=== PATIENT | male | born 1940 | race Caucasian/White ===

== ENCOUNTER → 2020-11-11 14:45 | Outpatient (BNVA) | payer MEDICARE, SELFPAY | PROVIDERS: Family Provider Family Medicine; PCP Family Medicine; Visit Provider Family Medicine | DX: I10 Essential (primary) hypertension (principal); E78.2 Mixed hyperlipidemia; E11.40 Type 2 diabetes mellitus with diabetic neuropathy, unspecified; M10.9 Gout, unspecified; Z79.4 Long term (current) use of insulin | CPT/HCPCS: 80053; 80061; 83036 ==

== ENCOUNTER → 2021-01-06 14:16 | Outpatient (BNVA) | payer MEDICARE, SELFPAY | PROVIDERS: Family Provider Family Medicine; PCP Family Medicine; Referring Provider Family Medicine; Visit Provider Family Medicine | DX: I13.0 Hypertensive heart and chronic kidney disease with heart failure and stage 1 through stage 4 chronic kidney disease, or unspecified chronic kidney disease (principal); N18.5 Chronic kidney disease, stage 5; I50.33 Acute on chronic diastolic (congestive) heart failure | CPT/HCPCS: 80048 ==

== ENCOUNTER → 2021-03-05 11:44 | Outpatient (BNVA) | payer MEDICARE, SELFPAY | PROVIDERS: Family Provider Family Medicine; PCP Family Medicine; Visit Provider Family Medicine | DX: J44.9 Chronic obstructive pulmonary disease, unspecified (principal); N18.5 Chronic kidney disease, stage 5; Z79.4 Long term (current) use of insulin; E11.22 Type 2 diabetes mellitus with diabetic chronic kidney disease; I12.0 Hypertensive chronic kidney disease with stage 5 chronic kidney disease or end stage renal disease | CPT/HCPCS: 80053; 83036; 83735; 84100; 85025 ==

== ENCOUNTER 2021-03-18 06:00 | Outpatient (RCR) | payer MEDICARE, SELFPAY | END 2021-03-25 23:59 | disposition home or self-care (01) | LOC: MOT 06:00 | PROVIDERS: PCP Family Medicine; Visit Provider Family Medicine | DX: I50.33 Acute on chronic diastolic (congestive) heart failure (principal) | CPT/HCPCS: 97140; 97166 ==

== ENCOUNTER → 2021-04-07 17:30 | Outpatient (BNVA) | payer MEDICARE, SELFPAY | PROVIDERS: PCP Family Medicine; Visit Provider Family Medicine | DX: E11.9 Type 2 diabetes mellitus without complications (principal); N18.5 Chronic kidney disease, stage 5; I10 Essential (primary) hypertension; L97.929 Non-pressure chronic ulcer of unspecified part of left lower leg with unspecified severity; I50.33 Acute on chronic diastolic (congestive) heart failure; E88.09 Other disorders of plasma-protein metabolism, not elsewhere classified; E46 Unspecified protein-calorie malnutrition; L97.922 Non-pressure chronic ulcer of unspecified part of left lower leg with fat layer exposed; E87.8 Other disorders of electrolyte and fluid balance, not elsewhere classified; E87.5 Hyperkalemia; E83.39 Other disorders of phosphorus metabolism; R01.1 Cardiac murmur, unspecified; D63.1 Anemia in chronic kidney disease; Z91.19 Patient's noncompliance with other medical treatment and regimen; Z59.8 Other problems related to housing and economic circumstances; Z79.4 Long term (current) use of insulin | CPT/HCPCS: 80053; 81000; 83735; 84100; 85025 ==

== ENCOUNTER 2021-04-08 13:32 | Outpatient (CLI) | payer MEDICARE, SELFPAY | END 2021-04-08 13:33 | disposition home or self-care (01) | PROVIDERS: PCP Family Medicine; Visit Provider Nurse Practitioner Family | DX: E11.622 Type 2 diabetes mellitus with other skin ulcer (principal); L97.821 Non-pressure chronic ulcer of other part of left lower leg limited to breakdown of skin; Z87.891 Personal history of nicotine dependence | CPT/HCPCS: 11042; 87070; 87077; 87176; 87186; 87205; G0463 ==

== ENCOUNTER 2021-04-11 14:34 | Outpatient (CLI) | payer MEDICARE, SELFPAY | END 2021-04-11 14:35 | disposition home or self-care (01) | LOC: WOUND 14:35 | PROVIDERS: PCP Family Medicine; Visit Provider Surgery | DX: L97.821 Non-pressure chronic ulcer of other part of left lower leg limited to breakdown of skin; E11.622 Type 2 diabetes mellitus with other skin ulcer | CPT/HCPCS: 29581 ==

== ENCOUNTER 2021-04-15 13:43 | Outpatient (CLI) | payer MEDICARE, SELFPAY | END 2021-04-15 13:44 | disposition home or self-care (01) | LOC: WOUND 13:46 | PROVIDERS: PCP Family Medicine; Visit Provider Nurse Practitioner Family | DX: E11.622 Type 2 diabetes mellitus with other skin ulcer (principal); L97.822 Non-pressure chronic ulcer of other part of left lower leg with fat layer exposed; Z87.891 Personal history of nicotine dependence | CPT/HCPCS: 11042 ==

== ENCOUNTER 2021-04-22 13:38 | Outpatient (CLI) | payer MEDICARE, SELFPAY | END 2021-04-22 13:39 | disposition home or self-care (01) | LOC: WOUND 13:41 | PROVIDERS: PCP Family Medicine; Visit Provider Thoracic Surgery (Cardiothoracic Vascular Surgery) | DX: E11.622 Type 2 diabetes mellitus with other skin ulcer (principal); L97.822 Non-pressure chronic ulcer of other part of left lower leg with fat layer exposed; Z87.891 Personal history of nicotine dependence | CPT/HCPCS: 11042; 87070; 87077; 87176; 87186; 87205; A6252 ==

== ENCOUNTER 2021-04-25 14:04 | Outpatient (CLI) | payer MEDICARE, SELFPAY | END 2021-04-25 14:05 | disposition home or self-care (01) | LOC: WOUND 14:05 | PROVIDERS: PCP Family Medicine; Visit Provider Nurse Practitioner Family | DX: E11.622 Type 2 diabetes mellitus with other skin ulcer; L97.822 Non-pressure chronic ulcer of other part of left lower leg with fat layer exposed; I87.2 Venous insufficiency (chronic) (peripheral) | CPT/HCPCS: 29581 ==

== ENCOUNTER 2021-04-29 13:06 | Outpatient (CLI) | payer MEDICARE, SELFPAY | END 2021-04-29 13:07 | disposition home or self-care (01) | LOC: WOUND 13:07 | PROVIDERS: PCP Family Medicine; Visit Provider Thoracic Surgery (Cardiothoracic Vascular Surgery) | DX: E11.622 Type 2 diabetes mellitus with other skin ulcer (principal); L97.822 Non-pressure chronic ulcer of other part of left lower leg with fat layer exposed; Z87.891 Personal history of nicotine dependence | CPT/HCPCS: 11042 ==

== ENCOUNTER 2021-05-06 14:03 | Outpatient (CLI) | payer MEDICARE, SELFPAY | END 2021-05-06 14:04 | disposition home or self-care (01) | PROVIDERS: PCP Family Medicine; Visit Provider Thoracic Surgery (Cardiothoracic Vascular Surgery) | DX: E11.622 Type 2 diabetes mellitus with other skin ulcer (principal); L97.822 Non-pressure chronic ulcer of other part of left lower leg with fat layer exposed; Z87.891 Personal history of nicotine dependence | CPT/HCPCS: 11042 ==

== ENCOUNTER 2021-05-14 06:55 | Outpatient (CLI) | payer MEDICARE, SELFPAY ==
--- NOTE | 2021-05-14 07:08 | USCV_ITS ---
Leonel Driscoll Age: 81 Gender: M : 1940 Exam Date: 05/14/2021 06:55 Ordering Phys: Leonel Nye MD (Andy) ([email or web address]) Technologist: Tex Hartmann Sales And Marketing Representative Exam Location[place] [facility] [place] Indication: TYPE II DM WITH SKIN ULCER RIGHT LEFT Brachial 147.00 mmHg Brachial 154.00 mmHg Pressure (mmHg) Waveform Pressure (mmHg) Waveform DPA 58.00 Pre-Exercise Toe Pressure 92.00 Pre-Exercise Toe/Brachial Index 0.60 FINDINGS Noncompressible vessel in the left ankle Abnormal resting TBI of 0.6 on the left side CONCLUSIONS 1. Features of mild peripheral artery disease on the left side 2. Some features of arterial sclerosis Dr Rose Cheung MD [facility] (Electronically Signed) Final Date: 14 May 2021 22:25 S
== END 2021-05-14 06:56 | disposition home or self-care (01) ==
LOC: RAD 07:00
PROVIDERS: PCP Family Medicine; Visit Provider Thoracic Surgery (Cardiothoracic Vascular Surgery)
DX: E11.622 Type 2 diabetes mellitus with other skin ulcer (principal)
CPT/HCPCS: 93922

== ENCOUNTER 2021-05-14 07:55 | Outpatient (CLI) | payer MEDICARE, SELFPAY | END 2021-05-14 07:56 | disposition home or self-care (01) | LOC: WOUND 07:56 | PROVIDERS: PCP Family Medicine; Visit Provider Nurse Practitioner Family | DX: E11.622 Type 2 diabetes mellitus with other skin ulcer (principal); L97.822 Non-pressure chronic ulcer of other part of left lower leg with fat layer exposed; Z87.891 Personal history of nicotine dependence | CPT/HCPCS: 11042; 93922 ==

== ENCOUNTER 2021-05-18 14:03 | Inpatient (IN) | payer MEDICARE, SELFPAY ==
[2021-05-18] VITALS (29 sets, daily range): BP systolic 63–210; BP diastolic 33–108; PULSE 59–94; RESP 15–24; TEMP 35.6–36.5; O2SAT 70–100; BMI 25.0
--- NOTE | 2021-05-18 14:25 | ECG_ITS ---
[facility] Test Date: 2021-05-18 Pat Name: Leonel Driscoll Department: Room: Gender: Male Field Assembly Supervisor: : 1940 Requested By: Jann Echavarria Order Number: [id number] Floyd MD: Rose Cheung M.D. Measurements Intervals [place] Rate: 61 P: [place]: QRS: 89 QRSD: 158 T: -82 QT: 449 QTc: 454 Interpretive Statements First-degree AV block with intermittent A-V dissociation INTRAVENTRICULAR CONDUCTION DELAY [130+ ms QRS DURATION] Compared to ECG 04/07/2016 15:21:12 Ventricular premature complex(es) now present Aberrant conduction of supraventricular beat(s) now present Intraventricular conduction delay now present Sinus bradycardia no longer present Sinus arrhythmia no longer present First degree AV block no longer present Right bundle-branch block no longer present Right ventricular hypertrophy no longer present Myocardial infarct finding no longer present Electronically Signed On 05-18-2021 18:37:01 CDT by Rose Cheung M.D. [email or web address].81[facility] medical groupBlinkbuggypremier health [facility].[employer]/store/NU/[id number] f
[2021-05-18] MEDS: dextrose 50% syringe 50 mL IVP (14:27)
--- NOTE | 2021-05-18 14:49 | W.ED.GENADLT ---
HPI - General Adult General: Chief complaint: Altered Mental Status Stated complaint: HYPOGLYCEMIA, HIGH BP Time Seen by Provider: 05/18/21 14:05 History of Present Illness: HPI narrative: Patient is 81-year-old male with history of diabetes on glipizide only presents emergency room after an episode of hypoglycemia altered mental status. Patient last took glipizide yesterday night. Earlier today, patient was noted to have a glucose of 30 and obtunded. EMS arrived, administered D50 with improvement of glucose of 78. On arrival, patient is AAO x3. No focal complaints at this time. Patient received another amp of D50 in the emergency room. Onset: unknown Duration:1 day Location:home Severity: moderate Review of Systems Narrative: Constitutional: No fever, no chills. HEENT: No vision changes CV: No chest pain, no palpitations PULM: no cough, no dyspnea. GI: No abdominal pain, no N/V/D. : No dysuria MSKEL: No muscle pain SKIN: No new rashes, no lesions. NEURO: No headache, no focal weakness. 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 Diabetic neuropathy Gout Hyperkalemia Hx of Hyperlipidemia Peripheral neuropathy Type 2 diabetes mellitus Surgical History H/O cataract extraction H/O hernia repair Previous back surgery S/P appendectomy S/P tonsillectomy Family History Brother Hypertension Social History Smoking and tobacco status: former smoker Quit status (tobacco): has quit using tobacco Year quit tobacco: 2005 Second hand smoke exposure: No Alcohol intake: current Alcohol intake frequency: other Alcohol type: other Physical Exam Narrative: EXAM NARRATIVE: Head: Atraumatic Eyes: PERRL, conjunctiva without injection ENT: Mucous membrane moist NECK: Supple, ROM intact LUNGS: LCTAB, no crackles/rhonchi CV: RRR ABDOMEN: Soft, nontender in all quadrants EXTREMITY: Normal ROM SKIN: No rash or erythema NEURO: Awake and alert, no focal motor deficits PSYCH: Normal mood and affect Procedures Central Line Placement Right IJ: Time Out Performed: Yes Patient Placed on Monitor/Pulse Ox: Yes MD Prep: mask, gown and gloves Central Line Prep: Povidone-Iodine 1% and Chlorhexidine scrub Local Anesthetic: lidocaine 1% Amount of anesthesia used (mL): 5 Ultrasound Used for Placement: Yes Central Line Lumen Inserted: double and triple Post Procedure: sutured in place Post Procedure X-Ray: tip of catheter in good position Patient Tolerated Procedure: well Complications: none Course Vital Signs: Vital signs: Vital Signs Temperature 98.3 F 05/22/21 20:00 Pulse Rate 65 05/22/21 21:45 Respiratory Rate 13 05/22/21 21:45 Blood Pressure 142/62 05/22/21 20:15 Pulse Oximetry 96 05/22/21 21:45 MDM - General Adult MDM Narrative: Medical decision making narrative: 81-year-old male with history of diabetes on glipizide presenting to the emergency room for hypoglycemia. On exam, he is hemodynamically stable patient. 1 amp of D50 with significant improvement in glucose. Patient no longer altered at this time. However, given the fact the patient is on glizipide will need prolonged observation at this time for hypoglycemia In addition, he has creatinine of 6.5. BUN is 149. Case was discussed with dough molder Dr. Dewitt who agrees with emergent dialysis. Please refer to procedure note for dialysis line XR confirmed placement of the dialysis catheter. On bicarb drip. Disposition: ICU Lab Data: Labs: Lab Results 05/18/21 05/18/21 05/18/21 14:45 14:50 14:50 WBC 8.4 10^3/uL 10^3/ uL (4.0-10.0) RBC 3.02 10^6/uL L 10 ^6/uL (4.1-5.3) Hgb 8.6 g/dL L g/dL (11.7-16.6) Hct 27.8 % L % (42.0-52.0) MCV 92.1 fl fl (80-94) MCH 28.5 pg pg (28.0-34.0) MCHC 30.9 g/dL g/dL (30.0-36.0) RDW 17.0 % H % (12.1-15.1) Plt Count 124 10^3/cmm L 10 ^3/cmm (130-400) MPV 13.2 fL H fL (7.4-10.4) Neut % (Auto) 86.2 % % Lymph % (Auto) 7.0 % % Chester % (Auto) 5.4 % % Eos % (Auto) 0.8 % % Baso % (Auto) 0.2 % % Neut # (Auto) 7.22 10^3/uL 10^3 /uL (1.8-7.7) Lymph # (Auto) 0.6 10^3/uL L 10^ 3/uL (0.8-4.8) Chester # (Auto) 0.5 10^3/uL 10^3/ uL (0.2-0.9) Eos # (Auto) 0.1 10^3/uL 10^3/ uL (0.0-0.8) Baso # (Auto) 0.0 10^3/uL 10^3/ uL (0.0-0.1) Nucleated RBC % (a uto) 0 % % Nucleated RBCs # 0.0 /100WBC /100W BC Specimen Type Sample Site ABG pH ABG pCO2 ABG pO2 ABG HCO3 ABG O2 Saturation ABG Base Excess Mac Test A-a O2 Gradient Hematocrit Hgb O2 Saturation Carboxyhemoglobin Methemoglobin Total Hemoglobin Ionized Calcium O2 Delivery Device FiO2 Special Procedures Tech ID Sodium 133 mmol/L L mmol /L (136-145) Potassium 6.2 mmol/L H mmol /L (3.5-5.1) Chloride 102 mmol/L mmol/L (98-107) Carbon Dioxide 8 mmol/L L* mmol/ L (22-29) Anion Gap 29.2 H (5-19) BUN 149 mg/dL H* D mg /dL (8-23) Creatinine 6.5 mg/dL H* mg/d L (0.7-1.2) GFR Calculation Not Reportable Glucose 174 mg/dL H mg/dL (65-115) POC Glucose 194 mg/dL H mg/dL (70-110) Calculated Osmolal ity 329 mOsm/kg H mOs m/kg (285-295) Calcium 7.7 mg/dL L mg/dL (8.5-10.5) Total Bilirubin 0.3 mg/dL mg/dL (0.15-1.2) AST 11 U/L U/L (0-40) ALT 6 U/L U/L (0-41) Alkaline Phosphata se 102 IU/L IU/L (40-130) Troponin T Baselin e Total Protein 5.5 g/dL L g/dL (6.6-8.7) Albumin 3.5 g/dL g/dL (3.5-5.2) Globulin 2.0 g/dL g/dL (1.3-4.6) Lipase 74 U/L H U/L (13-60) 05/18/21 05/18/21 05/18/21 14:50 15:15 16:12 WBC RBC Hgb Hct MCV MCH MCHC RDW Plt Count MPV Neut % (Auto) Lymph % (Auto) Chester % (Auto) Eos % (Auto) Baso % (Auto) Neut # (Auto) Lymph # (Auto) Chester # (Auto) Eos # (Auto) Baso # (Auto) Nucleated RBC % (a uto) Nucleated RBCs # Specimen Type Arterial Sample Site Brachial, left ABG pH 7.11 L* (7.35-7.45) ABG pCO2 23.4 mmHg L mmHg (35-45) ABG pO2 102.0 mmHg H mmHg (80.0-100.0) ABG HCO3 7.5 mmol/L L mmol /L (22-26) ABG O2 Saturation 97.6 ABG Base Excess -20.4 mmol/L L mm ol/L (-2.0-2.0) Mac Test N/a A-a O2 Gradient 2.0 mmHg L mmHg (5-10) Hematocrit 27.8 % L % (42-52) Hgb O2 Saturation 95.9 % % (95-100) Carboxyhemoglobin 0.8 %THgb %THgb (0.4-20.1) Methemoglobin 1.0 % % (0.4-1.5) Total Hemoglobin 9.1 g/dL L g/dL (14-18) Ionized Calcium 1.2 mmol/L mmol/L (1.1-1.4) O2 Delivery Device Room air FiO2 21.0 % % Special Procedures Tech ID Amh Sodium 132.0 mmol/L mmol /L (131-143) Potassium 6.0 mmol/L H mmol /L (3.5-5.0) Chloride Carbon Dioxide Anion Gap BUN Creatinine GFR Calculation Glucose 183.0 mg/dL H mg/ dL (70-115) POC Glucose 175 mg/dL H mg/dL (70-110) Calculated Osmolal ity Calcium Total Bilirubin AST ALT Alkaline Phosphata se Troponin T Baselin e 443 ng/L H* ng/L (0-15) Total Protein Albumin Globulin Lipase Imaging Data^: Other Imaging: Radiologist's impression: [id number] [place], [place] [address]HDum ReportSigned Patient: Leonel Driscoll #: [id number]: 1940Acct#:[id number]/Sex: 81 / MADM Date: 05/18/21Loc: ICURoom/Bed: [id number] Dr: Atul Jackson MD Ordering Provider/Ordering MD: Rolando Maldonado MD Date of Service: 05/18/21 Procedure(s): XR chest 1V portable [id number] Accession Number(s): [id number] Report Number: [id number] PROCEDURE INFORMATION: Exam: XR Chest Exam date and time: 05/18/2021 3:55 PM Age: 81 years old Clinical indication: Shortness of breath; Additional info: Ck, SOB TECHNIQUE: Imaging protocol: XR of the chest. Views: 1 view. COMPARISON: CR Chest 1 [place] [id number] 04/07/2016 3:08 PM FINDINGS: Lungs: Unremarkable. No consolidation. Pleural spaces: Unremarkable. No pleural effusion. No pneumothorax. Heart/Mediastinum: Unremarkable. No cardiomegaly. Bones/joints: Metallic sternotomy wires are in place. Other findings: No interval changes are seen comparing to prior examination is XR/XR chest 1V portable [id number] IMPRESSION: 1. No acute findings. 2. Status post sternotomy Radiation Dose CTDIVOL = (mGy): DLP = (mGy-cm) Dictated By:Jackie Miranda By:Jackie Miranda Date/Time:05/18/21 1717DD/ 1555 Critical Care Time Critical Care Time: Critical Care Time: Yes Total Critical Care Time: 45 Attestation: Given the high probability of imminent or life threatening deterioration of the patient?s condition without intervention, the patient was immediately assessed by myself and the nurse, and cardiac monitoring initiated. The patient was also placed on oxygen and continuous pulse oximetry initiated. During the course of the patient?s stay, I spent a considerable amount of time at the bedside performing serial re-evaluations of the patient?s hemodynamic and clinical status because of the recognized potential threat to life or limb in this condition. Clinical management of this patient involved high complexity decision making to assess, manipulate, and support vital organ system failure. I then had a chance to review all of the available laboratory and radiographic studies obtained today, and I also reviewed old records available to me at the time. Sequential vital signs were obtained. Critical care time noted below was time spent engaged in work directly related to the individual patient?s care, not including time performing procedures; however it does include time spent at the immediate bedside or elsewhere on the floor or unit. TOTAL CRITICAL CARE TIME ELAPSED: 45 minutes. BODY SYSTEM AT HIGHEST RISK: Renal Discharge Plan Discharge Patient Disposition: Admitted As Inpatient Admit Provider: Atul Jackson Clinical Impression: Hypoglycemia Condition: Stable Coding Level of Care Code ED Client Success Specialist for Willie Wilks
[2021-05-18 14:52] LABS: Glucose Point of Care 194 mg/dL (70-110)
[2021-05-18 15:04] LABS: Basophils % 0.2 %; Eosinophils # 0.1 10^3/uL (0.0-0.8); Eosinophils % 0.8 %; Hematocrit 27.8 % (42.0-52.0); Hemoglobin 8.6 g/dL (11.7-16.6); Lymphocytes # 0.6 10^3/uL (0.8-4.8); Mean Corpuscular HGB Conc 30.9 g/dL (30.0-36.0); Mean Corpuscular Hemoglobin 28.5 pg (28.0-34.0); Mean Corpuscular Volume 92.1 fl (80-94); Mean Platelet Volume 13.2 fL (7.4-10.4); Monocytes # 0.5 10^3/uL (0.2-0.9); Monocytes % 5.4 %; Neutrophils # 7.22 10^3/uL (1.8-7.7); Neutrophils % 86.2 %; Nucleated Red Blood Cells % 0 %; Platelet Count 124 10^3/cmm (130-400); Red Blood Count 3.02 10^6/uL (4.1-5.3); White Blood Count 8.4 10^3/uL (4.0-10.0)
[2021-05-18 15:21] LABS: Glucose Point of Care 175 mg/dL (70-110)
[2021-05-18 15:22] LABS: Alanine Aminotransferase 6 U/L (0-41); Albumin Level 3.5 g/dL (3.5-5.2); Alkaline Phosphatase 102 IU/L (40-130); Anion Gap 29.2 (5-19); Aspartate Amino Transferase 11 U/L (0-40); Calcium 7.7 mg/dL (8.5-10.5); Chloride 102 mmol/L (98-107); Glucose 174 mg/dL (65-115); Lipase 74 U/L (13-60); Potassium 6.2 mmol/L (3.5-5.1); Sodium 133 mmol/L (136-145); Total Bilirubin 0.3 mg/dL (0.15-1.2); Total Protein 5.5 g/dL (6.6-8.7)
[2021-05-18 15:30] LABS: Osmolality Calculated 329 mOsm/kg (285-295)
[2021-05-18 15:35] LABS: Blood Urea Nitrogen 149 mg/dL (8-23); Carbon Dioxide 8 mmol/L (22-29)
[2021-05-18 15:36] LABS: Troponin(5th) Baseline 443 ng/L (0-15)
--- NOTE | 2021-05-18 15:55 | XRR_ITS ---
PROCEDURE INFORMATION: Exam: XR Chest Exam date and time: 05/18/2021 3:55 PM Age: 81 years old Clinical indication: Shortness of breath; Additional info: Ck, SOB TECHNIQUE: Imaging protocol: XR of the chest. Views: 1 view. COMPARISON: CR Chest 1 [place] [id number] 04/07/2016 3:08 PM FINDINGS: Lungs: Unremarkable. No consolidation. Pleural spaces: Unremarkable. No pleural effusion. No pneumothorax. Heart/Mediastinum: Unremarkable. No cardiomegaly. Bones/joints: Metallic sternotomy wires are in place. Other findings: No interval changes are seen comparing to prior examination is XR/XR chest 1V portable [id number] IMPRESSION: 1. No acute findings. 2. Status post sternotomy Radiation Dose CTDIVOL = (mGy): DLP = (mGy-cm)
--- NOTE | 2021-05-18 15:55 | USR_ITS ---
PROCEDURE INFORMATION: Exam: US Retroperitoneal; Complete; Kidneys and Bladder Exam date and time: 05/18/2021 3:55 PM Age: 81 years old Clinical indication: Abnormal findings; Abnormal lab test; Other: Abnormal labs; Additional info: Ck TECHNIQUE: Imaging protocol: Real-time ultrasound of the retroperitoneum with image documentation. Complete exam focused on the kidneys and bladder. COMPARISON: No relevant prior studies available. FINDINGS: Pleural space: Right lower lobe pleural effusion is seen. Right kidney: Normal. No stones. No hydronephrosis. 11.7 cm x 4.8 cm x 5.7 cm Left kidney: Not visible due to bowel gas. Aorta: the abdominal aorta measures 1.8 cm. Urinary bladder: Unremarkable. Prevoid volume 115 cc. US/US renal BI* [id number] IMPRESSION: 1. Unremarkable right kidney and bladder. 2. The left kidney is not visible due to bowel gas Radiation Dose CTDIVOL = (mGy): DLP = (mGy-cm)
--- NOTE | 2021-05-18 16:03 | PM.CONSULT ---
Providers/Reason For Consult Consulting Physician/Specialty*: amber sánchez md/ telenephrology Reason for Consult*: CHANO, CKD stage 4/5, inc AGMA, hyperkalemia Requesting Physician: hospitalist service Primary Care Provider: Malaika Mayorga MD History of Present Illness History of Present Illness Leonel Driscoll is a 81 year old male h/o CKD stage 4+- b/l cr 3.4 mg/dl, DM, PVD- wound on foot, cardiac valvular heart disease, CAD s/p CABG, recent hypoglycemia- taken off of insulin. h/o gout. Pt was supposed to see renal on May. PT here today w/ n/v/cant keep food down, AMS. PT found w/ inc AGMA, hyperkalemia, AMS. Renal called to consult. Review of Systems General: Reports: 10 or more systems reviewed and unremarkable except in HPI and below Narrative: AMS, weak, n/v/poor appetite, hypog;ycemic episodes, and pain and distention, chronic leg wound. denies urinary complaintes Meds/Allergies Home Medications and Allergies Home Medications Medication Instructions Recorded Confirmed Last Taken Type hydrochlorothiazide 50 mg tablet 50 mg PO QAM 90 Days #90 tab 11/11/20 05/18/21 05/17/21 Rx furosemide 20 mg tablet 40 mg PO QAM #60 tab 01/27/21 05/18/21 05/17/21 Rx glipizide 10 mg tablet 10 mg PO DAILY 90 Days #90 tab 04/07/21 05/18/21 05/17/21 Rx sevelamer carbonate 800 mg tablet 800 mg PO BID 90 Days #180 tab 04/09/21 05/18/21 05/17/21 Rx allopurinol 100 mg PO DAILY 05/18/21 05/18/21 05/17/21 History atorvastatin 40 mg PO DAILY 05/18/21 05/18/21 05/17/21 History cyanocobalamin (vitamin B-12) 500 mcg PO DAILY 05/18/21 05/18/21 05/17/21 History [Vitamin B-12] glucos sul [id number]-kggar-C-Mn 1 cap PO DAILY 05/18/21 05/18/21 05/17/21 History [Glucosamine Chondroitin] lisinopril 20 mg PO DAILY 05/18/21 05/18/2105/17/21 History pregabalin 25 mg PO BEDTIME 05/18/21 05/18/21 05/17/21 History Allergies Allergy/AdvReac Type Severity Reaction Status Date / Time No Known Allergies Allergy Verified 04/09/21 11:16 Current Medications Current Medications Generic Name Dose Route Start Last Admin Trade Name Freq PRN Reason Stop Dose Admin Calcium Gluconate 1 gm/ Sodium 60 mls @ 120 mls/hr 05/18/21 16:00 05/18/21 15:53 Chloride IV 05/18/21 16:29 120 mls/hr ONCE ONE Administration PFSH Acute PFSH: Medical History Benign hypertension CKD (chronic kidney disease) 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 Diabetic neuropathy Gout Hyperkalemia Hx of Hyperlipidemia Peripheral neuropathy Type 2 diabetes mellitus Surgical History H/O cataract extraction H/O hernia repair Previous back surgery S/P appendectomy S/P tonsillectomy Family History Brother Hypertension Social History Smoking and tobacco status: former smoker Quit status (tobacco): has quit using tobacco Year quit tobacco: 2005 Second hand smoke exposure: No Alcohol intake: current Alcohol intake frequency: other Alcohol type: other Vitals/I&O/Wt Last Vital Signs Temp 97.7 F 05/18/21 14:11 Pulse 65 05/18/21 14:51 Resp 18 05/18/21 14:51 BP 100/69 05/18/21 14:51 Pulse Ox 96 05/18/21 14:51 Weight last 48 hrs Weight 72.575 kg Physical Exam Narrative: EXAM NARRATIVE: elderly confused in bed, NARD vs noted heent- nc/at, eomi, anicteric neck supple lungs- clear b/l heart- reg, no rub abd soft, distended, poor bs ext no edema- LLE bandaged ulcer A&P Additional A&P Information 81 yr old man 1. 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 CHANO-Q progression of CKD -also prerenal as did not eat for a few days -concern for ATN- on thiazide and satish-i, and lasix and glipizide- denies nsaid use -check renal us -check xray- no chf or pna -check urine studeis -start bicarb drip -check abg may need emergent dialysis- pt and consent to dialysis if needed 3. hyperkalemia -from CHANO and satish-i in setting of ckd 4. inc AGMA- check ua, lactate. Can be from sepsis, lactate, less likely DKA, concern starvation acidosis, concern form renal failure -check abg -bicarb drip -may need dialysis 5. hypoglycemia- stop glipizide- long half life w/ CKD/ ESRD -use insulin as needed for DM 6. abd pain- check xray- Q from dM. further eval per medicine 7. hyponatremia- check urine lytes -likely from CHANO and prerenal 8. anemia eval- iton syidies 9. renal bone - mineral metabolism- check vit d, pth, ca, phos seen and examine dw/ RN- telehealth visit informed consent for telehealth obtained -discussed w/ pt, his , rN, and Dr. Echavarria Consult Attestations Medical Necessity Statement: CHANO, AMS, met acidosis, Q sepsis, hypoglycemia Time Spent in Patient Care: Greater than 35 minutes (>than 50% of time spent in counselling and/or direct pt care on unit). Coding Level of Care Code Acute Pin Inserter Regulator for Willie Wilks
--- NOTE | 2021-05-18 16:16 | XRR_ITS ---
PROCEDURE INFORMATION: Exam: XR Abdomen Exam date and time: 05/18/2021 4:16 PM Age: 81 years old Clinical indication: Abdominal pain; Generalized; Additional info: Abd pain and distention, acidosis, abd distention and pain TECHNIQUE: Imaging protocol: XR of the abdomen. Views: Frontal supine view of the abdomen. 1 View. Total images: 1 COMPARISON: CR (CHEST, ) 05/18/2021 4:12 PM FINDINGS: Gastrointestinal tract: Bowel gas pattern is nondistended and nonobstructive. Intraperitoneal space: Upper abdomen has been clipped from the radiograph. Vasculature: Incidental phleboliths noted. Atherosclerosis is evident. Bones/joints: Moderate marginal osteophytes are noted. Spinal degenerative changes are evident. Other findings: Inum-dw-qartkgzg stool burden. XR/XR abdomen 1V* [id number] IMPRESSION: 1. Normal bowel gas pattern 2. Sdty-cs-txpjvczb stool burden. Radiation Dose CTDIVOL = (mGy): DLP = (mGy-cm)
[2021-05-18] MEDS: sodium bicarbonate 150 MEQ in dextrose 5% 1,000 ML 125 MEQ IV (16:19)
[2021-05-18] MEDS: sodium polystyrene sulfonate 15 gm/60 mL Btl 30 GM PO (16:19)
[2021-05-18 16:23] LABS: ABG PCO2 23.4 mmHg (35-45); Arterial Blood Gas Hematocrit 27.8 % (42-52); Base Excess ABG -20.4 mmol/L (-2.0-2.0); Blood Gas Operator Identificat AMH; Blood Gas Sample Site Brachial, left; Blood Gas Sample Type Arterial; Carboxyhemoglobin 0.8 %THgb (0.4-20.1); HCO3 ABG 7.5 mmol/L (22-26); HGB O2 Sat 95.9 % (95-100); Ionized Calcium Level - ABG 1.2 mmol/L (1.1-1.4); Oxygen Device ROOM AIR; Oxygen Saturation ABG 97.6; Total Hemoglobin 9.1 g/dL (14-18)
[2021-05-18 16:29] LABS: ABG PH Result 7.11 (7.35-7.45)
--- NOTE | 2021-05-18 17:01 | CTR_ITS ---
PROCEDURE INFORMATION: Exam: CT Abdomen And Pelvis Without Contrast Exam date and time: 05/18/2021 5:01 PM Age: 81 years old Clinical indication: Nausea and vomiting; Prior surgery; Surgery type: Cabg; Patient HX: N/v. Elevated creatinine. Patient unable to keep arms above head. No oral contrast administered prior to exam. ; Additional info: Ckd, persistent n/v TECHNIQUE: Imaging protocol: Computed tomography of the abdomen and pelvis without contrast. Radiation optimization: All CT scans at this facility use at least one of these dose optimization techniques: automated exposure control; mA and/or kV adjustment per patient size (includes targeted exams where dose is matched to clinical indication); or iterative reconstruction. COMPARISON: CR XR abdomen 1V* [id number] 05/18/2021 5:36 PM RADIATION DOSE METRICS: Total DLP (mGy-cm): 1253.56 FINDINGS: Lungs: Nonspecific airspace disease at the left lung base. Pleural spaces: Small bilateral pleural effusions, right larger than left. Heart: Mild cardiomegaly is noted. Liver: TheThe liver is unremarkable in appearance. Gallbladder and bile ducts: Small calcified gallstones are noted in the gallbladder. No gallbladder wall thickening. No biliary dilatation. Pancreas: The pancreas is normal in appearance. No pancreatic duct dilatation. Spleen: The spleen is normal in size and appearance. Adrenal glands: The adrenal glands appear within normal limits. Kidneys and ureters: Nonobstructing 3 mm left renal calculus. No right renal calculi. No hydronephrosis. The ureters are unremarkable. No obstructive uropathy. 1.5 cm slightly hyperdense exophytic lesion noted in the posterolateral aspect of the right kidney, likely representing a small hyperdense cyst. Stomach and bowel: No acute gastric abnormality demonstrated. The small bowel is unremarkable as demonstrated. Air-fluid levels are noted throughout the colon. No colonic distention or mural thickening. This is consistent with nonspecific diarrheal illness. Appendix: No evidence of appendicitis. Intraperitoneal space: No free air. No significant fluid collection. Vasculature: The aorta is atherosclerotic. No aortic aneurysm. Lymph nodes: No enlarged lymph nodes. Urinary bladder: There is a Vega catheter in the urinary bladder. The urinary bladder is empty secondary to the presence of a Vega catheter. Reproductive: Unremarkable as visualized. Bones/joints: Advanced degenerative spine changes. No acute osseous abnormality. Soft tissues: Unremarkable. CT/CT abdomen pelvis wo con [id number] IMPRESSION: 1. Nonspecific airspace disease at the left lung base. This is concerning for left lower lobe pneumonia. 2. Small bilateral pleural effusions, right larger than left. 3. Air-fluid levels are noted throughout the colon without significant colonic distention or mural thickening. This is consistent with nonspecific diarrheal illness. 4. No acute abnormality demonstrated of the solid organs. COMMENTS: Consistent with the [employer]'s Incidental Findings Committee white paper (J Am Lasha Radiol 2018): Any incidental renal lesion less than 1 cm or classified as too small to characterize, or any incidental cystic renal lesion characterized as simple-appearing, is likely benign. No follow-up imaging is recommended for these lesions per consensus recommendations based on imaging criteria. Radiation Dose CTDIVOL = (mGy): DLP = 1253.56 (mGy-cm)
[2021-05-18] MEDS: bacitracin ointment Pkt 1 EACH TOPICAL (17:11)
[2021-05-18] MEDS: piperacillin-tazobactam 3.375 GM in sodium chloride 0.9% (plus) 50 ML IV (17:18)
--- NOTE | 2021-05-18 17:19 | P.HP_ITS ---
Providers/Chief Complaint Admitting Physician: Atul Jackson MD Primary Care Provider: Malaika Mayorga MD Chief Complaint: WEAKNESS; HYPOGLYCEMIA History of Present Illness eLonel Driscoll is a 81 year old male with past medical history of CAD, post CABG, CKD stage IV, hypertension, type 2 diabetes mellitus who is being worked up as an outpatient for possible dialysis presented to the ER today via EMS because of persistent altered mental status secondary to hypoglycemia. In feriorly when EMS evaluated him he was found to be hypoglycemic for which he was given 1 ampoule of D50 after which his blood sugars improved but when he came back to the ER he was again found to be hypoglycemic. Hospitalist service was consulted for admission for hypoglycemia. On further work-up for hypoglycemia CMP showed a creatinine of 6.5 with bicarb of 8 and potassium of 6.2 so nephrology was consulted. 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 He has been having persistent nausea and vomiting because of which he is not able to maintain his oral intake for last 1 week. Patient has not had any fever, difficulty in breathing, dizziness. Patient does have episodes of diarrhea. Patient is also being followed up with wound center for the wound in his left leg which as per the has been reported to be improving. Complete blood work in the ER showed white count of 8, hemoglobin of 8.6, platelet of 124, chemistry showing sodium of 133, potassium of 6.2, bicarb of 8, BUN of 149, creatinine of 6.2, baseline troponin of 443, ABG showing a pH of 7.11, PCO2 of 23.4, PO2 of 102 on room air. On examination patient is awake but confused, able to maintain his airway with blood pressure of 108 mmHg systolic and heart rate of 62 bpm. Review of Systems General: Reports: ROS unobtainable due to mental status Medications/Allergies Home Medications Medication Instructions Recorded Confirmed Last Taken Type hydrochlorothiazide 50 mg tablet 50 mg PO QAM 90 Days #90 tab 11/11/20 05/18/21 05/17/21 Rx furosemide 20 mg tablet 40 mg PO QAM #60 tab 01/27/21 05/18/21 05/17/21 Rx glipizide 10 mg tablet 10 mg PO DAILY 90 Days #90 tab 04/07/21 05/18/21 05/17/21 Rx sevelamer carbonate 800 mg tablet 800 mg PO BID 90 Days #180 tab 04/09/21 05/18/21 05/17/21 Rx allopurinol 100 mg PO DAILY 05/18/21 05/18/21 05/17/21 History atorvastatin 40 mg PO DAILY 05/18/21 05/18/21 05/17/21 History cyanocobalamin (vitamin B-12) 500 mcg PO DAILY 05/18/21 05/18/21 05/17/21 History [Vitamin B-12] glucos sul 3BPw-xxp-gaqta-C-Mn 1 cap PO DAILY 05/18/21 05/18/21 05/17/21 History [Glucosamine Chondroitin] lisinopril 20 mg PO DAILY 05/18/21 05/18/21 05/17/21 History pregabalin 25 mg PO BEDTIME 05/18/21 05/18/21 05/17/21 History Allergies Allergy/AdvReac Type Severity Reaction Status Date / Time No Known Allergies Allergy Verified 04/09/21 11:16 PFSH Acute PFSH: Medical History (Updated 05/18/21 @ 17:32 by Atlu Jackson MD) Benign hypertension CKD (chronic kidney disease) 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 Diabetic neuropathy Gout Hyperkalemia Hx of Hyperlipidemia Peripheral neuropathy Type 2 diabetes mellitus Surgical History H/O cataract extraction H/O hernia repair Previous back surgery S/P appendectomy S/P tonsillectomy Family History Brother Hypertension Social History Smoking and tobacco status: former smoker Quit status (tobacco): has quit using tobacco Year quit tobacco: 2005 Second hand smoke exposure: No Alcohol intake: current Alcohol intake frequency: other Alcohol type: other Vitals/I&O/Wt Last Vital Signs Temp 97.7 F 05/18/21 14:11 Pulse 59 L 05/18/21 16:06 Resp 18 05/18/21 16:06 BP 101/51 05/18/21 16:06 Pulse Ox 98 05/18/21 16:06 Weight last 48 hrs Weight 72.575 kg Physical Exam Narrative: EXAM NARRATIVE: General: Awake, confused, now acute distress, maintaining saturation on room air, HEENT: PERRLA, pupils bilaterally equal and reactive Chest: Normal vesicular breath sounds bilaterally, fine crackles present bilateral lower zones, equal good air entry bilaterally CVS: S1-S2 regular, soft pansystolic murmur present at apex, no tachycardia, no gallops, no rubs Abdomen: Soft, nontender, no organomegaly, bowel sounds present Neuro: No focal deficits, no facial deformity, awake, confused, moving all 4 limbs Data : 05/18/21 14:50 05/18/21 14:50 A&P Assessment and plan (1) Metabolic acidosis: Status: Acute (2) Acute renal failure: Status: Acute (3) Hyperkalemia: Status: Acute (4) Hypoglycemia: Status: Acute (5) 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: Status: Acute (6) CHF (congestive heart failure): Status: Acute Qualifiers: Heart failure type: diastolic Heart failure chronicity: acute on chronic Qualified Code(s): I50.33 - Acute on chronic diastolic (congestive) heart failure (7) CKD (chronic kidney disease): Status: Acute Qualifiers: Chronic kidney disease stage: stage 5, not on chronic dialysis Qualified Code(s): N18.5 - Chronic kidney disease, stage 5 (8) Type 2 diabetes mellitus: Status: Chronic Qualifiers: Diabetes mellitus continuous churn buttermaker insulin use: with continuous churn buttermaker use Diabetes mellitus complication status: without complication Qualified Code(s): E11.9 - Type 2 diabetes mellitus without complications; Z79.4 - continuous churn buttermaker (current) use of insulin (9) Benign hypertension: Status: Chronic (10) Nausea & vomiting: Most likely secondary to uremia. Getting CT abdomen pelvis. Will reevaluate. Zofran as needed. Status: Acute Additional A&P Information Metabolic acidosis/hyperkalemia secondary to acute renal failure: Baseline CKD stage IV: Most likely worsening secondary to home dose of lisinopril, hydrochlorothiazide. Nephrology has been consulted. Jugular Shiley has been placed. Continue with bicarb drip for now. Patient has received D50, insulin 10. Has received 1 dose of calcium gluconate. Has received 1 dose of Kayexalate Case discussed with perfume compounder. Plan for dialysis tonight. BMP post dialysis. Check urine lites, urine culture, urinalysis, hepatitis panel, CT abdomen pelvis to rule out obstructive uropathy, urine drug screen. Altered mental status: Most likely secondary to uremia along with hypoglycemia. Treatment of uremia as above. Check drug screen, alcohol level, salicylate level. Fall precaution. Frequent reorientation. If needed can start patient on Precedex drip. Hypoglycemia: History of type 2 diabetes mellitus: Hypoglycemia most likely secondary to worsening renal functions. Insulin sliding scale at low-dose protocol. Hold off on oral hypoglycemics or long-acting insulin for now. Check HbA1c. Congestive heart failure: History of CABG: Currently on room air. Mildly fluid overload. Patient is getting dialysis. Check echocardiogram. Check lipid panel. Aspirin, statin. Hypertension: Goal blood pressure less than 140/90 mmHg. Currently blood pressures soft. Hold off on oral antihypertensives for now. Start patient on midodrine 10 mg 3 times daily. CODE STATUS: Discussed with at bedside. Full code. Protonix for PUD prophylaxis. Heparin 5000 every 12 for DVT prophylaxis. N.p.o. for now. Admit to ICU. Attestations Medical Necessity Statement*: Admission for more than 2 midnights for acute renal failure in setting of stage IV CKD, metabolic acidosis/hyperkalemia, Critical Care Time: The high probability of a clinically significant, sudden or life threatening deterioration of the patient's [renal] system(s) required my full and direct attention, intervention and personal management. The critical care time is as shown. 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
--- NOTE | 2021-05-18 17:30 | XRR_ITS ---
PROCEDURE INFORMATION: Exam: XR Chest Exam date and time: 05/18/2021 5:30 PM Age: 81 years old Clinical indication: Device placement; Other: Dailysis cath; Additional info: Dialysis cath placement TECHNIQUE: Imaging protocol: XR of the chest. Views: 1 view. Total images: 1 COMPARISON: CR (CHEST, ) 05/18/2021 4:12 PM FINDINGS: Tubes, catheters and devices: Right-sided hemodialysis catheter with tip just within the right atrium. Metallic wire projecting along the soft tissues the left arm. Lungs: Unremarkable. No consolidation. Pleural spaces: Unremarkable. No pleural effusion. No pneumothorax. Heart/Mediastinum: Mild cardiomegaly stable. Bones/joints: Osseous structures are unchanged from the prior exam. Other findings: Stable postsurgical changes. XR/XR chest 1V portable [id number] IMPRESSION: 1. Mild cardiomegaly stable. 2. Right-sided hemodialysis catheter with tip just within the right atrium. No pneumothorax. 3. No acute cardiopulmonary process. Radiation Dose CTDIVOL = (mGy): DLP = (mGy-cm)
--- NOTE | 2021-05-18 17:33 | PC.NURSE ---
Attempted to call report. UC of ICU states RN will have to call me back.
[2021-05-18 17:42] LABS: Lactate (Lactic Acid level) 1.5 mmol/L (0.5-2.2); Uric Acid 5.3 mg/dL (3.4-7.0)
[2021-05-18 17:55] LABS: Glucose Point of Care 195 mg/dL (70-110)
[2021-05-18 18:11] LABS: Hepatitis C Virus Antibody Non-Reactive (Nonreactive)
[2021-05-18 18:21] LABS: Glucose Point of Care 189 mg/dL (70-110)
[2021-05-18 18:24] LABS: Creatine Phosphokinase 227 U/L (39-308); Thyroid Stimulating Hormone 3.38 uIU/mL (0.27-4.20)
[2021-05-18] MEDS: midodrine 5 mg TABLET 10 MG PO (19:25)
[2021-05-18] MEDS: ferrous gluconate 324 mg Tablet PO (19:26)
[2021-05-18] MEDS: famotidine 20 mg/2 mL INJ IVP (19:26)
[2021-05-18] MEDS: heparin 5,000 unit/mL INJ 1 mL 5000 UNIT SUBCUT (19:26)
[2021-05-18] MEDS: insulin lispro 100 unit/1 mL SUBCUT (19:27)
[2021-05-18 19:34] LABS: Glucose Point of Care 204 mg/dL (70-110)
[2021-05-18 20:40] LABS: Bacteria Urine TRACE /hpf; Bilirubin Urine Neg (Negative); Blood Urine 2+ (Negative); Glucose Urine UA Norm (Normal); Ketones Urine Negative (Negative); Leukocyte Esterase Urine Negative (Negative); Nitrate Urine Negative (Negative); Protein Urine 3+ (Negative); RBC Urine 0-4 /hpf (0-2); Specific Gravity, Urine 1.025 (1.005-1.030); Squamous Epithelial Cell Urine 0-4 /hpf (0-5); Urine Appearance Clear (CLEAR); Urine Color Yellow (Yellow); Urobilinogen Urine Norm (Negative); WBC Urine 0-4 /hpf (0-5); pH Urine 5 (5-7)
[2021-05-18 20:41] LABS: Add Urine Culture? No; Amorphous Sediment Urine 3+ /hpf; Amphetamines Screen Urine Negative (Negative); Barbiturates Screen Urine Negative (Negative); Benzodiazepines Screen Urine Negative (Negative); Cocaine Screen Urine Negative (Negative); Opiate Screen Urine Negative (Negative); PCP Screen Urine Negative (Negative); THC Screen Urine Negative (Negative)
[2021-05-18 20:46] LABS: Potassium, Radom Urine 24 mmol/L; Urine Random Chloride 21 mmol/L; Urine Random Sodium 21 mmol/L
[2021-05-18 21:02] LABS: Procalcitonin 0.23 ng/mL (0-0.5)
[2021-05-18] MEDS: pregabalin 25 mg Capsule PO (21:20)
[2021-05-18 21:48] LABS: Hepatitis B Surface AB 3.5 (11.5-1000); Hepatitis B Surface Antigen Non-Reactive (Nonreactive); Hepatitis C Virus Antibody Non-Reactive (Nonreactive)
[2021-05-18 22:57] LABS: Glucose Point of Care 87 mg/dL (70-110)
[2021-05-18 23:09] LABS: Calcium 7.9 mg/dL (8.5-10.5)
[2021-05-19] VITALS (66 sets, daily range): BP systolic 76–163; BP diastolic 35–136; PULSE 58–91; RESP 6–32; TEMP 36.4–37.2; O2SAT 87–100
[2021-05-19] MEDS: piperacillin-tazobactam 3.375 GM in sodium chloride 0.9% (plus) 50 ML IV ×3 (01:23→18:36)
[2021-05-19] MEDS: dextrose 50% syringe 50 mL 25 ML IVP (01:39)
[2021-05-19] MEDS: dextrose 5 % 500 ML 50 ML IV (02:05)
--- NOTE | 2021-05-19 02:12 | PC.NURSE ---
Addendum entered by Lakshmi Miranda RN 05/19/21 02:38: Blood glucose 85 on recheck. Original Note: Blood glucose 66, 1/2 amp D50 given per hypoglycemia protocol. Blood glucose on recheck 86, started D5W at 50ml per hour per hypoglycemic protocol.
[2021-05-19 02:19] LABS: Glucose Point of Care 85 mg/dL (70-110)
[2021-05-19 02:19] LABS: Glucose Point of Care 66 mg/dL (70-110)
[2021-05-19 04:12] LABS: Glucose Point of Care 87 mg/dL (70-110)
[2021-05-19 04:26] LABS: Basophils # 0.1 10^3/uL (0.0-0.1); Basophils % 0.6 %; Eosinophils # 0.3 10^3/uL (0.0-0.8); Eosinophils % 2.8 %; Hematocrit 27.6 % (42.0-52.0); Hemoglobin 8.7 g/dL (11.7-16.6); Lymphocytes # 0.5 10^3/uL (0.8-4.8); Lymphocytes % 5.3 %; Mean Corpuscular HGB Conc 31.5 g/dL (30.0-36.0); Mean Corpuscular Hemoglobin 28.8 pg (28.0-34.0); Mean Corpuscular Volume 91.4 fl (80-94); Mean Platelet Volume 13.7 fL (7.4-10.4); Monocytes # 0.9 10^3/uL (0.2-0.9); Neutrophils # 8.32 10^3/uL (1.8-7.7); Neutrophils % 81.8 %; Nucleated Red Blood Cells % 0 %; Platelet Count 134 10^3/cmm (130-400); Red Blood Count 3.02 10^6/uL (4.1-5.3); Red Cell Distribution Width 17.2 % (12.1-15.1); White Blood Count 10.2 10^3/uL (4.0-10.0)
[2021-05-19 05:08] LABS: Estmated Average Glucose 143; Hemoglobin A1C 6.6 % (4.0-6.0)
[2021-05-19 05:24] LABS: 25 Hydroxy Vitamin D 10 ng/mL (30-100); Alanine Aminotransferase 6 U/L (0-41); Albumin Level 2.9 g/dL (3.5-5.2); Alkaline Phosphatase 95 IU/L (40-130); Anion Gap 22.7 (5-19); Aspartate Amino Transferase 17 U/L (0-40); Blood Urea Nitrogen 75 mg/dL (8-23); Calcium 7.6 mg/dL (8.5-10.5); Carbon Dioxide 16 mmol/L (22-29); Chloride 104 mmol/L (98-107); Chol HDL Ratio 3.08 mg/dL (1.0-5.00); Cholesterol 111 mg/dL (0-200); Ferritin 265 ng/mL (30-400); Glucose 85 mg/dL (65-115); HDL Cholesterol 36 mg/dL (60-100); Iron 38 ug/dL (59-158); LDL Cholesterol Calculated 61 mg/dL (50-129); Magnesium 1.6 mg/dL (1.7-2.3); NT Pro B Type Natriuretic Pept 19607 pg/mL (0-450); Osmolality Calculated 310 mOsm/kg (285-295); Percent Saturation 21.5 % (20-50); Phosphorus 5.7 mg/dL (2.5-4.5); Potassium 3.7 mmol/L (3.5-5.1); Sodium 139 mmol/L (136-145); Total Bilirubin 0.5 mg/dL (0.15-1.2); Total Iron Binding Capacity 176 mcg/dl; Total Protein 4.9 g/dL (6.6-8.7); Triglycerides 68 mg/dL (0-150); Unsaturated Iron Binding 138 ug/dL (112-347); VLDL Cholestrol Calculation 14 mg/dL (0-30)
[2021-05-19] MEDS: famotidine 20 mg/2 mL INJ IVP ×2 (06:04→18:36)
[2021-05-19] MEDS: heparin 5,000 unit/mL INJ 1 mL 5000 UNIT SUBCUT ×2 (06:04→18:36)
[2021-05-19 06:13] LABS: Glucose Point of Care 107 mg/dL (70-110)
[2021-05-19] MEDS: dextrose 5%-sod chloride 0.45% 1,000 ML 100 ML IV ×2 (07:01→18:37)
--- NOTE | 2021-05-19 07:25 | P.PN_ITS ---
Subjective Subjective: Interval history: s/p HD last night. still weak and lethargic. no sob. had hypoglycemia overnight Medications: Reviewed: Yes Medication Review Details: Current Medications Acetaminophen (Acetaminophen 325 Mg Tablet) 650 mg PO Q6H PRN PRN Reason: Mild/Mod Pain Or Temp >/= 101 Al Hydrox/Mg Hydrox/Simethicone (Ouni-Ftz-Xdyrjbjwv-Amy 30 Ml Udc) 15 ml PO Q6H PRN PRN Reason: INDIGESTION Allopurinol (Allopurinol 100 Mg Tablet) 100 mg PO DAILY [facility] Atorvastatin Calcium (Atorvastatin 40 Mg Tablet) 40 mg PO DAILY [facility] Bisacodyl (Bisacodyl 5 Mg Tablet) 10 mg PO DAILY PRN; Protocol PRN Reason: Constipation (see protocol) Dextrose (Dextrose 50% Syringe 50 Ml) 25 ml IVP ONCE PRN; Protocol PRN Reason: hypoglycemia protocol Last Admin: 05/19/21 01:39 Dose: 25 ml Documented by: Dextrose (Dextrose 50% Syringe 50 Ml) 50 ml IVP PRN PRN; Protocol PRN Reason: hypoglycemia protocol Famotidine (Famotidine 20 Mg/2 Ml Inj) 20 mg IVP Q12H [facility] Last Admin: 05/19/21 06:04 Dose: 20 mg Documented by: Ferrous Gluconate (Ferrous Gluconate 324 Mg Tablet) 324 mg PO BIDWM [facility] Last Admin: 05/18/21 19:26 Dose: 324 mg Documented by: Glucagon (Glucagon 1 Mg/Ml Inj 1 Ml) 1 mg IM ONCE PRN; Protocol PRN Reason: Adult Acute Hypoglycemia Prot. Heparin Sodium (Porcine) (Heparin 5,000 Unit/Ml Inj 1 Ml) 5,000 unit SUBCUT Q12H [facility] Last Admin: 05/19/21 06:04 Dose: 5,000 unit Documented by: Albumin Human (Albumin) 12.5 gm in 50 mls @ 60 mls/hr IV PRN PRN PRN Reason: Hypotension and/or symptomatic Piperacillin Sod/Tazobactam (Sod 3.375 gm/ Sodium Chloride) 50 mls @ 12.5 mls/hr IV Q8H [facility]; Protocol Last Infusion: 05/19/21 05:23 Dose: Infused Documented by: Dextrose (D5w) 500 mls @ 100 mls/hr IV ONCE PRN; Protocol PRN Reason: Adult Acute Hypoglycemia Prot Last Infusion: 05/19/21 07:02 Dose: 0 mls/hr Documented by: Norepinephrine Bitartrate 4 mg (/ Dextrose) 254 mls @ 0 mls/hr IV .Q0M [facility]; Protocol Last Titration: 05/18/21 23:07 Dose: 3 mcg/min, 11.43 mls/hr Documented by: Magnesium Sulfate 1 gm/ Sodium (Chloride) 52 mls @ 104 mls/hr IV ONCE ONE Stop: 05/19/21 07:29 Last Admin: 05/19/21 07:05 Dose: 104 mls/hr Documented by: Dextrose/Sodium Chloride (Dextrose 5%-Sod Chloride 0.45%) 1,000 mls @ 100 mls/hr IV .Q10H [facility] Last Admin: 05/19/21 07:01 Dose: 100 mls/hr Documented by: Insulin Human Lispro (Insulin Lispro 100 Unit/1 Ml) 0 unit SUBCUT Q4H [facility]; Protocol Last Admin: 05/19/21 06:43 Dose: Not Given Documented by: Lactulose (Lactulose Oral Liq 20 Gm/30 Ml Udc) 10 gm PO DAILY PRN; Protocol PRN Reason: Constipation (see protocol) Midodrine (Midodrine 5 Mg Tablet) 10 mg PO TID [facility] Last Admin: 05/18/21 21:16 Dose: Not Given Documented by: Morphine Sulfate (Morphine 4 Mg/Ml Sdv 1 Ml) 2 mg IVP Q4H PRN PRN Reason: SEVERE PAIN Multivitamins (O-Bycdnzj-Jwhisgu C Tablet) 1 each PO DAILY [facility] Ondansetron HCl (Ondansetron 2 Mg/Ml Sdv 2 Ml) 4 mg IVP Q8H PRN PRN Reason: vomiting, or N/V if npo Pregabalin (Pregabalin 25 Mg Capsule) 25 mg PO BEDTIME [facility] Last Admin: 05/18/21 21:20 Dose: 25 mg Documented by: Sevelamer Carbonate (Sevelamer 800 Mg Tablet) 800 mg PO BID [facility] Last Admin: 05/18/21 19:40 Dose: Not Given Documented by: Vitals/I&O/Wt Last Vital Signs Temp 97.8 F 05/19/21 04:00 Pulse 78 05/19/21 05:34 Resp 20 H 05/19/21 04:00 BP 117/41 10/25/21 04:00 Pulse Ox 97 05/19/21 04:00 05/18/21 05/19/21 05/19/21 22:59 06:59 14:59 Intake Total 2676.383 / 2676.383 65.748 / 2742.131 247.5 / 247.5 Output Total 350 / 350 200 / 550 Balance 2326.383 / 2326.383 -134.252 / 2192.131 247.5 / 247.5 Weight last 48 hrs Weight 76.975 kg Weight 73.4 kg Weight 72.575 kg Physical Exam Narrative: EXAM NARRATIVE: elderly confused in bed, NARD- lethargic. remains on pressers vs noted heent- nc/at, eomi, anicteric neck supple lungs- clear b/l heart- reg, no rub abd soft, distended, poor bs ext no edema- LLE bandaged ulcer Rt IJ dialysis catheter Urinary Catheter Management^: Vega: Cath Placed During This Visit: yes Reason for Continuing Indwelling Catheter: Accurate Measurement of Urinary Outpu t in Critically Ill Patients Urinary Catheter Date of Insertion: 05/18/21 Urinary Catheter Time of Insertion: 19:51 Data : 05/19/21 03:25 05/19/21 03:25 Micro: Microbiology 05/18/21 19:51 Legionella Urinary Antigen - Final Urine Catheterized 05/18/21 17:53 Blood Culture - Preliminary Blood SPECIMEN COLLECTED 05/18/21 17:53 Blood Culture - Preliminary Blood SPECIMEN COLLECTED A&P Additional A&P Information 81 yr old man a. wean off pressers. infection eval per medicine 1. 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 CHANO-Q progression of CKD -also prerenal as did not eat for a few days -concern for ATN- on thiazide and satish-i, and lasix and glipizide- denies nsaid use -ua 3+ prot, 3+ amorphous sediment -low ur na 21 -abd ct- normal kidneys - xray- no chf or pna -s/p emergency HD yesterday - repeat hd now 3 hrs, 3k, no fluid removal -major issue is if ESRD or has reversible CHANO on ckd 3. hyperkalemia -from CHANO and satish-i in setting of ckd -improved w/ HD 4. inc AGMA- check ua, lactate. Can be from sepsis, lactate, less likely DKA, concern starvation acidosis, concern form renal failure -improving w/ dialysis 5. hypoglycemia- stop glipizide- long half life w/ CKD/ ESRD -use insulin as needed for DM -repeat hd and d5 fluids as hypoglycemic 6. abd pain improving 7. hyponatremia- improved 8. anemia eval- iron sat 21%, ferritin 265 9. renal bone - mineral metabolism- vit d=10- replace vit d - pth 711- vit d analouge after vit d replenished -monitor hypocalcemia- use tums as phos mildly elevated 10. CHF -f/u echo. high bnp - monitor seen and examined w/ RN- telehealth visit informed consent for telehealth obtained Attestations Medical Necessity Statement*: chano on ckd Time Spent in Patient Care: 16 - 35 minutes Coding Level of Care Code Acute Social And Human Services Assistant for Willie Wilks
[2021-05-19 08:22] LABS: Glucose Point of Care 118 mg/dL (70-110)
--- NOTE | 2021-05-19 08:30 | PC.NURSE ---
This AM patient was resting in room and not responding to staff. Patient does not respond to painful stimuli. Frequent episodes of wide complex rhythms being seen on monitor. Dr. bocanegra. New orders entered. Blood sugar was 118.
[2021-05-19 08:36] LABS: ABG PCO2 32.4 mmHg (35-45); ABG PH Result 7.36 (7.35-7.45); Alveolar-Arterial Oxygen Gradi 2.2 mmHg (5-10); Arterial Blood Gas Hematocrit 27.6 % (42-52); Base Excess ABG -6.6 mmol/L (-2.0-2.0); Blood Gas Allen Test Pos; Blood Gas Operator Identificat BD; Blood Gas Sample Site Brachial, right; Blood Gas Sample Type Arterial; Carboxyhemoglobin 1.1 %THgb (0.4-20.1); HCO3 ABG 18.2 mmol/L (22-26); HGB O2 Sat 95.5 % (95-100); Methemoglobin 1.1 % (0.4-1.5); Oxygen Saturation ABG 97.7; PO2 ABG 90.7 mmHg (80.0-100.0); Potassium Level - ABG 3.2 mmol/L (3.5-5.0)
[2021-05-19] MEDS: ergocalciferol (vitamin D2) 50,000 Unit Capsule 50000 UNIT PO (08:58)
[2021-05-19] MEDS: midodrine 5 mg TABLET 10 MG PO ×3 (08:59→21:38)
[2021-05-19] MEDS: atorvastatin 40 mg Tablet PO (09:00)
[2021-05-19] MEDS: magnesium sulfate premix 2 GM/50 ML PIGGYBACK IV (09:00)
[2021-05-19] MEDS: calcium carbonate 500 mg Chew Tablet 1000 MG PO ×3 (09:00→21:38)
[2021-05-19] MEDS: b-complex-vitamin c Tablet 1 EACH PO (09:00)
[2021-05-19] MEDS: allopurinol 100 mg Tablet PO (09:00)
[2021-05-19] MEDS: sodium chloride 0.9% 250 ML 999 ML IV (09:01)
[2021-05-19] MEDS: epoetin alfa 1000 Unit/0.05 mL (ESRD) 6000 UNIT SUBCUT (09:20)
[2021-05-19] MEDS: potassium chloride ER 20 mEq Tablet 40 MEQ PO (09:21)
--- NOTE | 2021-05-19 09:31 | PC.CHAP ---
Pastoral Care Encounter/Spiritual Assessment Type of Contact [] Declined gas combustion engineer visit [] Patient/Family/Request visit [] Outpatient visit [] Follow-up visit [] Physician referral [] Code/Alert [x] Routine visit [] Staff referral [] Actively dying [x] Patient sleeping [] Family support [] [] Out of room [] Palliative care [] [] Receiving care in room [] Pre-surgical visit [] Trauma [] Long length of stay [x] ICU visit [] Other: Relational/Emotional Strength [] Patient feels connected with others/family/visitors/staff [] Distress [] Loneliness/isolation [] Abandonment Spirituality of Patient [] Person of Lynette [] Attends Pentecostalism of their Lynette [] Believes in Prayer [] Reads Bible or Denominational materials [] There are Spiritual issues to be addressed Labor Relations Officer Interventions [x] Prayer [] Active listening [] Non-anxious presence [] Spiritual/emotional support [] Crisis/trauma care [] Spiritual counseling [] Bereavement support [] Provided bereavement packet [] Provided Bible/devotional materials [] Provided toy/stuffed animal, coloring book to patient or family member [] Provided Communion [] Anointing/Babb [] Salvation [x] Completed spiritual assessment [] Other: Impact on Illness or Injury [] Angry [] Fearful [] Anxious [] Often cries [] Exhaustion [] Unable to work [] Unable to attend gnosticist [] Unable to walk/stand [] Unable to read [] Unable to drive [] Unable to eat/drink [] Unable to sleep [] Unable to be with family [] Patient intubated [] Other: Summary Time spent with patient
--- NOTE | 2021-05-19 09:51 | ECG_ITS ---
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 Measurements Intervals [place] Rate: 68 P: HI: QRS: 33 QRSD: 138 T: 75 QT: 414 QTc: 441 Interpretive Statements ATRIAL FIBRILLATION WITH ABERRANT CONDUCTION OR VENTRICULAR PREMATURE COMPLEXES RIGHT BUNDLE BRANCH BLOCK [120+ ms QRS DURATION, UPRIGHT V1, 40+ ms S IN I/aVL/V4/V5/V6] POSSIBLE SEPTAL MYOCARDIAL INFARCTION , OF INDETERMINATE AGE [30 ms Q WAVE IN V1/V2] Compared to ECG 05/18/2021 14:41:10 Ventricular premature complex(es) now present Aberrant conduction of supraventricular beat(s) now present Right bundle-branch block now present Myocardial infarct finding now present Intraventricular conduction delay no longer present Electronically Signed On 05-19-2021 23:45:51 CDT by Rose Cheung M.D. [id number]
--- NOTE | 2021-05-19 10:00 | PC.NURSE ---
Dr was in room and patient was responding to light stimuli. Oriented to name and place.
[2021-05-19 11:17] LABS: Glucose Point of Care 125 mg/dL (70-110)
[2021-05-19] MEDS: heparin, porcine 1,000 unit/mL INJ 10 mL 10000 UNIT HE (13:44)
[2021-05-19 15:46] LABS: Glucose Point of Care 120 mg/dL (70-110)
--- NOTE | 2021-05-19 15:48 | P.PN_ITS ---
Subjective Subjective: Interval history: Overnight patient had 1 cycle of hemodialysis. Patient was started on Levophed. Currently running at 4. Patient calculated hemodialysis well. Today morning on examination patient was found asleep, mildly difficult to arouse but wakes up to physical stimulus. On waking up will feel drowsy but alert to self, place, reason to being in the hospital. ABG, electrolytes done for mild confusion today morning. Most likely secondary to pregabalin which she received overnight and uremia. Mentation became better with dialysis during the day. Mean arterial pressures have remained over 70. Weaning off Levophed. Vitals/I&O/Wt Last Vital Signs Temp 97.5 F L 05/19/21 08:30 Pulse 66 05/19/21 13:00 Resp 12 05/19/21 13:00 BP 109/63 05/19/21 13:00 Pulse Ox 96 05/19/21 13:00 05/19/21 05/19/21 05/19/21 06:59 14:59 22:59 Intake Total 65.748 / 2742.131 766.378 / 766.378 Output Total 200 / 550 Balance -134.252 / 2192.131 766.378 / 766.378 Weight last 48 hrs Weight 76.975 kg Weight 73.4 kg Weight 72.575 kg Physical Exam Narrative: EXAM NARRATIVE: General: Awake, confused, now acute distress, maintaining saturation on room air, HEENT: PERRLA, pupils bilaterally equal and reactive Chest: Normal vesicular breath sounds bilaterally, fine crackles present bilateral lower zones, equal good air entry bilaterally CVS: S1-S2 regular, soft pansystolic murmur present at apex, no tachycardia, no gallops, no rubs Abdomen: Soft, nontender, no organomegaly, bowel sounds present Neuro: No focal deficits, no facial deformity, awake, confused, moving all 4 limbs Urinary Catheter Management^: Vega: Cath Placed During This Visit: yes Reason for Continuing Indwelling Catheter: Accurate Measurement of Urinary Output in Critically Ill Patients Urinary Catheter Date of Insertion: 05/18/21 Urinary Catheter Time of Insertion: 19:51 Data : 05/19/21 03:25 05/19/21 03:25 Micro: Microbiology 05/18/21 19:51 Bacterial Antigens - Final Urine Kidney 05/18/21 19:42 MRSA Culture - Final Nose 05/18/21 19:51 Legionella Urinary Antigen - Final Urine Catheterized 05/18/21 17:53 Blood Culture - Preliminary Blood SPECIMEN COLLECTED 05/18/21 17:53 Blood Culture - Preliminary Blood SPECIMEN COLLECTED A&P Assessment and plan (1) Metabolic acidosis: Status: Acute (2) Acute renal failure: Status: Acute (3) Hyperkalemia: Status: Acute (4) Hypoglycemia: Status: Acute (5) 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: Status: Acute (6) CHF (congestive heart failure): Status: Acute Qualifiers: Heart failure type: diastolic Heart failure chronicity: acute on chronic Qualified Code(s): I50.33 - Acute on chronic diastolic (congestive) heart failure (7) CKD (chronic kidney disease): Status: Acute Qualifiers: Chronic kidney disease stage: stage 5, not on chronic dialysis Qualified Code(s): N18.5 - Chronic kidney disease, stage 5 (8) Type 2 diabetes mellitus: Status: Chronic Qualifiers: Diabetes mellitus termite exterminator helper insulin use: with termite exterminator helper use Diabetes mellitus complication status: without complication Qualified Code(s): E11.9 - Type 2 diabetes mellitus without complications; Z79.4 - manager terminal (current) use of insulin (9) Benign hypertension: Status: Chronic (10) Nausea & vomiting: Most likely secondary to uremia. Getting CT abdomen pelvis. Will reevaluate. Zofran as needed. Status: Acute Additional A&P Information Acute renal failure: Most likely worsening of CKD stage IV secondary to home dose of lisinopril, hydrochlorothiazide with ongoing hypotension: Post 1 cycle of hemodialysis yesterday. Appreciate nephrology consultation. [address] more session dialysis today. [address] abdomen pelvis negative for obstruction or hydronephrosis. Renal ultrasound, urine lites appreciated. Urinalysis consistent with 3+ protein, 3+ sediments. Hyperkalemia/metabolic acidosis: Hyperkalemia resolved. Metabolic acidosis resolving. Hold off on any further bicarb drip, monitor BMP at 6 PM postdialysis. Altered mental status: Most likely secondary to uremia along with hypoglycemia. ABG improving today morning. Ammonia level, urine drug screen, salicylate, alcohol level negative. Fall precaution. Frequent reorientation. Hypoglycemia: History of type 2 diabetes mellitus: Hypoglycemia most likely secondary to worsening renal functions and use of sulfonylurea on 05/17 evening.. Hypoglycemic protocol with insulin sliding scale at low-dose protocol. Hold off on oral hypoglycemics or long-acting insulin for now. HbA1c 6.6. Sepsis: Cannot rule out sepsis secondary to possible pneumonia versus diarrheal disease. Patient does have a history of MSSA cellulitis of leg. Oxygen supplementation keeping saturation over 90%. Keep mean arterial pressure over 65. Wean off Levophed accordingly. Continue with midodrine 10 mg 3 times a day. MRSA negative, urine Legionella, bacterial antigen negative. Blood cultures so far negative. Continue with Zosyn. Continue wound care as per wound care orders. Check sputum culture, stool studies. History of congestive heart failure: History of CABG: Currently on room air. Clinically dehydrated. Patient is getting dialysis. Check echocardiogram. Continue with aspirin, statin. Given persistent hypoglycemia and clinical dehydration on examination continue with gentle hydration with D5 half NS at 100 cc/h. Will monitor for fluid overload. Arrhythmia: Patient having frequent VPCs. Check EKG. Replete magnesium, potassium. Repeat BMP, magnesium level in evening. Hypertension: Goal blood pressure less than 140/90 mmHg. Currently blood pressures soft. Hold off on oral antihypertensives. Continue home oral medication including allopurinol, statin. For now hold off on pregabalin as patient was confused today morning after getting medication last night. CODE STATUS: Discussed with at bedside. Full code. Protonix for PUD prophylaxis. Heparin 5000 every 12 for DVT prophylaxis. Renal dialysis diet. Attestations Medical Necessity Statement*: Requires further hospitalization for management of acute renal failure requiring hemodialysis, sepsis possibly secondary to pneumonia in setting of history of CABG, congestive heart failure Critical Care Time: The high probability of a clinically significant, sudden or life threatening deterioration of the patient's [renal, cardiac] system(s) required my full and direct attention, intervention and personal management. The critical care time is as shown. 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
--- NOTE | 2021-05-19 16:51 | PC.NURSE ---
This evening after dialysis patient is A&Ox4 and able to follow all commands. is at bedside and they are visiting with printed circuit photographer and son.
--- NOTE | 2021-05-19 17:01 | USCV_ITS ---
Leonel Driscoll Age: 81 Gender: M : 1940 Exam Date: 05/19/2021 06:08 Ordering Phys: Atul Jackson MD Technologist: Alvina Gilliam Exam Location: [facility] Indication: POST CABG, CHF BP: 89 / 37 HR: 71 Rhythm: Other Technical Quality: Technically difficult study MEASUREMENTS (Male / Female) Normal Values 2D ECHO LV Diastolic Diameter PLAX 5.0 cm 4.2 - 5.9 / 3.9 - 5.3 cm LV Systolic Diameter PLAX 4.7 cm IVS Diastolic Thickness 1.0 cm 0.6 - 1.0 / 0.6 - 0.9 cm IVS Systolic Thickness 1.6 cm LVPW Diastolic Thickness 1.7 cm 0.6 - 1.0 / 0.6 - 0.9 cm LVPW Systolic Thickness 2.8 cm LVOT Diameter 2.0 cm LV Ejection Fraction 2D Teich 12.2 % LV Ejection Fraction MOD 2C 23.9 % LV Ejection Fraction 2C AL 26.1 % LA Diameter 4.4 cm LA Width 3.5 cm LA Height 4.8 cm RA Width 3.9 cm RA Height 4.1 cm Aorta at Sinotubular Diameter 2.0 cm DOPPLER AV Peak Velocity 331.3 cm/s LVOT Peak Velocity 66.0 cm/s AV Area Cont Eq vti 0.7 cm squared AV Area Cont Eq pk 0.7 cm squared MV Area PHT 2.8 cm squared Mitral E to A Ratio 0.9 MV E' Velocity 44.0 cm/s Mitral E to MV E' Ratio 15.0 Mitral E to LV E' Lateral Ratio 12.1 Mitral E to LV E' Septal Ratio 19.8 FINDINGS Left Ventricle Normal left ventricular size. LV systolic function is severely reduced with EF of 25-30%. Severe global hypokinesis. Septal motion is consistent with prior cardiac surgery. Diastolic function is indeterminate because of atrial fibrillation. Right Ventricle RV is dilated. Poor visualization Right Atrium The right atrium is normal in size. Left Atrium The left atrium is normal in size. Mitral Valve Structurally normal mitral valve without significant stenosis or prolapse. There is trace mitral regurgitation. Aortic Valve Not well visualized. There is low flow low gradient severe aortic stenosis. Mean gradient across the aortic valve is 28mmHg and JANIS is 0.67cm2. There is no aortic regurgitation. Tricuspid Valve Structurally normal tricuspid valve without significant stenosis or regurgitation. Insufficient TR jet to calculate RVSP Pulmonic Valve Not viusualized Pericardium Normal pericardium without effusion. Aorta Normal ascending aorta dimension. CONCLUSIONS LV systolic function is severely reduced with EF of 25-30% Severe global hypokinesis RV is not well visualized but grossly dilated Trace mitral regurgitation Aortic valve is not well visualized. By continuity equation, patient has severe low flow-low gradient Aortic stenosis No comparison studies are available Cristhian Michele MD (Electronically Signed) Final Date: 19 May 2021 20:14 S
[2021-05-19 17:46] LABS: Urine Creatinine 159 mg/dL (39-259)
[2021-05-19 17:52] LABS: Creatinine Urine, Random 159 mg/dL (39-259)
[2021-05-19 18:09] LABS: Microalbum Creatinine Ratio Ur 994 mg/dL (0-20); Microalbumin Random Urine 158 ug/dL (0-20)
[2021-05-19] MEDS: insulin lispro 100 unit/1 mL SUBCUT ×2 (18:36→21:38)
[2021-05-19 18:43] LABS: Glucose Point of Care 143 mg/dL (70-110)
[2021-05-19 19:46] LABS: Anion Gap 18.6 (5-19); Blood Urea Nitrogen 33 mg/dL (8-23); Calcium 7.4 mg/dL (8.5-10.5); Carbon Dioxide 20 mmol/L (22-29); Chloride 102 mmol/L (98-107); Glucose 162 mg/dL (65-115); Magnesium 1.8 mg/dL (1.7-2.3); Osmolality Calculated 295 mOsm/kg (285-295); Potassium 3.6 mmol/L (3.5-5.1); Sodium 137 mmol/L (136-145)
[2021-05-19 23:57] LABS: Glucose Point of Care 105 mg/dL (70-110)
[2021-05-20] VITALS (45 sets, daily range): BP systolic 108–163; BP diastolic 37–80; PULSE 46–91; RESP 1–22; TEMP 36.6–37.2; O2SAT 88–100
[2021-05-20] MEDS: piperacillin-tazobactam 3.375 GM in sodium chloride 0.9% (plus) 50 ML IV ×3 (00:43→17:26)
[2021-05-20] MEDS: dextrose 5%-sod chloride 0.45% 1,000 ML 100 ML IV ×2 (02:36→15:36)
[2021-05-20] MEDS: famotidine 20 mg/2 mL INJ IVP ×2 (05:59→17:33)
[2021-05-20] MEDS: heparin 5,000 unit/mL INJ 1 mL 5000 UNIT SUBCUT ×2 (05:59→17:32)
[2021-05-20 06:03] LABS: Glucose Point of Care 91 mg/dL (70-110)
[2021-05-20 06:26] LABS: Alanine Aminotransferase 6 U/L (0-41); Albumin Level 2.7 g/dL (3.5-5.2); Alkaline Phosphatase 85 IU/L (40-130); Anion Gap 14.4 (5-19); Aspartate Amino Transferase 15 U/L (0-40); Blood Urea Nitrogen 34 mg/dL (8-23); Calcium 7.4 mg/dL (8.5-10.5); Carbon Dioxide 23 mmol/L (22-29); Chloride 102 mmol/L (98-107); Globulin 1.9 g/dL (1.3-4.6); Glucose 99 mg/dL (65-115); Magnesium 1.8 mg/dL (1.7-2.3); Osmolality Calculated 290 mOsm/kg (285-295); Phosphorus 4.2 mg/dL (2.5-4.5); Potassium 3.4 mmol/L (3.5-5.1); Sodium 136 mmol/L (136-145); Total Bilirubin 0.6 mg/dL (0.15-1.2); Total Protein 4.6 g/dL (6.6-8.7)
--- NOTE | 2021-05-20 07:31 | PM.PN ---
Subjective Subjective: Interval history: feels much better, eating, awake, swollen, sob Medications: Reviewed: Yes Medication Review Details: Current Medications Acetaminophen (Acetaminophen 325 Mg Tablet) 650 mg PO Q6H PRN PRN Reason: Mild/Mod Pain Or Temp >/= 101 Allopurinol (Allopurinol 100 Mg Tablet) 100 mg PO DAILY [facility] Last Admin: 05/19/21 09:00 Dose: 100 mg Documented by: Aspirin (Aspirin 81 Mg Ec Tablet) 81 mg PO DAILY [facility] Atorvastatin Calcium (Atorvastatin 40 Mg Tablet) 40 mg PO DAILY [facility] Last Admin: 05/19/21 09:00 Dose: 40 mg Documented by: Bisacodyl (Bisacodyl 5 Mg Tablet) 10 mg PO DAILY PRN; Protocol PRN Reason: Constipation (see protocol) Calcium Carbonate (Calcium Carbonate 500 Mg Chew Tablet) 1,000 mg PO TID [facility] Last Admin: 05/19/21 21:38 Dose: 1,000 mg Documented by: Dextrose (Dextrose 50% Syringe 50 Ml) 25 ml IVP ONCE PRN; Protocol PRN Reason: hypoglycemia protocol Last Admin: 05/19/21 01:39 Dose: 25 ml Documented by: Dextrose (Dextrose 50% Syringe 50 Ml) 50 ml IVP PRN PRN; Protocol PRN Reason: hypoglycemia protocol Ergocalciferol (Ergocalciferol (Vitamin D2) 50,000 Unit Capsule) 50,000 unit PO Q7D [facility] Last Admin: 05/19/21 08:58 Dose: 50,000 unit Documented by: Famotidine (Famotidine 20 Mg/2 Ml Inj) 20 mg IVP Q12H [facility] Last Admin: 05/20/21 05:59 Dose: 20 mg Documented by: Glucagon (Glucagon 1 Mg/Ml Inj 1 Ml) 1 mg IM ONCE PRN; Protocol PRN Reason: Adult Acute Hypoglycemia Prot. Heparin Sodium (Porcine) (Heparin 5,000 Unit/Ml Inj 1 Ml) 5,000 unit SUBCUT Q12H [facility] Last Admin: 05/20/21 05:59 Dose: 5,000 unit Documented by: Albumin Human (Albumin) 12.5 gm in 50 mls @ 60 mls/hr IV PRN PRN PRN Reason: Hypotension and/or symptomatic Piperacillin Sod/Tazobactam (Sod 3.375 gm/ Sodium Chloride) 50 mls @ 12.5 mls/hr IV Q8H [facility]; Protocol Last Infusion: 10/26/21 04:43 Dose: Infused Documented by: Norepinephrine Bitartrate 4 mg (/ Dextrose) 254 mls @ 0 mls/hr IV .Q0M [facility]; Protocol Last Admin: 05/19/21 13:43 Dose: 3 mcg/min, 11.43 mls/hr Documented by: Dextrose/Sodium Chloride (Dextrose 5%-Sod Chloride 0.45%) 1,000 mls @ 100 mls/hr IV .Q10H [facility] Last Admin: 05/20/21 02:36 Dose: 100 mls/hr Documented by: Albumin Human (Albumin) 12.5 gm in 50 mls @ 60 mls/hr IV PRN PRN PRN Reason: Hypotension and/or symptomatic Insulin Human Lispro (Insulin Lispro 100 Unit/1 Ml) 0 unit SUBCUT Q4H [facility]; Protocol Last Admin: 05/20/21 05:59 Dose: Not Given Documented by: Lactulose (Lactulose Oral Liq 20 Gm/30 Ml Udc) 10 gm PO DAILY PRN; Protocol PRN Reason: Constipation (see protocol) Midodrine (Midodrine 5 Mg Tablet) 10 mg PO TID [facility] Last Admin: 05/19/21 21:38 Dose: 10 mg Documented by: Morphine Sulfate (Morphine 4 Mg/Ml Sdv 1 Ml) 2 mg IVP Q4H PRN PRN Reason: SEVERE PAIN Multivitamins (N-Ewjbckv-Cpvgahc C Tablet) 1 each PO DAILY [facility] Last Admin: 05/19/21 09:00 Dose: 1 each Documented by: Ondansetron HCl (Ondansetron 2 Mg/Ml Sdv 2 Ml) 4 mg IVP Q8H PRN PRN Reason: vomiting, or N/V if npo Vitals/I&O/Wt Last Vital Signs Temp 98.7 F 05/20/21 04:00 Pulse 66 05/20/21 06:00 Resp 12 05/20/21 04:00 BP 158/59 05/20/21 04:00 Pulse Ox 98 05/20/21 04:00 05/19/21 05/20/21 05/20/21 22:59 06:59 14:59 Intake Total 1400 / 2166.378 948.333 / 3114.711 Output Total 289 / 289 200 / 489 Balance 1111 / 1877.378 748.333 / 2625.711 Weight last 48 hrs Weight 80.286 kg Weight 78.13 kg Weight 76.975 kg Weight 73.4 kg Weight 72.575 kg Physical Exam Narrative: EXAM NARRATIVE: elderly, more awake and comfortable in chair vs noted heent- nc/at, eomi, anicteric neck supple lungs- crackles b/l heart- irreg, no rub, +HSM abd soft, distended, poor bs ext 1+ edema- LLE bandaged ulcer Rt IJ dialysis catheter Urinary Catheter Management^: Vega: Cath Placed During This Visit: yes Reason for Continuing Indwelling Catheter: Accurate Measurement of Urinary Output in Critically Ill Patients Urinary Catheter Date of Insertion: 05/18/21 Urinary Catheter Time of Insertion: 19:51 Data : 05/19/21 03:25 05/20/21 05:23 Micro: Microbiology 05/18/21 17:53 Blood Culture - Preliminary Blood NEGATIVE TO DATE 05/18/21 17:53 Blood Culture - Preliminary Blood NEGATIVE TO DATE 05/18/21 19:51 Bacterial Antigens - Final Urine Kidney 05/18/21 19:42 MRSA Culture - Final Nose A&P Additional A&P Information 81 yr old man 1. 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 CHANO-Q progression of CKD -also prerenal as did not eat for a few days -concern for ATN- on thiazide and satish-i, and lasix and glipizide- denies nsaid use -ua 3+ prot, 3+ amorphous sediment -low ur na 21 -abd ct- normal kidneys - xray- no chf or pna -s/p emergency HD x 2 -hold ivf -hold dialysis -monitor for renal recovery. however, likely ESRD 3. hyperkalemia -from CHANO and satish-i in setting of ckd -improved w/ HD 4. inc AGMA- Can be from sepsis, lactate, less likely DKA, concern starvation acidosis, concern form renal failure -improved w/ dialysis 5. hypoglycemia- stop glipizide- long half life w/ CKD/ ESRD -use insulin as needed for DM -improved. is eating, d/c ivf 6. abd pain improved 7. hyponatremia- improved 8. anemia eval- iron sat 21%, ferritin 265 - epo and iv iron 9. renal bone - mineral metabolism- vit d=10- replace vit d - pth 711- vit d analouge after vit d replenished -monitor hypocalcemia- use tums as phos mildly elevated 10. CHF -f/u echo. high bnp - monitor Normal left ventricular size. LV systolic function is severely reduced with EF of 25-30%. Severe global hypokinesis. Septal motion is consistent with prior cardiac surgery. Diastolic function is indeterminate because of atrial fibrillation. - patient has severe low flow-low gradient Aortic stenosis -start diuresis as needed per cardiology -renal okay for cardiac cath and HD as needed 11. a fib per cardiology seen and examined w/ RN- telehealth visit Attestations Medical Necessity Statement*: chf, chano on ckd stage 4 Time Spent in Patient Care: 16 - 35 minutes (>than 50% of time spent in counselling and/or direct pt care on unit). Coding Level of Care Code Acute Senior Information Security Analyst for Willie Wilks
[2021-05-20 07:57] LABS: Basophils # 0.1 10^3/uL (0.0-0.1); Basophils % 0.6 %; Eosinophils # 0.3 10^3/uL (0.0-0.8); Eosinophils % 3.6 %; Hematocrit 25.4 % (42.0-52.0); Hemoglobin 8.1 g/dL (11.7-16.6); Lymphocytes % 11.4 %; Mean Corpuscular HGB Conc 31.9 g/dL (30.0-36.0); Mean Corpuscular Hemoglobin 27.9 pg (28.0-34.0); Mean Corpuscular Volume 87.6 fl (80-94); Monocytes # 0.9 10^3/uL (0.2-0.9); Monocytes % 10.8 %; Neutrophils # 6.37 10^3/uL (1.8-7.7); Neutrophils % 73.3 %; Nucleated Red Blood Cells % 0 %; Platelet Count 104 10^3/cmm (130-400); White Blood Count 8.7 10^3/uL (4.0-10.0)
[2021-05-20 08:19] LABS: Slide Review Slide Review Perform
[2021-05-20] MEDS: midodrine 5 mg TABLET 10 MG PO (08:33)
[2021-05-20] MEDS: atorvastatin 40 mg Tablet PO (08:33)
[2021-05-20] MEDS: calcium carbonate 500 mg Chew Tablet 1000 MG PO ×3 (08:33→20:57)
[2021-05-20] MEDS: allopurinol 100 mg Tablet PO (08:33)
[2021-05-20] MEDS: aspirin 81 mg EC Tablet PO (08:33)
[2021-05-20] MEDS: b-complex-vitamin c Tablet 1 EACH PO (08:33)
[2021-05-20] MEDS: ferric gluconate 125 MG in sodium chloride 0.9% (100 ml) 100 ML 110 MG IV (08:35)
--- NOTE | 2021-05-20 09:16 | ECG_ITS ---
[facility] Test Date: 2021-05-20 Pat Name: Leonel Driscoll Department: Room: ICU08 Gender: Male Project Engineer: : 1940 Requested By: Atul Jackson Order Number: [id number] Floyd MD: Cristhian Michele M.D. Measurements Intervals [place] Rate: 80 P: 4 NE: 271 QRS: 43 QRSD: 154 T: -39 QT: 452 QTc: 524 Interpretive Statements SINUS RHYTHM WITH FIRST DEGREE AV BLOCK WITH OCCASIONAL VENTRICULAR PREMATURE COMPLEXES RIGHT BUNDLE BRANCH BLOCK [120+ ms QRS DURATION, UPRIGHT V1, 40+ ms S IN I/aVL/V4/V5/V6] Compared to ECG 05/19/2021 10:52:15 First degree AV block now present Atrial fibrillation no longer present Aberrant conduction of supraventricular beat(s) no longer present Myocardial infarct finding no longer present Electronically Signed On 05-20-2021 23:25:59 CDT by Cristhian Michele M.D. [email or web address]
[2021-05-20 09:21] LABS: Glucose Point of Care 170 mg/dL (70-110)
[2021-05-20] MEDS: metoprolol succinate ER (24 HR) 25 mg Tablet 12.5 MG PO ×2 (10:36→17:27)
[2021-05-20] MEDS: potassium chloride ER 20 mEq Tablet 40 MEQ PO (10:36)
[2021-05-20] MEDS: magnesium sulfate premix 2 GM/50 ML PIGGYBACK IV (10:36)
[2021-05-20 10:43] LABS: Glucose Point of Care 114 mg/dL (70-110)
--- NOTE | 2021-05-20 14:00 | PM.CONSULT ---
Providers/Reason For Consult Consulting Physician/Specialty*: TY Cheung MD/cardiology Reason for Consult*: Patient with atherosclerotic heart disease, severe LV systolic dysfunction/aortic valve stenosis Attending Physician: Atul Jackson MD Primary Care Provider: Malaika Mayorga MD History of Present Illness History of Present Illness Leonel Driscoll is a 81 year old male with a history of coronary disease, coronary bypass surgery, aortic valve disease, high blood pressure, dyslipidemia, type 2 diabetes, chronic kidney disease, presents with complaints of nausea vomiting and generalized weakness. He was found to be hypoglycemic by the EMS. Even after giving 50% of glucose, patient continued to be hypoglycemic. He was evaluated in the emergency room. He was found to have features of acute kidney injury. So he was admitted to hospital for further evaluation and management. Patient had echocardiogram done which revealed LV ejection fraction of 25 to 30%. Diffuse hypokinesia of the left ventricle was noted. Currently he undergoing hemodialysis. He had some altered mental status at the time of admission. But currently seems to be back to his baseline state. Denies any chest pain or chest tightness. He has a history of dyspnea on exertion. No orthopnea PND. No fever, chills or cough. He is known to have atherosclerotic heart disease and had a 6 vessel coronary artery bypass surgery in 2005 at the [facility] in [place]. Details of this is not available at this point. 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 He has not had any chest pain. He has some amount of dyspnea on exertion. No orthopnea PND. He had frequent PVCs and episodes of nonsustained ventricular tachycardia is on the monitor. According the patient, he has not had any coronary angiogram within the last 8 years or so. Review of Systems Narrative: CONSTITUTIONAL: No fever or chills. Is been having lethargy/weakness. EYES: No blurring of vision or other visual disturbances lately. ENT: No hoarseness of voice, auditory disturbances or sore throat. CARDIOVASCULAR: As mentioned above. RESPIRATORY: No significant cough. GASTROINTESTINAL: Nausea and vomiting as mentioned above GENITOURINARY: Acute on chronic kidney injury, currently on dialysis INTEGUMENTARY: No skin rashes or history of skin cancer. NEURO: History of altered mental status. PSYCHIATRIC: No history of psychosis or major depression. HEMATOLOGIC: No bleeding disorders or significant anemia. ENDOCRINE: No history of polyuria or polydipsia. MUSCULOSKELETAL: No recent joint pain or swelling. ALLERGY/IMMUNOLOGY: As mentioned above. Meds/Allergies Home Medications and Allergies Home Medications Medication Instructions Recorded Confirmed Last Taken Type hydrochlorothiazide 50 mg tablet 50 mg PO QAM 90 Days #90 tab 11/11/20 05/18/21 05/17/21 Rx furosemide 20 mg tablet 40 mg PO QAM #60 tab 01/27/21 05/18/21 05/17/21 Rx glipizide 10 mg tablet 10 mg PO DAILY 90 Days #90 tab 04/07/21 05/18/21 05/17/21 Rx sevelamer carbonate 800 mg tablet 800 mg PO BID 90 Days #180 tab 04/09/21 05/18/21 05/17/21 Rx allopurinol 100 mg PO DAILY 05/18/21 05/18/21 05/17/21 History atorvastatin 40 mg PO DAILY 05/18/21 05/18/21 05/17/21 History cyanocobalamin (vitamin B-12) 500 mcg PO DAILY 05/18/21 05/18/21 05/17/21 History [Vitamin B-12] glucos sul [id number] 1 cap PO DAILY 05/18/21 05/18/21 05/17/21 History [Glucosamine Chondroitin] lisinopril 20 mg PO DAILY 05/18/21 05/18/21 05/17/21 History pregabalin 25 mg PO BEDTIME 05/18/21 05/18/21 05/17/21 History Allergies Allergy/AdvReac Type Severity Reaction Status Date / Time No Known Allergies Allergy Verified 05/19/21 07:10 Current Medications Current Medications Generic Name Dose Route Start Last Admin Trade Name Freq PRN Reason Stop Dose Admin Allopurinol 100 mg 05/19/21 09:00 05/20/21 08:33 Allopurinol 100 Mg Tablet PO 100 mg DAILY ELIAZAR Administration Aspirin 81 mg 05/20/21 09:00 05/20/21 08:33 Aspirin 81 Mg Ec Tablet PO 81 mg DAILY ELIAZAR Administration Atorvastatin Calcium 40 mg 05/19/21 09:00 05/20/21 08:33 Atorvastatin 40 Mg Tablet PO 40 mg DAILY ELIAZAR Administration Calcium Carbonate 1,000 mg 05/19/21 09:00 05/20/21 08:33 Calcium Carbonate 500 Mg Chew Tablet PO 1,000 mg TID ELIAZAR Administration Dextrose 25 ml 05/18/21 18:33 05/19/21 01:39 Dextrose 50% Syringe 50 Ml IVP 25 ml ONCE PRN Administration hypoglycemia protocol Protocol Ergocalciferol 50,000 unit 05/19/21 08:00 05/19/21 08:58 Ergocalciferol (Vitamin D2) 50,000 Unit Capsule PO 50,000 unit Q7D ELIAZAR Administration Famotidine 20 mg 05/18/21 18:33 05/20/21 05:59 Famotidine 20 Mg/2 Ml Inj IVP 20 mg Q12H ELIAZAR Administration Heparin Sodium (Porcine) 5,000 unit 05/18/21 18:33 05/20/21 05:59 Heparin 5,000 Unit/Ml Inj 1 Ml SUBCUT 5,000 unit Q12H ELIAZAR Administration Piperacillin Sod/Tazobactam 50 mls @ 12.5 mls/hr 05/18/21 17:30 05/20/21 08:35 Sod 3.375 gm/ Sodium Chloride IV 12.5 mls/hr Q8H ELIAZAR Administration Protocol Dextrose/Sodium Chloride 1,000 mls @ 100 mls/hr 05/19/21 06:45 05/20/21 02:36 Dextrose 5%-Sod Chloride 0.45% IV 100 mls/hr .Q10H ELIAZAR Administration Insulin Human Lispro 0 unit 05/18/21 18:33 05/20/21 10:46 Insulin Lispro 100 Unit/1 Ml SUBCUT Not Given Q4H ELIAZAR Protocol Metoprolol Succinate 12.5 mg 05/20/21 09:25 05/20/21 10:36 Metoprolol Succinate Er (24 Hr) 25 Mg Tablet PO 12.5 mg BID ELIAZAR Administration Multivitamins 1 each 05/19/21 09:00 05/20/21 08:33 R-[id number]-Mxhlkxm C Tablet PO 1 each DAILY ELIAZAR Administration PFSH Acute PFSH: Medical History Benign hypertension CKD (chronic kidney disease) 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 Diabetic neuropathy Gout Hyperkalemia Hx of Hyperlipidemia Peripheral neuropathy Type 2 diabetes mellitus Surgical History H/O cataract extraction H/O hernia repair Previous back surgery S/P appendectomy S/P tonsillectomy Family History Brother Hypertension Social History Smoking and tobacco status: former smoker Quit status (tobacco): has quit using tobacco Year quit tobacco: 2005 Second hand smoke exposure: No Alcohol intake: current Alcohol intake frequency: other Alcohol type: other Vitals/I&O/Wt Last Vital Signs Temp 98.1 F 05/20/21 07:30 Pulse 72 05/20/21 12:30 Resp 12 05/20/21 12:30 BP 135/71 05/20/21 12:30 Pulse Ox 98 05/20/21 12:30 05/19/21 05/20/21 05/20/21 22:59 06:59 14:59 Intake Total 1434.671 / 2201.049 948.333 / 3149.382 230 / 230 Output Total 289 / 289 200 / 489 Balance 1145.671 / 1912.049 748.333 / 2660.382 230 / 230 Weight last 48 hrs Weight 177 lb Weight 172 lb 3.954 oz Weight 169 lb 11.2 oz Weight 161 lb 13.109 oz Weight 160 lb Physical Exam Narrative: EXAM NARRATIVE: GENERAL: The patient is alert and oriented times three. Not in any acute distress. Unkempt HEENT: Moderate pallor. No icterus or lymphadenopathy. The pupils are reactant to light. Oral cavity: There are no mucous membrane lesions. Funduscopic examination: The fundus is not visualized NECK: Trachea appears to be central. No masses noted. No JVD or thyromegaly appreciated. No carotid bruit. RESPIRATORY: Chest is symmetrical. No intercostals muscle retraction or any accessory muscle activation. There is no chest wall tenderness. Breath sounds are heard bilaterally. Few fine rales and occasional expiratory wheezing. BREASTS: Deferred. HEART: The PMI could not be palpated. But no other palpable precordial events. No palpable precordial events. S1 and S2 are normal. No S3 or S4 heard. No pericardial rub or any click heard. ABDOMEN: No vessel pulsations or distention. No tenderness. No organomegaly appreciated. No abdominal bruit. Bowel sounds are normally heard. : Deferred. RECTAL: Deferred. LYMPHATIC: No lymphadenopathy noted in the neck or groin. EXTREMITIES: 1+ edema both lower extremities. No cyanosis. Peripheral pulses are palpable but weak bilaterally. MUSCULOSKELETAL: No acute joint deformities or swelling SKIN: There are no significant scars or skin rash noted. NEUROPSYCHIATRIC: The patient is alert and oriented x3. Appears to be in a good mood. The higher functions are grossly within normal limits. No tremors or rigidity noted. Urinary Catheter Management^: Vega: Cath Placed During This Visit: yes Reason for Continuing Indwelling Catheter: Accurate Measurement of Urinary Output in Critically Ill Patients Urinary Catheter Date of Insertion: 05/18/21 Urinary Catheter Time of Insertion: 19:51 Data Labs: Other Labs: Laboratory Last Values WBC 8.7 10^3/uL (4.0- 10.0) 05/20/21 05:23 RBC 2.90 10^6/uL (4.1 -5.3) L 05/20/21 05:23 Hgb 8.1 g/dL (11.7-16 .6) L 05/20/21 05:23 Hct 25.4 % (42.0-52.0 ) L 05/20/21 05:23 MCV 87.6 fl (80-94) 05/20/21 05:23 MCH 27.9 pg (28.0-34. 0) L 05/20/21 05:23 MCHC 31.9 g/dL (30.0-3 6.0) 05/20/21 05:23 RDW 17.0 % (12.1-15.1 ) H 05/20/21 05:23 Plt Count 104 10^3/cmm (130 -400) L 05/20/21 05:23 MPV Not Reportable 05/20/21 05:23 Neut % (Auto) 73.3 % 05/20/21 05:23 Lymph % (Auto) 11.4 % 05/20/21 05:23 [place] % (Auto) 10.8 % 05/20/21 05:23 Eos % (Auto) 3.6 % 05/20/21 05:23 Baso % (Auto) 0.6 % 05/20/21 05:23 Neut # (Auto) 6.37 10^3/uL (1.8 -7.7) 05/20/21 05:23 Lymph # (Auto) 1.0 10^3/uL (0.8- 4.8) 05/20/21 05:23 [place] # (Auto) 0.9 10^3/uL (0.2- 0.9) 05/20/21 05:23 Eos # (Auto) 0.3 10^3/uL (0.0- 0.8) 05/20/21 05:23 Baso # (Auto) 0.1 10^3/uL (0.0- 0.1) 05/20/21 05:23 Nucleated RBC % (a uto) 0 % 05/20/21 05: Nucleated RBCs # 0.0 /100WBC 05/20/21 05:23 Specimen Type Arterial 05/19/21 08:25 Sample Site Brachial, right 05/19/21 08:25 ABG pH 7.36 (7.35-7.45) 05/19/21 08:25 ABG pCO2 32.4 mmHg (35-45) L 05/19/21 08:25 ABG pO2 90.7 mmHg (80.0-1 00.0) 05/19/21 08:25 ABG HCO3 18.2 mmol/L (22-2 6) L 05/19/21 08:25 ABG O2 Saturation 97.7 05/19/21 08:25 ABG Base Excess -6.6 mmol/L (-2.0 -2.0) L 05/19/21 08:25 Mac Test Pos 05/19/21 08:25 A-a O2 Gradient 2.2 mmHg (5-10) L 05/19/21 08:25 Hematocrit 27.6 % (42-52) L 05/19/21 08:25 Hgb O2 Saturation 95.5 % (95-100) 05/19/21 08:25 Carboxyhemoglobin 1.1 %THgb (0.4-20 .1) 05/19/21 08:25 Methemoglobin 1.1 % (0.4-1.5) 05/19/21 08:25 Total Hemoglobin 9.0 g/dL (14-18) L 05/19/21 08:25 Sodium 134.0 mmol/L (131 -143) 05/19/21 08:25 Potassium 3.2 mmol/L (3.5-5 .0) L 05/19/21 08:25 Glucose 137.0 mg/dL (70-1 15) H 05/19/21 08:25 Ionized Calcium 1.0 mmol/L (1.1-1 .4) L 05/19/21 08:25 O2 Delivery Device Not Reportable 05/19/21 08:25 FiO2 21.0 % 05/19/21 08:25 Catalogue Maker ID Bd 05/19/21 08:25 Sodium 136 mmol/L (136-1 45) 05/20/21 05:23 Potassium 3.4 mmol/L (3.5-5 .1) L 05/20/21 05:23 Chloride 102 mmol/L (98-10 7) 05/20/21 05:23 Carbon Dioxide 23 mmol/L (22-29) 05/20/21 05:23 Anion Gap 14.4 (5-19) 05/20/21 05:23 BUN 34 mg/dL (8-23) H 05/20/21 05:23 Creatinine 2.6 mg/dL (0.7-1. 2) H 05/20/21 05:23 GFR Calculation Not Reportable 05/20/21 05:23 Glucose 99 mg/dL (65-115) 05/20/21 05:23 POC Glucose 114 mg/dL (70-110 ) H 05/20/21 14:43 Estimat Average Gl ucose 143 05/19/21 03:25 Hemoglobin A1c 6.6 % (4.0-6.0) H 05/19/21 03:25 Calculated Osmolal ity 290 mOsm/kg (285- 295) 05/20/21 05:23 Lactate 1.5 mmol/L (0.5-2 .2) 05/18/21 17:08 Uric Acid 5.3 mg/dL (3.4-7. 0) 05/18/21 17:08 Calcium 7.4 mg/dL (8.5-10 .5) L 05/20/21 05:23 Phosphorus 4.2 mg/dL (2.5-4. 5) 05/20/21 05:23 Magnesium 1.8 mg/dL (1.7-2. 3) 05/20/21 05:23 Iron 38 ug/dL (59-158) L 05/19/21 03:25 TIBC 176 mcg/dl 05/19/21 03:25 % Saturation 21.5 % (20-50) 05/19/21 03:25 Unsat Iron Binding 138 ug/dL (112-34 7) 05/19/21 03:25 Ferritin 265 ng/mL (30-400 ) 05/19/21 03:25 Total Bilirubin 0.6 mg/dL (0.15-1 .2) 05/20/21 05:23 AST 15 U/L (0-40) 05/20/21 05:23 ALT 6 U/L (0-41) 05/20/21 05:23 Alkaline Phosphata se 85 IU/L (40-130) 05/20/21 05:23 Creatine Kinase 227 U/L (39-308) 05/18/21 17:08 Troponin T Baselin e 443 ng/L (0-15) H* 05/18/21 14:50 NT-Pro-B Natriuret Pep 34949 pg/mL (0-45 0) H 05/19/21 03:25 Total Protein 4.6 g/dL (6.6-8.7 ) L 05/20/21 05:23 Albumin 2.7 g/dL (3.5-5.2 ) L 05/20/21 05:23 Globulin 1.9 g/dL (1.3-4.6 ) 05/20/21 05:23 Triglycerides 68 mg/dL (0-150) 05/19/21 03:25 Cholesterol 111 mg/dL (0-200) 05/19/21 03:25 LDL Cholesterol, C alc 61 mg/dL (50-129) 05/19/21 03:25 Total VLDL Cholest josephine 14 mg/dL (0-30) 05/19/21 03:25 HDL Cholesterol 36 mg/dL (60-100) L 05/19/21 03:25 Cholesterol/HDL Ra celina 3.08 mg/dL (1.0-5 .00) 05/19/21 03:25 Lipase 74 U/L (13-60) H 05/18/21 14:50 25-OH Vitamin D To kishore 10 ng/mL (30-100) L 05/19/21 03:25 Procalcitonin 0.23 ng/mL (0-0.5 ) 05/18/21 17:08 TSH 3.38 uIU/mL (0.27 -4.20) 05/18/21 17:08 PTH Intact 711.0 pg/mL (15-6 5) H 05/18/21 17:08 Calcium (PTH Intac t) 7.9 mg/dL (8.5-10 .5) L 05/18/21 17:08 Urine Color Yellow (Yellow) 05/18/21 19:51 Urine Appearance Clear (CLEAR) 05/18/21 19:51 Urine pH 5 (5-7) 05/18/21 19:51 Ur Specific Gravit y 1.025 (1.005-1.0 30) 05/18/21 19:51 Urine Protein 3+ (Negative) H 05/18/21 19:51 Urine Glucose (UA) Norm (Normal) 05/18/21 19:51 Urine Ketones Negative (Negati ve) 05/18/21 19:51 Urine Blood 2+ (Negative) H 05/18/21 19:51 Urine Nitrate Negative (Negati ve) 05/18/21 19:51 Urine Bilirubin Neg (Negative) 05/18/21 19:51 Urine Urobilinogen Norm mg/dL (Negat gavin) 05/18/21 19:51 Ur Leukocyte Benita ase Negative (Negati ve) 05/18/21 19:51 Urine RBC 0-4 /hpf (0-2) H 05/18/21 19:51 Urine WBC 0-4 /hpf (0-5) H 05/18/21 19:51 Ur Squamous Epith Cells 0-4 /hpf (0-5) H 05/18/21 19:51 Amorphous Sediment 3+ /hpf 05/18/21 19:51 Urine Bacteria Trace /hpf (NONE) 05/18/21 19:51 Ur Random Microalb umin 158 ug/dL (0-20) H 05/18/21 19:51 Ur Random Sodium 21 mmol/L 05/18/21 19:51 Ur Random Potassiu m 24 mmol/L 05/18/21 19:51 Ur Random Chloride 21 mmol/L 05/18/21 19:51 Urine Creatinine 159 mg/dL (39-259 ) 05/18/21 19:51 Urine Creatinine 159 mg/dL (39-259 ) 05/18/21 19:51 Microalb/Creat Rat io 994 mg/dL (0-20) H 05/18/21 19:51 Urine Opiates Scre en Negative ng/mL (N egative) 05/18/21 19:51 Ur Barbiturates Sc reen Negative ng/mL (N egative) 05/18/21 19:51 Ur Phencyclidine S crn Negative ng/mL (N egative) 05/18/21 19:51 Ur Amphetamines Sc reen Negative ng/mL (N egative) 05/18/21 19:51 U Benzodiazepines Scrn Negative ng/mL (N egative) 05/18/21 19:51 Urine Cocaine Scre en Negative ng/mL (N egative) 05/18/21 19:51 U Marijuana (THC) Screen Negative ng/mL (N egative) 05/18/21 19:51 Hep Bs Antigen Non-reactive (No nreactive) 05/18/21 17:08 Hep Bs Antibody 3.5 (11.5-1000) L 05/18/21 17:08 Hepatitis C Antibo dy Non-reactive (No nreactive) 05/18/21 17:08 Hepatitis C Antibo dy Non-reactive (No nreactive) 05/18/21 17:08 Micro: Micro: Microbiology 05/18/21 19:51 Legionella Urinary Antigen - Final Urine Catheterize d Urine Culture - Fi nal 05/18/21 17:53 Blood Culture - Pr eliminary Blood NEGATIVE TO BETO E 05/18/21 17:53 Blood Culture - Pr eliminary Blood NEGATIVE TO BETO E 05/18/21 19:51 Bacterial Antigens - Final Urine Kidney 05/18/21 19:42 MRSA Culture - Fin al Nose A&P Assessment and plan (1) Atherosclerosis of coronary artery of [place] heart without angina pectoris: Patient apparently had a successful coronary bypass surgery. Details are not available at this time. Is very possible that he might have occluded some of the bypass grafts. Progression of disease in the other vessels also is a consideration. For further evaluation, a cardiac catheterization would be appropriate. Status: Acute Qualifiers: Coronary Disease-Associated Artery/Lesion type: [place] artery Qualified Code(s): I25.10 - Atherosclerotic heart disease of [place] coronary artery without angina pectoris (2) Acute renal failure: Patient is on hemodialysis. Management as per nephrology service. 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 Status: Acute (5) Ischemic cardiomyopathy: Since we do not have any previous echocardiogram, difficult to say whether the LV dysfunction is new or not. However we will continue to optimize the afterload reducing agents. Status: Acute Additional A&P Information After reviewing the above and also based on the patient's the clinical progress, further recommendations will be made. Thank you for the opportunity to eval this patient and make these recommendations. 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
[2021-05-20 14:46] LABS: Glucose Point of Care 114 mg/dL (70-110)
--- NOTE | 2021-05-20 16:47 | PM.PN ---
Subjective Subjective: Interval history: No acute events overnight. He had his 2nd cycle dialysis yesterday. He tolerated well. Levophed turned off yesterday afternoon. Teague maintain mean artery pressure over 65. Today morning examination patient is a lot more awake, alert. He is able to have complete conversation with me. Having his breakfast. Denies any nausea vomiting, headache, dizziness. Has been having occasional episodes of VPCs and 1 NSVT. Vitals/I&O/Wt Last Vital Signs Temp 98.1 F 05/20/21 07:30 Pulse 74 05/20/21 14:00 Resp 12 05/20/21 12:30 BP 135/71 05/20/21 12:30 Pulse Ox 98 05/20/21 12:30 05/20/21 05/20/21 05/20/21 06:59 14:59 22:59 Intake Total 948.333 / 3149.382 1280 / 1280 Output Total 200 / 489 Balance 748.333 / 2660.382 1280 / 1280 Weight last 48 hrs Weight 80.286 kg Weight 78.13 kg Weight 76.975 kg Weight 73.4 kg Physical Exam Narrative: EXAM NARRATIVE: General: AAOx3, now acute distress, maintaining saturation on room air, HEENT: PERRLA, pupils bilaterally equal and reactive Chest: Normal vesicular breath sounds bilaterally, fine crackles present bilateral lower zones, equal good air entry bilaterally CVS: S1-S2 regular, soft pansystolic murmur present at apex, no tachycardia, no gallops, no rubs Abdomen: Soft, nontender, no organomegaly, bowel sounds present Neuro: No focal deficits, no facial deformity, awake, confused, moving all 4 limbs Urinary Catheter Management^: Vega: Cath Placed During This Visit: yes Reason for Continuing Indwelling Catheter: Accurate Measurement of Urinary Output in Critically Ill Patients Urinary Catheter Date of Insertion: 05/18/21 Urinary Catheter Time of Insertion: 19:51 Data : 05/20/21 05:23 05/20/21 05:23 Micro: Microbiology 05/18/21 19:51 Legionella Urinary Antigen - Final Urine Catheterized Urine Culture - Final 05/18/21 17:53 Blood Culture - Preliminary Blood NEGATIVE TO DATE 05/18/21 17:53 Blood Culture - Preliminary Blood NEGATIVE TO DATE 05/18/21 19:51 Bacterial Antigens - Final Urine Kidney A&P Assessment and plan (1) Acute renal failure: Status: Acute Qualifiers: Acute renal failure type: unspecified Qualified Code(s): N17.9 - Acute kidney failure, unspecified (2) 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: Status: Acute (3) CKD (chronic kidney disease): Status: Acute Qualifiers: Chronic kidney disease stage: stage 5, not on chronic dialysis Qualified Code(s): N18.5 - Chronic kidney disease, stage 5 (4) CHF (congestive heart failure): Status: Acute Qualifiers: Heart failure type: diastolic Heart failure chronicity: acute on chronic Qualified Code(s): I50.33 - Acute on chronic diastolic (congestive) heart failure (5) Ischemic cardiomyopathy: Status: Acute (6) Severe calcific aortic valve stenosis: Status: Acute (7) Hyperkalemia: Status: Acute (8) Hypoglycemia: Status: Acute (9) Metabolic acidosis: Status: Acute (10) Type 2 diabetes mellitus: Status: Chronic Qualifiers: Diabetes mellitus keno terminal operator insulin use: with keno terminal operator use Diabetes mellitus complication status: without complication Qualified Code(s): E11.9 - Type 2 diabetes mellitus without complications; Z79.4 - [facility] (current) use of insulin (11) Benign hypertension: Status: Chronic (12) Nausea & vomiting: Most likely secondary to uremia. Getting CT abdomen pelvis. Will reevaluate. Zofran as needed. Status: Acute (13) Long QT interval: Status: Acute Additional A&P Information Acute renal failure: Most likely worsening of CKD stage IV secondary to home dose of lisinopril, hydrochlorothiazide with ongoing hypotension: Post hemodialysis for 2 days. Hold off for today. Appreciate nephrology consultation. CT abdomen pelvis negative for obstruction or hydronephrosis. Renal ultrasound, urine lites appreciated. Urinalysis consistent with 3+ protein, 3+ sediments. Hyperkalemia/metabolic acidosis: Hyperkalemia resolved. Metabolic acidosis resolved. Altered mental status: Resolved. Most likely secondary to uremia along with hypoglycemia. Ammonia level, urine drug screen, salicylate, alcohol level negative. Fall precaution. Frequent reorientation. Hypoglycemia: Better. History of type 2 diabetes mellitus: Hypoglycemia most likely secondary to worsening renal functions and use of sulfonylurea on 05/17 evening. Hypoglycemic protocol with insulin sliding scale at low-dose protocol. Hold off on oral hypoglycemics or long-acting insulin for now. HbA1c 6.6. History of congestive heart failure: History of CABG: Currently on room air. Euvolemic. Echocardiogram results appreciated with EF of 25 to 30% with global LV hypokinesia with possible slow flow severe aortic stenosis. Continue with aspirin, statin. We will request documents from [facility]. We will consult cardiology for possible requirement of cardiac catheterization. Arrhythmia: Patient having frequent VPCs. Check EKG. Electrolytes repleted. Given severe LV dysfunction and being off Levophed for more than 24 hours will start patient on metoprolol succinate 12.5 mg twice daily. Will uptitrate depending on blood pressures. We will try to avoid amiodarone given high QTC on today morning's EKG. Sepsis: Cannot rule out sepsis secondary to possible pneumonia versus diarrheal disease. Patient does have a history of MSSA cellulitis of leg. Oxygen supplementation keeping saturation over 90%. Keep mean arterial pressure over 65. Wean off Levophed accordingly. Continue with midodrine 10 mg 3 times a day. MRSA negative, urine Legionella, bacterial antigen negative. Blood cultures so far negative. Continue with Zosyn to finish a 5-day course. Continue wound care as per wound care orders. Check sputum culture, stool studies. Hypertension: Goal blood pressure less than 140/90 mmHg. Continue to monitor. Change midodrine to 5 mg 3 times a day as needed for systolic blood pressure of less than 100 mmHg. Continue home oral medication including allopurinol, statin. For now hold off on pregabalin as patient was confused today morning after getting medication last night. CODE STATUS: Discussed with at bedside. Full code. Protonix for PUD prophylaxis. Heparin 5000 every 12 for DVT prophylaxis. Renal dialysis diet. Patient's care discussed in detail with his Ms. Bethea and with his son over the phone. All the questions were answered. Attestations Medical Necessity Statement*: Requires hospitalization for management of renal failure, CHF, severe LV dysfunction, Severe Critical Care Time: The high probability of a clinically significant, sudden or life threatening deterioration of the patient's [Renal, Cardiac,] system(s) required my full and direct attention, intervention and personal management. The critical care time is as shown. 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 N18.5; D63.1 CKD (chronic kidney disease) N18.5 Chronic kidney disease stage: stage 5, not on chronic dialysis CHF (congestive heart failure) I50.33 Heart failure type: diastolic Heart failure chronicity: acute on chronic Ischemic cardiomyopathy I25.5 Severe calcific aortic valve stenosis I35.0 Hyperkalemia E87.5 Hypoglycemia E16.2 Metabolic acidosis E87.2 Type 2 diabetes mellitus E11.9; Z79.4 Diabetes mellitus residential insulin use: with keno terminal operator use Diabetes mellitus complication status: without complication Benign hypertension I10 Nausea & vomiting R11.2 Long QT interval R94.31
[2021-05-20 17:21] LABS: Glucose Point of Care 156 mg/dL (70-110)
[2021-05-20] MEDS: insulin lispro 100 unit/1 mL SUBCUT ×2 (17:33→22:27)
[2021-05-20 17:59] LABS: Troponin T (5th) Once 602 ng/L (0-15)
--- NOTE | 2021-05-20 19:30 | PC.NURSE ---
Family update Patient wished to contact son/POA for updates. Son called and able to talk to patient. Nurse also talked to son and updated him on attempts to receive patient's medical records, in addition to the possibility of an angiogram tomorrow. Son, Mac, stated his intentions to visit patient tomorrow.
[2021-05-20] MEDS: bisacodyl 5 mg Tablet 10 MG PO (20:57)
[2021-05-20 22:26] LABS: Glucose Point of Care 157 mg/dL (70-110)
[2021-05-21] VITALS (38 sets, daily range): BP systolic 86–149; BP diastolic 44–85; PULSE 60–84; RESP 11–24; TEMP 36.4–37.1; O2SAT 86–100; BMI 26.0
[2021-05-21] MEDS: piperacillin-tazobactam 3.375 GM in sodium chloride 0.9% (plus) 50 ML IV ×2 (00:56→08:57)
[2021-05-21] MEDS: midodrine 5 mg TABLET PO (00:57)
[2021-05-21] MEDS: dextrose 5%-sod chloride 0.45% 1,000 ML 100 ML IV (01:55)
[2021-05-21 02:07] LABS: Glucose Point of Care 114 mg/dL (70-110)
[2021-05-21 05:37] LABS: Basophils # 0.1 10^3/uL (0.0-0.1); Basophils % 0.6 %; Eosinophils # 0.4 10^3/uL (0.0-0.8); Eosinophils % 5.1 %; Hematocrit 26.5 % (42.0-52.0); Hemoglobin 8.5 g/dL (11.7-16.6); Lymphocytes # 1.2 10^3/uL (0.8-4.8); Mean Corpuscular HGB Conc 32.1 g/dL (30.0-36.0); Mean Corpuscular Hemoglobin 28.5 pg (28.0-34.0); Mean Corpuscular Volume 88.9 fl (80-94); Mean Platelet Volume 13.8 fL (7.4-10.4); Monocytes # 0.7 10^3/uL (0.2-0.9); Monocytes % 7.9 %; Neutrophils % 72.2 %; Nucleated Red Blood Cells % 0 %; Platelet Count 110 10^3/cmm (130-400); Red Blood Count 2.98 10^6/uL (4.1-5.3); Red Cell Distribution Width 17.1 % (12.1-15.1); White Blood Count 8.3 10^3/uL (4.0-10.0)
[2021-05-21] MEDS: heparin 5,000 unit/mL INJ 1 mL 5000 UNIT SUBCUT (05:58)
[2021-05-21] MEDS: famotidine 20 mg/2 mL INJ IVP (06:01)
[2021-05-21 06:02] LABS: Alanine Aminotransferase 6 U/L (0-41); Albumin Level 2.7 g/dL (3.5-5.2); Alkaline Phosphatase 107 IU/L (40-130); Anion Gap 14.5 (5-19); Aspartate Amino Transferase 14 U/L (0-40); Blood Urea Nitrogen 39 mg/dL (8-23); Calcium 7.5 mg/dL (8.5-10.5); Carbon Dioxide 22 mmol/L (22-29); Chloride 97 mmol/L (98-107); Glucose 100 mg/dL (65-115); Magnesium 2.3 mg/dL (1.7-2.3); Osmolality Calculated 279 mOsm/kg (285-295); Phosphorus 4.9 mg/dL (2.5-4.5); Potassium 3.5 mmol/L (3.5-5.1); Sodium 130 mmol/L (136-145); Total Bilirubin 0.5 mg/dL (0.15-1.2); Total Protein 4.7 g/dL (6.6-8.7)
[2021-05-21 06:15] LABS: Glucose Point of Care 101 mg/dL (70-110)
--- NOTE | 2021-05-21 06:39 | PC.NURSE ---
Shift Note Frequent safety and comfort rounds continue. Orders and/or nursing care completed as indicated. Patient monitored for response to intervention and treatment(s). Education provided includes insulin doses, SCD use, dressing change for wound/hemodialysis port, and fall risk precautions. Patient verbalized understanding. Will continue to monitor.
[2021-05-21 06:50] LABS: Slide Review Slide Review Perform
[2021-05-21 07:50] LABS: Glucose Point of Care 111 mg/dL (70-110)
--- NOTE | 2021-05-21 08:16 | PM.PN ---
Subjective Subjective: Interval history: pt awake and feels better. no n/v/f/c/peres/d Medications: Reviewed: Yes Medication Review Details: Current Medications Acetaminophen (Acetaminophen 325 Mg Tablet) 650 mg PO Q6H PRN PRN Reason: Mild/Mod Pain Or Temp >/= 101 Allopurinol (Allopurinol 100 Mg Tablet) 100 mg PO DAILY [facility] Last Admin: 05/20/21 08:33 Dose: 100 mg Documented by: Aspirin (Aspirin 81 Mg Ec Tablet) 81 mg PO DAILY [facility] Last Admin: 05/20/21 08:33 Dose: 81 mg Documented by: Atorvastatin Calcium (Atorvastatin 40 Mg Tablet) 40 mg PO DAILY [facility] Last Admin: 05/20/21 08:33 Dose: 40 mg Documented by: Bisacodyl (Bisacodyl 5 Mg Tablet) 10 mg PO DAILY PRN; Protocol PRN Reason: Constipation (see protocol) Last Admin: 05/20/21 20:57 Dose: 10 mg Documented by: Calcium Carbonate (Calcium Carbonate 500 Mg Chew Tablet) 1,000 mg PO TID [facility] Last Admin: 05/20/21 20:57 Dose: 1,000 mg Documented by: Dextrose (Dextrose 50% Syringe 50 Ml) 25 ml IVP ONCE PRN; Protocol PRN Reason: hypoglycemia protocol Last Admin: 05/19/21 01:39 Dose: 25 ml Documented by: Dextrose (Dextrose 50% Syringe 50 Ml) 50 ml IVP PRN PRN; Protocol PRN Reason: hypoglycemia protocol Ergocalciferol (Ergocalciferol (Vitamin D2) 50,000 Unit Capsule) 50,000 unit PO Q7D [facility] Last Admin: 05/19/21 08:58 Dose: 50,000 unit Documented by: Famotidine (Famotidine 20 Mg/2 Ml Inj) 20 mg IVP Q12H [facility] Last Admin: 05/21/21 06:01 Dose: 20 mg Documented by: Glucagon (Glucagon 1 Mg/Ml Inj 1 Ml) 1 mg IM ONCE PRN; Protocol PRN Reason: Adult Acute Hypoglycemia Prot. Heparin Sodium (Porcine) (Heparin 5,000 Unit/Ml Inj 1 Ml) 5,000 unit SUBCUT Q12H [facility] Last Admin: 05/21/21 05:58 Dose: 5,000 unit Documented by: Albumin Human (Albumin) 12.5 gm in 50 mls @ 60 mls/hr IV PRN PRN PRN Reason: Hypotension and/or symptomatic Piperacillin Sod/Tazobactam (Sod 3.375 gm/ Sodium Chloride) 50 mls @ 12.5 mls/hr IV Q8H [facility]; Protocol Last Infusion: 05/21/21 05:00 Dose: Infused Documented by: Dextrose/Sodium Chloride (Dextrose 5%-Sod Chloride 0.45%) 1,000 mls @ 100 mls/hr IV .Q10H [facility] Last Admin: 05/21/21 01:55 Dose: 100 mls/hr Documented by: Iron Sucrose 200 mg/ Sodium (Chloride) 110 mls @ 220 mls/hr IV Q24H [facility] Stop: 05/25/21 09:59 Insulin Human Lispro (Insulin Lispro 100 Unit/1 Ml) 0 unit SUBCUT Q4H [facility]; Protocol Last Admin: 05/21/21 06:12 Dose: Not Given Documented by: Lactulose (Lactulose Oral Liq 20 Gm/30 Ml Udc) 10 gm PO DAILY PRN; Protocol PRN Reason: Constipation (see protocol) Metoprolol Succinate (Metoprolol Succinate Er (24 Hr) 25 Mg Tablet) 12.5 mg PO BID [facility] Last Admin: 05/20/21 17:27 Dose: 12.5 mg Documented by: Midodrine (Midodrine 5 Mg Tablet) 5 mg PO TID PRN PRN Reason: SBP less than 100 mhg Last Admin: 05/21/21 00:57 Dose: 5 mg Documented by: Morphine Sulfate (Morphine 4 Mg/Ml Sdv 1 Ml) 2 mg IVP Q4H PRN PRN Reason: SEVERE PAIN Multivitamins (N-Piwerei-Kgrfmgc C Tablet) 1 each PO DAILY [facility] Last Admin: 05/20/21 08:33 Dose: 1 each Documented by: Ondansetron HCl (Ondansetron 2 Mg/Ml Sdv 2 Ml) 4 mg IVP Q8H PRN PRN Reason: vomiting, or N/V if npo Vitals/I&O/Wt Last Vital Signs Temp 97.8 F 05/21/21 04:00 Pulse 70 05/21/21 06:00 Resp 15 05/21/21 06:00 BP 136/54 05/21/21 06:00 Pulse Ox 100 05/21/21 06:00 05/20/21 05/21/21 05/21/21 22:59 06:59 14:59 Intake Total 530 / 1860 1050 / 2910 Output Total 250 / 250 Balance 530 / 1860 800 / 2660 Weight last 48 hrs Weight 75.478 kg Weight 80.286 kg Weight 78.13 kg Physical Exam Narrative: EXAM NARRATIVE: elderly, more awake and comfortable in bed vs noted heent- nc/at, eomi, anicteric neck supple lungs- improved air movement b/l heart- irreg, no rub, +HSM abd soft, distended, poor bs ext 1+ edema- LLE bandaged ulcer Rt IJ dialysis catheter Urinary Catheter Management^: Vega: Cath Placed During This Visit: yes Reason for Continuing Indwelling Catheter: Accurate Measurement of Urinary Output in Critically Ill Patients Urinary Catheter Date of Insertion: 05/18/21 Urinary Catheter Time of Insertion: 19:51 Data : 05/21/21 04:20 05/21/21 04:20 Micro: Microbiology 05/18/21 19:51 Legionella Urinary Antigen - Final Urine Catheterized Urine Culture - Final A&P Additional A&P Information 81 yr old man 1. 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 CHANO-Q progression of CKD -also prerenal as did not eat for a few days -concern for ATN- on thiazide and satish-i, and lasix and glipizide- denies nsaid use -ua 3+ prot, 3+ amorphous sediment -low ur na 21 -abd ct- normal kidneys - xray- no chf or pna -s/p emergency HD x 2 -as going for cardiac cath- will repeat HD today- 3 hrs, 3k, remove 1 l -monitor for renal recovery. however, likely ESRD 3. hyperkalemia -from CHANO and satish-i in setting of ckd -improved w/ HD -improved 4. inc AGMA- Can be from sepsis, lactate, less likely DKA, concern starvation acidosis, concern form renal failure -improved w/ dialysis 5. hypoglycemia- stop glipizide- long half life w/ CKD/ ESRD -use insulin as needed for DM -improved. is eating, d/c ivf 6. abd pain improved 7. hyponatremia- improved 8. anemia eval- iron sat 21%, ferritin 265 - epo and iv iron 9. renal bone - mineral metabolism- vit d=10- replace vit d - pth 711- vit d analouge after vit d replenished -monitor hypocalcemia- use tums as phos mildly elevated 10. CHF -f/u echo. high bnp - monitor Normal left ventricular size. LV systolic function is severely reduced with EF of 25-30%. Severe global hypokinesis. Septal motion is consistent with prior cardiac surgery. Diastolic function is indeterminate because of atrial fibrillation. - patient has severe low flow-low gradient Aortic stenosis -start diuresis as needed per cardiology -renal okay for cardiac cath and HD as needed 11. a fib per cardiology seen and examined w/ RN- telehealth visit Attestations Medical Necessity Statement*: CHANO on CKD, Q ESRD. CAD for cardiac cath Time Spent in Patient Care: 16 - 35 minutes Coding Level of Care Code Acute Legal Records Manager for Willie Wilks
[2021-05-21] MEDS: aspirin 81 mg EC Tablet PO (08:56)
[2021-05-21] MEDS: allopurinol 100 mg Tablet PO (08:56)
[2021-05-21] MEDS: b-complex-vitamin c Tablet 1 EACH PO (08:57)
[2021-05-21] MEDS: metoprolol succinate ER (24 HR) 25 mg Tablet 12.5 MG PO (08:57)
[2021-05-21] MEDS: calcium carbonate 500 mg Chew Tablet 1000 MG PO ×2 (08:57→14:58)
[2021-05-21] MEDS: iron sucrose 200 MG in sodium chloride 0.9% (100 ml) 100 ML 220 MG IV (09:10)
[2021-05-21] MEDS: atorvastatin 40 mg Tablet PO (10:06)
--- NOTE | 2021-05-21 10:06 | PC.CHAP ---
Pastoral Care Encounter/Spiritual Assessment Type of Contact [] Declined helpdesk specialist visit [] Patient/Family/Request visit [] Outpatient visit [] Follow-up visit [] Physician referral [] Code/Alert [x] Routine visit [] Staff referral [] Actively dying [x] Patient sleeping [] Family support [] [] Out of room [] Palliative care [] [] Receiving care in room [] Pre-surgical visit [] Trauma [] Long length of stay [x] ICU visit [] Other: Relational/Emotional Strength [] Patient feels connected with others/family/visitors/staff [] Distress [] Loneliness/isolation [] Abandonment Spirituality of Patient [] Person of Lynette [] Attends Roman Catholic of their Lynette [] Believes in Prayer [] Reads Bible or Zoroastrian materials [] There are Spiritual issues to be addressed Extractor Operator Helper Interventions [x] Prayer [] Active listening [] Non-anxious presence [] Spiritual/emotional support [] Crisis/trauma care [] Spiritual counseling [] Bereavement support [] Provided bereavement packet [] Provided Bible/devotional materials [] Provided toy/stuffed animal, coloring book to patient or family member [] Provided Communion [] Anointing/[place] [] Salvation [x] Completed spiritual assessment [] Other: Impact on Illness or Injury [] Angry [] Fearful [] Anxious [] Often cries [] Exhaustion [] Unable to work [] Unable to attend congregation [] Unable to walk/stand [] Unable to read [] Unable to drive [] Unable to eat/drink [] Unable to sleep [] Unable to be with family [] Patient intubated [] Other: Summary Time spent with patient
[2021-05-21 10:41] LABS: Glucose Point of Care 107 mg/dL (70-110)
[2021-05-21 11:41] LABS: Glucose Point of Care 114 mg/dL (70-110)
--- NOTE | 2021-05-21 11:43 | P.PN_ITS ---
Subjective Subjective: Interval history: No acute events overnight. Denies any nausea vomiting, headache. Minimal urine output. Has remained hemodynamically stable. On room air. Denies any nausea vomiting, headache. Possible plan for cardiac catheterization during the day today. Less VPCs on secured entrance monitor. But heart rate is going down to 50s when he sleeping. Vitals/I&O/Wt Last Vital Signs Temp 97.8 F 05/21/21 04:00 Pulse 70 05/21/21 06:00 Resp 15 05/21/21 06:00 BP 136/54 05/21/21 06:00 Pulse Ox 100 05/21/21 06:00 05/20/21 05/21/21 05/21/21 22:59 06:59 14:59 Intake Total 530 / 1860 1050 / 2910 Output Total 250 / 250 Balance 530 / 1860 800 / 2660 Weight last 48 hrs Weight 75.478 kg Weight 80.286 kg Weight 78.13 kg Physical Exam 2 Narrative: EXAM NARRATIVE: General: AAOx3, now acute distress, maintaining saturation on room air, HEENT: PERRLA, pupils bilaterally equal and reactive Chest: Normal vesicular breath sounds bilaterally, fine crackles present bilateral lower zones, equal good air entry bilaterally CVS: S1-S2 regular, soft pansystolic murmur present at apex, no tachycardia, no gallops, no rubs Abdomen: Soft, nontender, no organomegaly, bowel sounds present Neuro: No focal deficits, no facial deformity, awake, confused, moving all 4 limbs Urinary Catheter Management^: Vega: Cath Placed During This Visit: yes Reason for Continuing Indwelling Catheter: Accurate Measurement of Urinary Output in Critically Ill Patients Urinary Catheter Date of Insertion: 05/18/21 Urinary Catheter Time of Insertion: 19:51 Data : 05/21/21 04:20 05/21/21 04:20 Micro: Microbiology 05/18/21 19:51 Legionella Urinary Antigen - Final Urine Catheterized Urine Culture - Final A&P Assessment and plan (1) Acute renal failure: Status: Acute Qualifiers: Acute renal failure type: unspecified Qualified Code(s): N17.9 - Acute kidney failure, unspecified (2) 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: Status: Acute (3) CKD (chronic kidney disease): Status: Acute Qualifiers: Chronic kidney disease stage: stage 5, not on chronic dialysis Qualified Code(s): N18.5 - Chronic kidney disease, stage 5 (4) CHF (congestive heart failure): Status: Acute Qualifiers: Heart failure type: diastolic Heart failure chronicity: acute on chronic Qualified Code(s): I50.33 - Acute on chronic diastolic (congestive) heart failure (5) Ischemic cardiomyopathy: Status: Acute (6) Severe calcific aortic valve stenosis: Status: Acute (7) Hyperkalemia: Status: Acute (8) Hypoglycemia: Status: Acute (9) Metabolic acidosis: Status: Acute (10) Type 2 diabetes mellitus: Status: Chronic Qualifiers: Diabetes mellitus ad terminal makeup operator insulin use: with detention use Diabetes mellitus complication status: without complication Qualified Code(s): E11.9 - Type 2 diabetes mellitus without complications; Z79.4 - penitentiary (current) use of insulin (11) Benign hypertension: Status: Chronic (12) Nausea & vomiting: Most likely secondary to uremia. Getting CT abdomen pelvis. Will reevaluate. Zofran as needed. Status: Acute (13) Long QT interval: Status: Acute Additional A&P Information Acute renal failure: Most likely worsening of CKD stage IV secondary to home dose of lisinopril, hydrochlorothiazide with ongoing hypotension: Repeat dialysis post cardiac catheterization. Patient will most likely require long-term hemodialysis. Will consult case management for chair time as an outpatient. CT abdomen pelvis negative for obstruction or hydronephrosis. Renal ultrasound, urine lites appreciated. Urinalysis consistent with 3+ protein, 3+ sediments. History of congestive heart failure: History of CABG: Currently on room air. Euvolemic. Echocardiogram results appreciated with EF of 25 to 30% with global LV hypokinesia with possible slow flow severe aortic stenosis. Continue with aspirin, statin. We will request documents from [facility]. Still awaiting. Plan for cardiac catheterization today Arrhythmia: Patient having frequent VPCs. Check EKG. Electrolytes repleted. Continue metoprolol 12.5 mg twice daily for now. We will hold off on uptitrating given bradycardia when patient sleeps. We will try to avoid amiodarone given high QTC on today morning's EKG. Sepsis: Cannot rule out sepsis secondary to possible pneumonia versus diarrheal disease. Patient does have a history of MSSA cellulitis of leg. Oxygen supplementation keeping saturation over 90%. Keep mean arterial pressure over 65. Wean off Levophed accordingly. Continue with midodrine 10 mg 3 times a day. MRSA negative, urine Legionella, bacterial antigen negative. Blood cultures so far negative. Continue with Zosyn to finish a 5-day course. Last year May 23. Continue wound care as per wound care orders. Hyperkalemia/metabolic acidosis: Hyperkalemia resolved. Metabolic acidosis resolved. Altered mental status: Resolved. Most likely secondary to uremia along with hypoglycemia. Ammonia level, urine drug screen, salicylate, alcohol level negative. Fall precaution. Frequent reorientation. Hypoglycemia: Better. History of type 2 diabetes mellitus: Hypoglycemia most likely secondary to worsening renal functions and use of sulfonylurea on 05/17 evening. Hypoglycemic protocol with insulin sliding scale at low-dose protocol. Hold off on oral hypoglycemics or long-acting insulin for now. HbA1c 6.6. Hypertension: Goal blood pressure less than 140/90 mmHg. Continue to monitor. Midodrine to 5 mg 3 times a day as needed for systolic blood pressure of less than 100 mmHg. Continue home oral medication including allopurinol, statin. For now hold off on pregabalin as patient was confused today morning after getting medication last night. CODE STATUS: Discussed with at bedside. Full code. Protonix for PUD prophylaxis. Heparin 5000 every 12 for DVT prophylaxis. Renal dialysis diet. Plan for today: Continue with metoprolol 12.5 mg twice daily. Possible cardiac catheterization later in the evening today. Possible dialysis after catheterization versus early tomorrow morning. Continue with IV antibiotics. Continue secured entrance monitor for frequent PVCs. Attestations Medical Necessity Statement*: Requires further hospitalization for management of acute renal failure with baseline stage IV CKD requiring hemodialysis, severe LV dysfunction with EF of 25% with history of CABG requiring cardiac catheterization Critical Care Time: The high probability of a clinically significant, sudden or life threatening deterioration of the patient's [renal, cardiac] system(s) required my full and direct attention, intervention and personal management. The critical care time is as shown. 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2 Long QT interval R94.31
--- NOTE | 2021-05-21 12:47 | PC.SOCIAL ---
IMM Update pg 2 of IMM updated and reviewed w/ patient. Copy provided.
[2021-05-21 14:29] LABS: Glucose Point of Care 84 mg/dL (70-110)
[2021-05-21] MEDS: dextrose 50% syringe 50 mL 25 ML IVP (16:40)
[2021-05-21 16:53] LABS: Glucose Point of Care 61 mg/dL (70-110)
[2021-05-21 17:05] LABS: Glucose Point of Care 92 mg/dL (70-110)
--- NOTE | 2021-05-21 17:37 | PM.PN ---
Subjective Medications: Reviewed: Yes Medication Review Details: Current Medications Acetaminophen (Acetaminophen 325 Mg Tablet) 650 mg PO Q6H PRN PRN Reason: Mild/Mod Pain Or Temp >/= 101 Allopurinol (Allopurinol 100 Mg Tablet) 100 mg PO DAILY [facility] [place] Last Admin: 05/21/21 08:56 Dose: 100 mg Documented by: Aspirin (Aspirin 81 Mg Ec Tablet) 81 mg PO DAILY [facility] [place] Last Admin: 05/21/21 08:56 Dose: 81 mg Documented by: Atorvastatin Calcium (Atorvastatin 40 Mg Tablet) 40 mg PO DAILY [facility] [place] Last Admin: 05/21/21 10:06 Dose: 40 mg Documented by: Bisacodyl (Bisacodyl 5 Mg Tablet) 10 mg PO DAILY PRN; Protocol PRN Reason: Constipation (see protocol) Last Admin: 05/20/21 20:57 Dose: 10 mg Documented by: Calcium Carbonate (Calcium Carbonate 500 Mg Chew Tablet) 1,000 mg PO TID [facility] [place] Last Admin: 05/21/21 14:58 Dose: 1,000 mg Documented by: Dextrose (Dextrose 50% Syringe 50 Ml) 50 ml IVP PRN PRN; Protocol PRN Reason: hypoglycemia protocol Ergocalciferol (Ergocalciferol (Vitamin D2) 50,000 Unit Capsule) 50,000 unit PO Q7D [facility] [place] Last Admin: 05/19/21 08:58 Dose: 50,000 unit Documented by: Famotidine (Famotidine 20 Mg/2 Ml Inj) 20 mg IVP Q12H [facility] [place] Last Admin: 05/21/21 06:01 Dose: 20 mg Documented by: Glucagon (Glucagon 1 Mg/Ml Inj 1 Ml) 1 mg IM ONCE PRN; Protocol PRN Reason: Adult Acute Hypoglycemia Prot. Heparin Sodium (Porcine) (Heparin 5,000 Unit/Ml Inj 1 Ml) 5,000 unit SUBCUT Q12H [facility] [place] Last Admin: 05/21/21 05:58 Dose: 5,000 unit Documented by: Iron Sucrose 200 mg/ Sodium (Chloride) 110 mls @ 220 mls/hr IV Q24H [facility] [place] Stop: 05/25/21 09:59 Last Admin: 05/21/21 09:10 Dose: 220 mls/hr Documented by: Albumin Human (Albumin) 12.5 gm in 50 mls @ 60 mls/hr IV PRN PRN PRN Reason: Hypotension and/or symptomatic Piperacillin Sod/Tazobactam (Sod 3.375 gm/ Sodium Chloride) 50 mls @ 12.5 mls/hr IV Q12H ELIAZAR; Protocol Stop: 05/23/21 23:59 Insulin Human Lispro (Insulin Lispro 100 Unit/1 Ml) 0 unit SUBCUT Q4H ELIAZAR; Protocol Last Admin: 05/21/21 14:52 Dose: Not Given Documented by: Lactulose (Lactulose Oral Liq 20 Gm/30 Ml Udc) 10 gm PO DAILY PRN; Protocol PRN Reason: Constipation (see protocol) Metoprolol Succinate (Metoprolol Succinate Er (24 Hr) 25 Mg Tablet) 12.5 mg PO BID [facility] [place] Last Admin: 05/21/21 08:57 Dose: 12.5 mg Documented by: Midodrine (Midodrine 5 Mg Tablet) 5 mg PO TID PRN PRN Reason: SBP less than 100 mhg Last Admin: 05/21/21 00:57 Dose: 5 mg Documented by: Morphine Sulfate (Morphine 4 Mg/Ml Sdv 1 Ml) 2 mg IVP Q4H PRN PRN Reason: SEVERE PAIN Multivitamins (M-Eicqgfz-Ajpyaua C Tablet) 1 each PO DAILY [facility] [place] Last Admin: 05/21/21 08:57 Dose: 1 each Documented by: Ondansetron HCl (Ondansetron 2 Mg/Ml Sdv 2 Ml) 4 mg IVP Q8H PRN PRN Reason: vomiting, or N/V if npo Vitals/I&O/Wt Last Vital Signs Temp 98.8 F 05/21/21 15:00 Pulse 68 05/21/21 16:00 Resp 16 05/21/21 16:00 BP 130/71 05/21/21 16:00 Pulse Ox 97 05/21/21 16:00 05/21/21 05/21/21 05/21/21 06:59 14:59 22:59 Intake Total 1050 / 2910 Output Total 250 / 250 Balance 800 / 2660 Weight last 48 hrs Weight 166 lb 6.4 oz Weight 177 lb Weight 172 lb 3.954 oz Physical Exam Narrative: EXAM NARRATIVE: GENERAL: The patient is alert and oriented times three. Not in any acute distress. Unkempt HEENT: Moderate pallor. No icterus or lymphadenopathy. The pupils are reactant to light. Oral cavity: There are no mucous membrane lesions. Funduscopic examination: The fundus is not visualized NECK: Trachea appears to be central. No masses noted. No JVD or thyromegaly appreciated. No carotid bruit. RESPIRATORY: Chest is symmetrical. No intercostals muscle retraction or any accessory muscle activation. There is no chest wall tenderness. Breath sounds are heard bilaterally. Few fine rales and occasional expiratory wheezing. BREASTS: Deferred. HEART: The PMI could not be palpated. But no other palpable precordial events. No palpable precordial events. S1 and S2 are normal. No S3 or S4 heard. No pericardial rub or any click heard. ABDOMEN: No vessel pulsations or distention. No tenderness. No organomegaly appreciated. No abdominal bruit. Bowel sounds are normally heard. : Deferred. RECTAL: Deferred. LYMPHATIC: No lymphadenopathy noted in the neck or groin. EXTREMITIES: 1+ edema both lower extremities. No cyanosis. Peripheral pulses are palpable but weak bilaterally. MUSCULOSKELETAL: No acute joint deformities or swelling SKIN: There are no significant scars or skin rash noted. NEUROPSYCHIATRIC: The patient is alert and oriented x3. Appears to be in a good mood. The higher functions are grossly within normal limits. No tremors or rigidity noted. Urinary Catheter Management^: Vega: Cath Placed During This Visit: yes Reason for Continuing Indwelling Catheter: Accurate Measurement of Urinary Output in Critically Ill Patients Urinary Catheter Date of Insertion: 05/18/21 Urinary Catheter Time of Insertion: 19:51 Data : 05/21/21 04:20 05/21/21 04:20 A&P Assessment and plan (1) Atherosclerosis of coronary artery of [place] heart without angina pectoris: Patient apparently had a successful coronary bypass surgery. Details are not available at this time. Is very possible that he might have occluded some of the bypass grafts. Progression of disease in the other vessels also is a consideration. For further evaluation, a cardiac catheterization would be appropriate. The risk of bleeding, hematoma, vascular injury, myocardial infarction, CVA, renal failure and other concomitant complications were explained in detail. Patient and the family understood this well and consented to proceed Status: Acute Qualifiers: Coronary Disease-Associated Artery/Lesion type: [place] artery Qualified Code(s): I25.10 - Atherosclerotic heart disease of [place] coronary artery without angina pectoris (2) Acute renal failure: Patient is on hemodialysis. Management as per nephrology service. 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 Status: Acute (5) Ischemic cardiomyopathy: The left ventricular ejection fraction was 25 to 30%. We will try to optimize the heart failure medications Status: Acute Additional A&P Information I discussed with the patient and his son who has a treatment options. Because of the severe LV dysfunction and the previous coronary bypass surgery, it would be appropriate to go ahead with a cardiac catheterization to evaluate his coronary status as well as the graft status to decide on further management. Because of his multiple comorbidities, he carries a high risk. This was explained in detail which the family and the patient understood well. 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
--- NOTE | 2021-05-21 17:43 | W.PM.OPSUD ---
Surgery/Procedure H&P Update DATE OF PROCEDURE: May 21, 2021 DATE H&P PERFORMED: 05/20/21 H&P UPDATE INFORMATION: I have reviewed H&P completed within last 30 days, I have examined patient prior to procedure, No changes to prior documentation and Changes to prior documentation as noted here PREOP DIAGNOSIS: ASHD/cardiomyopathy/CHF PRIMARY INDICATION FOR PROCEDURE: Cardiomyopathy, non-ST elevation myocardial infarction/aortic valve stenosis PLANNED PROCEDURE: Operation Date: 05/21/21 18:00 Proposed Procedures p Cardiac Catheterization(Not Applicable) - Rose Cheung MD PATIENT REASSESSED PRIOR TO SEDATION, WITH NO CHANGE NOTED: Yes PHYSICAL EXAM: alert, oriented x 3, clear to auscultation bilaterally and regular rate & rhythm AIRWAY EVAL/ANESTHESIA PLAN: normal airway, see other exam findings, ASA IV, Monitored Anesthesia, Local Anesthesia, Risks, benefits & alternatives of sedation and/or procedure discussed and Patient agrees to continue as planned
--- NOTE | 2021-05-21 18:00 | XACV_ITS ---
Exam Room: [facility] Ht: 170 cm Wt: 75 kg BSA: 1.90 m2 Gender: Male : 1940 Any Known Allergies: No known allergies Exam Priority: Routine Procedure(s): Procedure Description: Diagnostic procedure Procedure Description: Aortogram Procedure Description: Coronary Angiography Jonatan SILVERMAN; Diagnostic Cath Status: Elective Diagnostic Findings * Coronary angiography shows right dominance. * The left main is a medium caliber vessel which was found to have mild to moderate diffuse disease. The artery gives off a small to medium caliber diagonal vessels proximally. Both these vessels were found to have severe diffuse disease proximally including high-grade ostial lesions. The LAD appears to be totally occluded afterwards. A small to medium caliber septal temporary help agency referral clerk vessel was noted proximally which gives of multiple branches. The ostium of this artery was found to have a high-grade lesion as well. * The left circumflex artery is a medium caliber vessel which appears to have moderate diffuse disease proximally. It gives off multiple atrial branches. Then the artery appears to be totally occluded. * The right coronary artery was found to be totally occluded proximally. It was found to be heavily calcified. * The venous graft to the PDA branch was found to be totally occluded proximally. * Saphenous venous graft to the diagonal artery also appears to be totally occluded proximally. * The saphenous venous graft to the obtuse marginal branch was found to be patent with a high-grade napkin ring type of lesion proximally. Retrograde flow into the proximal branches of the obtuse marginal artery was found to have severe diffuse disease. * The left internal mammary artery graft to the left anterior descending artery was found to be patent. The LAD distal to the anastomosis was found to have mild diffuse disease. * An aortogram was performed in a shallow ALISE view. Only one venous graft was found to be originating from the aorta. The other 2 venous grafts were found to be occluded proximally. Conclusions 1. Patient has prior CABG. 2. Is an 81-year-old white male with a history of coronary artery disease, status post four-vessel coronary bypass surgery, is admitted to hospital with features of acute on chronic renal failure, congestive heart failure and non-ST elevation myocardial infarction. He had echocardiogram which revealed multiple wall motion abnormalities with a severely diminished ejection fraction of around 25 to 30%. In view of his presenting symptoms, in order to further evaluate his coronary status as well as the graft status, a cardiac catheterization was recommended. Patient underwent left and right coronary angiogram ,graft angiogram and aortogram today. The findings are as follows.. 3. Mild to moderate diffuse disease in the left main artery. Total occlusion of the left anterior descending artery after the second diagonal branch. Moderate to severe diffuse disease in the proximal LAD. Small to medium caliber diagonal vessels with high-grade diffuse disease. Total occlusion of the circumflex artery proximally. Total occlusion of the right coronary artery also at the proximal segment. The venous graft to the PDA and the diagonal arteries are found to be totally occluded at the proximal anastomotic site. The venous graft to the obtuse marginal artery was found to have a high-grade napkin ring type of lesion proximally. DE LOS SANTOS to the LAD was found to be patent. The aortogram revealed occluded venous graft to the PDA and the diagonal arteries proximally. The innominate artery was found to be tortuous and calcified. 4. I reviewed and discussed the cardiac catheterization data with Dr Morris. The study be appropriate to consider PCI of the venous graft to the obtuse marginal artery. Because of the patient's sedation, he was not able to swallow oral medication. In view of his renal failure, because of the high propensity for bleeding, it was thought to be appropriate to consider PCI tomorrow after loading him with PO Plavix. The angiogram findings and the treatment plan were discussed with the patient's family( son, who is the POA). Recommendations * Continue current medical management and risk factor modification. Diagnostic RX Recommendation: PCI w/o planned CABG Clinical Evaluation EBL: 5mL-10mL Procedural Details Procedure Consent Obtained. Current Diagnosis : NSTEMI. Baseline sample Acquired. HR: 0 BPM. Pre-Procedure Time Out. Identified patient by full name and date of as verbalized by the patient/guarantor. Does the consent match the physician's order: Yes. Accurate & Complete Informed Consent: Yes. Inpatient/Outpatient History & Physical on Chart: Yes. If H&P is completed, is and addenduem needed: No; If yes, is the addendum complete: N/A. Visualize and Verify Site with Patient/Guarantor: N/A. Relevant Radiology Images available: Yes. Pre-op teaching completed and patient verbalized understanding. The risks, benefits, and alternatives of sedation and/or procedure were discussed by physician. The patient agrees to continue. Procedure started. [facility] Clinical Fraility Score: 5: Mildly Frail. Filling Station Attendant Indications: Cardiomyopathy. Chest Pain Symptom Assessment: Atypical Angina. Correct patient, site and procedure confirmed by cath team. Current diagnosis: NSTEMI. PERRLA. Strong, equal hand minister assistant bilaterally. Lungs clear x 5 lobes. IV Site on Arrival: 20 gauge in the right forearm. Pre Procedural Pulses: bilateral dorsalis pedis was Doppled. Oxygen started at 2liters/min via nasal canula. right groin was prepped with chloroprep then draped in the usual sterile fashion. Physician notified. Baseline sample Acquired. HR: 82 BPM. Physician arrived. Physician scrubbed in. Immediate Pre-Procedure Time Out. Correct Patient: Yes; Correct Procedure: Yes; Correct Site: Yes; Correct Patient Position: Yes; Correct Supplies: Yes; Dried Flammable Prep: Yes; Blood Products Available: N/A;. Lidocaine 1% infiltrated to the right groin. Arterial access obtained with micropuncture set. A 5 [place] JL4 catheter in over wire. Multiple views taken of left coronary artery. Catheter removed over the standard wire. Catheter removed over the exchange wire. A 5 [place] JR4 catheter in over wire. Multiple views taken of right coronary artery. SVG's to OM visualized and patent. DE LOS SANTOS to LAD visualized. SVG to RCA occluded. Aortogram performed in [place] @ 20 mL/second for a total of 40 mL. Catheter out. A 5 [place] angled pigtail catheter in over wire. Catheter removed over the exchange wire. Dr Morris notified. Side port of sheath attached to Normal Saline flush at KVO to maintain patency. Patient's family updated. Sheath(s) sutured into position with 2-0 silk and sterile 4x4's and Op-site applied over the site. No oozing or signs and symptoms of hematoma noted. Post Procedure: Pulses reassessed and unchanged. PERRLA. Strong, equal hand minister assistant bilaterally. No VTE prophylaxis required. A Suture was successful obtaining hemostatsis at the Right Femoral artery insertion site. Total IV fluids: 64 mL. Medication's Wasted: Lidocaine 1% = 10 mL. Medication's Wasted: Heparin = 4500 u. Complications: none. Estimated blood loss: 5mL-10mL. Procedure completed. Patient transferred by bed to ICU. Access Site Site: Right Femoral artery Sheath Size: 5 Fr Hemostasis Method: Suture Hemostasis Success: Successful Procedure Medications Start: 5:52 PM Stop: 5:52 PM Medication: Versed Amount: 1 mg Route: I.V. Start: 6:03 PM Stop: 6:03 PM Medication: Versed Amount: 0.5 mg Route: I.V. Start: 6:09 PM Stop: 6:09 PM Medication: Heparin Amount: 1500 units Route: I.V. Start: 6:19 PM Stop: 6:19 PM Medication: Versed Amount: 0.5 mg Route: I.V. Start: 6:34 PM Stop: 6:34 PM Medication: Versed Amount: 0.5 mg Route: I.V. I, the attending physician, have reviewed and verified all procedure medications. Yes, all medications given per verbal order History/Risk Factors Hypertension: Yes Dyslipidemia: Yes Peripheral Arterial Disease (PAD): No Myocardial Infarction (AR): Yes Obesity: No Renal Disease: Yes Dialysis: Current Prior Interventions PCI: No CABG: Yes Valve Surgery: No Report Signatures Finalized by Dr Rose Cheung MD [facility] on 05/22/2021 11:47 AM
[2021-05-21 19:04] LABS: Glucose Point of Care 72 mg/dL (70-110)
--- NOTE | 2021-05-21 19:31 | PC.NURSE ---
Talked with Dr. Rose Cheung (Cardiology) at 1925. He provided an order to administer 600 mg of Plavix tomorrow, after the patient has gone through Dialysis. He provided an order to pull the sheath during the shift. The physician was updated on the patient's condition, who is doing well, laying supine. The patient is experiencing slight confusion, but is alert and oriented to person, place, and situation. Heart rate is in the 70's, blood pressure is 126/87, respirations are 18, and the patient's oxygen saturation is at 98%. The dressing covering the sheath is dry and intact, hooked up to a pressure bag, with no visible signs of bleeding.
--- NOTE | 2021-05-21 21:19 | PC.NURSE ---
Ptt came back at 2049 at 52.0 and was seen at 2114. Another PTT order has been put in to be drawn at 2314 .
[2021-05-21 23:01] LABS: Glucose Point of Care 88 mg/dL (70-110)
[2021-05-21 23:38] LABS: Partial Thromboplastin Time 46.4 SECONDS (23.9-36.7)
[2021-05-22] VITALS (67 sets, daily range): BP systolic 89–161; BP diastolic 45–107; PULSE 60–89; RESP 11–26; TEMP 36.5–36.9; O2SAT 90–100; BMI 26.9
[2021-05-22 02:22] LABS: Eosinophils # 0.3 10^3/uL (0.0-0.8); Neutrophils # 4.98 10^3/uL (1.8-7.7); Nucleated Red Blood Cells % 0 %; Red Cell Distribution Width 17.2 % (12.1-15.1)
[2021-05-22 03:00] LABS: Glucose Point of Care 72 mg/dL (70-110)
[2021-05-22 03:19] LABS: Alanine Aminotransferase < 5 U/L (0-41); Albumin Level 2.7 g/dL (3.5-5.2); Alkaline Phosphatase 112 IU/L (40-130); Anion Gap 16.8 (5-19); Aspartate Amino Transferase 12 U/L (0-40); Blood Urea Nitrogen 41 mg/dL (8-23); Calcium 7.7 mg/dL (8.5-10.5); Carbon Dioxide 20 mmol/L (22-29); Chloride 98 mmol/L (98-107); Globulin 2.1 g/dL (1.3-4.6); Glucose 65 mg/dL (65-115); Magnesium 2.1 mg/dL (1.7-2.3); Osmolality Calculated 280 mOsm/kg (285-295); Phosphorus 5.3 mg/dL (2.5-4.5); Potassium 3.8 mmol/L (3.5-5.1); Sodium 131 mmol/L (136-145); Total Bilirubin 0.5 mg/dL (0.15-1.2); Total Protein 4.8 g/dL (6.6-8.7)
[2021-05-22 03:37] LABS: Basophils % 0.4 %; Eosinophils % 4.8 %; Hematocrit 26.9 % (42.0-52.0); Hemoglobin 8.5 g/dL (11.7-16.6); Lymphocytes # 0.8 10^3/uL (0.8-4.8); Lymphocytes % 12.4 %; Mean Corpuscular HGB Conc 31.6 g/dL (30.0-36.0); Mean Corpuscular Hemoglobin 28.3 pg (28.0-34.0); Mean Corpuscular Volume 89.7 fl (80-94); Monocytes # 0.5 10^3/uL (0.2-0.9); Monocytes % 7.9 %; Neutrophils % 74.2 %; Platelet Count 98 10^3/cmm (130-400); White Blood Count 6.7 10^3/uL (4.0-10.0)
--- NOTE | 2021-05-22 04:15 | PC.NURSE ---
PTT came back at 44 seconds, making it justifiable per protocol for the sheath to be pulled. 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 During the shift there were no signs of bleeding, nor any evidence of hematomas on arrival, or during the shift that formed. Patient's vitals have been great during the shift. The patient has remained awake, alert, and oriented to person, place , times, and situation. The plan is to pull the shift at 0420.
[2021-05-22 05:57] LABS: Glucose Point of Care 91 mg/dL (70-110)
[2021-05-22] MEDS: famotidine 20 mg/2 mL INJ IVP ×2 (06:04→18:23)
--- NOTE | 2021-05-22 07:14 | PC.NURSE ---
Shift report given to Deo. They were in the room when I used the doppler to show the pulses for the femoral and the dorsalis pedis pulses. The dressing that was applied after the sheath was pulled is still dry and intact. The sheath was pulled at 0420. The patient was compliant and laid on his back all night.
--- NOTE | 2021-05-22 07:27 | PC.NURSE ---
I had called Dr. Cheung this morning and he said to hold the morning dose of heparin.
--- NOTE | 2021-05-22 08:09 | P.PN_ITS ---
Subjective Subjective: Interval history: Patient is remained chest pain-free. Had a cardiac catheterization yesterday. The venous graft to the diagonal and to the PDA were occluded. High-grade lesion in the venous graft the obtuse marginal artery. Patient is going to have PCI of the lesion in the OM graft, today. Medications: Reviewed: Yes Medication Review Details: Current Medications Acetaminophen (Acetaminophen 325 Mg Tablet) 650 mg PO Q6H PRN PRN Reason: Mild/Mod Pain Or Temp >/= 101 Al Hydrox/Mg Hydrox/Simethicone (Jglk-Hdw-Uoxpeomeo-Amy 30 Ml Udc) 30 ml PO Q15M PRN PRN Reason: INDIGESTION Allopurinol (Allopurinol 100 Mg Tablet) 100 mg PO DAILY [facility] Last Admin: 05/21/21 08:56 Dose: 100 mg Documented by: Alprazolam (Alprazolam 0.5 Mg Tablet) 0.25 mg PO TID PRN PRN Reason: ANXIETY Aspirin (Aspirin 81 Mg Ec Tablet) 81 mg PO DAILY [facility] Last Admin: 05/21/21 08:56 Dose: 81 mg Documented by: Atorvastatin Calcium (Atorvastatin 40 Mg Tablet) 40 mg PO DAILY [facility] Last Admin: 05/21/21 10:06 Dose: 40 mg Documented by: Atropine Sulfate (Atropine 1 Mg/Ml Sdv 1 Ml) 0.5 mg IVP PRN PRN PRN Reason: Symptomatic bradycardia Bisacodyl (Bisacodyl 5 Mg Tablet) 10 mg PO DAILY PRN; Protocol PRN Reason: Constipation (see protocol) Last Admin: 05/20/21 20:57 Dose: 10 mg Documented by: Calcium Carbonate (Calcium Carbonate 500 Mg Chew Tablet) 1,000 mg PO TID [facility] Last Admin: 05/21/21 14:58 Dose: 1,000 mg Documented by: Clopidogrel Bisulfate (Clopidogrel 300 Mg Tablet) 600 mg PO ONCE ONE Stop: 05/22/21 09:01 Dextrose (Dextrose 50% Syringe 50 Ml) 50 ml IVP PRN PRN; Protocol PRN Reason: hypoglycemia protocol Ergocalciferol (Ergocalciferol (Vitamin D2) 50,000 Unit Capsule) 50,000 unit PO Q7D [facility] Last Admin: 05/19/21 08:58 Dose: 50,000 unit Documented by: Famotidine (Famotidine 20 Mg/2 Ml Inj) 20 mg IVP Q12H [facility] Last Admin: 05/22/21 06:04 Dose: 20 mg Documented by: Glucagon (Glucagon 1 Mg/Ml Inj 1 Ml) 1 mg IM ONCE PRN; Protocol PRN Reason: Adult Acute Hypoglycemia Prot. Heparin Sodium (Porcine) (Heparin 5,000 Unit/Ml Inj 1 Ml) 5,000 unit SUBCUT Q12H [facility] Last Admin: 05/22/21 07:26 Dose: Not Given Documented by: Iron Sucrose 200 mg/ Sodium (Chloride) 110 mls @ 220 mls/hr IV Q24H [facility] Stop: 05/25/21 09:59 Last Admin: 05/21/21 09:10 Dose: 220 mls/hr Documented by: Albumin Human (Albumin) 12.5 gm in 50 mls @ 60 mls/hr IV PRN PRN PRN Reason: Hypotension and/or symptomatic Piperacillin Sod/Tazobactam (Sod 3.375 gm/ Sodium Chloride) 50 mls @ 12.5 mls/hr IV Q12H [facility]; Protocol Stop: 05/23/21 23:59 Insulin Human Lispro (Insulin Lispro 100 Unit/1 Ml) 0 unit SUBCUT Q4H [facility]; Protocol Last Admin: 05/22/21 07:27 Dose: Not Given Documented by: Lactulose (Lactulose Oral Liq 20 Gm/30 Ml Udc) 10 gm PO DAILY PRN; Protocol PRN Reason: Constipation (see protocol) Magnesium Hydroxide (Magnesium Hydroxide 30 Ml Udc) 30 ml PO DAILY PRN PRN Reason: CONSTIPATION Metoprolol Succinate (Metoprolol Succinate Er (24 Hr) 25 Mg Tablet) 12.5 mg PO BID [facility] Last Admin: 05/21/21 08:57 Dose: 12.5 mg Documented by: Midodrine (Midodrine 5 Mg Tablet) 5 mg PO TID PRN PRN Reason: SBP less than 100 mhg Last Admin: 05/21/21 00:57 Dose: 5 mg Documented by: Morphine Sulfate (Morphine 4 Mg/Ml Sdv 1 Ml) 2 mg IVP Q4H PRN PRN Reason: SEVERE PAIN Multivitamins (E-Owzvjsm-Ofrrioo C Tablet) 1 each PO DAILY [facility] Last Admin: 05/21/21 08:57 Dose: 1 each Documented by: Naloxone HCl (Naloxone 0.4 Mg/Ml Sdv) 0.1 mg IVP Q2M PRN PRN Reason: RESPIRATORY RATE < 8/MIN Nitroglycerin (Nitroglycerin 0.4 Mg Sublingual Tablet) 0.4 mg SUBLINGUAL Q5M PRN PRN Reason: CHEST PAIN Ondansetron HCl (Ondansetron 2 Mg/Ml Sdv 2 Ml) 4 mg IVP Q8H PRN PRN Reason: vomiting, or N/V if npo Temazepam (Temazepam 15 Mg Capsule) 15 mg PO BEDTIME PRN PRN Reason: INSOMNIA Vitals/I&O/Wt Last Vital Signs Temp 98.1 F 05/22/21 04:00 Pulse 68 05/22/21 06:50 Resp 18 05/22/21 06:50 BP 129/75 05/22/21 06:50 Pulse Ox 98 05/22/21 06:50 05/21/21 05/22/21 05/22/21 22:59 06:59 14:59 Intake Total 100 / 100 Output Total 200 / 200 150 / 350 Balance -200 / -200 -50 / -250 Weight last 48 hrs Weight 171 lb 9 oz Weight 166 lb 6.4 oz Physical Exam Narrative: EXAM NARRATIVE: GENERAL: The patient is alert and oriented times three. Not in any acute distress. Unkempt HEENT: Moderate pallor. No icterus or lymphadenopathy. The pupils are symmetrical oral cavity: There are no mucous membrane lesions. F NECK: Trachea appears to be central. No masses noted. No JVD or thyromegaly appreciated. No carotid bruit. RESPIRATORY: Chest is symmetrical. No intercostals muscle retraction or any accessory muscle activation. There is no chest wall tenderness. Breath sounds are heard bilaterally. Few fine rales and occasional expiratory wheezing. BREASTS: Deferred. HEART: The PMI could not be palpated. But no other palpable precordial events. No palpable precordial events. S1 and S2 are normal. No S3 or S4 heard. No pericardial rub or any click heard. ABDOMEN: No vessel pulsations or distention. No tenderness. No organomegaly appreciated. No abdominal bruit. Bowel sounds are normally heard. : Deferred. RECTAL: Deferred. LYMPHATIC: No lymphadenopathy noted in the neck or groin. EXTREMITIES: 1+ edema both lower extremities. No cyanosis. Peripheral pulses are palpable but weak bilaterally. MUSCULOSKELETAL: No acute joint deformities or swelling SKIN: There are no significant scars or skin rash noted. NEUROPSYCHIATRIC: The patient is alert and oriented x3. Appears to be in a good mood. The higher functions are grossly within normal limits. No tremors or rigidity noted. Resp: COMMON NORMALS: clear to auscultation bilaterally AUSCULTATION: clear to auscultation bilaterally Urinary Catheter Management^: Vega: Cath Placed During This Visit: yes Reason for Continuing Indwelling Catheter: Accurate Measurement of Urinary Output in Critically Ill Patients Urinary Catheter Date of Insertion: 05/18/21 Urinary Catheter Time of Insertion: 19:51 Data : 05/22/21 02:14 05/22/21 02:14 Other Labs: Laboratory Last Values WBC 6.7 10^3/uL (4.0-10.0) 05/22/21 02:14 RBC 3.00 10^6/uL (4.1-5.3) L 05/22/21 02:14 Hgb 8.5 g/dL (11.7-16.6) L 05/22/21 02:14 Hct 26.9 % (42.0-52.0) L 05/22/21 02:14 MCV 89.7 fl (80-94) 05/22/21 02:14 MCH 28.3 pg (28.0-34.0) 05/22/21 02:14 MCHC 31.6 g/dL (30.0-36.0) 05/22/21 02:14 RDW 17.2 % (12.1-15.1) H 05/22/21 02:14 Plt Count 98 10^3/cmm (130-400) L 05/22/21 02:14 MPV 11.0 fL (7.4-10.4) H 05/22/21 02:14 Neut % (Auto) 74.2 % 05/22/21 02:14 Lymph % (Auto) 12.4 % 05/22/21 02:14 Larue % (Auto) 7.9 % 05/22/21 02:14 Eos % (Auto) 4.8 % 05/22/21 02:14 Baso % (Auto) 0.4 % 05/22/21 02:14 Neut # (Auto) 4.98 10^3/uL (1.8-7.7) 05/22/21 02:14 Lymph # (Auto) 0.8 10^3/uL (0.8-4.8) 05/22/21 02:14 Larue # (Auto) 0.5 10^3/uL (0.2-0.9) 05/22/21 02:14 Eos # (Auto) 0.3 10^3/uL (0.0-0.8) 05/22/21 02:14 Baso # (Auto) 0.0 10^3/uL (0.0-0.1) 05/22/21 02:14 Nucleated RBC % (auto) 0 % 05/22/21 02:14 Nucleated RBCs # 0.0 /100WBC 05/22/21 02:14 APTT 44.0 SECONDS (23.9-36.7) H 05/22/21 02:14 Specimen Type Arterial 05/19/21 08:25 Sample Site Brachial, right 05/19/21 08:25 ABG pH 7.36 (7.35-7.45) 05/19/21 08:25 ABG pCO2 32.4 mmHg (35-45) L 05/19/21 08:25 ABG pO2 90.7 mmHg (80.0-100.0) 05/19/21 08:25 ABG HCO3 18.2 mmol/L (22-26) L 05/19/21 08:25 ABG O2 Saturation 97.7 05/19/21 08:25 ABG Base Excess -6.6 mmol/L (-2.0-2.0) L 05/19/21 08:25 Mac Test Pos 05/19/21 08:25 A-a O2 Gradient 2.2 mmHg (5-10) L 05/19/21 08:25 Hematocrit 27.6 % (42-52) L 05/19/21 08:25 Hgb O2 Saturation 95.5 % (95-100) 05/19/21 08:25 Carboxyhemoglobin 1.1 %THgb (0.4-20.1) 05/19/21 08:25 Methemoglobin 1.1 % (0.4-1.5) 05/19/21 08:25 Total Hemoglobin 9.0 g/dL (14-18) L 05/19/21 08:25 Sodium 134.0 mmol/L (131-143) 05/19/21 08:25 Potassium 3.2 mmol/L (3.5-5.0) L 05/19/21 08:25 Glucose 137.0 mg/dL (70-115) H 05/19/21 08:25 Ionized Calcium 1.0 mmol/L (1.1-1.4) L 05/19/21 08:25 O2 Delivery Device Not Reportable 05/19/21 08:25 FiO2 21.0 % 05/19/21 08:25 Visual Presentation Manager ID Bd 05/19/21 08:25 Sodium 131 mmol/L (136-145) L 05/22/21 02:14 Potassium 3.8 mmol/L (3.5-5.1) 05/22/21 02:14 Chloride 98 mmol/L (98-107) 05/22/21 02:14 Carbon Dioxide 20 mmol/L (22-29) L 05/22/21 02:14 Anion Gap 16.8 (5-19) 05/22/21 02:14 BUN 41 mg/dL (8-23) H 05/22/21 02:14 Creatinine 3.3 mg/dL (0.7-1.2) H 05/22/21 02:14 GFR Calculation Not Reportable 05/22/21 02:14 Glucose 65 mg/dL (65-115) 05/22/21 02:14 POC Glucose 91 mg/dL (70-110) 05/22/21 05:47 Estimat Average Glucose 143 05/19/21 03:25 Hemoglobin A1c 6.6 % (4.0-6.0) H 05/19/21 03:25 Calculated Osmolality 280 mOsm/kg (285-295) L 05/22/21 02:14 Lactate 1.5 mmol/L (0.5-2.2) 05/18/21 17:08 Uric Acid 5.3 mg/dL (3.4-7.0) 05/18/21 17:08 Calcium 7.7 mg/dL (8.5-10.5) L 05/22/21 02:14 Phosphorus 5.3 mg/dL (2.5-4.5) H 05/22/21 02:14 Magnesium 2.1 mg/dL (1.7-2.3) 05/22/21 02:14 Iron 38 ug/dL (59-158) L 05/19/21 03:25 TIBC 176 mcg/dl 05/19/21 03:25 % Saturation 21.5 % (20-50) 05/19/21 03:25 Unsat Iron Binding 138 ug/dL (112-347) 05/19/21 03:25 Ferritin 265 ng/mL (30-400) 05/19/21 03:25 Total Bilirubin 0.5 mg/dL (0.15-1.2) 05/22/21 02:14 AST 12 U/L (0-40) 05/22/21 02:14 ALT < 5 U/L (0-41) 05/22/21 02:14 Alkaline Phosphatase 112 IU/L (40-130) 05/22/21 02:14 Creatine Kinase 227 U/L (39-308) 05/18/21 17:08 Troponin T Gen 5 ng/L 602 ng/L (0-15) H* 05/20/21 05:23 Troponin T Baseline 443 ng/L (0-15) H* 05/18/21 14:50 NT-Pro-B Natriuret Pep 03747 pg/mL (0-450) H 05/19/21 03:25 Total Protein 4.8 g/dL (6.6-8.7) L 05/22/21 02:14 Albumin 2.7 g/dL (3.5-5.2) L 05/22/21 02:14 Globulin 2.1 g/dL (1.3-4.6) 05/22/21 02:14 Triglycerides 68 mg/dL (0-150) 05/19/21 03:25 Cholesterol 111 mg/dL (0-200) 05/19/21 03:25 LDL Cholesterol, Calc 61 mg/dL (50-129) 05/19/21 03:25 Total VLDL Cholesterol 14 mg/dL (0-30) 05/19/21 03:25 HDL Cholesterol 36 mg/dL (60-100) L 05/19/21 03:25 Cholesterol/HDL Ratio 3.08 mg/dL (1.0-5.00) 05/19/21 03:25 Lipase 74 U/L (13-60) H 05/18/21 14:50 25-OH Vitamin D Total 10 ng/mL (30-100) L 05/19/21 03:25 Procalcitonin 0.23 ng/mL (0-0.5) 05/18/21 17:08 TSH 3.38 uIU/mL (0.27-4.20) 05/18/21 17:08 PTH Intact 711.0 pg/mL (15-65) H 05/18/21 17:08 Calcium (PTH Intact) 7.9 mg/dL (8.5-10.5) L 05/18/21 17:08 Urine Color Yellow (Yellow) 05/18/21 19:51 Urine Appearance Clear (CLEAR) 05/18/21 19:51 Urine pH 5 (5-7) 05/18/21 19:51 Ur Specific [place] 1.025 (1.005-1.030) 05/18/21 19:51 Urine Protein 3+ (Negative) H 05/18/21 19:51 Urine Glucose (UA) Norm (Normal) 05/18/21 19:51 Urine Ketones Negative (Negative) 05/18/21 19:51 Urine Blood 2+ (Negative) H 05/18/21 19:51 Urine Nitrate Negative (Negative) 05/18/21 19:51 Urine Bilirubin Neg (Negative) 05/18/21 19:51 Urine Urobilinogen Norm mg/dL (Negative) 05/18/21 19:51 Ur Leukocyte Esterase Negative (Negative) 05/18/21 19:51 Urine RBC 0-4 /hpf (0-2) H 05/18/21 19:51 Urine WBC 0-4 /hpf (0-5) H 05/18/21 19:51 Ur Squamous Epith Cells 0-4 /hpf (0-5) H 05/18/21 19:51 Amorphous Sediment 3+ /hpf 05/18/21 19:51 Urine Bacteria Trace /hpf (NONE) 05/18/21 19:51 Ur Random Microalbumin 158 ug/dL (0-20) H 05/18/21 19:51 Ur Random Sodium 21 mmol/L 05/18/21 19:51 Ur Random Potassium 24 mmol/L 05/18/21 19:51 Ur Random Chloride 21 mmol/L 05/18/21 19:51 Urine Creatinine 159 mg/dL (39-259) 05/18/21 19:51 Urine Creatinine 159 mg/dL (39-259) 05/18/21 19:51 Microalb/Creat Ratio 994 mg/dL (0-20) H 05/18/21 19:51 Urine Opiates Screen Negative ng/mL (Negative) 05/18/21 19:51 Ur Barbiturates Screen Negative ng/mL (Negative) 05/18/21 19:51 Ur Phencyclidine Scrn Negative ng/mL (Negative) 05/18/21 19:51 Ur Amphetamines Screen Negative ng/mL (Negative) 05/18/21 19:51 U Benzodiazepines Scrn Negative ng/mL (Negative) 05/18/21 19:51 Urine Cocaine Screen Negative ng/mL (Negative) 05/18/21 19:51 U Marijuana (THC) Screen Negative ng/mL (Negative) 05/18/21 19:51 Hep Bs Antigen Non-reactive (Nonreactive) 05/18/21 17:08 Hep Bs Antibody 3.5 (11.5-1000) L 05/18/21 17:08 Hepatitis C Antibody Non-reactive (Nonreactive) 05/18/21 17:08 Hepatitis C Antibody Non-reactive (Nonreactive) 05/18/21 17:08 A&P Assessment and plan (1) Atherosclerosis of coronary artery of [place] heart without angina pectoris: Patient status post cardiac catheterization. Severe three-vessel coronary disease. Occluded venous graft to the diagonal and to the PDA. High-grade lesion in the venous graft to the obtuse marginal artery. Patent [place] to the LAD. Currently remained stable. Planning to have the PCI of the OM graft lesion today by Dr. Morris. Status: Acute Qualifiers: Coronary Disease-Associated Artery/Lesion type: [place] artery Qualified Code(s): I25.10 - Atherosclerotic heart disease of [place] coronary artery without angina pectoris (2) Acute renal failure: Patient is on hemodialysis. Management as per nephrology service. 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 We might do a dobutamine stress echo to further evaluate the aortic valve, may be as an outpatient Status: Acute (5) Ischemic cardiomyopathy: The left ventricular ejection fraction was 25 to 30%. 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
--- NOTE | 2021-05-22 08:10 | PM.PN ---
Subjective Subjective: Interval history: seen on dialysis. tolerating well. no n/v/f/c/peres. has PVC's. dec sob or cp. still w/ edema. s/p clinical lab specialist yesterday. Medications: Reviewed: Yes Medication Review Details: Current Medications Acetaminophen (Acetaminophen 325 Mg Tablet) 650 mg PO Q6H PRN PRN Reason: Mild/Mod Pain Or Temp >/= 101 Al Hydrox/Mg Hydrox/Simethicone (Htku-Wre-Irlduiwew-Amy 30 Ml Udc) 30 ml PO Q15M PRN PRN Reason: INDIGESTION Allopurinol (Allopurinol 100 Mg Tablet) 100 mg PO DAILY [facility] Last Admin: 05/21/21 08:56 Dose: 100 mg Documented by: Alprazolam (Alprazolam 0.5 Mg Tablet) 0.25 mg PO TID PRN PRN Reason: ANXIETY Aspirin (Aspirin 81 Mg Ec Tablet) 81 mg PO DAILY [facility] Last Admin: 05/21/21 08:56 Dose: 81 mg Documented by: Atorvastatin Calcium (Atorvastatin 40 Mg Tablet) 40 mg PO DAILY [facility] Last Admin: 05/21/21 10:06 Dose: 40 mg Documented by: Atropine Sulfate (Atropine 1 Mg/Ml Sdv 1 Ml) 0.5 mg IVP PRN PRN PRN Reason: Symptomatic bradycardia Bisacodyl (Bisacodyl 5 Mg Tablet) 10 mg PO DAILY PRN; Protocol PRN Reason: Constipation (see protocol) Last Admin: 05/20/21 20:57 Dose: 10 mg Documented by: Calcium Carbonate (Calcium Carbonate 500 Mg Chew Tablet) 1,000 mg PO TID [facility] Last Admin: 05/21/21 14:58 Dose: 1,000 mg Documented by: Clopidogrel Bisulfate (Clopidogrel 300 Mg Tablet) 600 mg PO ONCE ONE Stop: 05/22/21 09:01 Dextrose (Dextrose 50% Syringe 50 Ml) 50 ml IVP PRN PRN; Protocol PRN Reason: hypoglycemia protocol Ergocalciferol (Ergocalciferol (Vitamin D2) 50,000 Unit Capsule) 50,000 unit PO Q7D [facility] Last Admin: 05/19/21 08:58 Dose: 50,000 unit Documented by: Famotidine (Famotidine 20 Mg/2 Ml Inj) 20 mg IVP Q12H [facility] Last Admin: 05/22/21 06:04 Dose: 20 mg Documented by: Glucagon (Glucagon 1 Mg/Ml Inj 1 Ml) 1 mg IM ONCE PRN; Protocol PRN Reason: Adult Acute Hypoglycemia Prot. Heparin Sodium (Porcine) (Heparin 5,000 Unit/Ml Inj 1 Ml) 5,000 unit SUBCUT Q12H [facility] Last Admin: 05/22/21 07:26 Dose: Not Given Documented by: Iron Sucrose 200 mg/ Sodium (Chloride) 110 mls @ 220 mls/hr IV Q24H [facility] Stop: 05/25/21 09:59 Last Admin: 05/21/21 09:10 Dose: 220 mls/hr Documented by: Albumin Human (Albumin) 12.5 gm in 50 mls @ 60 mls/hr IV PRN PRN PRN Reason: Hypotension and/or symptomatic Piperacillin Sod/Tazobactam (Sod 3.375 gm/ Sodium Chloride) 50 mls @ 12.5 mls/hr IV Q12H [facility]; Protocol Stop: 05/23/21 23:59 Insulin Human Lispro (Insulin Lispro 100 Unit/1 Ml) 0 unit SUBCUT Q4H [facility]; Protocol Last Admin: 05/22/21 07:27 Dose: Not Given Documented by: Lactulose (Lactulose Oral Liq 20 Gm/30 Ml Udc) 10 gm PO DAILY PRN; Protocol PRN Reason: Constipation (see protocol) Magnesium Hydroxide (Magnesium Hydroxide 30 Ml Udc) 30 ml PO DAILY PRN PRN Reason: CONSTIPATION Metoprolol Succinate (Metoprolol Succinate Er (24 Hr) 25 Mg Tablet) 12.5 mg PO BID [facility] Last Admin: 05/21/21 08:57 Dose: 12.5 mg Documented by: Midodrine (Midodrine 5 Mg Tablet) 5 mg PO TID PRN PRN Reason: SBP less than 100 mhg Last Admin: 05/21/21 00:57 Dose: 5 mg Documented by: Morphine Sulfate (Morphine 4 Mg/Ml Sdv 1 Ml) 2 mg IVP Q4H PRN PRN Reason: SEVERE PAIN Multivitamins (Y-Wdderig-Vneduoo C Tablet) 1 each PO DAILY [facility] Last Admin: 05/21/21 08:57 Dose: 1 each Documented by: Naloxone HCl (Naloxone 0.4 Mg/Ml Sdv) 0.1 mg IVP Q2M PRN PRN Reason: RESPIRATORY RATE < 8/MIN Nitroglycerin (Nitroglycerin 0.4 Mg Sublingual Tablet) 0.4 mg SUBLINGUAL Q5M PRN PRN Reason: CHEST PAIN Ondansetron HCl (Ondansetron 2 Mg/Ml Sdv 2 Ml) 4 mg IVP Q8H PRN PRN Reason: vomiting, or N/V if npo Temazepam (Temazepam 15 Mg Capsule) 15 mg PO BEDTIME PRN PRN Reason: INSOMNIA Vitals/I&O/Wt Last Vital Signs Temp 98.1 F 05/22/21 04:00 Pulse 68 05/22/21 06:50 Resp 18 05/22/21 06:50 BP 129/75 05/22/21 06:50 Pulse Ox 98 05/22/21 06:50 05/21/21 05/22/21 05/22/21 22:59 06:59 14:59 Intake Total 100 / 100 Output Total 200 / 200 150 / 350 Balance -200 / -200 -50 / -250 Weight last 48 hrs Weight 77.819 kg Weight 75.478 kg Physical Exam Narrative: EXAM NARRATIVE: elderly, awake and comfortable in bed on dialysis vs noted and stable heent- nc/at, eomi, anicteric neck supple lungs- basal crackles b/l heart- reg w/ PVC's no rub, +HSM abd soft, distended, poor bs ext 1+ edema- LLE bandaged ulcer Rt IJ dialysis catheter neuro- a,a, o x 3 Urinary Catheter Management^: Vega: Cath Placed During This Visit: yes Reason for Continuing Indwelling Catheter: Accurate Measurement of Urinary Output in Critically Ill Patients Urinary Catheter Date of Insertion: 05/18/21 Urinary Catheter Time of Insertion: 19:51 Data : 05/22/21 02:14 05/22/21 02:14 A&P Additional A&P Information 81 yr old man 1. 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 CHANO-Q progression of CKD vs PRErenal vs CRS as he has active CAD -concern for ATN- on thiazide and satish-i, and lasix and glipizide- denies nsaid use -ua 3+ prot, 3+ amorphous sediment -low ur na 21 -abd ct- normal kidneys - xray- no chf or pna -improving w/ dialysis -as s/p cardiac cath yesterday and needs PCI today- dialysis now and repeat in am - HD today- 3 hrs, 3k, remove 1 l -over weekend monitor for renal recovery vs place a tunneled catheter, if ESRD 3. hyperkalemia -from CHANO and satish-i in setting of ckd -improved w/ HD -improved 4. inc AGMA- Can be from sepsis, lactate, less likely DKA, concern starvation acidosis, concern form renal failure -improved w/ dialysis 5. hypoglycemia- stop glipizide- long half life w/ CKD/ ESRD -use insulin as needed for DM - as npo- may need d5 6. hyponatremia- monitor w/ HD 7. anemia eval- iron sat 21%, ferritin 265 - epo and iv iron 8. renal bone - mineral metabolism- vit d=10- replace vit d - pth 711- vit d analouge after vit d replenished -monitor hypocalcemia- use calcium acetate as phos mildly elevated 9. CHF -f/u echo. high bnp - monitor Normal left ventricular size. LV systolic function is severely reduced with EF of 25-30%. Severe global hypokinesis. Septal motion is consistent with prior cardiac surgery. Diastolic function is indeterminate because of atrial fibrillation. - patient has severe low flow-low gradient Aortic stenosis -for cardiac PCI today 10. a fib per cardiology seen and examined w/ RN- telehealth visit Attestations Medical Necessity Statement*: chano on ckd, acute on chronic systolic chf, +CAD Time Spent in Patient Care: 16 - 35 minutes Coding Level of Care Code Acute Signal Operator for Willie Wilks
[2021-05-22] MEDS: heparin, porcine 1,000 unit/mL INJ 10 mL 10000 UNIT HE (09:53)
--- NOTE | 2021-05-22 09:53 | P.PN_ITS ---
Subjective Subjective: Interval history: Patient was seen and examined this morning, no acute events overnight, underwent hemodialysis today in the morning, prior to cardiac cath, did well, shortness of breath is improved, s/p cardiac cath. Medications: Reviewed: Yes Vitals/I&O/Wt Last Vital Signs Temp 98.1 F 05/22/21 04:00 Pulse 68 05/22/21 06:50 Resp 18 05/22/21 06:50 BP 129/75 05/22/21 06:50 Pulse Ox 98 05/22/21 06:50 05/21/21 05/22/21 05/22/21 22:59 06:59 14:59 Intake Total 100 / 100 Output Total 200 / 200 150 / 350 Balance -200 / -200 -50 / -250 Weight last 48 hrs Weight 77.819 kg Weight 75.478 kg Physical Exam Const: COMMON NORMALS: patient oriented x3 HENMT: COMMON NORMALS: normocephalic and atraumatic HEAD & SCALP: normocephalic and atraumatic Resp: COMMON NORMALS: clear to auscultation bilaterally AUSCULTATION: clear to auscultation bilaterally Cardio: COMMON NORMALS: regular rate, regular rhythm, S1 normal heart sound present, S2 normal heart sound present, No gallops present (Cardio), No murmurs present (Cardio), No rub (Cardio) and Peripheral pulses 2+ throughout RATE: regular rate RHYTHM: regular rhythm HEART SOUNDS: S1 normal heart sound present and S2 normal heart sound present PERIPHERAL PULSES: Peripheral pulses 2+ throughout GI: COMMON NORMALS: Normal to inspection, nondistended, normoactive bowel sounds present, Soft to palpation, non-tender, No hepatosplenomegaly present and no masses AUSCULTATION: Yes normoactive bowel sounds PALPATION: Yes Soft to palpation and Yes No hepatosplenomegaly present RECTAL EXAM: Yes deferred Extremity: COMMON NORMALS: no clubbing, cyanosis or edema and no pedal edema Neuro: COMMON NORMALS: patient oriented x3 Urinary Catheter Management^: Vega: Cath Placed During This Visit: yes Reason for Continuing Indwelling Catheter: Accurate Measurement of Urinary Output in Critically Ill Patients Urinary Catheter Date of Insertion: 05/18/21 Urinary Catheter Time of Insertion: 19:51 Data : 05/22/21 02:14 05/22/21 02:14 A&P Assessment and plan (1) Acute renal failure: Status: Acute Qualifiers: Acute renal failure type: unspecified Qualified Code(s): N17.9 - Acute kidney failure, unspecified (2) 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: Status: Acute (3) CKD (chronic kidney disease): Status: Acute Qualifiers: Chronic kidney disease stage: stage 5, not on chronic dialysis Qualified Code(s): N18.5 - Chronic kidney disease, stage 5 (4) CHF (congestive heart failure): Status: Acute Qualifiers: Heart failure chronicity: acute on chronic Heart failure type: diastolic Qualified Code(s): I50.33 - Acute on chronic diastolic (congestive) heart failure (5) Ischemic cardiomyopathy: Status: Acute (6) Severe calcific aortic valve stenosis: Status: Acute (7) Hyperkalemia: Status: Acute (8) Hypoglycemia: Status: Acute (9) Metabolic acidosis: Status: Acute (10) Type 2 diabetes mellitus: Status: Chronic Qualifiers: Diabetes mellitus complication status: without complication Diabetes mellitus intermediate school teacher insulin use: with intermediate school teacher use Qualified Code(s): E11.9 - Type 2 diabetes mellitus without complications; Z79.4 - terminal carman (current) use of insulin (11) Benign hypertension: Status: Chronic (12) Nausea & vomiting: Most likely secondary to uremia. Getting CT abdomen pelvis. Will reevaluate. Zofran as needed. Status: Acute (13) Long QT interval: Status: Acute Additional A&P Information Acute renal failure: Most likely worsening of CKD stage IV secondary to home dose of lisinopril, hydrochlorothiazide with ongoing hypotension: Repeat dialysis post cardiac catheterization. Patient will most likely require long-term hemodialysis. Will consult case management for chair time as an outpatient. CT abdomen pelvis negative for obstruction or hydronephrosis. Renal ultrasound, urine lites appreciated. Urinalysis consistent with 3+ protein, 3+ sediments. History of congestive heart failure: History of CABG: Currently on room air. Euvolemic. Echocardiogram results appreciated with EF of 25 to 30% with global LV hypokinesia with possible slow flow severe aortic stenosis. Continue with aspirin, statin. We will request documents from [facility]. Still awaiting. Plan for cardiac catheterization today Arrhythmia: Patient having frequent VPCs. Check EKG. Electrolytes repleted. Continue metoprolol 12.5 mg twice daily for now. We will hold off on uptitrating given bradycardia when patient sleeps. We will try to avoid amiodarone given high QTC on today morning's EKG. Sepsis: Cannot rule out sepsis secondary to possible pneumonia versus diarrheal disease. Patient does have a history of MSSA cellulitis of leg. Oxygen supplementation keeping saturation over 90%. Keep mean arterial pressure over 65. Wean off Levophed accordingly. Continue with midodrine 10 mg 3 times a day. MRSA negative, urine Legionella, bacterial antigen negative. Blood cultures so far negative. Continue with Zosyn to finish a 5-day course. Last year May 23. Continue wound care as per wound care orders. Hyperkalemia/metabolic acidosis: Hyperkalemia resolved. Metabolic acidosis resolved. Altered mental status: Resolved. Most likely secondary to uremia along with hypoglycemia. Ammonia level, urine drug screen, salicylate, alcohol level negative. Fall precaution. Frequent reorientation. Hypoglycemia: Better. History of type 2 diabetes mellitus: Hypoglycemia most likely secondary to worsening renal functions and use of sulfonylurea on 05/17 evening. Hypoglycemic protocol with insulin sliding scale at low-dose protocol. Hold off on oral hypoglycemics or long-acting insulin for now. HbA1c 6.6. Hypertension: Goal blood pressure less than 140/90 mmHg. Continue to monitor. Midodrine to 5 mg 3 times a day as needed for systolic blood pressure of less than 100 mmHg. Continue home oral medication including allopurinol, statin. For now hold off on pregabalin as patient was confused today morning after getting medication last night. CODE STATUS: Discussed with at bedside. Full code. Protonix for PUD prophylaxis. Heparin 5000 every 12 for DVT prophylaxis. Renal dialysis diet. Plan for today: Continue with metoprolol 12.5 mg twice daily. Possible cardiac catheterization later in the evening today. Possible dialysis after catheterization versus early tomorrow morning. Continue with IV antibiotics. Continue pvc monitor for frequent PVCs. Attestations Medical Necessity Statement*: Patient needs to be in hospital for management of above defined problems. 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 N18.5; D63.1 CKD (chronic kidney disease) N18.5 Chronic kidney disease stage: stage 5, not on chronic dialysis CHF (congestive heart failure) I50.33 Heart failure chronicity: acute on chronic Heart failure type: diastolic Ischemic cardiomyopathy I25.5 Severe calcific aortic valve stenosis I35.0 Hyperkalemia E87.5 Hypoglycemia E16.2 Metabolic acidosis E87.2 Type 2 diabetes mellitus E11.9; Z79.4 Diabetes mellitus complication status: without complication Diabetes mellitus halfway insulin use: with intermediate school teacher use Benign hypertension I10 Nausea & vomiting R11.2 Long QT interval R94.31
--- NOTE | 2021-05-22 10:05 | XACV_ITS ---
Exam Room: [facility] Ht: 170 cm Wt: 75 kg BSA: 1.90 m2 Gender: Male : 1940 Any Known Allergies: No known allergies Exam Priority: Routine Procedure(s): Procedure Description: PCI procedure Procedure Description: Drug Eluting Coronary Stent Procedure Description: PTCA Alexandra LUCAS; Diagnostic Cath Status: Elective PCI Status: Elective Conclusions 1. Today patient brought back to the Bottle House Cleaners Supervisor for PCI to SVG to circumflex for high-grade calcified mid stenosis. Please note that patient was taken off from Bottle House Cleaners Supervisor table yesterday as he was not loaded with Plavix and due to high contrast and heart failure symptoms . PCI to SVG mid segment to LCx. After somewhat difficulty were able to cross the mid SVG lesion using guide liner, ostial SVG was noted to have highly calcified lesion as well which is dilated with balloon. Please see inventory. Finally we were able to cross with the balloon and stent. Balloon angioplasty followed by stent placement was performed. A good angiographic result with AMBIKA-3 flow was achieved. Patient was transferred back to [facility] in a stable condition. Recommendations * 1-Return to inpatient for close monitoring and routine cath care2-Risk factor modification for secondary prevention3-Statin and aspirin 81 mg life--long, if tolerated4-Patient was pre-loaded with 600 mg of Plavix, continue Plavix 75mg p.o. daily for at least one year. We will assess at the end of one year again to continue if further or not5-Continue optimal medical management6-Follow up with Dr. Cheung in four weeks and your primary care in 10 days. Diagnostic RX Recommendation: PCI w/o planned CABG Pressures Phase:Rest AO : 115 / 41 ( 69 ) @ 10:46:00 AM 101 / 47 ( 70 ) @ 11:22:00 AM 104 / 50 ( 73 ) @ 11:24:00 AM Clinical Evaluation EBL: 5mL-10mL Procedural Details Procedure Consent Obtained. Pre-Procedure Time Out. Identified patient by full name and date of as verbalized by the patient/guarantor. Does the consent match the physician's order: Yes. Accurate & Complete Informed Consent: Yes. Inpatient/Outpatient History & Physical on Chart: Yes. If H&P is completed, is and addenduem needed: No. Visualize and Verify Site with Patient/Guarantor: N/A. Relevant Radiology Images available: Yes. The risks, benefits, and alternatives of sedation and/or procedure were discussed by physician. The patient agrees to continue. Procedure started. [facility] Clinical Fraility Score: 5: Mildly Frail. Bottle House Cleaners Supervisor Indications: Cardiomyopathy/Stable Known CAD. Chest Pain Symptom Assessment: Atypical Angina. Cardiovascular Instability: No. Correct patient, site and procedure confirmed by cath team. PERRLA. Strong, equal hand publicity agent bilaterally. Lungs clear x 5 lobes. IV Site on Arrival: 20 gauge in the right forearm. IV Site on Arrival: 20 gauge in the left anticubital. IV Fluids: 0.9% NaCl at KVO. 50 mL infused prior to syrup machine laborer. Pre Procedural Pulses: right radial was 1+. Pre Procedural Pulses: left radial was 2+. Oxygen started at 2liters/min via nasal canula. right groin was prepped with chloroprep then draped in the usual sterile fashion. right radial was prepped with chloroprep then draped in the usual sterile fashion. Physician notified. Baseline sample Acquired. HR: 103 BPM. Patient's family unavailable. Equipment: 6F - Radial. Cardiac Cath Pack. ACIST Manifold Kit Model BT 2000. Heparinized Saline (2 units/mL), 1000 mL bag. Physician arrived. Physician scrubbed in. Immediate Pre-Procedure Time Out. Correct Patient: Yes; Correct Procedure: Yes; Correct Site: Yes; Correct Patient Position: Yes; Correct Supplies: Yes; Dried Flammable Prep: Yes; Blood Products Available: N/A;. Lidocaine 1% infiltrated to the right radial. Jacqui Christian RN circulating. Arterial access obtained. 6 polish JR 4 guide catheter was inserted over the exchange wire. Exchange wire out. Hand injection performed through the guide cath. 260 cm Glidewire in through the 6fr JR4 guide catheter. Glidewire out, exchange J wire in. Guide cath and exchange wire out. Unable to advance the Guide cath through the radial approach, will move to femoral access. Lidocaine 1% infiltrated to the right groin. Arterial access obtained with micropuncture set. ACT drawn. Results 106 seconds. Therapeutic limits - pre-heparin administration 90-150 seconds and monitoring heparin during a vascular procedure >250 seconds. 6 polish JR 4 guide catheter was inserted over the exchange wire. [place] guidewire was advanced through the guide catheter to lesion in the SVG --> 1st OM. Resolute Cory 3.5 x 12 stent inserted and removed intact. [place] Guidewire out. [place] guidewire was advanced through the guide catheter to lesion in the SVG --> 1st OM. Runthrough Guidewire out. 6fr JR4 Guide catheter out over the exchange wire. 6 polish AL 0.75 guide catheter was inserted over the exchange wire. Runthrough guidewire was advanced through the guide catheter to lesion in the OM. Runthrough Guidewire out. 6fr AL 0.75 Guide catheter out over the exchange wire. 6 polish JR 4 guide catheter was inserted over the exchange wire. Run[place] guidewire was advanced through the guide catheter to lesion in the SVG --> 1st OM. Guideliner support catheter in over the Runthrough guidewire. Runthrough Guidewire out. Safety Lead 50 guidewire was advanced through the guide catheter to lesion in the SVG --> 1st OM. Guideliner out. Resolute Cory 3.5 x 12 stent inserted and removed intact. Inflation number : 1 A AB TREK 2.50X12 RX BALLOON was prepped and advanced across the Aorta Left -> 1st Ob Ara , then inflated to 12 DANIELLE for 0:07 seconds. Inflation number: 2 The AB TREK 2.50X12 RX BALLOON was reinflated across the Aorta Left -> 1st Ob Ara, to 12 DANIELLE for 0:08 seconds. Balloon out. Guideliner support catheter in over the Safety Lead 50 guidewire. Patient's son updated by Manda Allred RN. The son is going to the parking lot and Dr. Morris will call once the procedure is completed. Resolute [place] 3.5 x 12 stent inserted and removed intact. Safety Lead 50 guidewire out. Guideliner out. Safety Lead 50 guidewire was advanced through the guide catheter to lesion in the SVG --> 1st OM. Safety Lead 50 guidewire out. A new Safety Lead 50 guidewire was advanced through the guide catheter to lesion in the SVG --> 1st OM. Safety Lead 50 guidewire out. [place] guidewire was advanced through the guide catheter to lesion in the SVG --> 1st OM. Guideliner support catheter in over the [place] guidewire. [place] guidewire out. Guideliner out. Safety Lead 50 guidewire was advanced through the guide catheter to lesion in the SVG --> 1st OM. Safety Lead 50 guidewire out. 6fr JR4 Guide catheter out over the exchange wire. ACT drawn. Results 187 seconds. Therapeutic limits - pre-heparin administration 90-150 seconds and monitoring heparin during a vascular procedure >250 seconds. 6 polish AL 0.75 guide catheter was inserted over the exchange wire. 6fr AL 0.75 Guide catheter out over the exchange wire. 6 polish LCB guide catheter was inserted over the wire. Safety Lead 50 guidewire was advanced through the guide catheter to lesion in the SVG --> 1st OM. Inflation Number : 3 Carloz Meyer CORY 3.5X12 CARMITA -Lot Number# [id number] was prepped and advanced across the Aorta Left -> 1st Ob Ara. The stent was deployed at 12 DANIELLE for 0:14 seconds. Exp 07/28/2022. Stent balloon out over wire. Wire out. Guide catheter out. A Right femoral angiogram was performed to determine safe placement of closure device. Sheath(s) sutured into position with 2-0 silk and sterile 4x4's and Op-site applied over the site. No oozing or signs and symptoms of hematoma noted. Post Procedure: Pulses reassessed and unchanged. PERRLA. Strong, equal hand publicity agent bilaterally. No VTE prophylaxis required. Medication's Wasted: Nitro = 49.8 mg. Medication's Wasted: Heparin = 1000 units. Total IV fluids: 55 mL. Post-op diagnosis: Significant lesion to the SVG --> 1st OM. Post successful PCI for NSTEMI. Complications: none. Estimated blood loss: 5mL-10mL. A TR Band was successful obtaining hemostatsis at the Right Radial artery insertion site. A Suture was successful obtaining hemostatsis at the Right Femoral artery insertion site. Procedure completed. Patient transferred by bed to ICU. Vital chart was stopped. Access Site Site: Right Radial artery Sheath Size: 6 Fr Hemostasis Method: TR Band Hemostasis Success: Successful Site: Right Femoral artery Sheath Size: 6 Fr Hemostasis Method: Suture Hemostasis Success: Successful Procedure Medications Start: 11:29 AM Stop: 11:29 AM Medication: Nitrogylcerin Amount: 200 mcg Route: I.A. Start: 11:43 AM Stop: 11:43 AM Medication: Heparin Amount: 7000 units Route: I.V. Start: 11:47 AM Stop: 11:47 AM Medication: Cardene Amount: 300 mcg Route: I.C. Start: 12:45 PM Stop: 12:45 PM Medication: Heparin Amount: 3000 units Route: I.V. I, the attending physician, have reviewed and verified all procedure medications. Yes, all medications given per verbal order History/Risk Factors Hypertension: Yes Dyslipidemia: Yes Peripheral Arterial Disease (PAD): No Myocardial Infarction ([place]): Yes Obesity: No Renal Disease: Yes Dialysis: Current Prior Interventions PCI: No CABG: Yes Valve Surgery: No Report Signatures Finalized by Ethan Morris MD on 06/05/2021 08:14 PM
--- NOTE | 2021-05-22 10:09 | PC.CHAP ---
Pastoral Care Encounter/Spiritual Assessment Type of Contact [] Declined chief pilot visit [] Patient/Family/Request visit [] Outpatient visit [] Follow-up visit [] Physician referral [] Code/Alert [x] Routine visit [] Staff referral [] Actively dying [] Patient sleeping [] Family support [] [] Out of room [] Palliative care [] [x] Receiving care in room [] Pre-surgical visit [] Trauma [] Long length of stay [x] ICU visit [x] Other: dialyses Relational/Emotional Strength [] Patient feels connected with others/family/visitors/staff [] Distress [] Loneliness/isolation [] Abandonment Spirituality of Patient [] Person of Lynette [] Attends Druze of their Lynette [] Believes in Prayer [] Reads Bible or Temple materials [] There are Spiritual issues to be addressed Summer Nanny Interventions [x] Prayer [x] Active listening [x] Non-anxious presence [x] Spiritual/emotional support [] Crisis/trauma care [] Spiritual counseling [] Bereavement support [] Provided bereavement packet [] Provided Bible/devotional materials [] Provided toy/stuffed animal, coloring book to patient or family member [] Provided Communion [] Anointing/[place] [] Salvation [x] Completed spiritual assessment [] Other: Impact on Illness or Injury [] Angry [] Fearful [] Anxious [] Often cries [] Exhaustion [] Unable to work [] Unable to attend hinduism [] Unable to walk/stand [] Unable to read [] Unable to drive [] Unable to eat/drink [] Unable to sleep [] Unable to be with family [] Patient intubated [] Other: Summary patient receiving treatment in room... thankful for all the care. Time spent with patient 5 min
[2021-05-22] MEDS: atorvastatin 40 mg Tablet PO (10:17)
[2021-05-22] MEDS: aspirin 81 mg EC Tablet PO (10:17)
[2021-05-22] MEDS: metoprolol succinate ER (24 HR) 25 mg Tablet 12.5 MG PO ×2 (10:18→18:22)
[2021-05-22] MEDS: allopurinol 100 mg Tablet PO (10:18)
[2021-05-22] MEDS: b-complex-vitamin c Tablet 1 EACH PO (10:18)
[2021-05-22] MEDS: clopidogrel 300 mg Tablet 600 MG PO (10:18)
[2021-05-22] MEDS: iron sucrose 200 MG in sodium chloride 0.9% (100 ml) 100 ML 220 MG IV (10:19)
[2021-05-22] MEDS: piperacillin-tazobactam 3.375 GM in sodium chloride 0.9% (plus) 50 ML IV ×2 (10:19→21:01)
[2021-05-22 10:41] LABS: Glucose Point of Care 74 mg/dL (70-110)
[2021-05-22] MEDS: morphine 4 mg/mL SDV 1 mL 2 MG IVP ×2 (13:42→22:09)
[2021-05-22] MEDS: calcium acetate 667 mg Capsule PO ×2 (13:44→18:22)
[2021-05-22 16:23] LABS: Glucose Point of Care 77 mg/dL (70-110)
[2021-05-22 17:05] LABS: Partial Thromboplastin Time > 250.0 SECONDS (23.9-36.7)
[2021-05-22 18:41] LABS: Glucose Point of Care 90 mg/dL (70-110)
--- NOTE | 2021-05-22 19:11 | PC.NURSE ---
1830 2 ml removed from TR band. Tolerated well 1910 2 ml removed from TR band. Tolerated well. All charting from [facility] from 0700 until 1800 reviewed and confirmed.
[2021-05-22 20:21] LABS: Glucose Point of Care 107 mg/dL (70-110)
[2021-05-23] VITALS (99 sets, daily range): BP systolic 86–143; BP diastolic 44–84; PULSE 60–90; RESP 8–24; TEMP 36.4–36.7; O2SAT 76–100
--- NOTE | 2021-05-23 00:40 | PC.NURSE ---
Nurse Note: Sheath Removal: At start of shift, attempted to get PTT for sheath removal, unable to get d/t veins blowing. Multiple attempts to get blood made. Placed call to Dr. Morris and received orders for ok to pull cardiac sheath without current PTT. Right Groin site : At 20:25 , right groin site shearh removed per CT RN and LS RN. Catheter intact. Pressure held for 20 minutes without distress. No bleeding or hematoma noted. All VS and assessments as charted. Pt given morphine for pain during procedure and was effective per pt. Pt currently resting with eyes closed, resp even and non labored.
[2021-05-23 01:48] LABS: Glucose Point of Care 88 mg/dL (70-110)
[2021-05-23 05:19] LABS: Basophils # 0.1 10^3/uL (0.0-0.1); Basophils % 0.8 %; Eosinophils # 0.3 10^3/uL (0.0-0.8); Hematocrit 28.3 % (42.0-52.0); Hemoglobin 8.6 g/dL (11.7-16.6); Lymphocytes # 1.1 10^3/uL (0.8-4.8); Lymphocytes % 17.4 %; Mean Corpuscular HGB Conc 30.4 g/dL (30.0-36.0); Mean Corpuscular Hemoglobin 28.2 pg (28.0-34.0); Mean Corpuscular Volume 92.8 fl (80-94); Mean Platelet Volume 12.8 fL (7.4-10.4); Monocytes # 0.7 10^3/uL (0.2-0.9); Monocytes % 11.1 %; Neutrophils # 4.12 10^3/uL (1.8-7.7); Neutrophils % 66.2 %; Nucleated Red Blood Cells % 0 %; Platelet Count 115 10^3/cmm (130-400); Red Blood Count 3.05 10^6/uL (4.1-5.3); Red Cell Distribution Width 17.3 % (12.1-15.1); White Blood Count 6.2 10^3/uL (4.0-10.0)
[2021-05-23 05:35] LABS: Alanine Aminotransferase 7 U/L (0-41); Albumin Level 2.7 g/dL (3.5-5.2); Alkaline Phosphatase 124 IU/L (40-130); Anion Gap 15.2 (5-19); Aspartate Amino Transferase 18 U/L (0-40); Blood Urea Nitrogen 23 mg/dL (8-23); Calcium 7.8 mg/dL (8.5-10.5); Carbon Dioxide 24 mmol/L (22-29); Chloride 99 mmol/L (98-107); Globulin 2.4 g/dL (1.3-4.6); Glucose 70 mg/dL (65-115); Magnesium 2.1 mg/dL (1.7-2.3); Osmolality Calculated 280 mOsm/kg (285-295); Phosphorus 4.3 mg/dL (2.5-4.5); Potassium 4.2 mmol/L (3.5-5.1); Sodium 134 mmol/L (136-145); Total Bilirubin 0.6 mg/dL (0.15-1.2); Total Protein 5.1 g/dL (6.6-8.7)
[2021-05-23 05:39] LABS: Glucose Point of Care 73 mg/dL (70-110)
[2021-05-23] MEDS: heparin 5,000 unit/mL INJ 1 mL 5000 UNIT SUBCUT ×2 (05:56→17:54)
[2021-05-23] MEDS: famotidine 20 mg/2 mL INJ IVP ×2 (05:57→17:54)
--- NOTE | 2021-05-23 05:59 | PC.NURSE ---
NURSE NOTE: SHIFT SUMMARY: PT TURNED @ 0430 POST CARDIAC SHEATH REMOVAL; STATED WAS UNCOMFORTABLE WITH GETTING INTO CHAIR AT THIS TIME. PT TOLERATED ACTIVITY WELL AND WITHOUT DISTRESS. ALL VS AND ASSESSMENTS CHARTED, WILL CONTINUE TO MONITOR.
--- NOTE | 2021-05-23 08:00 | P.PN_ITS ---
Subjective Subjective: Interval history: Seen via telemedicine. Denies chest pain, dyspnea + murphy, + edema Medications: Reviewed: Yes Vitals/I&O/Wt Last Vital Signs Temp 98.3 F 05/22/21 20:00 Pulse 76 05/23/21 05:13 Resp 13 05/23/21 04:15 BP 137/62 05/23/21 04:15 Pulse Ox 98 05/23/21 04:15 05/22/21 05/23/21 05/23/21 22:59 06:59 14:59 Intake Total 480 / 940 50 / 990 Output Total 150 / 1450 200 / 1650 Balance 330 / -510 -150 / -660 Weight last 48 hrs Weight 76.374 kg Weight 77.819 kg Physical Exam Const: COMMON NORMALS: no acute distress Neck/C-Spine: OTHER: Right IJ HD catheter Extremity: OTHER: edema Urinary Catheter Management^: Murphy: Cath Placed During This Visit: yes Reason for Continuing Indwelling Catheter: Accurate Measurement of Urinary Output in Critically Ill Patients Urinary Catheter Date of Insertion: 05/18/21 Urinary Catheter Time of Insertion: 19:51 Data : 05/23/21 04:50 05/23/21 04:50 Other Labs: Ca 7.8, phos 4.5, Mg 2.1, albumin 2.7 A&P Additional A&P Information Impression: 1. Acute kidney injury, oliguric 2. Chronic kidney disease due to DM, htn, age 3. Coronary artery disease s/p cardiac cath x 2, ischemic cardiomyopathy EF 25%, severe , atrial fibrilation 4. Anemia, receiving IV iron and epogen Recommend: HD today. Resume furosemide. Will observe over weekend for renal recovery. If no improvement suggest tunneled HD catheter placement on Nov 1. Attestations Medical Necessity Statement*: see above Time Spent in Patient Care: 16 - 35 minutes Coding Level of Care Code Acute Out Of Town Collection Clerk for Willie Wilks
[2021-05-23] MEDS: allopurinol 100 mg Tablet PO (08:52)
[2021-05-23] MEDS: aspirin 81 mg EC Tablet PO (08:52)
[2021-05-23] MEDS: atorvastatin 40 mg Tablet PO (08:52)
[2021-05-23] MEDS: clopidogrel 75 mg Tablet PO (08:52)
[2021-05-23] MEDS: metoprolol succinate ER (24 HR) 25 mg Tablet 12.5 MG PO ×2 (08:53→17:54)
[2021-05-23] MEDS: piperacillin-tazobactam 3.375 GM in sodium chloride 0.9% (plus) 50 ML IV (08:53)
[2021-05-23] MEDS: b-complex-vitamin c Tablet 1 EACH PO (08:53)
[2021-05-23] MEDS: calcium acetate 667 mg Capsule PO ×3 (08:55→17:53)
--- NOTE | 2021-05-23 10:00 | PC.CHAP ---
Pastoral Care Encounter/Spiritual Assessment Type of Contact [] Declined delivery agent visit [] Patient/Family/Request visit [] Outpatient visit [] Follow-up visit [] Physician referral [] Code/Alert [x] Routine visit [] Staff referral [] Actively dying [x] Patient sleeping [] Family support [] [] Out of room [] Palliative care [] [] Receiving care in room [] Pre-surgical visit [] Trauma [] Long length of stay [x] ICU visit [x] Other: patient resting well Relational/Emotional Strength [] Patient feels connected with others/family/visitors/staff [] Distress [] Loneliness/isolation [] Abandonment Spirituality of Patient [] Person of Lynette [] Attends Taoist of their Lynette [] Believes in Prayer [] Reads Bible or Scientology materials [] There are Spiritual issues to be addressed Gear Roller Interventions [x] Prayer [] Active listening [] Non-anxious presence [] Spiritual/emotional support [] Crisis/trauma care [] Spiritual counseling [] Bereavement support [] Provided bereavement packet [] Provided Bible/devotional materials [] Provided toy/stuffed animal, coloring book to patient or family member [] Provided Communion [] Anointing/[place] [] Salvation [x] Completed spiritual assessment [] Other: Impact on Illness or Injury [] Angry [] Fearful [] Anxious [] Often cries [] Exhaustion [] Unable to work [] Unable to attend buddhism [] Unable to walk/stand [] Unable to read [] Unable to drive [] Unable to eat/drink [] Unable to sleep [] Unable to be with family [] Patient intubated [] Other: Summary Time spent with patient
[2021-05-23 10:18] LABS: Glucose Point of Care 118 mg/dL (70-110)
[2021-05-23] MEDS: iron sucrose 200 MG in sodium chloride 0.9% (100 ml) 100 ML 220 MG IV (10:31)
--- NOTE | 2021-05-23 13:33 | P.PN_ITS ---
Subjective Subjective: Interval history: Patient had the PCI of the venous graft to the obtuse marginal artery yesterday. He had an uneventful postprocedure course. Patient developed a small hematoma in the right groin. He denies any chest pain or chest tightness. No unusual shortness of breath. Currently he is getting hemodialysis. His vital signs are stable. Medications: Reviewed: Yes Medication Review Details: Current Medications Acetaminophen (Acetaminophen 325 Mg Tablet) 650 mg PO Q6H PRN PRN Reason: Mild/Mod Pain Or Temp >/= 101 Al Hydrox/Mg Hydrox/Simethicone (Qqek-Sgp-Gywbsjoom-Amy 30 Ml Udc) 30 ml PO Q15M PRN PRN Reason: INDIGESTION Allopurinol (Allopurinol 100 Mg Tablet) 100 mg PO DAILY [facility] Last Admin: 05/23/21 08:52 Dose: 100 mg Documented by: Alprazolam (Alprazolam 0.5 Mg Tablet) 0.25 mg PO TID PRN PRN Reason: ANXIETY Aspirin (Aspirin 81 Mg Ec Tablet) 81 mg PO DAILY [facility] Last Admin: 05/23/21 08:52 Dose: 81 mg Documented by: Atorvastatin Calcium (Atorvastatin 40 Mg Tablet) 40 mg PO DAILY [facility] Last Admin: 05/23/21 08:52 Dose: 40 mg Documented by: Atropine Sulfate (Atropine 1 Mg/Ml Sdv 1 Ml) 0.5 mg IVP PRN PRN PRN Reason: Symptomatic bradycardia Bisacodyl (Bisacodyl 5 Mg Tablet) 10 mg PO DAILY PRN; Protocol PRN Reason: Constipation (see protocol) Last Admin: 05/20/21 20:57 Dose: 10 mg Documented by: Calcium Acetate (Calcium Acetate 667 Mg Capsule) 667 mg PO TIDWM [facility] Last Admin: 05/23/21 12:01 Dose: 667 mg Documented by: Clopidogrel Bisulfate (Clopidogrel 75 Mg Tablet) 75 mg PO DAILY [facility] Last Admin: 05/23/21 08:52 Dose: 75 mg Documented by: Dextrose (Dextrose 50% Syringe 50 Ml) 50 ml IVP PRN PRN; Protocol PRN Reason: hypoglycemia protocol Ergocalciferol (Ergocalciferol (Vitamin D2) 50,000 Unit Capsule) 50,000 unit PO Q7D [facility] Last Admin: 05/19/21 08:58 Dose: 50,000 unit Documented by: Famotidine (Famotidine 20 Mg/2 Ml Inj) 20 mg IVP Q12H [facility] Last Admin: 05/23/21 05:57 Dose: 20 mg Documented by: Furosemide (Furosemide 40 Mg Tablet) 80 mg PO BID@08,16 [facility] Glucagon (Glucagon 1 Mg/Ml Inj 1 Ml) 1 mg IM ONCE PRN; Protocol PRN Reason: Adult Acute Hypoglycemia Prot. Heparin Sodium (Porcine) (Heparin 5,000 Unit/Ml Inj 1 Ml) 5,000 unit SUBCUT Q12H [facility] Last Admin: 05/23/21 05:56 Dose: 5,000 unit Documented by: Iron Sucrose 200 mg/ Sodium (Chloride) 110 mls @ 220 mls/hr IV Q24H [facility] Stop: 05/25/21 09:59 Last Admin: 05/23/21 10:31 Dose: 220 mls/hr Documented by: Albumin Human (Albumin) 12.5 gm in 50 mls @ 60 mls/hr IV PRN PRN PRN Reason: Hypotension and/or symptomatic Piperacillin Sod/Tazobactam (Sod 3.375 gm/ Sodium Chloride) 50 mls @ 12.5 mls/hr IV Q12H [facility]; Protocol Stop: 05/23/21 23:59 Last Admin: 05/23/21 08:53 Dose: 12.5 mls/hr Documented by: Insulin Human Lispro (Insulin Lispro 100 Unit/1 Ml) 0 unit SUBCUT Q4H [facility]; Protocol Last Admin: 05/23/21 10:39 Dose: Not Given Documented by: Lactulose (Lactulose Oral Liq 20 Gm/30 Ml Udc) 10 gm PO DAILY PRN; Protocol PRN Reason: Constipation (see protocol) Magnesium Hydroxide (Magnesium Hydroxide 30 Ml Udc) 30 ml PO DAILY PRN PRN Reason: CONSTIPATION Metoprolol Succinate (Metoprolol Succinate Er (24 Hr) 25 Mg Tablet) 12.5 mg PO BID [facility] Last Admin: 05/23/21 08:53 Dose: 12.5 mg Documented by: Midodrine (Midodrine 5 Mg Tablet) 5 mg PO TID PRN PRN Reason: SBP less than 100 mhg Last Admin: 05/21/21 00:57 Dose: 5 mg Documented by: Morphine Sulfate (Morphine 4 Mg/Ml Sdv 1 Ml) 2 mg IVP Q4H PRN PRN Reason: SEVERE PAIN Last Admin: 05/22/21 22:09 Dose: 2 mg Documented by: Multivitamins (V-Svvokpz-Hlaqhea C Tablet) 1 each PO DAILY [facility] Last Admin: 05/23/21 08:53 Dose: 1 each Documented by: Naloxone HCl (Naloxone 0.4 Mg/Ml Sdv) 0.1 mg IVP Q2M PRN PRN Reason: RESPIRATORY RATE < 8/MIN Nitroglycerin (Nitroglycerin 0.4 Mg Sublingual Tablet) 0.4 mg SUBLINGUAL Q5M PRN PRN Reason: CHEST PAIN Ondansetron HCl (Ondansetron 2 Mg/Ml Sdv 2 Ml) 4 mg IVP Q8H PRN PRN Reason: vomiting, or N/V if npo Temazepam (Temazepam 15 Mg Capsule) 15 mg PO BEDTIME PRN PRN Reason: INSOMNIA Vitals/I&O/Wt Last Vital Signs Temp 97.7 F 05/23/21 11:59 Pulse 89 05/23/21 12:00 Resp 18 05/23/21 12:00 BP 116/70 05/23/21 12:00 Pulse Ox 99 05/23/21 12:00 05/22/21 05/23/21 05/23/21 22:59 06:59 14:59 Intake Total 480 / 940 50 / 990 476 / 476 Output Total 150 / 1450 200 / 1650 250 / 250 Balance 330 / -510 -150 / -660 226 / 226 Weight last 48 hrs Weight 168 lb 6 oz Weight 171 lb 9 oz Physical Exam Narrative: EXAM NARRATIVE: GENERAL: The patient is alert and oriented times three. Not in any acute distress. Unkempt HEENT: Moderate pallor. No icterus or lymphadenopathy. The pupils are symmetrical oral cavity: There are no mucous membrane lesions. F NECK: Trachea appears to be central. No masses noted. No JVD or thyromegaly appreciated. No carotid bruit. RESPIRATORY: Chest is symmetrical. No intercostals muscle retraction or any ac cessory muscle activation. There is no chest wall tenderness. Breath sounds are heard bilaterally. Few fine rales and occasional expiratory wheezing. BREASTS: Deferred. HEART: The PMI could not be palpated. But no other palpable precordial events. No palpable precordial events. S1 and S2 are normal. No S3 or S4 heard. No pericardial rub or any click heard. ABDOMEN: No vessel pulsations or distention. No tenderness. No organomegaly appreciated. No abdominal bruit. Bowel sounds are normally heard. : Deferred. RECTAL: Deferred. LYMPHATIC: No lymphadenopathy noted in the neck or groin. EXTREMITIES: Medium size hematoma in the right groin. MUSCULOSKELETAL: No acute joint deformities or swelling SKIN: There are no significant scars or skin rash noted. NEUROPSYCHIATRIC: The patient is alert and oriented x3. Appears to be in a good mood. The higher functions are grossly within normal limits. No tremors or rigidity noted. Const: COMMON NORMALS: alert Resp: COMMON NORMALS: clear to auscultation bilaterally AUSCULTATION: clear to auscultation bilaterally Neuro: SENSORIUM/ORIENTATION: Yes alert Urinary Catheter Management^: Vega: Cath Placed During This Visit: yes Reason for Continuing Indwelling Catheter: Accurate Measurement of Urinary Output in Critically Ill Patients Urinary Catheter Date of Insertion: 05/18/21 Urinary Catheter Time of Insertion: 19:51 Data : 05/23/21 04:50 05/23/21 04:50 A&P Assessment and plan (1) Atherosclerosis of coronary artery of [place] heart without angina pectoris: Patient status post cardiac catheterization. Severe three-vessel coronary disease. Occluded venous graft to the diagonal and to the PDA. High-grade lesion in the venous graft to the obtuse marginal artery. Patent [place]ANT[place] to the LAD. Currently remained stable. Planning to have the PCI of the OM graft lesion today by Dr. Morris. Patient had a PCI of the OM graft yesterday. Procedure was technically somewhat challenging. Currently he is doing okay with no significant symptoms. He developed a small to medium size hematoma in the right groin. Status: Acute Qualifiers: Coronary Disease-Associated Artery/Lesion type: [place] artery Qualified Code(s): I25.10 - Atherosclerotic heart disease of [place] coronary artery without angina pectoris (2) Acute renal failure: Patient is on hemodialysis. Management as per nephrology service. Status: Acute Qualifiers: Acute renal failure type: unspecified Qualified Code(s): N17.9 - Acute kidney failure, unspecified (3) 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: Patient had an iron infusion yesterday. Status: Acute (4) Severe calcific aortic valve stenosis: Could not cross the aortic valve yesterday. We might do a dobutamine stress echo to further evaluate the aortic valve, may be as an outpatient Status: Acute (5) Ischemic cardiomyopathy: The left ventricular ejection fraction was 25 to 30%. We will try to optimize the heart failure medications. The Entresto would be ideal but because of his acute on chronic kidney failure, I may hold off on this for the time being. We will start him on hydralazine 10 mg p.o. 3 times daily. May continue other medications as it is. Will be closely monitoring his blood pressure. 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
--- NOTE | 2021-05-23 13:35 | USCV_ITS ---
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
[2021-05-23 14:32] LABS: Glucose Point of Care 129 mg/dL (70-110)
--- NOTE | 2021-05-23 14:40 | P.PN_ITS ---
Subjective Subjective: Interval history: Patient was seen and examined this morning, no acute events overnight,Patient developed a small hematoma in the right groin, postprocedure. Plan is to continue to monitor for now. Medications: Reviewed: Yes Vitals/I&O/Wt Last Vital Signs Temp 97.7 F 05/23/21 11:59 Pulse 89 05/23/21 12:00 Resp 18 05/23/21 12:00 BP 116/70 05/23/21 12:00 Pulse Ox 99 05/23/21 12:00 05/22/21 05/23/21 05/23/21 22:59 06:59 14:59 Intake Total 480 / 940 50 / 990 476 / 476 Output Total 150 / 1450 200 / 1650 250 / 250 Balance 330 / -510 -150 / -660 226 / 226 Weight last 48 hrs Weight 76.374 kg Weight 77.819 kg Physical Exam Const: COMMON NORMALS: patient oriented x3 HENMT: COMMON NORMALS: normocephalic and atraumatic HEAD & SCALP: normocephalic and atraumatic Resp: COMMON NORMALS: clear to auscultation bilaterally AUSCULTATION: clear to auscultation bilaterally Cardio: COMMON NORMALS: regular rate, regular rhythm, S1 normal heart sound present, S2 normal heart sound present, No gallops present (Cardio), No murmurs present (Cardio), No rub (Cardio) and Peripheral pulses 2+ throughout RATE: regular rate RHYTHM: regular rhythm HEART SOUNDS: S1 normal heart sound present and S2 normal heart sound present PERIPHERAL PULSES: Peripheral pulses 2+ throughout GI: COMMON NORMALS: Normal to inspection, nondistended, normoactive bowel sounds present, Soft to palpation, non-tender, No hepatosplenomegaly present and no masses AUSCULTATION: Yes normoactive bowel sounds PALPATION: Yes Soft to palpation and Yes No hepatosplenomegaly present RECTAL EXAM: Yes deferred Extremity: COMMON NORMALS: no clubbing, cyanosis or edema and no pedal edema Neuro: COMMON NORMALS: patient oriented x3 Urinary Catheter Management^: Vega: Cath Placed During This Visit: yes Reason for Continuing Indwelling Catheter: Accurate Measurement of Urinary Output in Critically Ill Patients Urinary Catheter Date of Insertion: 05/18/21 Urinary Catheter Time of Insertion: 19:51 Data : 05/23/21 04:50 05/23/21 04:50 A&P Assessment and plan (1) Acute renal failure: Status: Acute Qualifiers: Acute renal failure type: unspecified Qualified Code(s): N17.9 - Acute kidney failure, unspecified (2) 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: Status: Acute (3) CKD (chronic kidney disease): Status: Acute Qualifiers: Chronic kidney disease stage: stage 5, not on chronic dialysis Qual ified Code(s): N18.5 - Chronic kidney disease, stage 5 (4) CHF (congestive heart failure): Status: Acute Qualifiers: Heart failure type: diastolic Heart failure chronicity: acute on chronic Qualified Code(s): I50.33 - Acute on chronic diastolic (congestive) heart failure (5) Ischemic cardiomyopathy: Status: Acute (6) Severe calcific aortic valve stenosis: Status: Acute (7) Hyperkalemia: Status: Acute (8) Hypoglycemia: Status: Acute (9) Metabolic acidosis: Status: Acute (10) Type 2 diabetes mellitus: Status: Chronic Qualifiers: Diabetes mellitus keno terminal operator insulin use: with assisted use Diabetes mellitus complication status: without complication Qualified Code(s): E11.9 - Type 2 diabetes mellitus without complications; Z79.4 - penitentiary (current) use of insulin (11) Benign hypertension: Status: Chronic (12) Nausea & vomiting: Most likely secondary to uremia. Getting CT abdomen pelvis. Will reevaluate. Zofran as needed. 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 Renal ultrasound: Unremarkable right kidney and bladder.left kidney is not visible due to bowel gas Urinalysis : 3+ protein Lasix 80 mg p.o. twice daily has been resumed. Currently being monitored for possible renal recovery. Plan is to continue to monitor the patient over the weekend.And if there is no recovery of renal function, patient will receive a tunneled catheter on 1 N ov. Currently On H.D. History of congestive heart failure: History of CABG: Currently on room air. Euvolemic. Echocardiogram : EF of 25 to 30% with global LV hypokinesia with possible slow flow severe aortic stenosis. We will discuss LifeVest utility, if the family agrees, he will be discharged on LifeVest. CAD : S/P : PCI of the venous graft to the obtuse marginal artery ( 05/21). Severe three-vessel coronary disease. Occluded venous graft to the diagonal and to the PDA. High-grade lesion in the venous graft to the obtuse marginal artery. Patent [place] to the LAD. Continue with aspirin, statin. Beta-belinda, Plavix, hydralazine 10 mg p.o. 3 times daily, Arrhythmia: Patient having frequent VPCs. Continue metoprolol 12.5 mg twice daily for now. Sepsis: Cannot rule out sepsis secondary to possible pneumonia versus diarrheal disease. Patient does have a history of MSSA cellulitis of leg. Oxygen supplementation keeping saturation over 90%. Keep mean arterial pressure over 65. Wean off Levophed accordingly. Continue with midodrine 10 mg 3 times a day. MRSA negative, urine Legionella, bacterial antigen negative. Blood cultures so far negative. Continue with Zosyn to finish a 5-day course. Last year May 23. Continue wound care as per wound care orders. Hyperkalemia/metabolic acidosis: Hyperkalemia resolved. Metabolic acidosis resolved. Altered mental status: Resolved. Most likely secondary to uremia along with hypoglycemia. Ammonia level, urine drug screen, salicylate, alcohol level negative. Fall precaution. Frequent reorientation. Hypoglycemia: Better. History of type 2 diabetes mellitus: Hypoglycemia most likely secondary to worsening renal functions and use of sulfonylurea on 05/17 evening. Hypoglycemic protocol with insulin sliding scale at low-dose protocol. Hold off on oral hypoglycemics or long-acting insulin for now. HbA1c 6.6. Hypertension: Goal blood pressure less than 140/90 mmHg. Continue to monitor. Midodrine to 5 mg 3 times a day as needed for systolic blood pressure of less than 100 mmHg. Continue home oral medication including allopurinol, statin. For now hold off on pregabalin as patient was confused today morning after getting medication last night. CODE STATUS: Discussed with at bedside. Full code. Protonix for PUD prophylaxis. Heparin 5000 every 12 for DVT prophylaxis. Renal dialysis diet. Attestations Medical Necessity Statement*: Patient needs to be in the hospital for management of above defined problems. Coding Level of Care Code Acute Intelligence Operations for Willie Wilks Diagnoses Acute renal failure N17.9 Acute renal failure type: unspecified 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 N18.5; D63.1 CKD (chronic kidney disease) N18.5 Chronic kidney disease stage: stage 5, not on chronic dialysis CHF (congestive heart failure) I50.33 Heart failure type: diastolic Heart failure chronicity: acute on chronic Ischemic cardiomyopathy I25.5 Severe calcific aortic valve stenosis I35.0 Hyperkalemia E87.5 Hypoglycemia E16.2 Metabolic acidosis E87.2 Type 2 diabetes mellitus E11.9; Z79.4 Diabetes mellitus keno terminal operator insulin use: with assisted use Diabetes mellitus complication status: without complication Benign hypertension I10 Nausea & vomiting R11.2 Long QT interval R94.31
--- NOTE | 2021-05-23 15:08 | PC.SOCIAL ---
IMM update IMM updated with patient. Verbalized an understanding. Copy Pg2 provided. Initialled, dated, timed, and placed in chart.
[2021-05-23] MEDS: hyDRALAzine 10 mg Tablet PO (15:16)
[2021-05-23] MEDS: FUROsemide 40 mg Tablet 80 MG PO (15:49)
[2021-05-23 18:34] LABS: Glucose Point of Care 185 mg/dL (70-110)
[2021-05-23] MEDS: insulin lispro 100 unit/1 mL SUBCUT ×2 (18:35→22:18)
[2021-05-23 22:17] LABS: Glucose Point of Care 177 mg/dL (70-110)
[2021-05-24] VITALS (97 sets, daily range): BP systolic 82–153; BP diastolic 38–77; PULSE 56–88; RESP 12–24; TEMP 36.4–36.6; O2SAT 82–100
[2021-05-24 02:28] LABS: Glucose Point of Care 120 mg/dL (70-110)
[2021-05-24] MEDS: midodrine 5 mg TABLET PO ×2 (04:13→11:09)
[2021-05-24] MEDS: heparin 5,000 unit/mL INJ 1 mL 5000 UNIT SUBCUT ×2 (05:43→17:34)
[2021-05-24] MEDS: famotidine 20 mg/2 mL INJ IVP ×2 (05:43→17:34)
[2021-05-24 05:49] LABS: Basophils % 0.6 %; Eosinophils # 0.2 10^3/uL (0.0-0.8); Eosinophils % 2.6 %; Hematocrit 26.6 % (42.0-52.0); Hemoglobin 8.2 g/dL (11.7-16.6); Lymphocytes # 1.1 10^3/uL (0.8-4.8); Lymphocytes % 14.7 %; Mean Corpuscular HGB Conc 30.8 g/dL (30.0-36.0); Mean Corpuscular Hemoglobin 28.8 pg (28.0-34.0); Mean Corpuscular Volume 93.3 fl (80-94); Mean Platelet Volume 13.8 fL (7.4-10.4); Monocytes # 0.7 10^3/uL (0.2-0.9); Monocytes % 10.1 %; Neutrophils # 5.13 10^3/uL (1.8-7.7); Neutrophils % 71.2 %; Nucleated Red Blood Cells % 0 %; Platelet Count 117 10^3/cmm (130-400); Red Blood Count 2.85 10^6/uL (4.1-5.3); Red Cell Distribution Width 17.4 % (12.1-15.1); White Blood Count 7.2 10^3/uL (4.0-10.0)
[2021-05-24 06:13] LABS: Alanine Aminotransferase 8 U/L (0-41); Albumin Level 2.6 g/dL (3.5-5.2); Alkaline Phosphatase 171 IU/L (40-130); Anion Gap 13.1 (5-19); Aspartate Amino Transferase 20 U/L (0-40); Blood Urea Nitrogen 18 mg/dL (8-23); Calcium 7.9 mg/dL (8.5-10.5); Carbon Dioxide 26 mmol/L (22-29); Chloride 99 mmol/L (98-107); Globulin 2.3 g/dL (1.3-4.6); Glucose 68 mg/dL (65-115); Magnesium 1.9 mg/dL (1.7-2.3); Osmolality Calculated 278 mOsm/kg (285-295); Potassium 4.1 mmol/L (3.5-5.1); Sodium 134 mmol/L (136-145); Total Bilirubin 0.4 mg/dL (0.15-1.2); Total Protein 4.9 g/dL (6.6-8.7)
--- NOTE | 2021-05-24 06:15 | USR_ITS ---
PROCEDURE INFORMATION: Exam: US Duplex Right Lower Extremity Arteries Or Arterial Bypass Grafts Exam date and time: 05/24/2021 6:15 AM Age: 81 years old Clinical indication: Condition or disease; Aneurysm; Lower extremity, right; Additional info: Pseudo aneurysm TECHNIQUE: Imaging protocol: Right Real-time duplex scan of the arteries or arterial bypass grafts of the right lower extremity with 2-D engle scale, color Doppler flow and spectral waveform analysis. Images documented and saved. Total images: 17 COMPARISON: US renal BI* [id number] 05/18/2021 4:17 PM FINDINGS: Right common femoral artery: Lobulated hypoechoic mass overlying the right common femoral artery within the right groin. Minimal vascularity noted along the deep margin with to and fro flow. 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 This area measures 5.1 x 1.2 x 3.6 cm. Right superficial femoral artery: Not imaged Right popliteal artery: Not imaged. Right calf/foot arteries: Not imaged. [place] [id number] IMPRESSION: Lobulated hypoechoic mass overlying the right common femoral artery within the right groin. Minimal vascularity noted along the deep margin with to and fro flow. 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 This area measures 5.1 x 1.2 x 3.6 cm. Radiation Dose CTDIVOL = (mGy): DLP = (mGy-cm)
[2021-05-24 06:29] LABS: Glucose Point of Care 72 mg/dL (70-110)
[2021-05-24 07:52] LABS: Glucose Point of Care 159 mg/dL (70-110)
--- NOTE | 2021-05-24 08:39 | P.PN_ITS ---
Subjective Subjective: Interval history: seen via telehealth. he wants to get out of bed. awaiting PT denies chest pain, dyspnea Medications: Reviewed: Yes Vitals/I&O/Wt Last Vital Signs Temp 97.8 F 05/24/21 04:00 Pulse 66 05/24/21 06:00 Resp 17 05/24/21 04:30 BP 88/38 05/24/21 04:30 Pulse Ox 98 05/24/21 04:30 05/23/21 05/24/21 05/24/21 22:59 06:59 14:59 Intake Total 925 / 1401 0 / 1401 Output Total 1350 / 1600 50 / 1650 Balance -425 / -199 -50 / -249 Weight last 48 hrs Weight 78.245 kg Weight 76.374 kg Physical Exam Const: COMMON NORMALS: no acute distress GENERAL APPEARANCE: cooperative Extremity: GENERAL: Yes edema Urinary Catheter Management^: Murphy: Cath Placed During This Visit: yes Reason for Continuing Indwelling Catheter: Accurate Measurement of Urinary Output in Critically Ill Patients Urinary Catheter Date of Insertion: 05/18/21 Urinary Catheter Time of Insertion: 19:51 Data : 05/24/21 05:16 05/24/21 05:16 Micro: Microbiology 05/18/21 17:53 Blood Culture - Final Blood NO GROWTH AFTER 5 DAYS 05/18/21 17:53 Blood Culture - Final Blood NO GROWTH AFTER 5 DAYS A&P Additional A&P Information Impression: 1. Acute kidney injury, minimal urine output 2. Chronic kidney disease due to DM, htn, age 3. Coronary artery disease s/p cardiac cath x 2, ischemic cardiomyopathy EF 25%, severe , atrial fibrilation 4. Anemia, Hb stable, receiving IV iron and epogen Recommend: hold hydralazine. can d/c murphy - daily bladder scan. Will likely need HD on Wednesday - can use temporary catheter but plan for placement of tunneled catheter. Refer to outpatient dialysis center. Attestations Medical Necessity Statement*: see above Time Spent in Patient Care: 16 - 35 minutes Coding Level of Care Code Acute Sharepoint Solutions Architect for Willie Wilks
[2021-05-24] MEDS: aspirin 81 mg EC Tablet PO (09:12)
[2021-05-24] MEDS: b-complex-vitamin c Tablet 1 EACH PO (09:12)
[2021-05-24] MEDS: FUROsemide 40 mg Tablet 80 MG PO ×2 (09:12→16:48)
[2021-05-24] MEDS: allopurinol 100 mg Tablet PO (09:12)
[2021-05-24] MEDS: calcium acetate 667 mg Capsule PO ×3 (09:12→17:36)
[2021-05-24] MEDS: clopidogrel 75 mg Tablet PO (09:13)
[2021-05-24] MEDS: metoprolol succinate ER (24 HR) 25 mg Tablet 12.5 MG PO ×2 (09:13→17:35)
[2021-05-24] MEDS: atorvastatin 40 mg Tablet PO (09:13)
[2021-05-24] MEDS: hyDRALAzine 10 mg Tablet PO (09:14)
[2021-05-24] MEDS: iron sucrose 200 MG in sodium chloride 0.9% (100 ml) 100 ML 220 MG IV (09:42)
[2021-05-24 10:33] LABS: Glucose Point of Care 148 mg/dL (70-110)
[2021-05-24] MEDS: insulin lispro 100 unit/1 mL SUBCUT ×3 (10:36→17:34)
[2021-05-24 14:53] LABS: Vit D 1,25 (Oh)2, Total <8 pg/mL (18-72); Vit D2 1,25 (Oh)2 <8 pg/mL; Vit D3 1,25 (Oh)2 <8 pg/mL
[2021-05-24 15:16] LABS: Glucose Point of Care 225 mg/dL (70-110)
--- NOTE | 2021-05-24 17:08 | PC.NURSE ---
Removed murphy cath, patient tolered well with zero complaints.
[2021-05-24 17:31] LABS: Glucose Point of Care 239 mg/dL (70-110)
--- NOTE | 2021-05-24 18:00 | PC.NURSE ---
Patient report called to Kerri Johnson,patient going to [facility] rm 106.
--- NOTE | 2021-05-24 18:04 | PM.PN ---
Subjective Subjective: Interval history: Denies any complaint, patient underwent an ultrasound had a pseudoaneurysm Medications: Reviewed: Yes Medication Review Details: Current Medications Acetaminophen (Acetaminophen 325 Mg Tablet) 650 mg PO Q6H PRN PRN Reason: Mild/Mod Pain Or Temp >/= 101 Al Hydrox/Mg Hydrox/Simethicone (Ovaf-Zvw-Bcakzxhmh-Amy 30 Ml Udc) 30 ml PO Q15M PRN PRN Reason: INDIGESTION Allopurinol (Allopurinol 100 Mg Tablet) 100 mg PO DAILY [facility] Last Admin: 05/23/21 08:52 Dose: 100 mg Documented by: Alprazolam (Alprazolam 0.5 Mg Tablet) 0.25 mg PO TID PRN PRN Reason: ANXIETY Aspirin (Aspirin 81 Mg Ec Tablet) 81 mg PO DAILY [facility] Last Admin: 05/23/21 08:52 Dose: 81 mg Documented by: Atorvastatin Calcium (Atorvastatin 40 Mg Tablet) 40 mg PO DAILY [facility] Last Admin: 05/23/21 08:52 Dose: 40 mg Documented by: Atropine Sulfate (Atropine 1 Mg/Ml Sdv 1 Ml) 0.5 mg IVP PRN PRN PRN Reason: Symptomatic bradycardia Bisacodyl (Bisacodyl 5 Mg Tablet) 10 mg PO DAILY PRN; Protocol PRN Reason: Constipation (see protocol) Last Admin: 05/20/21 20:57 Dose: 10 mg Documented by: Calcium Acetate (Calcium Acetate 667 Mg Capsule) 667 mg PO TIDWM [facility] Last Admin: 05/23/21 12:01 Dose: 667 mg Documented by: Clopidogrel Bisulfate (Clopidogrel 75 Mg Tablet) 75 mg PO DAILY [facility] Last Admin: 05/23/21 08:52 Dose: 75 mg Documented by: Dextrose (Dextrose 50% Syringe 50 Ml) 50 ml IVP PRN PRN; Protocol PRN Reason: hypoglycemia protocol Ergocalciferol (Ergocalciferol (Vitamin D2) 50,000 Unit Capsule) 50,000 unit PO Q7D [facility] Last Admin: 05/19/21 08:58 Dose: 50,000 unit Documented by: Famotidine (Famotidine 20 Mg/2 Ml Inj) 20 mg IVP Q12H [facility] Last Admin: 05/23/21 05:57 Dose: 20 mg Documented by: Furosemide (Furosemide 40 Mg Tablet) 80 mg PO BID@08,16 [facility] Glucagon (Glucagon 1 Mg/Ml Inj 1 Ml) 1 mg IM ONCE PRN; Protocol PRN Reason: Adult Acute Hypoglycemia Prot. Heparin Sodium (Porcine) (Heparin 5,000 Unit/Ml Inj 1 Ml) 5,000 unit SUBCUT Q12H [facility] Last Admin: 05/23/21 05:56 Dose: 5,000 unit Documented by: Iron Sucrose 200 mg/ Sodium (Chloride) 110 mls @ 220 mls/hr IV Q24H [facility] Stop: 05/25/21 09:59 Last Admin: 05/23/21 10:31 Dose: 220 mls/hr Documented by: Albumin Human (Albumin) 12.5 gm in 50 mls @ 60 mls/hr IV PRN PRN PRN Reason: Hypotension and/or symptomatic Piperacillin Sod/Tazobactam (Sod 3.375 gm/ Sodium Chloride) 50 mls @ 12.5 mls/hr IV Q12H [facility]; Protocol Stop: 05/23/21 23:59 Last Admin: 05/23/21 08:53 Dose: 12.5 mls/hr Documented by: Insulin Human Lispro (Insulin Lispro 100 Unit/1 Ml) 0 unit SUBCUT Q4H [facility]; Protocol Last Admin: 05/23/21 10:39 Dose: Not Given Documented by: Lactulose (Lactulose Oral Liq 20 Gm/30 Ml Udc) 10 gm PO DAILY PRN; Protocol PRN Reason: Constipation (see protocol) Magnesium Hydroxide (Magnesium Hydroxide 30 Ml Udc) 30 ml PO DAILY PRN PRN Reason: CONSTIPATION Metoprolol Succinate (Metoprolol Succinate Er (24 Hr) 25 Mg Tablet) 12.5 mg PO BID [facility] Last Admin: 05/23/21 08:53 Dose: 12.5 mg Documented by: Midodrine (Midodrine 5 Mg Tablet) 5 mg PO TID PRN PRN Reason: SBP less than 100 mhg Last Admin: 05/21/21 00:57 Dose: 5 mg Documented by: Morphine Sulfate (Morphine 4 Mg/Ml Sdv 1 Ml) 2 mg IVP Q4H PRN PRN Reason: SEVERE PAIN Last Admin: 05/22/21 22:09 Dose: 2 mg Documented by: Multivitamins (M-Bgjcgnx-Mmvvcuw C Tablet) 1 each PO DAILY [facility] Last Admin: 05/23/21 08:53 Dose: 1 each Documented by: Naloxone HCl (Naloxone 0.4 Mg/Ml Sdv) 0.1 mg IVP Q2M PRN PRN Reason: RESPIRATORY RATE < 8/MIN Nitroglycerin (Nitroglycerin 0.4 Mg Sublingual Tablet) 0.4 mg SUBLINGUAL Q5M PRN PRN Reason: CHEST PAIN Ondansetron HCl (Ondansetron 2 Mg/Ml Sdv 2 Ml) 4 mg IVP Q8H PRN PRN Reason: vomiting, or N/V if npo Temazepam (Temazepam 15 Mg Capsule) 15 mg PO BEDTIME PRN PRN Reason: INSOMNIA Vitals/I&O/Wt Last Vital Signs Temp 97.8 F 05/24/21 04:00 Pulse 70 05/24/21 16:15 Resp 16 05/24/21 16:15 BP 103/55 05/24/21 16:15 Pulse Ox 98 05/24/21 16:15 05/24/21 05/24/21 05/24/21 06:59 14:59 22:59 Intake Total 0 / 1401 650 / 650 Output Total 50 / 1650 50 / 50 Balance -50 / -249 600 / 600 Weight last 48 hrs Weight 172 lb 8 oz Weight 168 lb 6 oz Physical Exam Narrative: EXAM NARRATIVE: GENERAL: Patient is awake and oriented x3. NECK: No jugular vein distension. HEENT: No cyanosis. No icterus. No pallor. HEART: Regular S1 and S2. No murmur, rub or gallop. LUNGS: Clear to auscultate bilaterally. ABDOMEN: Soft, nontender and nondistended. Positive bowel sounds. No guarding, rebound or tenderness. CENTRAL NERVOUS SYSTEM: Grossly nonfocal. EXTREMITIES: Lower extremities without edema bilaterally. Right groin swelling Urinary Catheter Management^: Vega: Cath Placed During This Visit: yes Reason for Continuing Indwelling Catheter: Accurate Measurement of Urinary Output in Critically Ill Patients Urinary Catheter Date of Insertion: 05/18/21 Urinary Catheter Time of Insertion: 19:51 Data : 05/24/21 05:16 05/24/21 05:16 Micro: Microbiology 05/18/21 17:53 Blood Culture - Final Blood NO GROWTH AFTER 5 DAYS 05/18/21 17:53 Blood Culture - Final Blood NO GROWTH AFTER 5 DAYS A&P Assessment and plan (1) Atherosclerosis of coronary artery of [place] heart without angina pectoris: Status post PCI to the graft to obtuse marginal continue Plavix doing fine from cardiovascular perspective Status: Acute Qualifiers: Coronary Disease-Associated Artery/Lesion type: [place] artery Qualified Code(s): I25.10 - Atherosclerotic heart disease of [place] coronary artery without angina pectoris (2) Acute renal failure: Patient is on hemodialysis. 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
--- NOTE | 2021-05-24 18:39 | PC.NURSE ---
Transferred patient to [facility] rm 106 via bed, with zero difficulties
--- NOTE | 2021-05-24 19:33 | PC.NURSE ---
received into room 106 from icu at 1850.report received.vss.oriented to room environment.instructed to contact staff for any sob,cp..or for any concerns at all.pt verb understanding of instructions
[2021-05-25] VITALS (22 sets, daily range): BP systolic 98–143; BP diastolic 53–78; PULSE 60–87; RESP 15–26; TEMP 36.5–36.8; O2SAT 92–100
[2021-05-25 06:13] LABS: Glucose Point of Care 47 mg/dL (70-110)
[2021-05-25] MEDS: heparin 5,000 unit/mL INJ 1 mL 5000 UNIT SUBCUT ×2 (06:13→17:58)
[2021-05-25] MEDS: famotidine 20 mg/2 mL INJ IVP (06:14)
--- NOTE | 2021-05-25 06:49 | PM.PN ---
Subjective Subjective: Interval history: seen via telemedicine murphy was removed yesterday - states he has not voided since Medications: Reviewed: Yes Vitals/I&O/Wt Last Vital Signs Temp 97.8 F 05/25/21 04:00 Pulse 70 05/25/21 05:49 Resp 20 H 05/25/21 04:00 BP 143/78 05/25/21 04:00 Pulse Ox 96 05/25/21 02:45 05/24/21 05/24/21 05/25/21 14:59 22:59 06:59 Intake Total 650 / 650 980 / 1630 740 / 2370 Output Total 50 / 50 100 / 150 100 / 250 Balance 600 / 600 880 / 1480 640 / 2120 Weight last 48 hrs Weight 87.861 kg Weight 78.245 kg Physical Exam Const: COMMON NORMALS: no acute distress GENERAL APPEARANCE: cooperative Urinary Catheter Management^: Muprhy: Cath Placed During This Visit: yes Reason for Continuing Indwelling Catheter: Accurate Measurement of Urinary Output in Critically Ill Patients Urinary Catheter Date of Insertion: 05/18/21 Urinary Catheter Time of Insertion: 19:51 Data : 05/24/21 05:16 05/25/21 07:41 A&P Additional A&P Information Impression: 1. Acute kidney injury, minimal urine output. Bladder scan ordered. 2. Chronic kidney disease due to DM, htn, age 3. Coronary artery disease s/p cardiac cath x 2, ischemic cardiomyopathy EF 25%, severe , atrial fibrillation 4. Anemia, Hb stable, receiving IV iron and epogen at HD 5. Hyponatremia, likely hypervolemic. Rec: fluid restrict, HD tomorrow Recommend: HD on Wednesday - use temporary dialysis catheter. Requires placement of tunneled catheter prior to discharge. Refer to outpatient dialysis center. Attestations Medical Necessity Statement*: see above Time Spent in Patient Care: 16 - 35 minutes Coding Level of Care Code Acute Educational Coordinator for Willie Wilks
--- NOTE | 2021-05-25 07:15 | PC.NURSE ---
Patient fs at 0600 was 47. Asymptomatic and stated he felt fine. [place] juice given x 2 and fs done again at one hour freedom and was 83. No complaints at this time. Will continue to monitor.
[2021-05-25 07:26] LABS: Glucose Point of Care 84 mg/dL (70-110)
[2021-05-25 08:19] LABS: Anion Gap 14.6 (5-19); Blood Urea Nitrogen 24 mg/dL (8-23); Calcium 7.7 mg/dL (8.5-10.5); Carbon Dioxide 24 mmol/L (22-29); Chloride 93 mmol/L (98-107); Glucose 114 mg/dL (65-115); Osmolality Calculated 269 mOsm/kg (285-295); Potassium 4.6 mmol/L (3.5-5.1); Sodium 127 mmol/L (136-145)
[2021-05-25] MEDS: clopidogrel 75 mg Tablet PO (09:06)
[2021-05-25] MEDS: allopurinol 100 mg Tablet PO (09:07)
[2021-05-25] MEDS: aspirin 81 mg EC Tablet PO (09:07)
[2021-05-25] MEDS: b-complex-vitamin c Tablet 1 EACH PO (09:07)
[2021-05-25] MEDS: atorvastatin 40 mg Tablet PO (09:07)
[2021-05-25] MEDS: iron sucrose 200 MG in sodium chloride 0.9% (100 ml) 100 ML 220 MG IV (09:15)
--- NOTE | 2021-05-25 10:11 | PC.SOCIAL ---
IMM Update Pg.2 of IMM updated and reviewed with patient who verbalized understanding. Copy provided.
--- NOTE | 2021-05-25 11:26 | PC.NURSE ---
telenephrology with patient instructions received to bladder scan now contact hospitalist with amount greater than 300ml
[2021-05-25] MEDS: FUROsemide 40 mg Tablet 80 MG PO ×2 (11:46→17:57)
[2021-05-25 12:02] LABS: Glucose Point of Care 141 mg/dL (70-110)
[2021-05-25 14:45] LABS: Glucose Point of Care 185 mg/dL (70-110)
[2021-05-25] MEDS: insulin lispro 100 unit/1 mL SUBCUT ×3 (15:04→21:35)
--- NOTE | 2021-05-25 16:29 | P.PN_ITS ---
Subjective Subjective: Interval history: Patient was seen and examined this morning, no acute events overnight. Continue to have poor urine output. arterial dup groin RT: complete thrombosed pseudoaneurysm. No dialysis today.Plan is to dialyze tommorw. Medications: Reviewed: Yes Vitals/I&O/Wt Last Vital Signs Temp 97.8 F 05/25/21 04:00 Pulse 70 05/25/21 12:00 Resp 22 H 05/25/21 12:00 BP 117/65 05/25/21 12:00 Pulse Ox 96 05/25/21 12:00 05/25/21 05/25/21 05/25/21 06:59 14:59 22:59 Intake Total 740 / 2370 480 / 480 Output Total 100 / 250 50 / 50 Balance 640 / 2120 430 / 430 Weight last 48 hrs Weight 87.861 kg Weight 78.245 kg Physical Exam Const: COMMON NORMALS: patient oriented x3 HENMT: COMMON NORMALS: normocephalic and atraumatic HEAD & SCALP: normocephalic and atraumatic Resp: OTHER: B/L Crackles in both the lungs suresh Cardio: COMMON NORMALS: regular rate, regular rhythm, S1 normal heart sound present, S2 normal heart sound present, No gallops present (Cardio), No murmurs present (Cardio), No rub (Cardio) and Peripheral pulses 2+ throughout RATE: regular rate RHYTHM: regular rhythm HEART SOUNDS: S1 normal heart sound present and S2 normal heart sound present PERIPHERAL PULSES: Peripheral pulses 2+ throughout GI: COMMON NORMALS: Normal to inspection, nondistended, normoactive bowel sounds present, Soft to palpation, non-tender, No hepatosplenomegaly present and no masses AUSCULTATION: Yes normoactive bowel sounds PALPATION: Yes Soft to palpation and Yes No hepatosplenomegaly present RECTAL EXAM: Yes deferred Extremity: COMMON NORMALS: no clubbing, cyanosis or edema and no pedal edema Neuro: COMMON NORMALS: patient oriented x3 Urinary Catheter Management^: Vega: Cath Placed During This Visit: yes Reason for Continuing Indwelling Catheter: Accurate Measurement of Urinary Output in Critically Ill Patients Urinary Catheter Date of Insertion: 05/18/21 Urinary Catheter Time of Insertion: 19:51 Data : 05/24/21 05:16 05/25/21 07:41 A&P Assessment and plan (1) Acute renal failure: Status: Acute Qualifiers: Acute renal failure type: unspecified Qualified Code(s): N17.9 - Acute kidney failure, unspecified (2) 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: Status: Acute (3) CKD (chronic kidney disease): Status: Acute Qualifiers: Chronic kidney disease stage: stage 5, not on chronic dialysis Qualified Code(s): N18.5 - Chronic kidney disease, stage 5 (4) CHF (congestive heart failure): Status: Acute Qualifiers: Heart failure type: diastolic Heart failure chronicity: acute on chr onic Qualified Code(s): I50.33 - Acute on chronic diastolic (congestive) heart failure (5) Ischemic cardiomyopathy: Status: Acute (6) Severe calcific aortic valve stenosis: Status: Acute (7) Hyperkalemia: Status: Acute (8) Hypoglycemia: Status: Acute (9) Metabolic acidosis: Status: Acute (10) Type 2 diabetes mellitus: Status: Chronic Qualifiers: 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 Getting CT abdomen pelvis. Will reevaluate. Zofran as needed. 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 Renal ultrasound: Unremarkable right kidney and bladder.left kidney is not visible due to bowel gas Urinalysis : 3+ protein Lasix 80 mg p.o. twice daily has been resumed. In the absence of meaningful renal recovery.Plan is to place tunneled dialysis catheter.Surgery has been contacted.For now he will continue on hemodialysis with right IJ dialysis catheter. Patient has a dialysis chair as an outpatient. History of congestive heart failure: History of CABG: Currently on room air. Euvolemic. Echocardiogram : EF of 25 to 30% with global LV hypokinesia with possible slow flow severe aortic stenosis. We will discuss LifeVest utility, if the family agrees, he will be discharged on LifeVest. CAD : S/P : PCI of the venous graft to the obtuse marginal artery ( 05/21). Severe three-vessel coronary disease. Occluded venous graft to the diagonal and to the PDA. High-grade lesion in the venous graft to the obtuse marginal art juan. Patent [place] to the LAD. Continue with aspirin, statin. Beta-belinda, Plavix, hydralazine 10 mg p.o. 3 times daily, Arrhythmia: Patient having frequent VPCs. Continue metoprolol 12.5 mg twice daily for now. Sepsis: Cannot rule out sepsis secondary to possible pneumonia versus diarrheal disease. Patient does have a history of MSSA cellulitis of leg. Oxygen supplementation keeping saturation over 90%. Blood cultures so far negative. MRSA negative, urine Legionella, bacterial antigen negative. Initially on Levophed has been weaned off. Completed 5-day course of Zosyn. Continue wound care as per wound care orders. Hyperkalemia/metabolic acidosis: Hyperkalemia resolved. Metabolic acidosis resolved. Altered mental status: Resolved. Most likely secondary to uremia along with hypoglycemia. Ammonia level, urine drug screen, salicylate, alcohol level negative. Fall precaution. Frequent reorientation. Hypoglycemia: Better. History of type 2 diabetes mellitus: Hypoglycemia most likely secondary to worsening renal functions and use of sulfonylurea on 05/17 evening. Hypoglycemic protocol with insulin sliding scale at low-dose protocol. Hold off on oral hypoglycemics or long-acting insulin for now. HbA1c 6.6. Hypertension: Goal blood pressure less than 140/90 mmHg. Continue to monitor. Midodrine to 5 mg 3 times a day as needed for systolic blood pressure of less than 100 mmHg. Continue home oral medication including allopurinol, statin. For now hold off on pregabalin as patient was confused today morning after getting medication last night. CODE STATUS: Discussed with at bedside. Full code. Protonix for PUD prophylaxis. Heparin 5000 every 12 for DVT prophylaxis. Renal dialysis diet. Attestations Medical Necessity Statement*: Patient needs to be in hospital for continued dialysis, placement of dialysis catheter. 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
--- NOTE | 2021-05-25 16:33 | PM.CONSULT ---
Providers/Reason For Consult Consulting Physician/Specialty*: Sylvester Merrill MD Reason for Consult*: Placement of tunneled hemodialysis catheter Attending Physician: Juanito Quinteros MD Primary Care Provider: Malaika Mayorga MD History of Present Illness History of Present Illness Chief Complaint: History of present illness: Leonel Driscoll is a 81 year old male with past medical history of CAD, aortic valve disease, high blood pressure, dyslipidemia, post CABG, CKD stage IV, hypertension, type 2 diabetes mellitus. Patient was admitted to the hospitalist service because of mental status alteration secondary to hypoglycemia. Patient was supposed to be getting fistula in the form of AV for dialysis. But at admission he undergone an urgent placement of right internal jugular vein hemodialysis catheter by the emergency department physician as patient's kidney functions are worsening at that time had a serum creatinine of 6.5 and a potassium of 6.2. And based on nephrology consultation patient started hemodialysis at admission. During patient's hospitalization cardiology was consulted on 05/20/2021 patient had severe LV systolic dysfunction/aortic valve stenosis. Subsequently the patient undergone cardiac catheterization on 05/21/2021. General surgery was consulted for switching the nontunneled hemodialysis catheter to a tunneled one at some point prior to discharge from the hospital. Patient is currently on Plavix therapy. Review of Systems General: Reports: 10 or more systems reviewed and unremarkable except in HPI and below Meds/Allergies Home Medications and Allergies Home Medications Medication Instructions Recorded Confirmed Last Taken Type hydrochlorothiazide 50 mg tablet 50 mg PO QAM 90 Days #90 tab 11/11/20 05/18/21 05/17/21 Rx furosemide 20 mg tablet 40 mg PO QAM #60 tab 01/27/21 05/18/21 05/17/21 Rx glipizide 10 mg tablet 10 mg PO DAILY 90 Days #90 tab 04/07/21 05/18/21 05/17/21 Rx sevelamer carbonate 800 mg tablet 800 mg PO BID 90 Days #180 tab 04/09/21 05/18/21 05/17/21 Rx allopurinol 100 mg PO DAILY 05/18/21 05/18/21 05/17/21 History atorvastatin 40 mg PO DAILY 05/18/21 05/18/21 05/17/21 History cyanocobalamin (vitamin B-12) 500 mcg PO DAILY 05/18/21 05/18/21 05/17/21 History [Vitamin B-12] glucos sul [id number]-Mn 1 cap PO DAILY 05/18/21 05/18/21 05/17/21 History [Glucosamine Chondroitin] lisinopril 20 mg PO DAILY 05/18/21 05/18/21 05/17/21 History pregabalin 25 mg PO BEDTIME 05/18/21 05/18/21 05/17/21 History Allergies Allergy/AdvReac Type Severity Reaction Status Date / Time No Known Allergies Allergy Verified 05/25/21 17:08 Current Medications Current Medications Generic Name Dose Route Start Last Admin Trade Name Freq PRN Reason Stop Dose Admin Allopurinol 100 mg 05/19/21 09:00 05/25/21 09:07 Allopurinol 100 Mg Tablet PO 100 mg DAILY ELIAZAR Administration Aspirin 81 mg 05/20/21 09:00 05/25/21 09:07 Aspirin 81 Mg Ec Tablet PO 81 mg DAILY LEIAZAR Administration Atorvastatin Calcium 40 mg 05/19/21 09:00 05/25/21 09:07 Atorvastatin 40 Mg Tablet PO 40 mg DAILY ELIAZAR Administration Bisacodyl 10 mg 05/18/21 18:33 05/20/21 20:57 Bisacodyl 5 Mg Tablet PO 10 mg DAILY PRN Administration Constipation (see protocol) Protocol Clopidogrel Bisulfate 75 mg 05/23/21 09:00 05/25/21 09:06 Clopidogrel 75 Mg Tablet PO 75 mg DAILY ELIAZAR Administration Ergocalciferol 50,000 unit 05/19/21 08:00 05/19/21 08:58 Ergocalciferol (Vitamin D2) 50,000 Unit Capsule PO 50,000 unit Q7D ELIAZAR Administration Famotidine 20 mg 05/18/21 18:33 05/25/21 06:14 Famotidine 20 Mg/2 Ml Inj IVP 20 mg Q12H ELIAZAR Administration Furosemide 80 mg 05/23/21 16:00 05/25/21 11:46 Furosemide 40 Mg Tablet PO 80 mg BID@08,16 ELIAZAR Administration Heparin Sodium (Porcine) 5,000 unit 05/18/21 18:33 05/25/21 06:13 Heparin 5,000 Unit/Ml Inj 1 Ml SUBCUT 5,000 unit Q12H ELIAZAR Administration Hydralazine HCl 10 mg 05/23/21 15:00 05/24/21 09:14 Hydralazine 10 Mg Tablet PO 10 mg TID ELIAZAR Administration Insulin Human Lispro 0 unit 05/18/21 18:33 05/25/21 15:04 Insulin Lispro 100 Unit/1 Ml SUBCUT 4 unit Q4H ELIAZAR Administration Protocol Metoprolol Succinate 12.5 mg 05/20/21 09:25 05/25/21 14:08 Metoprolol Succinate Er (24 Hr) 25 Mg Tablet PO Not Given BID ELIAZAR Midodrine 5 mg 05/20/21 15:00 05/24/21 11:09 Midodrine 5 Mg Tablet PO 5 mg TID PRN Administration SBP less than 100 mhg Morphine Sulfate 2 mg 05/18/21 18:33 05/22/21 22:09 Morphine 4 Mg/Ml Sdv 1 Ml IVP 2 mg Q4H PRN Administration SEVERE PAIN Multivitamins 1 each 05/19/21 09:00 05/25/21 09:07 M-Ugnevte-Bbtpvbk C Tablet PO 1 each DAILY ELIAZAR Administration PFSH Acute PFSH: Medical History Benign hypertension CKD (chronic kidney disease) 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 Diabetic neuropathy Gout Hyperkalemia Hx of Hyperlipidemia Peripheral neuropathy Type 2 diabetes mellitus Surgical History H/O cataract extraction H/O hernia repair Previous back surgery S/P appendectomy S/P tonsillectomy Family History Brother Hypertension Social History Smoking and tobacco status: former smoker Quit status (tobacco): has quit using tobacco Year quit tobacco: 2005 Second hand smoke exposure: No Alcohol intake: current Alcohol intake frequency: other Alcohol type: other Vitals/I&O/Wt Last Vital Signs Temp 97.8 F 05/25/21 04:00 Pulse 70 05/25/21 12:00 Resp 22 H 05/25/21 12:00 BP 117/65 05/25/21 12:00 Pulse Ox 96 05/25/21 12:00 05/25/21 05/25/21 05/25/21 06:59 14:59 22:59 Intake Total 740 / 2370 480 / 480 Output Total 100 / 250 50 / 50 Balance 640 / 2120 430 / 430 Weight last 48 hrs Weight 193 lb 11.2 oz Weight 172 lb 8 oz Physical Exam Narrative: EXAM NARRATIVE: Patient is conscious alert oriented X3 BMI 30.3 Head and neck examination PERRLA no masses no cervical lymphadenopathy no jaundice Right internal jugular vein nontunneled temporary dialysis catheter in place without complication Cardiac examination presence of murmur likely due to aortic stenosis maximally heard on the right second intercostal space Chest is clear bilateral,abscence of Rhonchi or wheezes,no surgical emphysema Abdomen nontender nondistended soft no organomegaly guarding or rigidity/no signs of peritonitis Urinary Catheter Management^: Vega: Cath Placed During This Visit: yes Reason for Continuing Indwelling Catheter: Accurate Measurement of Urinary Output in Critically Ill Patients Urinary Catheter Date of Insertion: 05/18/21 Urinary Catheter Time of Insertion: 19:51 A&P Assessment and plan (1) Acute renal failure: Plan of care; After thorough history physical examination and reviewing the chart and reviweing the images iwth my personal intrepretation.I counseled the patient for hemodialysis tunneled catheter placement with exchange of the current 1, indications, risks including pneumothorax that may require Chest tube(s) placement and potential injury of major vascular structures that may require Thoractomy, benefits,indications and alternatives were all discussed with the patient. Higher risk of bleeding as patient has been on Plavix. An attempt was made to reach out for patient's and son were to share a power of semiconductor testing group leader regarding patient's care.I was not able to reach them over the phone. We will try again tomorrow. Nursing staff was notified as well Status: Acute Qualifiers: Acute renal failure type: unspecified Qualified Code(s): N17.9 - Acute kidney failure, unspecified Consult Attestations Medical Necessity Statement: Per admitting service Time Spent in Patient Care: (>than 50% of time spent in counselling and/or direct pt care on unit). Coding Level of Care Code Acute Tassel Snipper for [facility] Diagnoses Acute renal failure N17.9 Acute renal failure type: unspecified
[2021-05-25 17:11] LABS: Glucose Point of Care 159 mg/dL (70-110)
[2021-05-25] MEDS: metoprolol succinate ER (24 HR) 25 mg Tablet 12.5 MG PO (17:57)
[2021-05-25] MEDS: famotidine 20 mg Tablet PO (17:57)
--- NOTE | 2021-05-25 19:46 | PC.NURSE ---
pt up to [facility] with assist of 2 today.had small soft formed bm.voided 50 cc today.bladder scan showed 129 cc.q4hr accuchecks changed to ac/hs.
[2021-05-25 20:30] LABS: Glucose Point of Care 151 mg/dL (70-110)
--- NOTE | 2021-05-25 22:50 | PM.PN ---
Subjective Subjective: Interval history: Denies any chest pain feeling much better blood pressure is stable not on any pressors. Medications: Reviewed: Yes Medication Review Details: Current Medications Acetaminophen (Acetaminophen 325 Mg Tablet) 650 mg PO Q6H PRN PRN Reason: Mild/Mod Pain Or Temp >/= 101 Al Hydrox/Mg Hydrox/Simethicone (Uooz-Lsq-Baddipwpy-Amy 30 Ml Udc) 30 ml PO Q15M PRN PRN Reason: INDIGESTION Allopurinol (Allopurinol 100 Mg Tablet) 100 mg PO DAILY [facility] Last Admin: 05/23/21 08:52 Dose: 100 mg Documented by: Alprazolam (Alprazolam 0.5 Mg Tablet) 0.25 mg PO TID PRN PRN Reason: ANXIETY Aspirin (Aspirin 81 Mg Ec Tablet) 81 mg PO DAILY [facility] Last Admin: 05/23/21 08:52 Dose: 81 mg Documented by: Atorvastatin Calcium (Atorvastatin 40 Mg Tablet) 40 mg PO DAILY [facility] Last Admin: 05/23/21 08:52 Dose: 40 mg Documented by: Atropine Sulfate (Atropine 1 Mg/Ml Sdv 1 Ml) 0.5 mg IVP PRN PRN PRN Reason: Symptomatic bradycardia Bisacodyl (Bisacodyl 5 Mg Tablet) 10 mg PO DAILY PRN; Protocol PRN Reason: Constipation (see protocol) Last Admin: 05/20/21 20:57 Dose: 10 mg Documented by: Calcium Acetate (Calcium Acetate 667 Mg Capsule) 667 mg PO TIDWM [facility] Last Admin: 05/23/21 12:01 Dose: 667 mg Documented by: Clopidogrel Bisulfate (Clopidogrel 75 Mg Tablet) 75 mg PO DAILY [facility] Last Admin: 05/23/21 08:52 Dose: 75 mg Documented by: Dextrose (Dextrose 50% Syringe 50 Ml) 50 ml IVP PRN PRN; Protocol PRN Reason: hypoglycemia protocol Ergocalciferol (Ergocalciferol (Vitamin D2) 50,000 Unit Capsule) 50,000 unit PO Q7D [facility] Last Admin: 05/19/21 08:58 Dose: 50,000 unit Documented by: Famotidine (Famotidine 20 Mg/2 Ml Inj) 20 mg IVP Q12H [facility] Last Admin: 05/23/21 05:57 Dose: 20 mg Documented by: Furosemide (Furosemide 40 Mg Tablet) 80 mg PO BID@08,16 [facility] Glucagon (Glucagon 1 Mg/Ml Inj 1 Ml) 1 mg IM ONCE PRN; Protocol PRN Reason: Adult Acute Hypoglycemia Prot. Heparin Sodium (Porcine) (Heparin 5,000 Unit/Ml Inj 1 Ml) 5,000 unit SUBCUT Q12H [facility] Last Admin: 05/23/21 05:56 Dose: 5,000 unit Documented by: Iron Sucrose 200 mg/ Sodium (Chloride) 110 mls @ 220 mls/hr IV Q24H [facility] Stop: 05/25/21 09:59 Last Admin: 05/23/21 10:31 Dose: 220 mls/hr Documented by: Albumin Human (Albumin) 12.5 gm in 50 mls @ 60 mls/hr IV PRN PRN PRN Reason: Hypotension and/or symptomatic Piperacillin Sod/Tazobactam (Sod 3.375 gm/ Sodium Chloride) 50 mls @ 12.5 mls/hr IV Q12H [facility]; Protocol Stop: 05/23/21 23:59 Last Admin: 05/23/21 08:53 Dose: 12.5 mls/hr Documented by: Insulin Human Lispro (Insulin Lispro 100 Unit/1 Ml) 0 unit SUBCUT Q4H [facility]; Protocol Last Admin: 05/23/21 10:39 Dose: Not Given Documented by: Lactulose (Lactulose Oral Liq 20 Gm/30 Ml Udc) 10 gm PO DAILY PRN; Protocol PRN Reason: Constipation (see protocol) Magnesium Hydroxide (Magnesium Hydroxide 30 Ml Udc) 30 ml PO DAILY PRN PRN Reason: CONSTIPATION Metoprolol Succinate (Metoprolol Succinate Er (24 Hr) 25 Mg Tablet) 12.5 mg PO BID [facility] Last Admin: 05/23/21 08:53 Dose: 12.5 mg Documented by: Midodrine (Midodrine 5 Mg Tablet) 5 mg PO TID PRN PRN Reason: SBP less than 100 mhg Last Admin: 05/21/21 00:57 Dose: 5 mg Documented by: Morphine Sulfate (Morphine 4 Mg/Ml Sdv 1 Ml) 2 mg IVP Q4H PRN PRN Reason: SEVERE PAIN Last Admin: 05/22/21 22:09 Dose: 2 mg Documented by: Multivitamins (K-Slnpazw-Xpzoybd C Tablet) 1 each PO DAILY [facility] Last Admin: 05/23/21 08:53 Dose: 1 each Documented by: Naloxone HCl (Naloxone 0.4 Mg/Ml Sdv) 0.1 mg IVP Q2M PRN PRN Reason: RESPIRATORY RATE < 8/MIN Nitroglycerin (Nitroglycerin 0.4 Mg Sublingual Tablet) 0.4 mg SUBLINGUAL Q5M PRN PRN Reason: CHEST PAIN Ondansetron HCl (Ondansetron 2 Mg/Ml Sdv 2 Ml) 4 mg IVP Q8H PRN PRN Reason: vomiting, or N/V if npo Temazepam (Temazepam 15 Mg Capsule) 15 mg PO BEDTIME PRN PRN Reason: INSOMNIA Vitals/I&O/Wt Last Vital Signs Temp 97.7 F 05/25/21 19:47 Pulse 76 05/25/21 19:47 Resp 23 H 05/25/21 19:47 BP 108/53 05/25/21 19:47 Pulse Ox 99 05/25/21 19:47 05/25/21 05/25/21 05/25/21 06:59 14:59 22:59 Intake Total 740 / 2370 480 / 480 360 / 840 Output Total 100 / 250 50 / 50 Balance 640 / 2120 430 / 430 360 / 790 Weight last 48 hrs Weight 193 lb 11.2 oz Weight 172 lb 8 oz Physical Exam Narrative: EXAM NARRATIVE: GENERAL: Patient is awake and oriented x3. NECK: No jugular vein distension. HEENT: No cyanosis. No icterus. No pallor. HEART: Regular S1 and S2. No murmur, rub or gallop. LUNGS: Clear to auscultate bilaterally. ABDOMEN: Soft, nontender and nondistended. Positive bowel sounds. No guarding, rebound or tenderness. CENTRAL NERVOUS SYSTEM: Grossly nonfocal. EXTREMITIES: Lower extremities without edema bilaterally. Right groin swelling has improved no tenderness Urinary Catheter Management^: Vega: Cath Placed During This Visit: yes Reason for Continuing Indwelling Catheter: Accurate Measurement of Urinary Output in Critically Ill Patients Urinary Catheter Date of Insertion: 05/18/21 Urinary Catheter Time of Insertion: 19:51 Data : 05/24/21 05:16 05/25/21 07:41 Micro: Microbiology 05/24/21 22:00 Gram Stain - Final Sputum - Expectorated Sputum A&P Assessment and plan (1) Atherosclerosis of coronary artery of [place] heart without angina pectoris: Status post PCI to the graft to obtuse marginal continue Plavix doing fine from cardiovascular perspective Patient is stable doing fine from cardiovascular perspective continue current regimen Status: Acute Qualifiers: Coronary Disease-Associated Artery/Lesion type: [place] artery Qualified Code(s): I25.10 - Atherosclerotic heart disease of [place] coronary artery without angina pectoris (2) Acute renal failure: Patient is on hemodialysis. 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 Repeat ultrasound in few Appear to be stable no significant swelling or tenderness. Will repeat ultrasound may be in 7 days when he is going to see Ms. Mireya Frye. Status: Acute Additional A&P Information The problems are Anemia Type 2 diabetes Essential benign hypertension Attestations Medical Necessity Statement*: Patient require continuation hospitalization for above defined care. 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
[2021-05-26] VITALS (52 sets, daily range): BP systolic 103–136; BP diastolic 55–74; PULSE 57–83; RESP 13–27; TEMP 36.4–37.4; O2SAT 91–100
[2021-05-26 02:32] LABS: Glucose Point of Care 129 mg/dL (70-110)
[2021-05-26 06:44] LABS: Glucose Point of Care 114 mg/dL (70-110)
[2021-05-26] MEDS: heparin 5,000 unit/mL INJ 1 mL 5000 UNIT SUBCUT ×2 (06:45→21:11)
[2021-05-26] MEDS: clopidogrel 75 mg Tablet PO (07:44)
[2021-05-26] MEDS: metoprolol succinate ER (24 HR) 25 mg Tablet 12.5 MG PO ×2 (07:44→21:09)
[2021-05-26] MEDS: FUROsemide 40 mg Tablet 80 MG PO ×2 (07:44→15:47)
[2021-05-26] MEDS: famotidine 20 mg Tablet PO ×2 (07:44→21:10)
[2021-05-26] MEDS: aspirin 81 mg EC Tablet PO (07:44)
[2021-05-26] MEDS: b-complex-vitamin c Tablet 1 EACH PO (07:45)
[2021-05-26] MEDS: allopurinol 100 mg Tablet PO (07:45)
[2021-05-26] MEDS: atorvastatin 40 mg Tablet PO (07:45)
--- NOTE | 2021-05-26 08:20 | P.PN_ITS ---
Subjective Subjective: Interval history: feels better. is anxious if he will have any renal recovery. poor uop. no n/v/f/c/peres/d/sob. Medications: Reviewed: Yes Medication Review Details: Current Medications Acetaminophen (Acetaminophen 325 Mg Tablet) 650 mg PO Q6H PRN PRN Reason: Mild/Mod Pain Or Temp >/= 101 Al Hydrox/Mg Hydrox/Simethicone (Mzmi-Jph-Vqcdzumlo-Amy 30 Ml Udc) 30 ml PO Q15M PRN PRN Reason: INDIGESTION Allopurinol (Allopurinol 100 Mg Tablet) 100 mg PO DAILY [facility] Last Admin: 05/26/21 07:45 Dose: 100 mg Documented by: Alteplase, Recombinant (Alteplase 1 Mg/Ml Sdv 2 Ml) 2 mg INTRACATH PRN PRN PRN Reason: DIALYSIS USE ONLY Aspirin (Aspirin 81 Mg Ec Tablet) 81 mg PO DAILY [facility] Last Admin: 05/26/21 07:44 Dose: 81 mg Documented by: Atorvastatin Calcium (Atorvastatin 40 Mg Tablet) 40 mg PO DAILY [facility] Last Admin: 05/26/21 07:45 Dose: 40 mg Documented by: Atropine Sulfate (Atropine 1 Mg/Ml Sdv 1 Ml) 0.5 mg IVP PRN PRN PRN Reason: Symptomatic bradycardia Bisacodyl (Bisacodyl 5 Mg Tablet) 10 mg PO DAILY PRN; Protocol PRN Reason: Constipation (see protocol) Last Admin: 05/20/21 20:57 Dose: 10 mg Documented by: Clopidogrel Bisulfate (Clopidogrel 75 Mg Tablet) 75 mg PO DAILY [facility] Last Admin: 05/26/21 07:44 Dose: 75 mg Documented by: Dextrose (Dextrose 50% Syringe 50 Ml) 50 ml IVP PRN PRN; Protocol PRN Reason: hypoglycemia protocol Ergocalciferol (Ergocalciferol (Vitamin D2) 50,000 Unit Capsule) 50,000 unit PO Q7D [facility] Last Admin: 05/19/21 08:58 Dose: 50,000 unit Documented by: Famotidine (Famotidine 20 Mg Tablet) 20 mg PO BID [facility] Last Admin: 05/26/21 07:44 Dose: 20 mg Documented by: Furosemide (Furosemide 40 Mg Tablet) 80 mg PO BID@08,16 [facility] Last Admin: 05/26/21 07:44 Dose: 80 mg Documented by: Glucagon (Glucagon 1 Mg/Ml Inj 1 Ml) 1 mg IM ONCE PRN; Protocol PRN Reason: Adult Acute Hypoglycemia Prot. Heparin Sodium (Porcine) (Heparin 5,000 Unit/Ml Inj 1 Ml) 5,000 unit SUBCUT Q12H [facility] Last Admin: 05/26/21 06:45 Dose: 5,000 unit Documented by: Heparin Sodium (Porcine) (Heparin, Porcine 1,000 Unit/Ml Inj 10 Ml) 1,000 unit IV ONCE ONE Stop: 05/26/21 11:01 Hydralazine HCl (Hydralazine 10 Mg Tablet) 10 mg PO TID [facility] Last Admin: 05/24/21 09:14 Dose: 10 mg Documented by: Albumin Human (Albumin) 12.5 gm in 50 mls @ 60 mls/hr IV PRN PRN PRN Reason: Hypotension and/or symptomatic Sodium Chloride (Sodium Chloride 0.9%) 1,000 mls @ 0 mls/hr IV .Q0M PRN PRN Reason: hypotension or symptomatic Epoetin Lj 5,000 unit/ N/A 0.25 mls @ 0 mls/hr IVP ONCE ONE Stop: 05/26/21 11:01 Insulin Human Lispro (Insulin Lispro 100 Unit/1 Ml) 0 unit SUBCUT Q4H [facility]; Protocol Last Admin: 05/26/21 06:43 Dose: Not Given Documented by: Lactulose (Lactulose Oral Liq 20 Gm/30 Ml Udc) 10 gm PO DAILY PRN; Protocol PRN Reason: Constipation (see protocol) Magnesium Hydroxide (Magnesium Hydroxide 30 Ml Udc) 30 ml PO DAILY PRN PRN Reason: CONSTIPATION Metoprolol Succinate (Metoprolol Succinate Er (24 Hr) 25 Mg Tablet) 12.5 mg PO BID [facility] Last Admin: 05/26/21 07:44 Dose: 12.5 mg Documented by: Midodrine (Midodrine 5 Mg Tablet) 5 mg PO TID PRN PRN Reason: SBP less than 100 mhg Last Admin: 05/24/21 11:09 Dose: 5 mg Documented by: Multivitamins (M-Cekpiko-Rsehigo C Tablet) 1 each PO DAILY [facility] Last Admin: 05/26/21 07:45 Dose: 1 each Documented by: Naloxone HCl (Naloxone 0.4 Mg/Ml Sdv) 0.1 mg IVP Q2M PRN PRN Reason: RESPIRATORY RATE < 8/MIN Nitroglycerin (Nitroglycerin 0.4 Mg Sublingual Tablet) 0.4 mg SUBLINGUAL Q5M PRN PRN Reason: CHEST PAIN Ondansetron HCl (Ondansetron 2 Mg/Ml Sdv 2 Ml) 4 mg IVP Q8H PRN PRN Reason: vomiting, or N/V if npo Vitals/I&O/Wt Last Vital Signs Temp 99.3 F 05/26/21 07:43 Pulse 61 05/26/21 07:43 Resp 18 05/26/21 07:43 BP 117/62 05/26/21 07:43 Pulse Ox 98 05/26/21 07:43 05/25/21 05/26/21 05/26/21 22:59 06:59 14:59 Intake Total 1220 / 1700 100 / 1800 Output Total 100 / 150 Balance 1120 / 1550 100 / 1650 Weight last 48 hrs Weight 86.183 kg Weight 87.861 kg Physical Exam Narrative: EXAM NARRATIVE: elderly, awake and comfortable in bed vs noted and stable heent- nc/at, eomi, anicteric neck supple lungs- clear b/l heart- irreg, no rub, +HSM abd soft, nt, nd, +bs ext 1+ edema- LLE bandaged ulcer Rt IJ dialysis catheter neuro- a,a, o x 3 Urinary Catheter Management^: Vega: Cath Placed During This Visit: yes Reason for Continuing Indwelling Catheter: Accurate Measurement of Urinary Output in Critically Ill Patients Urinary Catheter Date of Insertion: 05/18/21 Urinary Catheter Time of Insertion: 19:51 Data : 05/24/21 05:16 05/25/21 07:41 Micro: Microbiology 05/24/21 22:00 Gram Stain - Final Sputum - Expectorated Sputum A&P Additional A&P Information 81 yr old man 1. 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 CHANO-Q progression of CKD vs PRErenal vs CRS as he has active CAD -concern for ATN- on thiazide and satish-i, and lasix and glipizide- denies nsaid use -ua 3+ prot, 3+ amorphous sediment -low ur na 21 -abd ct- normal kidneys - xray- no chf or pna -improving w/ dialysis -as s/p cardiac cath x 2- remains oliguric - HD today- 3 hrs, 3k, remove 1.5 l -will need a tunneled dialysis catheter- Dr. Merrill is following 3. CAD s/p cath and PCI -ischemic CM- EF 25%, moderate to severe and a fib - Status post PCI to the graft to obtuse marginal continue Plavix - Patient has possible moderate to severe aortic stenosis Dr. Cheung is planning to perform outpatient dobutamine stress echo to rule out any pseudoaortic stenosis or to a certain real aortic valve area 4.DM 5. hyponatremia- monitor w/ HD 6. anemia eval- iron sat 21%, ferritin 265 - epo and iv iron 7. renal bone - mineral metabolism- vit d=10- replace vit d - pth 711- vit d analouge after vit d replenished -monitor hypocalcemia- use calcium acetate as phos mildly elevated - time spent 30 min seen and examined w/ RN- telehealth visit Attestations Medical Necessity Statement*: per medicine Time Spent in Patient Care: 16 - 35 minutes (>than 50% of time spent in counselling and/or direct pt care on unit) . Coding Level of Care Code Acute Control Analyst for Willie Wilks
[2021-05-26] MEDS: ergocalciferol (vitamin D2) 50,000 Unit Capsule 50000 UNIT PO (09:09)
[2021-05-26 10:43] LABS: Glucose Point of Care 191 mg/dL (70-110)
[2021-05-26] MEDS: insulin lispro 100 unit/1 mL SUBCUT ×2 (11:27→15:53)
[2021-05-26 11:29] LABS: Basophils # 0.1 10^3/uL (0.0-0.1); Basophils % 0.6 %; Eosinophils # 0.2 10^3/uL (0.0-0.8); Eosinophils % 2.4 %; Hematocrit 28.1 % (42.0-52.0); Hemoglobin 8.4 g/dL (11.7-16.6); Lymphocytes # 1.3 10^3/uL (0.8-4.8); Lymphocytes % 14.6 %; Mean Corpuscular HGB Conc 29.9 g/dL (30.0-36.0); Mean Corpuscular Hemoglobin 28.5 pg (28.0-34.0); Mean Corpuscular Volume 95.3 fl (80-94); Mean Platelet Volume 12.2 fL (7.4-10.4); Monocytes # 0.6 10^3/uL (0.2-0.9); Monocytes % 6.3 %; Neutrophils # 6.51 10^3/uL (1.8-7.7); Neutrophils % 74.8 %; Nucleated Red Blood Cells % 0 %; Platelet Count 121 10^3/cmm (130-400); Red Blood Count 2.95 10^6/uL (4.1-5.3); Red Cell Distribution Width 17.2 % (12.1-15.1); White Blood Count 8.7 10^3/uL (4.0-10.0)
[2021-05-26 11:35] LABS: Anion Gap 16.6 (5-19); Blood Urea Nitrogen 31 mg/dL (8-23); Calcium 7.8 mg/dL (8.5-10.5); Carbon Dioxide 23 mmol/L (22-29); Chloride 88 mmol/L (98-107); Glucose 152 mg/dL (65-115); Osmolality Calculated 266 mOsm/kg (285-295); Potassium 4.6 mmol/L (3.5-5.1); Sodium 123 mmol/L (136-145)
[2021-05-26] MEDS: epoetin alfa (ESRD) 5,000 UNIT in SYRINGE 1 EACH 0.05 UNIT IVP (16:06)
[2021-05-26] MEDS: heparin, porcine 1,000 unit/mL INJ 10 mL 1000 UNIT IV (16:06)
[2021-05-26 16:47] LABS: Glucose Point of Care 231 mg/dL (70-110)
--- NOTE | 2021-05-26 17:31 | P.PN_ITS ---
Subjective Subjective: Interval history: Patient was seen this morning, he sitting up in a chair, alert oriented x3, follows all commands, he wonders when he can go home, he understands that he has a temporary dialysis catheter, he needs a tunneled dialysis catheter, he tells me that his family will help take care of him, currently denies any chest pain, no shortness of breath, Vitals/I&O/Wt Last Vital Signs Temp 98.4 F 05/26/21 15:55 Pulse 73 05/26/21 15:55 Resp 18 05/26/21 15:55 BP 133/65 05/26/21 15:55 Pulse Ox 96 05/26/21 15:55 05/26/21 05/26/21 05/26/21 06:59 14:59 22:59 Intake Total 100 / 1800 720 / 720 Balance 100 / 1650 720 / 720 Weight last 48 hrs Weight 86.183 kg Weight 87.861 kg Physical Exam Const: COMMON NORMALS: no acute distress ORIENTATION/CONSCIOUSNESS: Yes awake, Yes oriented to person, Yes oriented to place and Yes oriented to time Chest: OTHER: Right chest, IJ Resp: COMMON NORMALS: normal respiratory effort, No retractions, No use of accessory muscles and clear to auscultation bilaterally AUSCULTATION: clear to auscultation bilaterally Cardio: COMMON NORMALS: regular rate, regular rhythm, S1 normal heart sound present and S2 normal heart sound present RATE: regular rate RHYTHM: regular rhythm HEART SOUNDS: S1 normal heart sound present and S2 normal heart sound present GI: COMMON NORMALS: Normal to inspection, nondistended, normoactive bowel sounds present, Soft to palpation and non-tender PALPATION: Yes Soft to palpation Extremity: COMMON NORMALS: no pedal edema Neuro: SENSORIUM/ORIENTATION: Yes oriented to person, Yes oriented to place and Yes oriented to time Urinary Catheter Management^: Vega: Cath Placed During This Visit: yes Reason for Continuing Indwelling Catheter: Accurate Measurement of Urinary Output in Critically Ill Patients Urinary Catheter Date of Insertion: 05/18/21 Urinary Catheter Time of Insertion: 19:51 Data : 05/26/21 11:03 05/26/21 11:03 Micro: Microbiology 05/24/21 22:00 Gram Stain - Final Sputum - Expectorated Sputum Sputum Culture - Preliminary A&P Assessment and plan (1) Acute renal failure: Status: Acute Qualifiers: Acute renal failure type: unspecified Qualified Code(s): N17.9 - Acute kidney failure, unspecified (2) 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: Status: Acute (3) CKD (chronic kidney disease): Status: Acute Qualifiers: Chronic kidney disease stage: stage 5, not on chronic dialysis Qualified Code(s): N18.5 - Chronic kidney disease, stage 5 (4) CHF (congestive heart failure): Status: Acute Qualifiers: Heart failure type: diastolic Heart failure chronicity: acute on chronic Qualified Code(s): I50.33 - Acute on chronic diastolic (congestive) heart failure (5) Ischemic cardiomyopathy: Status: Acute (6) Severe calcific aortic valve stenosis: Status: Acute (7) Hyperkalemia: Status: Acute (8) Hypoglycemia: Status: Acute (9) Metabolic acidosis: Status: Acute (10) Type 2 diabetes mellitus: Status: Chronic Qualifiers: Diabetes mellitus senior care insulin use: with intermediate teacher use Diabetes mellitus complication status: without complication Qualified Code(s): E11.9 - Type 2 diabetes mellitus without complications; 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 Getting CT abdomen pelvis. Will reevaluate. Zofran as needed. 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 Renal ultrasound: Unremarkable right kidney and bladder.left kidney is not visible due to bowel gas Urinalysis : 3+ protein Lasix 80 mg p.o. twice daily In the absence of meaningful renal recovery.Plan is to place tunneled dialysis catheter n.p.o. midnight,.Surgery has been consulted for now he will continue on hemodialysis with right IJ dialysis catheter. Plan on dialysis today Patient has a dialysis chair as an outpatient. History of congestive heart failure: History of CABG: Currently on room air. Euvolemic. Echocardiogram : EF of 25 to 30% with global LV hypokinesia with possible slow flow severe aortic stenosis. LifeVest utility, if the family agrees, he will be discharged on LifeVest. CAD : S/P : PCI of the venous graft to the obtuse marginal artery ( 05/21). Severe three-vessel coronary disease. Occluded venous graft to the diagonal and to the PDA. High-grade lesion in the venous graft to the obtuse marginal artery. Patent [place] to the LAD. Continue with aspirin, statin. Beta-belinda, Plavix, hydralazine 10 mg p.o. 3 times daily, Arrhythmia: Patient having frequent VPCs. Continue metoprolol 12.5 mg twice daily for now. Sepsis: Cannot rule out sepsis secondary to possible pneumonia versus diarrheal disease. Patient does have a history of MSSA cellulitis of leg. Oxygen supplementation keeping saturation over 90%. Blood cultures so far negative. MRSA negative, urine Legionella, bacterial antigen negative. Initially on Levophed has been weaned off. Completed 5-day course of Zosyn. Continue wound care as per wound care orders. Hyperkalemia/metabolic acidosis: Hyperkalemia resolved. Metabolic acidosis resolved. Altered mental status: Resolved. Most likely secondary to uremia along with hypoglycemia. Ammonia level, urine drug screen, salicylate, alcohol level negative. Fall precaution. Frequent reorientation. Hypoglycemia: Better. History of type 2 diabetes mellitus: Hypoglycemia most likely secondary to worsening renal functions and use of sulfonylurea on 05/17 evening. Hypoglycemic protocol with insulin sliding scale at low-dose protocol. Hold off on oral hypoglycemics or long-acting insulin for now. HbA1c 6.6. Hypertension: Goal blood pressure less than 140/90 mmHg. Continue to monitor. Midodrine to 5 mg 3 times a day as needed for systolic blood pressure of less than 100 mmHg. Continue home oral medication including allopurinol, statin. For now hold off on pregabalin as patient was confused today morning after getting medication last night. CODE STATUS: Discussed with at bedside. Full code. Protonix for PUD prophylaxis. Heparin 5000 every 12 for DVT prophylaxis. Renal dialysis diet. Attestations Medical Necessity Statement*: Patient requires hospitalization for CAD, acute renal failure requiring dialysis, n.p.o. 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 N18.5; D63.1 CKD (chronic kidney disease) N18.5 Chronic kidney disease stage: stage 5, not on chronic dialysis CHF (congestive heart failure) I50.33 Heart failure type: diastolic Heart failure chronicity: acute on chronic Ischemic cardiomyopathy I25.5 Severe calcific aortic valve stenosis I35.0 Hyperkalemia E87.5 Hypoglycemia E16.2 Metabolic acidosis E87.2 Type 2 diabetes mellitus E11.9; Z79.4 Diabetes mellitus intermediate teacher insulin use: with intermediate teacher use Diabetes mellitus complication status: without complication Benign hypertension I10 Nausea & vomiting R11.2 Long QT interval R94.31
--- NOTE | 2021-05-26 18:31 | PM.PN ---
Subjective Subjective: Interval history: The patient is feeling okay with no significant chest pain or chest tightness. The vital signs remained stable. Medications: Reviewed: Yes Medication Review Details: Current Medications Acetaminophen (Acetaminophen 325 Mg Tablet) 650 mg PO Q6H PRN PRN Reason: Mild/Mod Pain Or Temp >/= 101 Allopurinol (Allopurinol 100 Mg Tablet) 100 mg PO DAILY [facility] Last Admin: 05/26/21 07:45 Dose: 100 mg Documented by: Alteplase, Recombinant (Alteplase 1 Mg/Ml Sdv 2 Ml) 2 mg INTRACATH PRN PRN PRN Reason: DIALYSIS USE ONLY Aspirin (Aspirin 81 Mg Ec Tablet) 81 mg PO DAILY [facility] Last Admin: 05/26/21 07:44 Dose: 81 mg Documented by: Atorvastatin Calcium (Atorvastatin 40 Mg Tablet) 40 mg PO DAILY [facility] Last Admin: 05/26/21 07:45 Dose: 40 mg Documented by: Atropine Sulfate (Atropine 1 Mg/Ml Sdv 1 Ml) 0.5 mg IVP PRN PRN PRN Reason: Symptomatic bradycardia Bisacodyl (Bisacodyl 5 Mg Tablet) 10 mg PO DAILY PRN; Protocol PRN Reason: Constipation (see protocol) Last Admin: 05/20/21 20:57 Dose: 10 mg Documented by: Clopidogrel Bisulfate (Clopidogrel 75 Mg Tablet) 75 mg PO DAILY [facility] Last Admin: 05/26/21 07:44 Dose: 75 mg Documented by: Dextrose (Dextrose 50% Syringe 50 Ml) 50 ml IVP PRN PRN; Protocol PRN Reason: hypoglycemia protocol Ergocalciferol (Ergocalciferol (Vitamin D2) 50,000 Unit Capsule) 50,000 unit PO Q7D [facility] Last Admin: 05/26/21 09:09 Dose: 50,000 unit Documented by: Famotidine (Famotidine 20 Mg Tablet) 20 mg PO BID [facility] Last Admin: 05/26/21 07:44 Dose: 20 mg Documented by: Furosemide (Furosemide 40 Mg Tablet) 80 mg PO BID@08,16 [facility] Last Admin: 05/26/21 15:47 Dose: 80 mg Documented by: Glucagon (Glucagon 1 Mg/Ml Inj 1 Ml) 1 mg IM ONCE PRN; Protocol PRN Reason: Adult Acute Hypoglycemia Prot. Heparin Sodium (Porcine) (Heparin 5,000 Unit/Ml Inj 1 Ml) 5,000 unit SUBCUT Q12H [facility] Last Admin: 05/26/21 06:45 Dose: 5,000 unit Documented by: Hydralazine HCl (Hydralazine 10 Mg Tablet) 10 mg PO TID [facility] Last Admin: 05/24/21 09:14 Dose: 10 mg Documented by: Albumin Human (Albumin) 12.5 gm in 50 mls @ 60 mls/hr IV PRN PRN PRN Reason: Hypotension and/or symptomatic Sodium Chloride (Sodium Chloride 0.9%) 1,000 mls @ 0 mls/hr IV .Q0M PRN PRN Reason: hypotension or symptomatic Insulin Human Lispro (Insulin Lispro 100 Unit/1 Ml) 0 unit SUBCUT Q4H [facility]; Protocol Last Admin: 05/26/21 15:53 Dose: 6 unit Documented by: Lactulose (Lactulose Oral Liq 20 Gm/30 Ml Udc) 10 gm PO DAILY PRN; Protocol PRN Reason: Constipation (see protocol) Metoprolol Succinate (Metoprolol Succinate Er (24 Hr) 25 Mg Tablet) 12.5 mg PO BID [facility] Last Admin: 05/26/21 07:44 Dose: 12.5 mg Documented by: Midodrine (Midodrine 5 Mg Tablet) 5 mg PO TID PRN PRN Reason: SBP less than 100 mhg Last Admin: 05/24/21 11:09 Dose: 5 mg Documented by: Multivitamins (T-Ccvgxkq-Vyanydq C Tablet) 1 each PO DAILY [facility] Last Admin: 05/26/21 07:45 Dose: 1 each Documented by: Naloxone HCl (Naloxone 0.4 Mg/Ml Sdv) 0.1 mg IVP Q2M PRN PRN Reason: RESPIRATORY RATE < 8/MIN Nitroglycerin (Nitroglycerin 0.4 Mg Sublingual Tablet) 0.4 mg SUBLINGUAL Q5M PRN PRN Reason: CHEST PAIN Ondansetron HCl (Ondansetron 2 Mg/Ml Sdv 2 Ml) 4 mg IVP Q8H PRN PRN Reason: vomiting, or N/V if npo Vitals/I&O/Wt Last Vital Signs Temp 98.4 F 05/26/21 15:55 Pulse 73 05/26/21 15:55 Resp 18 05/26/21 15:55 BP 133/65 05/26/21 15:55 Pulse Ox 96 05/26/21 15:55 05/26/21 05/26/21 05/26/21 06:59 14:59 22:59 Intake Total 100 / 1800 720 / 720 Balance 100 / 1650 720 / 720 Weight last 48 hrs Weight 190 lb Weight 193 lb 11.2 oz Physical Exam Narrative: EXAM NARRATIVE: GENERAL: The patient is alert and oriented times three. Not in any acute distress. Unkempt HEENT: Moderate pallor. No icterus or lymphadenopathy. The pupils are symmetrical oral cavity: There are no mucous membrane lesions. F NECK: Trachea appears to be central. No masses noted. No JVD or thyromegaly appreciated. No carotid bruit. RESPIRATORY: Chest is symmetrical. No intercostals muscle retraction or any accessory muscle activation. There is no chest wall tenderness. Breath sounds are heard bilaterally. Few fine rales and occasional expiratory wheezing. BREASTS: Deferred. HEART: The PMI could not be palpated. But no other palpable precordial events. No palpable precordial events. S1 and S2 are normal. No S3 or S4 heard. No pericardial rub or any click heard. ABDOMEN: No vessel pulsations or distention. No tenderness. No organomegaly appreciated. No abdominal bruit. Bowel sounds are normally heard. : Deferred. RECTAL: Deferred. LYMPHATIC: No lymphadenopathy noted in the neck or groin. EXTREMITIES: Medium size hematoma in the right groin. MUSCULOSKELETAL: No acute joint deformities or swelling SKIN: There are no significant scars or skin rash noted. NEUROPSYCHIATRIC: The patient is alert and oriented x3. Appears to be in a good mood. The higher functions are grossly within normal limits. No tremors or rigidity noted. Urinary Catheter Management^: Vega: Cath Placed During This Visit: yes Reason for Continuing Indwelling Catheter: Accurate Measurement of Urinary Output in Critically Ill Patients Urinary Catheter Date of Insertion: 05/18/21 Urinary Catheter Time of Insertion: 19:51 Data : 05/26/21 11:03 05/26/21 11:03 Micro: Microbiology 05/24/21 22:00 Gram Stain - Final Sputum - Expectorated Sputum Sputum Culture - Preliminary A&P Assessment and plan (1) Atherosclerosis of coronary artery of [place] heart without angina pectoris: Patient status post PCI of the venous graft to obtuse marginal artery. Seems to be stable with no specific cardiac symptoms at this time. Status: Acute Qualifiers: Coronary Disease-Associated Artery/Lesion type: [place] artery Qualified Code(s): I25.10 - Atherosclerotic heart disease of [place] coronary artery without angina pectoris (2) Acute renal failure: ? Planning to have dialysis catheter changed. 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 Management as per the primary. Status: Acute (4) Severe calcific aortic valve stenosis: We may consider dobutamine stress echo to better evaluate the aortic valve stenosis, possibly as an outpatient. Status: Acute (5) Ischemic cardiomyopathy: Appear to be stable status post stent appear to be in compensated heart failure continue current regimen Status: Acute (6) Pseudoaneurysm: Will repeat the ultrasound examination in a week to follow-up on this. 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
[2021-05-26] MEDS: acetaminophen 325 mg Tablet 650 MG PO (21:10)
--- NOTE | 2021-05-26 21:44 | PC.HD ---
Pt c/o pain to anterior thighs, 03/04, which makes him unable to move his legs. States pain has been there for a couple of days but it has gotten much worse and is now constant rather than intermittent. Pain is temporarily relieved by nurse bending his knees but having his knees bent up is uncomfortable and once his legs are straightened out the pain returns within a couple of minutes. Pain reported to pt's nurse, pt requesting pain medication.
--- NOTE | 2021-05-26 23:59 | PC.NURSE ---
Patient states that he does not want to take any insulin as he is only pre diabetic and feels he doesnt need it.
[2021-05-27] VITALS (35 sets, daily range): BP systolic 95–141; BP diastolic 46–89; PULSE 51–86; RESP 10–24; TEMP 36.2–36.8; O2SAT 93–99; BMI 29.6
[2021-05-27] MEDS: TRAMadol 50 mg Tablet PO (02:00)
--- NOTE | 2021-05-27 02:40 | PC.NURSE ---
Patient given tylenol for leg pain when arriving back from dialysis earlier. When going to reposition patient at this time, patient stated that he needed something stronger for pain. Ultram ordered per md and given one dose. Will evaluate.
[2021-05-27 04:12] LABS: Basophils # 0.1 10^3/uL (0.0-0.1); Basophils % 0.7 %; Eosinophils # 0.3 10^3/uL (0.0-0.8); Eosinophils % 3.4 %; Hematocrit 24.4 % (42.0-52.0); Hemoglobin 7.4 g/dL (11.7-16.6); Lymphocytes # 1.2 10^3/uL (0.8-4.8); Lymphocytes % 16.8 %; Mean Corpuscular HGB Conc 30.3 g/dL (30.0-36.0); Mean Corpuscular Hemoglobin 28.5 pg (28.0-34.0); Mean Corpuscular Volume 93.8 fl (80-94); Mean Platelet Volume 13.4 fL (7.4-10.4); Monocytes # 0.6 10^3/uL (0.2-0.9); Monocytes % 8.1 %; Neutrophils % 70.3 %; Nucleated Red Blood Cells % 0 %; Platelet Count 104 10^3/cmm (130-400); Red Cell Distribution Width 17.2 % (12.1-15.1); White Blood Count 7.4 10^3/uL (4.0-10.0)
[2021-05-27 04:36] LABS: Alanine Aminotransferase 8 U/L (0-41); Albumin Level 2.6 g/dL (3.5-5.2); Alkaline Phosphatase 163 IU/L (40-130); Anion Gap 8.9 (5-19); Aspartate Amino Transferase 20 U/L (0-40); Blood Urea Nitrogen 17 mg/dL (8-23); Calcium 7.5 mg/dL (8.5-10.5); Carbon Dioxide 29 mmol/L (22-29); Chloride 96 mmol/L (98-107); Globulin 2.1 g/dL (1.3-4.6); Glucose 97 mg/dL (65-115); Magnesium 1.9 mg/dL (1.7-2.3); Osmolality Calculated 271 mOsm/kg (285-295); Phosphorus 3.2 mg/dL (2.5-4.5); Potassium 3.9 mmol/L (3.5-5.1); Sodium 130 mmol/L (136-145); Total Bilirubin 0.3 mg/dL (0.15-1.2); Total Protein 4.7 g/dL (6.6-8.7)
[2021-05-27 06:11] LABS: Glucose Point of Care 85 mg/dL (70-110)
[2021-05-27] MEDS: heparin 5,000 unit/mL INJ 1 mL 5000 UNIT SUBCUT ×2 (06:20→21:17)
[2021-05-27 06:26] LABS: Glucose Point of Care 111 mg/dL (70-110)
--- NOTE | 2021-05-27 07:24 | P.PN_ITS ---
Subjective Subjective: Interval history: still has edema. still has some uop, though oliguric. weak. no n/v/f/c/peres/d/sob. Medications: Reviewed: Yes Medication Review Details: Current Medications Acetaminophen (Acetaminophen 325 Mg Tablet) 650 mg PO Q6H PRN PRN Reason: Mild/Mod Pain Or Temp >/= 101 Last Admin: 05/26/21 21:10 Dose: 650 mg Documented by: Allopurinol (Allopurinol 100 Mg Tablet) 100 mg PO DAILY [facility] Last Admin: 05/26/21 07:45 Dose: 100 mg Documented by: Alteplase, Recombinant (Alteplase 1 Mg/Ml Sdv 2 Ml) 2 mg INTRACATH PRN PRN PRN Reason: DIALYSIS USE ONLY Aspirin (Aspirin 81 Mg Ec Tablet) 81 mg PO DAILY [facility] Last Admin: 05/26/21 07:44 Dose: 81 mg Documented by: Atorvastatin Calcium (Atorvastatin 40 Mg Tablet) 40 mg PO DAILY [facility] Last Admin: 05/26/21 07:45 Dose: 40 mg Documented by: Atropine Sulfate (Atropine 1 Mg/Ml Sdv 1 Ml) 0.5 mg IVP PRN PRN PRN Reason: Symptomatic bradycardia Bisacodyl (Bisacodyl 5 Mg Tablet) 10 mg PO DAILY PRN; Protocol PRN Reason: Constipation (see protocol) Last Admin: 05/20/21 20:57 Dose: 10 mg Documented by: Clopidogrel Bisulfate (Clopidogrel 75 Mg Tablet) 75 mg PO DAILY [facility] Last Admin: 05/26/21 07:44 Dose: 75 mg Documented by: Dextrose (Dextrose 50% Syringe 50 Ml) 50 ml IVP PRN PRN; Protocol PRN Reason: hypoglycemia protocol Ergocalciferol (Ergocalciferol (Vitamin D2) 50,000 Unit Capsule) 50,000 unit PO Q7D [facility] Last Admin: 05/26/21 09:09 Dose: 50,000 unit Documented by: Famotidine (Famotidine 20 Mg Tablet) 20 mg PO BID [facility] Last Admin: 05/26/21 21:10 Dose: 20 mg Documented by: Furosemide (Furosemide 40 Mg Tablet) 80 mg PO BID@08,16 [facility] Last Admin: 05/26/21 15:47 Dose: 80 mg Documented by: Glucagon (Glucagon 1 Mg/Ml Inj 1 Ml) 1 mg IM ONCE PRN; Protocol PRN Reason: Adult Acute Hypoglycemia Prot. Heparin Sodium (Porcine) (Heparin 5,000 Unit/Ml Inj 1 Ml) 5,000 unit SUBCUT Q12H [facility] Last Admin: 05/27/21 06:20 Dose: 5,000 unit Documented by: Hydralazine HCl (Hydralazine 10 Mg Tablet) 10 mg PO TID [facility] Last Admin: 05/24/21 09:14 Dose: 10 mg Documented by: Albumin Human (Albumin) 12.5 gm in 50 mls @ 60 mls/hr IV PRN PRN PRN Reason: Hypotension and/or symptomatic Sodium Chloride (Sodium Chloride 0.9%) 1,000 mls @ 0 mls/hr IV .Q0M PRN PRN Reason: hypotension or symptomatic Insulin Human Lispro (Insulin Lispro 100 Unit/1 Ml) 0 unit SUBCUT Q4H [facility]; Prot ocol Last Admin: 05/27/21 06:22 Dose: Not Given Documented by: Lactulose (Lactulose Oral Liq 20 Gm/30 Ml Udc) 10 gm PO DAILY PRN; Protocol PRN Reason: Constipation (see protocol) Metoprolol Succinate (Metoprolol Succinate Er (24 Hr) 25 Mg Tablet) 12.5 mg PO BID [facility] Last Admin: 05/26/21 21:09 Dose: 12.5 mg Documented by: Midodrine (Midodrine 5 Mg Tablet) 5 mg PO TID PRN PRN Reason: SBP less than 100 mhg Last Admin: 05/24/21 11:09 Dose: 5 mg Documented by: Multivitamins (L-Tisthpu-Somslir C Tablet) 1 each PO DAILY [facility] Last Admin: 05/26/21 07:45 Dose: 1 each Documented by: Naloxone HCl (Naloxone 0.4 Mg/Ml Sdv) 0.1 mg IVP Q2M PRN PRN Reason: RESPIRATORY RATE < 8/MIN Nitroglycerin (Nitroglycerin 0.4 Mg Sublingual Tablet) 0.4 mg SUBLINGUAL Q5M PRN PRN Reason: CHEST PAIN Ondansetron HCl (Ondansetron 2 Mg/Ml Sdv 2 Ml) 4 mg IVP Q8H PRN PRN Reason: vomiting, or N/V if npo Tramadol HCl (Tramadol 50 Mg Tablet) 50 mg PO Q6H PRN PRN Reason: MODERATE PAIN Last Admin: 05/27/21 02:00 Dose: 50 mg Documented by: Vitals/I&O/Wt Last Vital Signs Temp 97.1 F L 05/27/21 04:00 Pulse 70 05/27/21 05:38 Resp 16 05/27/21 04:00 BP 95/46 05/27/21 04:00 Pulse Ox 96 05/27/21 06:30 05/26/21 05/27/21 05/27/21 22:59 06:59 14:59 Intake Total 740 / 1460 740 / 2200 Output Total 1873 / 1873 / 1972 Balance -1133 / -413 640 / 227 Weight last 48 hrs Weight 85.757 kg Weight 85.7 kg Weight 86.183 kg Physical Exam Narrative: EXAM NARRATIVE: elderly, awake and comfortable in bed vs noted and BP low heent- nc/at, eomi, anicteric neck supple lungs- basal crackles b/l heart- irreg, no rub, +HSM abd soft, nt, nd, +bs ext 1+ edema- LLE bandaged ulcer Rt IJ dialysis catheter neuro- a,a, o x 3 Urinary Catheter Management^: Vega: Cath Placed During This Visit: yes Reason for Continuing Indwelling Catheter: Accurate Measurement of Urinary Output in Critically Ill Patients Urinary Catheter Date of Insertion: 05/18/21 Urinary Catheter Time of Insertion: 19:51 Data : 05/27/21 03:29 05/27/21 03:29 Micro: Microbiology 05/24/21 22:00 Gram Stain - Final Sputum - Expectorated Sputum Sputum Culture - Preliminary A&P Additional A&P Information 81 yr old man 1. 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 CHANO-Q progression of CKD vs PRErenal vs CRS as he has active CAD -concern for ATN- on thiazide and satish-i, and lasix and glipizide- denies nsaid use -ua 3+ prot, 3+ amorphous sediment -low ur na 21 -abd ct- normal kidneys -APPEARS TO BE ESRD NOW -for tunnelled catheter today - xray- no chf or pna -as s/p cardiac cath x 2- remains oliguric -s/p HD yesterday -repeat HD in am- 3.5 hrs, 2k, remove 1.5 l 3. CAD s/p cath and PCI -ischemic CM- EF 25%, moderate to severe and a fib - Status post PCI to the graft to obtuse marginal continue Plavix - Patient has possible moderate to severe aortic stenosis Dr. Cheung is planning to perform outpatient dobutamine stress echo to rule out any pseudoaortic stenosis or to a certain real aortic valve area 4.DM 5. hyponatremia- improving w/ HD 6. anemia -consider 1 u prbc tx - iron sat 21%, ferritin 265 - epo and iv iron 7. renal bone - mineral metabolism- vit d=10- replace vit d - pth 711- vit d analouge after vit d replenished -monitor hypocalcemia- use calcium acetate as phos mildly elevated - time spent 30 min seen and examined w/ RN- telehealth visit Attestations Medical Necessity Statement*: new ESRD, CHF, CAd s/p PCI Time Spent in Patient Care: 16 - 35 minutes (>than 50% of time spent in counselling and/or direct pt care on unit) . 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
--- NOTE | 2021-05-27 08:11 | PC.NURSE ---
Frequent safety and comfort rounds continue. Orders and/or nursing care completed as indicated. Patient monitored for response to intervention and treatment(s). Education provided includes pain relief options and tramadol ]. Patient and/or policy services representative [expresses understanding . Will continue to monitor.
[2021-05-27] MEDS: allopurinol 100 mg Tablet PO (09:53)
[2021-05-27] MEDS: b-complex-vitamin c Tablet 1 EACH PO (09:53)
[2021-05-27] MEDS: FUROsemide 40 mg Tablet 80 MG PO (09:53)
[2021-05-27] MEDS: atorvastatin 40 mg Tablet PO (09:53)
[2021-05-27] MEDS: aspirin 81 mg EC Tablet PO (09:55)
[2021-05-27] MEDS: metoprolol succinate ER (24 HR) 25 mg Tablet 12.5 MG PO ×2 (09:55→21:06)
--- NOTE | 2021-05-27 10:36 | P.ANESASSM_ITS ---
Pre-Anesthetic Assessment Pre-Anesthetic Assessment: Height/Weight: Height 1.7 m Weight 85.757 kg Temp Pulse Resp BP Pulse Ox 97.1 F L 70 18 122/58 99 05/27/21 04:00 05/27/21 08:00 05/27/21 08:00 05/27/21 08:00 05/27/21 08:00 Preop Diagnosis: ASHD/cardiomyopathy/CHF Proposed Procedure: Operation Date: 05/21/21 18:00 Proposed Procedures p Cardiac Catheterization(Not Applicable) - Rose Cheung MD Operation Date: 05/22/21 11:00 Proposed Procedures p Percutaneous Coronary Intervention(Not Applicable) - Ethan Morris MD Operation Date: 05/27/21 14:30 Proposed Procedures p Dialysis Catheter Insertion(Not Applicable) - Sylvester Merrill MD Familial anesthetic complications: None Was Beta Susie taken within 24 hours: N/A Was Clonidine taken within 24 hours: N/A Last intake: sips of water - taken away at 1030 Social: Social History: No alcohol Exam: Pre-Anes Outpt Exam: alert, oriented x 3, clear to auscultation bilaterally and regular rate & rhythm Airway: MP: 3 Dentition: Other (no teeth) Additional comments: perea CV/HEM: CV/HEM: Anemia and CAD (s/p PCI of venous graft this hospitilization) Comments: EF 25%, mod to severe : : Chronic renal failure Metabolic: Metabolic: DM and Hyperlipidemia Comments: hyponatremia Anesthetic Plan: ASA status: 4 Anesthesia: MAC Risk of > 500 ml blood loss (7ml/kg in children): No Meds/Allergies Current Medications: Current Medications Generic Name Dose Route Start Last Admin Trade Name Freq PRN Reason Stop Dose Admin Acetaminophen 650 mg 05/18/21 18:33 05/26/21 21:10 Acetaminophen 32 5 Mg Tablet PO 650 mg Q6H PRN Administration Mild/Mod Pain Or Temp >/= 101 Allopurinol 100 mg 05/19/21 09:00 05/27/21 09:53 Allopurinol 100 Mg Tablet PO 100 mg DAILY ELIAZAR Administration Aspirin 81 mg 05/20/21 09:00 05/27/21 09:55 Aspirin 81 Mg Ec Tablet PO 81 mg DAILY ELIAZAR Administration Atorvastatin Calci um 40 mg 05/19/21 09:00 05/27/21 09:53 Atorvastatin 40 Mg Tablet PO 40 mg DAILY ELIAZAR Administration Bisacodyl 10 mg 05/18/21 18:33 05/20/21 20:57 Bisacodyl 5 Mg T ablet PO 10 mg DAILY PRN Administration Constipation (see protocol) Protocol Clopidogrel Bisulf ate 75 mg 05/23/21 09:00 05/26/21 07:44 Clopidogrel 75 M g Tablet PO 75 mg DAILY ELIAZAR Administration Ergocalciferol 50,000 unit 05/19/21 08:00 05/26/21 09:09 Ergocalciferol ( Vitamin D2) 50,000 Unit Capsule PO 50,000 unit Q7D ELIAZAR Administration Famotidine 20 mg 05/25/21 18:00 05/26/21 21:10 Famotidine 20 Mg Tablet PO 20 mg BID ELIAZAR Administration Furosemide 80 mg 05/23/21 16:00 05/27/21 09:53 Furosemide 40 Mg Tablet PO 80 mg BID@08,16 ELIAZAR Administration Heparin Sodium (Po rcine) 5,000 unit 05/18/21 18:33 05/27/21 06:20 Heparin 5,000 Un it/Ml Inj 1 Ml SUBCUT 5,000 unit Q12H ELIAZAR Administration Hydralazine HCl 10 mg 05/23/21 15:00 05/24/21 09:14 Hydralazine 10 M g Tablet PO 10 mg TID ELIAZAR Administration Insulin Human Lisp ro 0 unit 05/18/21 18:33 05/27/21 06:22 Insulin Lispro 1 00 Unit/1 Ml SUBCUT Not Given Q4H [facility] Protocol Metoprolol Succina te 12.5 mg 05/20/21 09:25 05/27/21 09:55 Metoprolol Succi meghan Er (24 Hr) 25 Mg Tablet PO 12.5 mg BID ELIAZAR Administration Midodrine 5 mg 05/20/21 15:00 05/24/21 11:09 Midodrine 5 Mg T ablet PO 5 mg TID PRN Administration SBP less than 100 mhg Multivitamins 1 each 05/19/21 09:00 05/27/21 09:53 U-Ksbwiyz-Vpxfau n C Tablet PO 1 each DAILY ELIAZAR Administration Tramadol HCl 50 mg 05/27/21 00:44 05/27/21 02:00 Tramadol 50 Mg T ablet PO 50 mg Q6H PRN Administration MODERATE PAIN Additional Medication Information: Current Medications Acetaminophen (Acetaminophen 325 Mg Tablet) 650 mg PO Q6H PRN PRN Reason: Mild/Mod Pain Or Temp >/= 101 Last Admin: 05/26/21 21:10 Dose: 650 mg Documented by: Allopurinol (Allopurinol 100 Mg Tablet) 100 mg PO DAILY [facility] Last Admin: 05/26/21 07:45 Dose: 100 mg Documented by: Alteplase, Recombinant (Alteplase 1 Mg/Ml Sdv 2 Ml) 2 mg INTRACATH PRN PRN PRN Reason: DIALYSIS USE ONLY Aspirin (Aspirin 81 Mg Ec Tablet) 81 mg PO DAILY [facility] Last Admin: 05/26/21 07:44 Dose: 81 mg Documented by: Atorvastatin Calcium (Atorvastatin 40 Mg Tablet) 40 mg PO DAILY [facility] Last Admin: 05/26/21 07:45 Dose: 40 mg Documented by: Atropine Sulfate (Atropine 1 Mg/Ml Sdv 1 Ml) 0.5 mg IVP PRN PRN PRN Reason: Symptomatic bradycardia Bisacodyl (Bisacodyl 5 Mg Tablet) 10 mg PO DAILY PRN; Protocol PRN Reason: Constipation (see protocol) Last Admin: 05/20/21 20:57 Dose: 10 mg Documented by: Clopidogrel Bisulfate (Clopidogrel 75 Mg Tablet) 75 mg PO DAILY [facility] Last Admin: 05/26/21 07:44 Dose: 75 mg Documented by: Dextrose (Dextrose 50% Syringe 50 Ml) 50 ml IVP PRN PRN; Protocol PRN Reason: hypoglycemia protocol Ergocalciferol (Ergocalciferol (Vitamin D2) 50,000 Unit Capsule) 50,000 unit PO Q7D [facility] Last Admin: 05/26/21 09:09 Dose: 50,000 unit Documented by: Famotidine (Famotidine 20 Mg Tablet) 20 mg PO BID [facility] Last Admin: 05/26/21 21:10 Dose: 20 mg Documented by: Furosemide (Furosemide 40 Mg Tablet) 80 mg PO BID@08,16 [facility] Last Admin: 05/26/21 15:47 Dose: 80 mg Documented by: Glucagon (Glucagon 1 Mg/Ml Inj 1 Ml) 1 mg IM ONCE PRN; Protocol PRN Reason: Adult Acute Hypoglycemia Prot. Heparin Sodium (Porcine) (Heparin 5,000 Unit/Ml Inj 1 Ml) 5,000 unit SUBCUT Q12H [facility] Last Admin: 05/27/21 06:20 Dose: 5,000 unit Documented by: Hydralazine HCl (Hydralazine 10 Mg Tablet) 10 mg PO TID [facility] Last Admin: 05/24/21 09:14 Dose: 10 mg Documented by: Albumin Human (Albumin) 12.5 gm in 50 mls @ 60 mls/hr IV PRN PRN PRN Reason: Hypotension and/or symptomatic Sodium Chloride (Sodium Chloride 0.9%) 1,000 mls @ 0 mls/hr IV .Q0M PRN PRN Reason: hypotension or symptomatic Insulin Human Lispro (Insulin Lispro 100 Unit/1 Ml) 0 unit SUBCUT Q4H ELIAZAR; Protocol Last Admin: 05/27/21 06:22 Dose: Not Given Documented by: Lactulose (Lactulose Oral Liq 20 Gm/30 Ml Udc) 10 gm PO DAILY PRN; Protocol PRN Reason: Constipation (see protocol) Metoprolol Succinate (Metoprolol Succinate Er (24 Hr) 25 Mg Tablet) 12.5 mg PO BID [facility] Last Admin: 05/26/21 21:09 Dose: 12.5 mg Documented by: Midodrine (Midodrine 5 Mg Tablet) 5 mg PO TID PRN PRN Reason: SBP less than 100 mhg Last Admin: 05/24/21 11:09 Dose: 5 mg Documented by: Multivitamins (D-Ifzjkfy-Hdhgmgy C Tablet) 1 each PO DAILY [facility] Last Admin: 05/26/21 07:45 Dose: 1 each Documented by: Naloxone HCl (Naloxone 0.4 Mg/Ml Sdv) 0.1 mg IVP Q2M PRN PRN Reason: RESPIRATORY RATE < 8/MIN Nitroglycerin (Nitroglycerin 0.4 Mg Sublingual Tablet) 0.4 mg SUBLINGUAL Q5M PRN PRN Reason: CHEST PAIN Ondansetron HCl (Ondansetron 2 Mg/Ml Sdv 2 Ml) 4 mg IVP Q8H PRN PRN Reason: vomiting, or N/V if npo Tramadol HCl (Tramadol 50 Mg Tablet) 50 mg PO Q6H PRN PRN Reason: MODERATE PAIN Last Admin: 05/27/21 02:00 Dose: 50 mg Documented by: PFSH Anesthesia PFSH: Medical History Benign hypertension CKD (chronic kidney disease) 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 Diabetic neuropathy Gout Hyperkalemia Hx of Hyperlipidemia Peripheral neuropathy Type 2 diabetes mellitus Surgical History H/O cataract extraction H/O hernia repair Previous back surgery S/P appendectomy S/P tonsillectomy Family History Brother Hypertension Social History Smoking and tobacco status: former smoker Quit status (tobacco): has quit using tobacco Year quit tobacco: 2005 Second hand smoke exposure: No Alcohol intake: current Alcohol intake frequency: other Alcohol type: other Data Anesthesia CBC & Chem 7: 05/27/21 03:29 05/27/21 03:29 Other Labs: Laboratory Results - last 48 hr 05/25/21 05/25/21 05/25/21 11:50 14:37 17:07 WBC RBC Hgb Hct MCV MCH MCHC RDW Plt Count MPV Neut % (Auto) Lymph % (Auto) [place] % (Auto) Eos % (Auto) Baso % (Auto) Neut # (Auto) Lymph # (Auto) [place] # (Auto) Eos # (Auto) Baso # (Auto) Nucleated RBC % (auto) Nucleated RBCs # Sodium Potassium Chloride Carbon Dioxide Anion Gap BUN Creatinine GFR Calculation Glucose POC Glucose 141 H 185 H 159 H Calculated Osmolality Calcium Phosphorus Magnesium Total Bilirubin AST ALT Alkaline Phosphatase Total Protein Albumin Globulin 05/25/21 05/26/21 05/26/21 19:49 02:28 06:36 WBC RBC Hgb Hct MCV MCH MCHC RDW Plt Count MPV Neut % (Auto) Lymph % (Auto) [place] % (Auto) Eos % (Auto) Baso % (Auto) Neut # (Auto) Lymph # (Auto) [place] # (Auto) Eos # (Auto) Baso # (Auto) Nucleated RBC % (auto) Nucleated RBCs # Sodium Potassium Chloride Carbon Dioxide Anion Gap BUN Creatinine GFR Calculation Glucose POC Glucose 151 H 129 H 114 H Calculated Osmolality Calcium Phosphorus Magnesium Total Bilirubin AST ALT Alkaline Phosphatase Total Protein Albumin Globulin 05/26/21 05/26/21 05/26/21 10:21 11:03 11:03 WBC 8.7 RBC 2.95 L Hgb 8.4 L Hct 28.1 L MCV 95.3 H MCH 28.5 MCHC 29.9 L RDW 17.2 H Plt Count 121 L MPV 12.2 H Neut % (Auto) 74.8 Lymph % (Auto) 14.6 [place] % (Auto) 6.3 Eos % (Auto) 2.4 Baso % (Auto) 0.6 Neut # (Auto) 6.51 Lymph # (Auto) 1.3 [place] # (Auto) 0.6 Eos # (Auto) 0.2 Baso # (Auto) 0.1 Nucleated RBC % (auto) 0 Nucleated RBCs # 0.0 Sodium 123 L Potassium 4.6 Chloride 88 L Carbon Dioxide 23 Anion Gap 16.6 BUN 31 H Creatinine 3.4 H GFR Calculation Not Reportable Glucose 152 H POC Glucose 191 H Calculated Osmolality 266 L Calcium 7.8 L Phosphorus Magnesium Total Bilirubin AST ALT Alkaline Phosphatase Total Protein Albumin Globulin 05/26/21 05/26/21 05/27/21 15:46 21:07 03:29 WBC 7.4 RBC 2.60 L Hgb 7.4 L Hct 24.4 L MCV 93.8 MCH 28.5 MCHC 30.3 RDW 17.2 H Plt Count 104 L MPV 13.4 H Neut % (Auto) 70.3 Lymph % (Auto) 16.8 [place] % (Auto) 8.1 Eos % (Auto) 3.4 Baso % (Auto) 0.7 Neut # (Auto) 5.20 Lymph # (Auto) 1.2 [place] # (Auto) 0.6 Eos # (Auto) 0.3 Baso # (Auto) 0.1 Nucleated RBC % (auto) 0 Nucleated RBCs # 0.0 Sodium Potassium Chloride Carbon Dioxide Anion Gap BUN Creatinine GFR Calculation Glucose POC Glucose 231 H 85 Calculated Osmolality Calcium Phosphorus Magnesium Total Bilirubin AST ALT Alkaline Phosphatase Total Protein Albumin Globulin 05/27/21 05/27/21 03:29 06:17 WBC RBC Hgb Hct MCV MCH MCHC RDW Plt Count MPV Neut % (Auto) Lymph % (Auto) [place] % (Auto) Eos % (Auto) Baso % (Auto) Neut # (Auto) Lymph # (Auto) [place] # (Auto) Eos # (Auto) Baso # (Auto) Nucleated RBC % (auto) Nucleated RBCs # Sodium 130 L Potassium 3.9 Chloride 96 L Carbon Dioxide 29 Anion Gap 8.9 BUN 17 Creatinine 2.5 H GFR Calculation Not Reportable Glucose 97 POC Glucose 111 H Calculated Osmolality 271 L Calcium 7.5 L Phosphorus 3.2 Magnesium 1.9 Total Bilirubin 0.3 AST 20 ALT 8 Alkaline Phosphatase 163 H Total Protein 4.7 L Albumin 2.6 L Globulin 2.1 Micro: Microbiology 05/24/21 22:00 Gram Stain - Final Sputum - Expectorated Sputum Sputum Culture - Preliminary Cardiac Studies: Echocardiogram 05/19/21
[2021-05-27] MEDS: ferric gluconate 125 MG in sodium chloride 0.9% (100 ml) 100 ML 110 MG IV ×2 (10:41→10:49)
[2021-05-27] MEDS: epoetin alfa 1000 Unit/0.05 mL (ESRD) 10000 UNIT SUBCUT ×2 (10:41→10:50)
[2021-05-27] MEDS: famotidine 20 mg Tablet PO (10:42)
--- NOTE | 2021-05-27 12:35 | PC.SOCIAL ---
IMM Updated Updated pt on IMM. No questions voiced. Provided pt a copy. Initialed, dated, & timed copy in chart.
[2021-05-27 14:47] LABS: Glucose Point of Care 91 mg/dL (70-110)
--- NOTE | 2021-05-27 15:20 | P.PN_ITS ---
Subjective Subjective: Interval history: Patient was seen this morning, he denies any chest pain, no shortness of breath, no lightheadedness, no dizziness, is complaining of knee pain bilaterally, pain with ambulation, Patient was reexamined this afternoon, he is a bit frustrated that he needs b lood, he is wondering if he can do without it, I advised him that his hemoglobin 7.4, he just had a cardiac stent placed, will prefer his hemoglobin to be greater than 8, he voiced understanding, all questions answered, agreed to proceed Patient's daughter was at bedside this afternoon, I advised patient and daughter I discussed with Dr. Merrill and Dr. Cheung, the plan is to hold Plavix for 1 d ay, proceed with tunneled dialysis catheter placement hopefully tomorrow morning, resume Plavix thereafter, monitor his hemoglobin, and hopefully discharge tomorrow if his hemoglobin remained stable, and if he does well after his procedure, he voiced understanding, all questions answered Patient's was quite frustrated with me, she was yelling at me in the hallway, she is frustrated because she wants to take him home today, she is frustrated with him requiring blood, she is frustrated that the procedure was not done today, I apologize, she tells me that she does not need my apology Vitals/I&O/Wt Last Vital Signs Temp 97.1 F L 05/27/21 04:00 Pulse 84 05/27/21 12:00 Resp 18 05/27/21 12:00 BP 124/71 05/27/21 12:00 Pulse Ox 96 05/27/21 12:00 05/27/21 05/27/21 05/27/21 06:59 14:59 22:59 Intake Total 740 / 2200 Output Total 100 / 1973 200 / 200 Balance 640 / 227 -200 / -200 Weight last 48 hrs Weight 85.757 kg Weight 85.7 kg Weight 86.183 kg Physical Exam Const: COMMON NORMALS: no acute distress ORIENTATION/CONSCIOUSNESS: Yes awake, Yes oriented to person, Yes oriented to place and Yes oriented to time Chest: OTHER: Right chest, IJ Resp: COMMON NORMALS: normal respiratory effort, No retractions, No use of accessory muscles and clear to auscultation bilaterally AUSCULTATION: clear to auscultation bilaterally Cardio: COMMON NORMALS: regular rate, regular rhythm, S1 normal heart sound present and S2 normal heart sound present RATE: regular rate RHYTHM: regular rhythm HEART SOUNDS: S1 normal heart sound present and S2 normal heart sound present GI: COMMON NORMALS: Normal to inspection, nondistended, normoactive bowel sounds present, Soft to palpation and non-tender PALPATION: Yes Soft to palpation Extremity: COMMON NORMALS: no pedal edema Neuro: SENSORIUM/ORIENTATION: Yes oriented to person, Yes oriented to place and Yes oriented to time Urinary Catheter Management^: Vega: Cath Placed During This Visit: yes Reason for Continuing Indwelling Catheter: Accurate Measurement of Urinary Output in Critically Ill Patients Urinary Catheter Date of Insertion: 05/18/21 Urinary Catheter Time of Insertion: 19:51 Data : 05/27/21 03:29 05/27/21 03:29 Micro: Microbiology 05/24/21 22:00 Gram Stain - Final Sputum - Expectorated Sputum Sputum Culture - Final A&P Additional A&P Information Acute renal failure: Most likely worsening of CKD stage IV secondary to home dose of lisinopril, hydrochlorothiazide with ongoing hypotension: CT abdomen pelvis negative for obstruction or hydronephrosis. Renal ultrasound: Unremarkable right kidney and bladder.left kidney is not visible due to bowel gas Urinalysis : 3+ protein Lasix 80 mg p.o. twice daily In the absence of meaningful renal recovery.Plan is to place tunneled dialysis catheter tomorrow, Plavix has been held, n.p.o. midnight,.Surgery has been consulted for now he will continue on hemodialysis with right IJ dialysis catheter. Nephrology on consult Patient has a dialysis chair as an outpatient. Acute on chronic anemia, secondary to acute renal failure, bone marrow suppression, possible slow GI bleed - is on aspirin and Plavix secondary to stent placement -We will transfuse 1 unit PRBC -Possible slow GI bleed, Protonix 40 twice daily, with Carafate -Hemoccult stool -Monitor hemoglobin History of congestive heart failure: History of CABG: Currently on room air. Euvolemic. Echocardiogram : EF of 25 to 30% with global LV hypokinesia with possible slow flow severe aortic stenosis. LifeVest utility, if the family agrees, he will be discharged on LifeVest. CAD : S/P : PCI of the venous graft to the obtuse marginal artery ( 05/21). Severe three-vessel coronary disease. Occluded venous graft to the diagonal and to the PDA. High-grade lesion in the venous graft to the obtuse marginal artery. Patent [place] to the LAD. Continue with aspirin, statin. Beta-belinda, Plavix on hold, hold hydralazine 10 mg p.o. 3 times daily, Arrhythmia: Patient having frequent VPCs. Continue metoprolol 12.5 mg twice daily for now. Sepsis: Cannot rule out sepsis secondary to possible pneumonia versus diarrheal disease. Patient does have a history of MSSA cellulitis of leg. Oxygen supplementation keeping saturation over 90%. Blood cultures so far negative. MRSA negative, urine Legionella, bacterial antigen negative. Initially on Levophed has been weaned off. Completed 5-day course of Zosyn. Continue wound care as per wound care orders. Hyperkalemia/metabolic acidosis: Hyperkalemia resolved. Metabolic acidosis resolved. Altered mental status: Resolved. Most likely secondary to uremia along with hyp oglycemia. Ammonia level, urine drug screen, salicylate, alcohol level negative. Fall precaution. Frequent reorientation. Hypoglycemia: Better. History of type 2 diabetes mellitus: Hypoglycemia most likely secondary to worsening renal functions and use of sulfonylurea on 05/17 evening. Hypoglycemic protocol with insulin sliding scale at low-dose protocol. Hold off on oral hypoglycemics or long-acting insulin for now. HbA1c 6.6. Hypertension: Goal blood pressure less than 140/90 mmHg. Continue to monitor. Midodrine to 5 mg 3 times a day as needed for systolic blood pressure of less than 100 mmHg. Continue home oral medication including allopurinol, statin. For now hold off on pregabalin as patient was confused today morning after getting medication last night. CODE STATUS: Discussed with at bedside. Full code. Protonix for PUD prophylaxis. Heparin 5000 every 12 for DVT prophylaxis. Renal dialysis diet. 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
[2021-05-27 20:54] LABS: Glucose Point of Care 230 mg/dL (70-110)
[2021-05-27] MEDS: pantoprazole DR 40 mg Tablet PO (21:05)
[2021-05-27] MEDS: insulin lispro 100 unit/1 mL SUBCUT (21:05)
[2021-05-27] MEDS: acetaminophen 325 mg Tablet 650 MG PO (21:17)
[2021-05-28] VITALS (24 sets, daily range): BP systolic 94–125; BP diastolic 44–73; PULSE 60–96; RESP 13–25; TEMP 35.6–36.8; O2SAT 93–100
--- NOTE | 2021-05-28 | SCC_ITS ---
Procedure Done: 1. Placement of 16 Yoruba 23/28 cm long AshSplit tunneled hemodialysis catheter right internal jugular vein 2. Fluoroscopic guidance and interpretation for placement of catheter 3. Exchange and a guidewire via a previously placed nontunneled right IJ hemodialysis catheter 4. Explanation of Temporary HD catheter from Right IJ vein. 61.0 seconds of fluoroscopic guidance, for a cumulative dose of 14.58 mGy, was provided to Dr. Merrill by the radiology department. C-arm images of the chest were saved for the patient's permanent record. LUISD
[2021-05-28] MEDS: HYDROcodone-acetaminophen 5-325 mg Tablet 1 TAB PO ×2 (00:49→21:45)
[2021-05-28] MEDS: insulin lispro 100 unit/1 mL SUBCUT ×2 (00:50→21:45)
[2021-05-28 02:57] LABS: Glucose Point of Care 109 mg/dL (70-110)
[2021-05-28 03:45] LABS: Basophils # 0.1 10^3/uL (0.0-0.1); Basophils % 0.8 %; Eosinophils # 0.4 10^3/uL (0.0-0.8); Hematocrit 28.3 % (42.0-52.0); Hemoglobin 8.7 g/dL (11.7-16.6); Lymphocytes # 1.7 10^3/uL (0.8-4.8); Lymphocytes % 19.1 %; Mean Corpuscular HGB Conc 30.7 g/dL (30.0-36.0); Mean Corpuscular Hemoglobin 28.8 pg (28.0-34.0); Mean Corpuscular Volume 93.7 fl (80-94); Mean Platelet Volume 12.4 fL (7.4-10.4); Monocytes # 0.8 10^3/uL (0.2-0.9); Monocytes % 9.1 %; Neutrophils # 5.98 10^3/uL (1.8-7.7); Nucleated Red Blood Cells % 0.2 %; Platelet Count 116 10^3/cmm (130-400); Red Blood Count 3.02 10^6/uL (4.1-5.3); White Blood Count 9.1 10^3/uL (4.0-10.0)
[2021-05-28 04:16] LABS: Alanine Aminotransferase 9 U/L (0-41); Albumin Level 2.7 g/dL (3.5-5.2); Alkaline Phosphatase 173 IU/L (40-130); Anion Gap 13.8 (5-19); Aspartate Amino Transferase 21 U/L (0-40); Blood Urea Nitrogen 25 mg/dL (8-23); Calcium 7.9 mg/dL (8.5-10.5); Carbon Dioxide 26 mmol/L (22-29); Chloride 95 mmol/L (98-107); Globulin 2.2 g/dL (1.3-4.6); Glucose 77 mg/dL (65-115); Magnesium 1.9 mg/dL (1.7-2.3); Osmolality Calculated 275 mOsm/kg (285-295); Phosphorus 3.7 mg/dL (2.5-4.5); Potassium 3.8 mmol/L (3.5-5.1); Sodium 131 mmol/L (136-145); Total Bilirubin 0.6 mg/dL (0.15-1.2); Total Protein 4.9 g/dL (6.6-8.7)
--- NOTE | 2021-05-28 06:37 | PC.NURSE ---
Heparin held this morning per Dr. Castro for pending surgical procedure.
[2021-05-28 06:41] LABS: Glucose Point of Care 61 mg/dL (70-110)
[2021-05-28] MEDS: sucralfate 1 gm Tablet PO ×2 (06:42→21:48)
--- NOTE | 2021-05-28 07:18 | P.PN_ITS ---
Subjective Subjective: Interval history: feels better. still swollen, bp low. s/p prbc tx. for dialysis catheter today/ Medications: Reviewed: Yes Medication Review Details: Current Medications Acetaminophen (Acetaminophen 325 Mg Tablet) 650 mg PO Q6H PRN PRN Reason: Mild/Mod Pain Or Temp >/= 101 Last Admin: 05/27/21 21:17 Dose: 650 mg Documented by: Hydrocodone Bitart/Acetaminophen (Hydrocodone-Acetaminophen 5-325 Mg Tablet) 1 tab PO ONCE PRN PRN Reason: MODERATE PAIN Last Admin: 05/28/21 00:49 Dose: 1 tab Documented by: Allopurinol (Allopurinol 100 Mg Tablet) 100 mg PO DAILY [facility] Last Admin: 05/27/21 09:53 Dose: 100 mg Documented by: Alteplase, Recombinant (Alteplase 1 Mg/Ml Sdv 2 Ml) 2 mg INTRACATH PRN PRN PRN Reason: DIALYSIS USE ONLY Aspirin (Aspirin 81 Mg Ec Tablet) 81 mg PO DAILY [facility] Last Admin: 05/27/21 09:55 Dose: 81 mg Documented by: Atorvastatin Calcium (Atorvastatin 40 Mg Tablet) 40 mg PO DAILY [facility] Last Admin: 05/27/21 09:53 Dose: 40 mg Documented by: Atropine Sulfate (Atropine 1 Mg/Ml Sdv 1 Ml) 0.5 mg IVP PRN PRN PRN Reason: Symptomatic bradycardia Bisacodyl (Bisacodyl 5 Mg Tablet) 10 mg PO DAILY PRN; Protocol PRN Reason: Constipation (see protocol) Last Admin: 05/20/21 20:57 Dose: 10 mg Documented by: Clopidogrel Bisulfate (Clopidogrel 75 Mg Tablet) 75 mg PO DAILY [facility] Last Admin: 05/27/21 14:08 Dose: Not Given Documented by: Dextrose (Dextrose 50% Syringe 50 Ml) 50 ml IVP PRN PRN; Protocol PRN Reason: hypoglycemia protocol Ergocalciferol (Ergocalciferol (Vitamin D2) 50,000 Unit Capsule) 50,000 unit PO Q7D [facility] Last Admin: 05/26/21 09:09 Dose: 50,000 unit Documented by: Furosemide (Furosemide 40 Mg Tablet) 80 mg PO BID@08,16 [facility] Last Admin: 05/27/21 22:38 Dose: Not Given Documented by: Glucagon (Glucagon 1 Mg/Ml Inj 1 Ml) 1 mg IM ONCE PRN; Protocol PRN Reason: Adult Acute Hypoglycemia Prot. Heparin Sodium (Porcine) (Heparin 5,000 Unit/Ml Inj 1 Ml) 5,000 unit SUBCUT Q12H [facility] Last Admin: 05/28/21 06:37 Dose: Not Given Documented by: Hydralazine HCl (Hydralazine 10 Mg Tablet) 10 mg PO TID [facility] Last Admin: 05/24/21 09:14 Dose: 10 mg Documented by: Albumin Human (Albumin) 12.5 gm in 50 mls @ 60 mls/hr IV PRN PRN PRN Reason: Hypotension and/or symptomatic Insulin Human Lispro (Insulin Lispro 100 Unit/1 Ml) 0 unit SUBCUT Q4H [facility]; Protocol Last Admin: 05/28/21 06:38 Dose: Not Given Documented by: Lactulose (Lactulose Oral Liq 20 Gm/30 Ml Udc) 10 gm PO DAILY PRN; Protocol PRN Reason: Constipation (see protocol) Metoprolol Succinate (Metoprolol Succinate Er (24 Hr) 25 Mg Tablet) 12.5 mg PO BID [facility] Last Admin: 05/27/21 21:06 Dose: 12.5 mg Documented by: Midodrine (Midodrine 5 Mg Tablet) 5 mg PO TID PRN PRN Reason: SBP less than 100 mhg Last Admin: 05/24/21 11:09 Dose: 5 mg Documented by: Multivitamins (I-Ukhifuv-Ldsodct C Tablet) 1 each PO DAILY [facility] Last Admin: 05/27/21 09:53 Dose: 1 each Documented by: Naloxone HCl (Naloxone 0.4 Mg/Ml Sdv) 0.1 mg IVP Q2M PRN PRN Reason: RESPIRATORY RATE < 8/MIN Nitroglycerin (Nitroglycerin 0.4 Mg Sublingual Tablet) 0.4 mg SUBLINGUAL Q5M PRN PRN Reason: CHEST PAIN Ondansetron HCl (Ondansetron 2 Mg/Ml Sdv 2 Ml) 4 mg IVP Q8H PRN PRN Reason: vomiting, or N/V if npo Pantoprazole Sodium (Pantoprazole Dr 40 Mg Tablet) 40 mg PO BID [facility] Last Admin: 05/27/21 21:05 Dose: 40 mg Documented by: Sucralfate (Sucralfate 1 Gm Tablet) 1 gm PO AC&BEDTIME [facility] Last Admin: 05/28/21 06:42 Dose: 1 gm Documented by: Vitals/I&O/Wt Last Vital Signs Temp 98 F 05/28/21 03:27 Pulse 60 05/28/21 05:21 Resp 19 H 05/28/21 03:27 BP 99/50 05/28/21 03:27 Pulse Ox 98 05/28/21 03:27 05/27/21 05/28/21 05/28/21 22:59 06:59 14:59 Intake Total 0 / 0 Output Total 200 / 400 Balance -200 / -400 Weight last 48 hrs Weight 85.275 kg Weight 85.757 kg Weight 85.7 kg Physical Exam Narrative: EXAM NARRATIVE: elderly, awake and comfortable in bed vs noted and BP low heent- nc/at, eomi, anicteric neck supple lungs- basal crackles b/l heart- irreg, no rub, +HSM abd soft, nt, nd, +bs ext 1-2+ asymetrical edema- LLE bandaged ulcer Rt IJ dialysis catheter neuro- a,a, o x 3 Urinary Catheter Management^: Vega: Cath Placed During This Visit: yes Reason for Continuing Indwelling Catheter: Accurate Measurement of Urinary Ou tput in Critically Ill Patients Urinary Catheter Date of Insertion: 05/18/21 Urinary Catheter Time of Insertion: 19:51 Data : 05/28/21 03:26 05/28/21 03:26 Micro: Microbiology 05/24/21 22:00 Gram Stain - Final Sputum - Expectorated Sputum Sputum Culture - Final A&P Additional A&P Information 81 yr old man 1. 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 CHANO-Q progression of CKD vs PRErenal vs CRS as he has active CAD -concern for ATN- on thiazide and satish-i, and lasix and glipizide- denies nsaid use -ua 3+ prot, 3+ amorphous sediment -low ur na 21 -abd ct- normal kidneys -APPEARS TO BE ESRD NOW -for tunnelled catheter today -as s/p cardiac cath x 2- remains oliguric -for HD today- 3.5 hrs, 2k, remove 1.5 l 3. CAD s/p cath and PCI -ischemic CM- EF 25%, moderate to severe and a fib - Status post PCI to the graft to obtuse marginal continue Plavix - Patient has possible moderate to severe aortic stenosis Dr. Cheung is planning to perform outpatient dobutamine stress echo to rule out any pseudoaortic stenosis or to a certain real aortic valve area. -metoprolol per cardiology 4.DM- hypoglycemia is improving 5. hyponatremia- improving w/ HD 6. anemia -s/p 1 u prbc tx - iron sat 21%, ferritin 265 - epo and iv iron 7. renal bone - mineral metabolism- vit d=10- replace vit d - pth 711- vit d analouge after vit d replenished -monitor hypocalcemia- use calcium acetate as phos mildly elevated - time spent 30 min seen and examined w/ RN- telehealth visit Attestations Medical Necessity Statement*: per medicine. needs outpt HD slot Time Spent in Patient Care: 16 - 35 minutes (>than 50% of time spent in counselling and/or direct pt care on unit) . Coding Level of Care Code Acute Signal Wirer for Willie Wilks
[2021-05-28] MEDS: metoprolol succinate ER (24 HR) 25 mg Tablet 12.5 MG PO ×2 (08:54→18:09)
[2021-05-28] MEDS: atorvastatin 40 mg Tablet PO (08:54)
[2021-05-28] MEDS: b-complex-vitamin c Tablet 1 EACH PO (08:54)
[2021-05-28] MEDS: FUROsemide 40 mg Tablet 80 MG PO ×2 (08:54→18:09)
[2021-05-28] MEDS: aspirin 81 mg EC Tablet PO (08:54)
[2021-05-28] MEDS: allopurinol 100 mg Tablet PO (08:54)
[2021-05-28] MEDS: pantoprazole DR 40 mg Tablet PO ×2 (08:55→18:09)
[2021-05-28 09:01] LABS: Glucose Point of Care 56 mg/dL (70-110)
[2021-05-28] MEDS: TRAMadol 50 mg Tablet PO (10:30)
--- NOTE | 2021-05-28 11:22 | PM.PN ---
Subjective Subjective: Interval history: Patient overall is about the same. Patient verbalized that he is able to sign his own consent in the presence of nursing staff Caryn Nolasco Medications: Reviewed: Yes Vitals/I&O/Wt Last Vital Signs Temp 98 F 05/28/21 03:27 Pulse 60 05/28/21 05:21 Resp 19 H 05/28/21 03:27 BP 99/50 05/28/21 03:27 Pulse Ox 98 05/28/21 03:27 05/27/21 05/28/21 05/28/21 22:59 06:59 14:59 Intake Total 0 / 0 Output Total 200 / 400 Balance -200 / -400 Weight last 48 hrs Weight 188 lb Weight 189 lb 1 oz Weight 188 lb 14.978 oz Physical Exam Narrative: EXAM NARRATIVE: Patient is conscious alert oriented X3 BMI 29.4 Head and neck examination PERRLA no masses no cervical lymphadenopathy no jaundice Right internal jugular vein temporary hemodialysis catheter in place Abdomen nontender nondistended soft no organomegaly guarding or rigidity/no signs of peritonitis Urinary Catheter Management^: Vega: Cath Placed During This Visit: yes Reason for Continuing Indwelling Catheter: Accurate Measurement of Urinary Output in Critically Ill Patients Urinary Catheter Date of Insertion: 05/18/21 Urinary Catheter Time of Insertion: 19:51 Data : 05/28/21 03:26 05/28/21 03:26 Micro: Microbiology 05/24/21 22:00 Gram Stain - Final Sputum - Expectorated Sputum Sputum Culture - Final A&P Assessment and plan (1) Acute renal failure: Plan of care; After thorough history physical examination and reviewing the chart and reviweing the images iwth my personal intrepretation.I counseled the patient for hemodialysis tunneled catheter placement with exchange of the current 1, indications, risks including pneumothorax that may require Chest tube(s) placement and potential injury of major vascular structures that may require Thoractomy, benefits,indications and alternatives were all discussed with the patient. Higher risk of bleeding as patient has been on Plavix. After further history taking after further history take patient reports that he is able to sign his own consent And we would be able to proceed accordingly. Informed consent per chart Status: Acute Qualifiers: Acute renal failure type: unspecified Qualified Code(s): N17.9 - Acute kidney failure, unspecified Attestations Medical Necessity Statement*: Per admitting service Time Spent in Patient Care: (>than 50% of time spent in counselling and/or direct pt care on unit). Coding Level of Care Code Acute Manufacturing Mechanic for Willie Wilks Diagnoses Acute renal failure N17.9 Acute renal failure type: unspecified
[2021-05-28 11:35] LABS: Glucose Point of Care 94 mg/dL (70-110)
--- NOTE | 2021-05-28 11:37 | PM.DCS ---
Discharge Providers Date of Admission: 05/18/21 17:08 Date of Discharge: May 28, 2021 Attending Provider at Admission: Atul Jackson MD Attending Provider at Discharge: Louis Feliciano MD Primary Care Provider: Malaika Mayorga MD Diagnoses at Discharge Discharge Diagnosis (1) Atherosclerosis of coronary artery of [place] heart without angina pectoris: Status: Acute Qualifiers: Coronary Disease-Associated Artery/Lesion type: [place] artery Qualified Code(s): I25.10 - Atherosclerotic heart disease of [place] coronary artery without angina pectoris (2) Acute renal failure: Status: Acute Qualifiers: Acute renal failure type: unspecified Qualified Code(s): N17.9 - Acute kidney failure, unspecified (3) 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: Status: Acute (4) Severe calcific aortic valve stenosis: Status: Acute (5) Ischemic cardiomyopathy: Status: Acute (6) Pseudoaneurysm: Status: Acute Reason for Visit Reason for Visit: WEAKNESS; HYPOGLYCEMIA Hospital Course Hospital Course This is a 81-year-old male with a past medical history of CAD, status post CABG, CKD stage IV, hypertension, type 2 diabetes mellitus who is currently undergoing outpatient work-up for dialysis, who presents to [facility] due to altered mental status secondary to hypoglycemia Patient was admitted to [facility] for metabolic acidosis, hyperkalemia, worsening CHANO secondary to acute renal failure, altered mental status secondary to hypoglycemia. Nephrology was consulted, patient underwent dialysis catheter placement with inpatient dialysis. His electrolyte abnormalities, and mentation improved. Patient will be discharged with tunneled dialysis catheter, and outpatient dialysis Saturdays, with a follow-up with Dr. Mayer in 1 week. During his hospitalization patient was found to have CAD status post PCI, to graft to obtuse marginal, Discharged on aspirin, Plavix, metoprolol, close follow-up with cardiology as outpatient He is found to have ischemic cardiomyopathy EF 25%, moderate to severe and A. fib For his moderate to severe aortic stenosis, Dr. Cheung is planning to perform an outpatient dobutamine stress echo. Given his diminished ejection fraction, we have discussed with patient LifeVest, patient has declined LifeVest option after discussion with family, advised of the risks associated with not wearing a LifeVest, morbidity and mortality associated, risk of cardiac arrhythmias, all questions answered, declined for now For type 2 diabetes mellitus, discharged on a insulin sliding scale For his acute on chronic anemia, likely multifactorial from end-stage renal disease and possible slow GI bleed, required 1 unit PRBC, Epogen, discharged on Protonix, Carafate, is on aspirin and Plavix as above, follow-up with primary care provider recheck hemoglobin in 1 week. Patient was last to monitor for bloody or black stools if so go to emergency room. Physical Exam Const: COMMON NORMALS: no acute distress and patient oriented x3 Resp: COMMON NORMALS: normal respiratory effort, No retractions, No use of accessory muscles and clear to auscultation bilaterally AUSCULTATION: clear to auscultation bilaterally Cardio: COMMON NORMALS: regular rate, regular rhythm, S1 normal heart sound present and S2 normal heart sound present RATE: regular rate RHYTHM: regular rhythm HEART SOUNDS: S1 normal heart sound present and S2 normal heart sound present GI: COMMON NORMALS: Normal to inspection, nondistended, normoactive bowel sounds present, Soft to palpation and non-tender PALPATION: Yes Soft to palpation Extremity: COMMON NORMALS: no pedal edema Neuro: COMMON NORMALS: patient oriented x3 Psych: COMMON NORMALS: mental status grossly normal Urinary Catheter Management^: Vega: Cath Placed During This Visit: yes Reason for Continuing Indwelling Catheter: Accurate Measurement of Urinary Output in Critically Ill Patients Urinary Catheter Date of Insertion: 05/18/21 Urinary Catheter Time of Insertion: 19:51 Discharge Data Data Completed and Pending: Completed Studies During Hospitalization Category Date Time Status CT abdomen pelvis wo con [id number] Urge nt Cat Scan 05/18/21 17:01 Completed COMPUTER PROGRAMMER ANALYST request for service Routin e Exams 05/21/21 18:00 Completed CXRP [XR chest 1V portable [id number]] R outine Exams 05/18/21 17:30 Completed XR abdomen 1V* [id number] Stat Exams 05/18/21 16:16 Completed XR chest 1V susannah ble [id number] Stat Exams 05/18/21 15:55 [place] [id number] Rout ine Ultrasound 05/23/21 13:35 [place] [id number] Rout ine Ultrasound 05/24/21 06:15 Completed CV. echo complete * [id number] Routine Ultrasound 05/19/21 17:01 Completed US renal BI* [id number] Stat Ultrasound 05/18/21 15:55 Completed Pending at discharge Category Date Time Status COMPUTER PROGRAMMER ANALYST request for service Routin e Exams 05/22/21 10:05 Taken COVID [Coronaviru s Test Green Count y] Routine Lab 05/22/21 15:15 Received Clostridioides Di fficile PCR Routin e Lab 05/19/21 16:05 Ordered Complete Blood Co unt w/Auto AM LABS Lab 05/29/21 04:00 Ordered Comprehensive Met abolic Panel AM LA BS Lab 05/29/21 04:00 Ordered Enteric Bacterial Panel by PCR Rout ine Lab 05/19/21 16:05 Ordered Enteric Parasite Panel by PCR Routi ne Lab 05/19/21 16:05 Ordered Immunochemical Fe will OCB Routine Lab 05/19/21 16:05 Ordered Lactoferrin Routi ne Lab 05/19/21 16:05 Ordered Magnesium AM LABS Lab 05/29/21 04:00 Ordered Phosphorus AM LAB S Lab 05/29/21 04:00 Ordered Labs from last 24 hours 05/28/21 05/28/21 05/28/21 11:17 08:52 06:27 WBC RBC Hgb Hct MCV MCH MCHC RDW Plt Count MPV Neut % (Auto) Lymph % (Auto) Dickinson % (Auto) Eos % (Auto) Baso % (Auto) Neut # (Auto) Lymph # (Auto) Dickinson # (Auto) Eos # (Auto) Baso # (Auto) Nucleated RBC % (a uto) Nucleated RBCs # Sodium Potassium Chloride Carbon Dioxide Anion Gap BUN Creatinine GFR Calculation Glucose POC Glucose 94 56 L 61 L Calculated Osmolal ity Calcium Phosphorus Magnesium Total Bilirubin AST ALT Alkaline Phosphata se Total Protein Albumin Globulin Blood Type Rho(D) Type Antibody Screen Crossmatch 05/28/21 05/28/21 05/28/21 03:26 03:26 02:54 WBC 9.1 RBC 3.02 L Hgb 8.7 L Hct 28.3 L MCV 93.7 MCH 28.8 MCHC 30.7 RDW 18.0 H Plt Count 116 L MPV 12.4 H Neut % (Auto) 66.0 Lymph % (Auto) 19.1 Dickinson % (Auto) 9.1 Eos % (Auto) 4.0 Baso % (Auto) 0.8 Neut # (Auto) 5.98 Lymph # (Auto) 1.7 Dickinson # (Auto) 0.8 Eos # (Auto) 0.4 Baso # (Auto) 0.1 Nucleated RBC % (a uto) 0.2 Nucleated RBCs # 0.0 Sodium 131 L Potassium 3.8 Chloride 95 L Carbon Dioxide 26 Anion Gap 13.8 BUN 25 H Creatinine 2.7 H GFR Calculation Not Reportable Glucose 77 POC Glucose 109 Calculated Osmolal ity 275 L Calcium 7.9 L Phosphorus 3.7 Magnesium 1.9 Total Bilirubin 0.6 AST 21 ALT 9 Alkaline Phosphata se 173 H Total Protein 4.9 L Albumin 2.7 L Globulin 2.2 Blood Type Rho(D) Type Antibody Screen Crossmatch 05/27/21 05/27/21 05/27/21 20:19 14:27 09:35 WBC RBC Hgb Hct MCV MCH MCHC RDW Plt Count MPV Neut % (Auto) Lymph % (Auto) Dickinson % (Auto) Eos % (Auto) Baso % (Auto) Neut # (Auto) Lymph # (Auto) Dickinson # (Auto) Eos # (Auto) Baso # (Auto) Nucleated RBC % (a uto) Nucleated RBCs # Sodium Potassium Chloride Carbon Dioxide Anion Gap BUN Creatinine GFR Calculation Glucose POC Glucose 230 H 91 Calculated Osmolal ity Calcium Phosphorus Magnesium Total Bilirubin AST ALT Alkaline Phosphata se Total Protein Albumin Globulin Blood Type O Positive Rho(D) Type Positive Antibody Screen Negative Crossmatch See Detail Vitals: Last Vital Signs Temp 98 F 05/28/21 03:27 Pulse 60 05/28/21 05:21 Resp 19 H 05/28/21 03:27 BP 99/50 05/28/21 03:27 Pulse Ox 98 05/28/21 03:27 Discharge Plan Discharge Patient Disposition: Home Condition: Stable Prescriptions: New aspirin 81 mg Tablet,Delayed Release (Dr/Ec) 81 mg PO DAILY 30 Days Qty: 30 RF: 0 clopidogrel 75 mg Tablet 75 mg PO DAILY 30 Days Qty: 30 RF: 0 Vitamin D2 1,250 mcg (50,000 unit) Capsule 50,000 unit PO Q7D 30 Days Qty: 4 RF: 0 furosemide 40 mg Tablet 80 mg PO BID@08,16 30 Days Qty: 120 RF: 0 hydrocodone-acetaminophen 5-325 mg Tablet 1 tab PO BID PRN (Reason: Moderate Pain) 7 Days Qty: 14 RF: 0 sucralfate 1 gram Tablet 1 g PO AC&BEDTIME 30 Days Qty: 60 RF: 0 pantoprazole 40 mg Tablet,Delayed Release (Dr/Ec) 40 mg PO BID 30 Days Qty: 60 RF: 0 nitroglycerin 0.4 mg Tablet, Sublingual 0.4 mg sublingual Q5M PRN (Reason: Chest Pain) 30 Days Qty: 30 RF: 0 metoprolol succinate 25 mg Tablet Extended Release 24 Hr 12.5 mg PO BID 30 Days Qty: 30 RF: 0 Humalog KwikPen Insulin 100 unit/mL insulin pen See Rx Instructions .ROUTE .COMPLEX Qty: 15 RF: 0 Continued sevelamer carbonate 800 mg tablet 800 mg PO BID 90 Days Qty: 180 RF: 0 Vitamin B-12 500 mcg Tablet 500 mcg PO DAILY RF: 0 Glucosamine Chondroitin 550-30-1 mg Capsule 1 cap PO DAILY RF: 0 atorvastatin 40 mg tablet 40 mg PO DAILY RF: 0 allopurinol 100 mg tablet 100 mg PO DAILY RF: 0 pregabalin 25 mg capsule 25 mg PO BEDTIME RF: 0 Discontinued hydrochlorothiazide 50 mg tablet 50 mg PO QAM 90 Days Qty: 90 RF: 3 glipizide 10 mg tablet 10 mg PO DAILY 90 Days Qty: 90 RF: 3 furosemide [Lasix] 20 mg tablet 40 mg PO QAM Qty: 60 RF: 2 lisinopril 40 mg tablet 20 mg PO DAILY RF: 0 Discharge Orders: Discharge Order (Routine); Ordered 05/29/21 Ordered By: Louis Feliciano Other Ambulatory Orders: DME: [employer] (Order) Location: None Selected Ordered By: Juanito Quinteros Referrals: [facility] [Other] (You have been accepted by [facility] for hemodialysis. You have been assigned a tentative chair time of 0650 on Wednesday, , and Wednesday. ) [facility] [Outside] Donald Vizcarra MD [Referring] - ([facility] will be calling to get you set up with Dr. Vizcarra at [facility] for a Nephrology. If you don't hear from them within a reasonable amount of time, please give them a call. or ) Mireya Frye FNP [Nurse Practitioner] - 06/05/21 10:45 am (You have a post procedure followup with ORESTES Bonner at [facility] on June 05 at 10:45am) Malaika Mayorga MD [Primary Care Provider] - 06/11/21 10:00 am (You have a hospital followup with Dr. Mayorga at [facility] on June 11 at 10:00am ) Discharge Diet: Cardiac Discharge Activity: Resume usual activity Patient Instructions: Metoprolol (By mouth), Sucralfate (By mouth), Hydrocodone/Acetaminophen (By mouth), Aspirin (By mouth), Ergocalciferol (By mouth) (Calcidol, Calciferol, Drisdol), Nitroglycerin, Rapid Release (By mouth), Clopidogrel (By mouth) (Plavix), Pantoprazole (By mouth), Insulin Lispro (By injection) (HumaLOG, HumaLOG Pen, Lispro-PFC,..., Chronic Kidney Disease (DC), Hypoglycemia in a Person with Diabetes (DC), Type 2 Diabetes in the Older Adult (DC), What to Do if Your Blood Sugar is Low (ED), Diabetes and Nutrition (DC), Diabetes and Exercise (DC), Opioid Safety Activity Restrictions/Additional Instructions: -Humalog sliding scale as below, inject 3 times daily based on blood sugar,, based on sliding scale provided, before meals, - do not inject insulin if you do not eat, as hypoglycemia is associate with increased risk of morbidity and mortality - Fingerstick Blood Glucose Insulin Units 141-180 mg/dl 2 unit/SQ 181-220 mg/dl 4 units/SQ 221-260 mg/dl 6 units/SQ 261-300 mg/dl 8 units/SQ 301-350 mg/dl 10 units/SQ 351-400 mg/dl 12 units/SQ greater than 400 mg/dl 14 units/SQ -Please record blood sugars 3 times a day bring blood sugar logs to primary care physician's office -If blood sugar greater than 500, call primary care -If blood sugar less than 60, drink or juice or eat a hard candy and go to emergency room -Please take aspirin and Plavix as prescribed -Follow-up with cardiology in the next 1 to 2 weeks -Follow-up with primary care provider in 1 week -Saturdays -Follow-up with nephrology -Follow-up with primary care provider in 1 week, recheck hemoglobin, if you develop lightheadedness, dizziness, bloody or black stools, go to the emergency room Discharge Attestations Time Spent in Discharge Care*: less than 30 min Quality Metrics Clinical Quality Measures During this hospital stay, did patient experience: None Coding Level of Care Code Acute Chg FW DC note Exam Detailed Diagnoses Atherosclerosis of coronary artery of [place] heart without angina pectoris I25.10 Coronary Disease-Associated Artery/Lesion type: [place] artery Acute renal failure N17.9 Acute renal failure type: unspecified 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
--- NOTE | 2021-05-28 13:02 | SC_ITS ---
WS: [id number] C-arm fluoroscopy for dialysis catheter placement, 05/28/2021 Clinical Data: Placement of tunneled hemodialysis catheter Comparison: None. Findings: A right dialysis catheter has been inserted. SC/C-arm FL for CVA 32700 Impression: Insertion right dialysis catheter.
[2021-05-28] MEDS: heparin,porcine 1,000 unit/mL INJ 1 mL 1000 UNIT IRRIGATION (13:43)
[2021-05-28] MEDS: lidocaine 2% INJ 20 mL INJECTION (13:49)
--- NOTE | 2021-05-28 14:00 | PM.PN ---
Subjective Subjective: Interval history: Patient had the tunneled catheter placement today in the right subclavian vein. Vital signs are stable. Denies any chest pain or chest tightness. No unusual shortness of breath. Currently he is getting the hemodialysis. Medications: Reviewed: Yes Medication Review Details: Current Medications Acetaminophen (Acetaminophen 325 Mg Tablet) 650 mg PO Q6H PRN PRN Reason: Mild/Mod Pain Or Temp >/= 101 Last Admin: 05/27/21 21:17 Dose: 650 mg Documented by: Hydrocodone Bitart/Acetaminophen (Hydrocodone-Acetaminophen 5-325 Mg Tablet) 1 tab PO ONCE PRN PRN Reason: MODERATE PAIN Last Admin: 05/28/21 00:49 Dose: 1 tab Documented by: Allopurinol (Allopurinol 100 Mg Tablet) 100 mg PO DAILY [facility] Last Admin: 05/28/21 08:54 Dose: 100 mg Documented by: Alteplase, Recombinant (Alteplase 1 Mg/Ml Sdv 2 Ml) 2 mg INTRACATH PRN PRN PRN Reason: DIALYSIS USE ONLY Aspirin (Aspirin 81 Mg Ec Tablet) 81 mg PO DAILY [facility] Last Admin: 05/28/21 08:54 Dose: 81 mg Documented by: Atorvastatin Calcium (Atorvastatin 40 Mg Tablet) 40 mg PO DAILY [facility] Last Admin: 05/28/21 08:54 Dose: 40 mg Documented by: Atropine Sulfate (Atropine 1 Mg/Ml Sdv 1 Ml) 0.5 mg IVP PRN PRN PRN Reason: Symptomatic bradycardia Bisacodyl (Bisacodyl 5 Mg Tablet) 10 mg PO DAILY PRN; Protocol PRN Reason: Constipation (see protocol) Last Admin: 05/20/21 20:57 Dose: 10 mg Documented by: Clopidogrel Bisulfate (Clopidogrel 75 Mg Tablet) 75 mg PO DAILY [facility] Last Admin: 05/27/21 14:08 Dose: Not Given Documented by: Dextrose (Dextrose 50% Syringe 50 Ml) 50 ml IVP PRN PRN; Protocol PRN Reason: hypoglycemia protocol Ergocalciferol (Ergocalciferol (Vitamin D2) 50,000 Unit Capsule) 50,000 unit PO Q7D [facility] Last Admin: 05/26/21 09:09 Dose: 50,000 unit Documented by: Furosemide (Furosemide 40 Mg Tablet) 80 mg PO BID@08,16 [facility] Last Admin: 05/28/21 08:54 Dose: 80 mg Documented by: Glucagon (Glucagon 1 Mg/Ml Inj 1 Ml) 1 mg IM ONCE PRN; Protocol PRN Reason: Adult Acute Hypoglycemia Prot. Heparin Sodium (Porcine) (Heparin 5,000 Unit/Ml Inj 1 Ml) 5,000 unit SUBCUT Q12H [facility] Last Admin: 05/28/21 06:37 Dose: Not Given Documented by: Albumin Human (Albumin) 12.5 gm in 50 mls @ 60 mls/hr IV PRN PRN PRN Reason: Hypotension and/or symptomatic Sodium Chloride (Sodium Chloride 0.9%) 1,000 mls @ 30 mls/hr IV .Q24H ELIAZAR Cefazolin Sodium 2,000 mg/ (Sodium Chloride) 60 mls @ 100 mls/hr IV ONCE ONE Stop: 05/28/21 14:05 Last Infusion: 05/28/21 13:17 Dose: Infused Documented by: Insulin Human Lispro (Insulin Lispro 100 Unit/1 Ml) 0 unit SUBCUT Q4H [facility]; Protocol Last Admin: 05/28/21 11:46 Dose: Not Given Documented by: Lactulose (Lactulose Oral Liq 20 Gm/30 Ml Udc) 10 gm PO DAILY PRN; Protocol PRN Reason: Constipation (see protocol) Metoprolol Succinate (Metoprolol Succinate Er (24 Hr) 25 Mg Tablet) 12.5 mg PO BID [facility] Last Admin: 05/28/21 08:54 Dose: 12.5 mg Documented by: Midodrine (Midodrine 5 Mg Tablet) 5 mg PO TID PRN PRN Reason: SBP less than 100 mhg Last Admin: 05/24/21 11:09 Dose: 5 mg Documented by: Multivitamins (N-Dnnbcre-Gxtxenp C Tablet) 1 each PO DAILY [facility] Last Admin: 05/28/21 08:54 Dose: 1 each Documented by: Naloxone HCl (Naloxone 0.4 Mg/Ml Sdv) 0.1 mg IVP Q2M PRN PRN Reason: RESPIRATORY RATE < 8/MIN Nitroglycerin (Nitroglycerin 0.4 Mg Sublingual Tablet) 0.4 mg SUBLINGUAL Q5M PRN PRN Reason: CHEST PAIN Ondansetron HCl (Ondansetron 2 Mg/Ml Sdv 2 Ml) 4 mg IVP Q8H PRN PRN Reason: vomiting, or N/V if npo Pantoprazole Sodium (Pantoprazole Dr 40 Mg Tablet) 40 mg PO BID [facility] Last Admin: 05/28/21 08:55 Dose: 40 mg Documented by: Sucralfate (Sucralfate 1 Gm Tablet) 1 gm PO AC&BEDTIME [facility] Last Admin: 05/28/21 11:45 Dose: Not Given Documented by: Tramadol HCl (Tramadol 50 Mg Tablet) 50 mg PO Q6H PRN PRN Reason: MODERATE PAIN Last Admin: 05/28/21 10:30 Dose: 50 mg Documented by: Vitals/I&O/Wt Last Vital Signs Temp 97.5 F L 05/28/21 12:59 Pulse 73 05/28/21 12:59 Resp 18 05/28/21 12:59 BP 125/71 05/28/21 12:59 Pulse Ox 97 05/28/21 12:59 05/27/21 05/28/21 05/28/21 22:59 06:59 14:59 Intake Total 0 / 0 60 / 60 Output Total 200 / 400 Balance -200 / -400 60 / 60 Weight last 48 hrs Weight 188 lb Weight 189 lb 1 oz Weight 188 lb 14.978 oz Physical Exam Narrative: EXAM NARRATIVE: GENERAL: The patient is alert and oriented times three. Not in any acute distress. Unkempt HEENT: Moderate pallor. No icterus or lymphadenopathyoral cavity: There are no mucous membrane lesions. F NECK: Trachea appears to be central. No masses noted. No JVD or thyromegaly appreciated. No carotid bruit. RESPIRATORY: Chest is symmetrical. No intercostals muscle retraction or any accessory muscle activation. There is no chest wall tenderness. Breath sounds are heard bilaterally. Few fine rales and occasional expiratory wheezing. BREASTS: Deferred. HEART: The PMI could not be palpated. But no other palpable precordial events. No palpable precordial events. S1 and S2 are normal. No S3 or S4 heard. No pericardial rub or any click heard. ABDOMEN: No vessel pulsations or distention. No tenderness. No organomegaly appreciated. No abdominal bruit. Bowel sounds are normally heard. : Deferred. RECTAL: Deferred. LYMPHATIC: No lymphadenopathy noted in the neck or groin. EXTREMITIES: Medium size hematoma in the right groin. MUSCULOSKELETAL: No acute joint deformities or swelling SKIN: There are no significant scars or skin rash noted. NEUROPSYCHIATRIC: The patient is alert and oriented x3. Appears to be in a good mood. The higher functions are grossly within normal limits. No tremors or rigidity noted. Urinary Catheter Management^: Vega: Cath Placed During This Visit: yes Reason for Continuing Indwelling Catheter: Accurate Measurement of Urinary Output in Critically Ill Patients Urinary Catheter Date of Insertion: 05/18/21 Urinary Catheter Time of Insertion: 19:51 Data : 05/29/21 04:37 05/29/21 04:37 Other Labs: Laboratory Last Values WBC 9.1 10^3/uL (4.0-10.0) 05/28/21 03:26 RBC 3.02 10^6/uL (4.1-5.3) L 05/28/21 03:26 Hgb 8.7 g/dL (11.7-16.6) L 05/28/21 03:26 Hct 28.3 % (42.0-52.0) L 05/28/21 03:26 MCV 93.7 fl (80-94) 05/28/21 03:26 MCH 28.8 pg (28.0-34.0) 05/28/21 03:26 MCHC 30.7 g/dL (30.0-36.0) 05/28/21 03:26 RDW 18.0 % (12.1-15.1) H 05/28/21 03:26 Plt Count 116 10^3/cmm (130-400) L 05/28/21 03:26 MPV 12.4 fL (7.4-10.4) H 05/28/21 03:26 Neut % (Auto) 66.0 % 05/28/21 03:26 Lymph % (Auto) 19.1 % 05/28/21 03:26 [place] % (Auto) 9.1 % 05/28/21 03:26 Eos % (Auto) 4.0 % 05/28/21 03:26 Baso % (Auto) 0.8 % 05/28/21 03:26 Neut # (Auto) 5.98 10^3/uL (1.8-7.7) 05/28/21 03:26 Lymph # (Auto) 1.7 10^3/uL (0.8-4.8) 05/28/21 03:26 [place] # (Auto) 0.8 10^3/uL (0.2-0.9) 05/28/21 03:26 Eos # (Auto) 0.4 10^3/uL (0.0-0.8) 05/28/21 03:26 Baso # (Auto) 0.1 10^3/uL (0.0-0.1) 05/28/21 03:26 Nucleated RBC % (auto) 0.2 % 05/28/21 03:26 Nucleated RBCs # 0.0 /100WBC 05/28/21 03:26 APTT > 250.0 SECONDS (23.9-36.7) H* D 05/22/21 15:45 Specimen Type Arterial 05/19/21 08:25 Sample Site Brachial, right 05/19/21 08:25 ABG pH 7.36 (7.35-7.45) 05/19/21 08:25 ABG pCO2 32.4 mmHg (35-45) L 05/19/21 08:25 ABG pO2 90.7 mmHg (80.0-100.0) 05/19/21 08:25 ABG HCO3 18.2 mmol/L (22-26) L 05/19/21 08:25 ABG O2 Saturation 97.7 05/19/21 08:25 ABG Base Excess -6.6 mmol/L (-2.0-2.0) L 05/19/21 08:25 Mac Test Pos 05/19/21 08:25 A-a O2 Gradient 2.2 mmHg (5-10) L 05/19/21 08:25 Hematocrit 27.6 % (42-52) L 05/19/21 08:25 Hgb O2 Saturation 95.5 % (95-100) 05/19/21 08:25 Carboxyhemoglobin 1.1 %THgb (0.4-20.1) 05/19/21 08:25 Methemoglobin 1.1 % (0.4-1.5) 05/19/21 08:25 Total Hemoglobin 9.0 g/dL (14-18) L 05/19/21 08:25 Sodium 134.0 mmol/L (131-143) 05/19/21 08:25 Potassium 3.2 mmol/L (3.5-5.0) L 05/19/21 08:25 Glucose 137.0 mg/dL (70-115) H 05/19/21 08:25 Ionized Calcium 1.0 mmol/L (1.1-1.4) L 05/19/21 08:25 O2 Delivery Device Not Reportable 05/19/21 08:25 FiO2 21.0 % 05/19/21 08:25 Drier Feeder ID Bd 05/19/21 08:25 Sodium 131 mmol/L (136-145) L 05/28/21 03:26 Potassium 3.8 mmol/L (3.5-5.1) 05/28/21 03:26 Chloride 95 mmol/L (98-107) L 05/28/21 03:26 Carbon Dioxide 26 mmol/L (22-29) 05/28/21 03:26 Anion Gap 13.8 (5-19) 05/28/21 03:26 BUN 25 mg/dL (8-23) H 05/28/21 03:26 Creatinine 2.7 mg/dL (0.7-1.2) H 05/28/21 03:26 GFR Calculation Not Reportable 05/28/21 03:26 Glucose 77 mg/dL (65-115) 05/28/21 03:26 POC Glucose 94 mg/dL (70-110) 05/28/21 11:17 Estimat Average Glucose 143 05/19/21 03:25 Hemoglobin A1c 6.6 % (4.0-6.0) H 05/19/21 03:25 Calculated Osmolality 275 mOsm/kg (285-295) L 05/28/21 03:26 Lactate 1.5 mmol/L (0.5-2.2) 05/18/21 17:08 Uric Acid 5.3 mg/dL (3.4-7.0) 05/18/21 17:08 Calcium 7.9 mg/dL (8.5-10.5) L 05/28/21 03:26 Phosphorus 3.7 mg/dL (2.5-4.5) 05/28/21 03:26 Magnesium 1.9 mg/dL (1.7-2.3) 05/28/21 03:26 Iron 38 ug/dL (59-158) L 05/19/21 03:25 TIBC 176 mcg/dl 05/19/21 03:25 % Saturation 21.5 % (20-50) 05/19/21 03:25 Unsat Iron Binding 138 ug/dL (112-347) 05/19/21 03:25 Ferritin 265 ng/mL (30-400) 05/19/21 03:25 Total Bilirubin 0.6 mg/dL (0.15-1.2) 05/28/21 03:26 AST 21 U/L (0-40) 05/28/21 03:26 ALT 9 U/L (0-41) 05/28/21 03:26 Alkaline Phosphatase 173 IU/L (40-130) H 05/28/21 03:26 Creatine Kinase 227 U/L (39-308) 05/18/21 17:08 Troponin T Gen 5 ng/L 602 ng/L (0-15) H* 05/20/21 05:23 Troponin T Baseline 443 ng/L (0-15) H* 05/18/21 14:50 NT-Pro-B Natriuret Pep 82722 pg/mL (0-450) H 05/19/21 03:25 Total Protein 4.9 g/dL (6.6-8.7) L 05/28/21 03:26 Albumin 2.7 g/dL (3.5-5.2) L 05/28/21 03:26 Globulin 2.2 g/dL (1.3-4.6) 05/28/21 03:26 Triglycerides 68 mg/dL (0-150) 05/19/21 03:25 Cholesterol 111 mg/dL (0-200) 05/19/21 03:25 LDL Cholesterol, Calc 61 mg/dL (50-129) 05/19/21 03:25 Total VLDL Cholesterol 14 mg/dL (0-30) 05/19/21 03:25 HDL Cholesterol 36 mg/dL (60-100) L 05/19/21 03:25 Cholesterol/HDL Ratio 3.08 mg/dL (1.0-5.00) 05/19/21 03:25 Lipase 74 U/L (13-60) H 05/18/21 14:50 25-OH Vitamin D Total 10 ng/mL (30-100) L 05/19/21 03:25 1,25 Dihydroxy Vit D2 <8 pg/mL 05/18/21 17:08 1,25 Dihydroxy Vit D3 <8 pg/mL 05/18/21 17:08 Procalcitonin 0.23 ng/mL (0-0.5) 05/18/21 17:08 TSH 3.38 uIU/mL (0.27-4.20) 05/18/21 17:08 PTH Intact 711.0 pg/mL (15-65) H 05/18/21 17:08 Calcium (PTH Intact) 7.9 mg/dL (8.5-10.5) L 05/18/21 17:08 Urine Color Yellow (Yellow) 05/18/21 19:51 Urine Appearance Clear (CLEAR) 05/18/21 19:51 Urine pH 5 (5-7) 05/18/21 19:51 Ur Specific [place] 1.025 (1.005-1.030) 05/18/21 19:51 Urine Protein 3+ (Negative) H 05/18/21 19:51 Urine Glucose (UA) Norm (Normal) 05/18/21 19:51 Urine Ketones Negative (Negative) 05/18/21 19:51 Urine Blood 2+ (Negative) H 05/18/21 19:51 Urine Nitrate Negative (Negative) 05/18/21 19:51 Urine Bilirubin Neg (Negative) 05/18/21 19:51 Urine Urobilinogen Norm mg/dL (Negative) 05/18/21 19:51 Ur Leukocyte Esterase Negative (Negative) 05/18/21 19:51 Urine RBC 0-4 /hpf (0-2) H 05/18/21 19:51 Urine WBC 0-4 /hpf (0-5) H 05/18/21 19:51 Ur Squamous Epith Cells 0-4 /hpf (0-5) H 05/18/21 19:51 Amorphous Sediment 3+ /hpf 05/18/21 19:51 Urine Bacteria Trace /hpf (NONE) 05/18/21 19:51 Ur Random Microalbumin 158 ug/dL (0-20) H 05/18/21 19:51 Ur Random Sodium 21 mmol/L 05/18/21 19:51 Ur Random Potassium 24 mmol/L 05/18/21 19:51 Ur Random Chloride 21 mmol/L 05/18/21 19:51 Urine Creatinine 159 mg/dL (39-259) 05/18/21 19:51 Urine Creatinine 159 mg/dL (39-259) 10/24/21 19:51 Microalb/Creat Ratio 994 mg/dL (0-20) H 05/18/21 19:51 Urine Opiates Screen Negative ng/mL (Negative) 05/18/21 19:51 Ur Barbiturates Screen Negative ng/mL (Negative) 05/18/21 19:51 Ur Phencyclidine Scrn Negative ng/mL (Negative) 05/18/21 19:51 Ur Amphetamines Screen Negative ng/mL (Negative) 05/18/21 19:51 U Benzodiazepines Scrn Negative ng/mL (Negative) 05/18/21 19:51 Urine Cocaine Screen Negative ng/mL (Negative) 05/18/21 19:51 U Marijuana (THC) Screen Negative ng/mL (Negative) 05/18/21 19:51 Hep Bs Antigen Non-reactive (Nonreactive) 05/18/21 17:08 Hep Bs Antibody 3.5 (11.5-1000) L 05/18/21 17:08 Hepatitis C Antibody Non-reactive (Nonreactive) 05/18/21 17:08 Hepatitis C Antibody Non-reactive (Nonreactive) 05/18/21 17:08 Blood Type O Positive 05/27/21 09:35 Rho(D) Type Positive 05/27/21 09:35 Antibody Screen Negative 05/27/21 09:35 Crossmatch See Detail 05/27/21 09:35 Micro: Microbiology 05/24/21 22:00 Gram Stain - Final Sputum - Expectorated Sputum Sputum Culture - Final A&P Assessment and plan (1) Atherosclerosis of coronary artery of [place] heart without angina pectoris: Patient status post PCI of the venous graft to obtuse marginal artery. Seems to be stable with no specific cardiac symptoms at this time. Status: Acute Qualifiers: Coronary Disease-Associated Artery/Lesion type: [place] artery Qualified Code(s): I25.10 - Atherosclerotic heart disease of [place] coronary artery without angina pectoris (2) Acute renal failure: Status post dialysis catheter placement to right subclavian vein. Status: Acute Qualifiers: Acute renal failure type: unspecified Qualified Code(s): N17.9 - Acute kidney failure, unspecified (3) 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: Hemoglobin seems to be stable. Management as per the primary. Status: Acute (4) Severe calcific aortic valve stenosis: We may consider dobutamine stress echo to better evaluate the aortic valve stenosis, possibly as an outpatient. Status: Acute (5) Ischemic cardiomyopathy: Appear to be stable status post stent appear to be in compensated heart failure continue current regimen. In view of the poor LV ejection fraction, need to discuss about LifeVest. Currently there is no family members available to discuss about this. I will try to get a hold of his son who has a power of director hydrogen storage engineering. Status: Acute (6) Pseudoaneurysm: Will repeat the ultrasound examination in a week to follow-up on this. May continue on the current treatment for the time being Status: Resolved Additional A&P Information The problems are Type 2 diabetes Essential benign hypertension-currently normotensive Had discussions with the patient's family/power of director hydrogen storage engineering. Both patient and his power of director hydrogen storage engineering did not want the LifeVest or ICD. 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
--- NOTE | 2021-05-28 14:01 | XR_ITS ---
WS: [id number] Portable AP upright chest, 05/28/2021 Clinical Data: POST IJ DIALYSIS CATH PLACEMENT Comparison: Portable chest, 05/18/2021. Findings: The right dialysis catheter ends at the cavoatrial junction. The pulmonary vascularity is i ncreased with small effusions and cardiomegaly. Midline sternotomy sutures are present. Monitor leads are on the chest wall. XR/XR chest 1V portable [id number] Impression: 1. Cardiomegaly with pulmonary vascular congestion. 2. Right dialysis catheter.
--- NOTE | 2021-05-28 14:04 | P.OP_ITS ---
Operative Report Date of procedure: May 28, 2021 Pre-op Diagnosis: Acute renal failure Post-op diagnosis: same Procedure Done: 1. Placement of 16 [place] 23/28 cm long AshSplit tunneled hemodialysis catheter right internal jugular vein 2. Fluoroscopic guidance and interpretation for placement of catheter 3. Exchange and a guidewire via a previously placed nontunneled right IJ hemodialysis catheter 4. Explanation of Temporary HD catheter from Right IJ vein. Implants: 16 [place] tubePlacement of a HemoSplit hemodialysis catheter 16 [place] 23/28 CM Surgeon: Sylvester [employer] Counselor: biofuels production technician Riya Circulating nurse Mary Jane Anesthesia: MAC (Gómez Baxter and Dr. Carlos) Estimated blood loss (mL): 10 Condition: stable Disposition: floor Procedure: Patient was identified in the holding area and taken to the operative room and placed in supine position ,both arms were tucked,Time-out was done verifying the patient's name/date of /planned procedure and destination after the procedure, all were in agreement.SCDs confirmed to be functioning, intubated by anesthesia ,patient was given prophylactic antibiotics administered per protocol, and beta belinda protocol was confirmed, appropriate positioning of the patient was done by me. Medications were reviewed to assess for anticoagulant usage. Risks and benefits and prevention of central line associated blood stream infection (CLABSI) were discussed with the patient/CPOA, and a consent was obtained. Monitors were in place and monitored throughout the procedure. All necessary supplies were avail able prior to start. Hand hygiene was completed prior to starting. Maximum barrier technique was utilized including a sterile gown, sterile gloves with a hat and mask. Site was was prepped with [chlorhexidine] and a full body drape was placed. 5 mL of 2% lidocaine was injected into the skin with a 25 gauge needle. Prep& drape was done under the usual sterile technique of upper chest right and left as well as the neck both sides, lidocaine 2% was injected at the site of the Right IJ cathetr, started by taking an index fluro as the cathetr was in good position and flushes blood well,then I started passing the guide wire whoah was then threaded without any difficulty and under the guidance of fluoroscopy position was confirmed to be in the right sideo fthe heart, there was some PVC changes, the wire was ulled out some and PVCs were gone,at that point the guidewire was secured to the drapes with a hemostat and the needle was taken out, attention was then deviated towards creation of an insert for the HD catheter at the right upper chest, were lidocaine 2% was injected using an 11 blade knife skin incision was created dissection using a hemostat to create an entrance and for the HD catheter to be inserted were it was connected to a tunneler, and the tunneler was used to accommodate the catheter of the HD catheter to be delivered through the incision first created at the site of the stick ,which is at the right side of the neck, a small heather was created with 11 blade knife to allow delivery of the catheter outside the wound ,at that point under fluoroscopy,serial dilators were done that come in the in the KIT, followed by that a dilator with the sheath introduced onto the guidewire ,the dilator and the wire were retrieved and the catheter of the port was introduced via the sheath where it was peeled off and the catheter maintained, to be in good position in the right atrium Both ports were flushed with diluted heparin and appropriate blood was retrieved first, Hep-Lock's were then applied The whole procedure was done under fluoroscopy , the position maintained to be in the rt atrium that was confirmed with fluoroscopy, and the fluoroscopy interpretation was done by me throughout the entire procedure. The stick site was closed by 3-0 Vicryl deep subdermal interrupted sutures, followed by 4-0 Monocryl and Dermabond was used followed by dry dressing was keven lied,3/0 nylon was used to secure the hemodialysis catheter onto the anterior chest wall. Patient tolerated the procedure well was taken to the recovery area Count was correct at the end of the procedure I was present for the whole entire procedure Position of the catheter was checked with a postoperative chest x-ray and it was in good position without evidence of pneumothorax on both sides of the Thorax
[2021-05-28 14:14] LABS: Coronavirus Test Green County Not Detected
--- NOTE | 2021-05-28 14:25 | SUR.PHASEI ---
oral airway removed, patient arouses. simple mask still in place
--- NOTE | 2021-05-28 15:31 | PC.NURSE ---
pt went to or via bed at 1200.return from or at 1510.report received.pt is alert and awake.sr on monitor.bp stable.right upper chest with drsg intact.red drng noted and marked.instructed pt to call staff for any pain,or for any concerns at all.pt verb understanding of instructions
--- NOTE | 2021-05-28 16:37 | PC.NURSE ---
Received orders from physician to resume plavix 75mg today
--- NOTE | 2021-05-28 16:51 | PM.PN ---
Subjective Subjective: Interval history: Patient was seen this morning, he is n.p.o. over midnight, waiting for his tunnel dialysis catheter placement, no events overnight, Patient was seen after his procedure, he tells me is doing well, he tells me that he has been bleeding from the site, but the nurses have been applying pressure, he is awaiting dialysis, he tells me that it can be too late for him to go home tonight, he would prefer to go early in the morning tomorrow, currently denies any lightheadedness, dizziness, no shortness of breath Vitals/I&O/Wt Last Vital Signs Temp 97.4 F L 05/28/21 14:45 Pulse 69 05/28/21 14:45 Resp 16 05/28/21 14:45 BP 106/60 05/28/21 14:45 Pulse Ox 96 05/28/21 14:45 05/28/21 05/28/21 05/28/21 06:59 14:59 22:59 Intake Total 360 / 360 Output Total Balance 350 / 350 Weight last 48 hrs Weight 85.275 kg Weight 85.757 kg Weight 85.7 kg Physical Exam Const: COMMON NORMALS: no acute distress and patient oriented x3 Chest: OTHER: Right chest tunneled dialysis catheter in place, bandage on top has blood present Resp: COMMON NORMALS: normal respiratory effort, No retractions, No use of accessory muscles and clear to auscultation bilaterally AUSCULTATION: clear to auscultation bilaterally Cardio: COMMON NORMALS: regular rate, regular rhythm, S1 normal heart sound present and S2 normal heart sound present RATE: regular rate RHYTHM: regular rhythm HEART SOUNDS: S1 normal heart sound present and S2 normal heart sound present GI: COMMON NORMALS: Normal to inspection, nondistended, normoactive bowel sounds present, Soft to palpation and non-tender PALPATION: Yes Soft to palpation Extremity: COMMON NORMALS: no pedal edema Neuro: COMMON NORMALS: patient oriented x3 Psych: COMMON NORMALS: mental status grossly normal Urinary Catheter Management^: Vega: Cath Placed During This Visit: yes Reason for Continuing Indwelling Catheter: Accurate Measurement of Urinary Output in Critically Ill Patients Urinary Catheter Date of Insertion: 05/18/21 Urinary Catheter Time of Insertion: 19:51 Data : 05/28/21 03:26 05/28/21 03:26 Micro: Microbiology 05/24/21 22:00 Gram Stain - Final Sputum - Expectorated Sputum Sputum Culture - Final A&P Assessment and plan (1) 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: Status: Acute Qualifiers: Coronary Disease-Associated Artery/Lesion type: wrangell artery Qualified Code(s): I25.10 - Atherosclerotic heart disease of wrangell coronary artery without angina pectoris (2) Acute renal failure: Status: Acute Qualifiers: Acute renal failure type: unspecified Qualified Code(s): N17.9 - Acute kidney failure, unspecified (3) 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 Renal ultrasound: Unremarkable right kidney and bladder.left kidney is not visible due to bowel gas Urinalysis : 3+ protein Lasix 80 mg p.o. twice daily In the absence of meaningful renal recovery.Plan is to place tunneled dialysis catheter tomorrow, status post tunneled dialysis catheter in place, continue to monitor surgical site, pressure over surgical site, change dressing as needed, continue Plavix tonight Nephrology on consult Patient has a dialysis chair as an outpatient. Acute on chronic anemia, secondary to acute renal failure, bone marrow suppression, possible slow GI bleed - is on aspirin and Plavix secondary to stent placement -Status post 1 unit PRBC -Possible slow GI bleed, Protonix 40 twice daily, with Carafate -Hemoccult stool -Monitor hemoglobin History of congestive heart failure: History of CABG: Currently on room air. Euvolemic. Echocardiogram : EF of 25 to 30% with global LV hypokinesia with possible slow flow severe aortic stenosis. LifeVest utility, if the family agrees, he will be discharged on LifeVest. CAD : S/P : PCI of the venous graft to the obtuse marginal artery ( 05/21). Severe three-vessel coronary disease. Occluded venous graft to the diagonal and to the PDA. High-grade lesion in the venous graft to the obtuse marginal artery. Patent [place] to the LAD. Continue with aspirin, statin. Beta-belinda, Plavix resumed after dialysis catheter placement informed nurse to give dose today, hold hydralazine 10 mg p.o. 3 times daily, Arrhythmia: Patient having frequent VPCs. Continue metoprolol 12.5 mg twice daily for now. Sepsis: Cannot rule out sepsis secondary to possible pneumonia versus diarrheal disease. Patient does have a history of MSSA cellulitis of leg. Oxygen supplementation keeping saturation over 90%. Blood cultures so far negative. MRSA negative, urine Legionella, bacterial antigen negative. Initially on Levophed has been weaned off. Completed 5-day course of Zosyn. Continue wound care as per wound care orders. Hyperkalemia/metabolic acidosis: Hyperkalemia resolved. Metabolic acidosis resolved. Altered mental status: Resolved. Most likely secondary to uremia along with hypoglycemia. Ammonia level, urine drug screen, salicylate, alcohol level negative. Fall precaution. Frequent reorientation. Hypoglycemia: Better. History of type 2 diabetes mellitus: Hypoglycemia most likely secondary to worsening renal functions and use of sulfonylurea on 05/17 evening. Hypoglycemic protocol with insulin sliding scale at low-dose protocol. Hold off on oral hypoglycemics or long-acting insulin for now. HbA1c 6.6. Hypertension: Goal blood pressure less than 140/90 mmHg. Continue to monitor. Midodrine to 5 mg 3 times a day as needed for systolic blood pressure of less than 100 mmHg. Continue home oral medication including allopurinol, statin. For now hold off on pregabalin as patient was confused today morning after getting medication last night. CODE STATUS: Discussed with at bedside. Full code. Protonix for PUD prophylaxis. Heparin 5000 every 12 for DVT prophylaxis. Renal dialysis diet. 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
[2021-05-28 17:01] LABS: Glucose Point of Care 132 mg/dL (70-110)
--- NOTE | 2021-05-28 18:49 | ANE.PACU2 ---
Inpatient post-anesthesia follow up: Airway intact: Yes Vital signs: Temperature 97.4 F Pulse Rate [Monito r] 72 Pulse Rate 69 Respiratory Rate 16 Blood Pressure [Le ft Arm] 129/75 Blood Pressure 106/60 Pulse Oximetry 96 Oxygen Delivery Me thod Room Air Oxygen Flow Rate 6 Fraction of Inspir ed Oxygen Hydration adequate: Yes Nausea and vomiting: No Pain level: 2 Mental status: Baseline
--- NOTE | 2021-05-28 21:24 | PC.NURSE ---
blood sugar 61 this morning at 0700.oj given by nightshift.rechecked..and bs 57.1/2 d50 given per orders.rechecked and bs 97.to or for insertion of tunneled dialysis catheter at 1320.return from or at 1505.pt drowsy but easily awakened.denies pain .right upper chest with drsg intact.small amt of red drng.to dialysis via bed at 1650.
--- NOTE | 2021-05-28 22:02 | PC.HD ---
Rec'd pt with thick gauze under tegaderm dressing to new tunnelled cath site, dressing saturated with bloody drainage and clots which were not contained by the dressing. Dressing removed, small but steady drainage noted to insertion site. Thick gauze & tegaderm dressing applied and 1L IV bag (2.2lbs) placed on dressing. By treatment end, bloody drainage showing through dressing so dressing reinforced with folded ABD and foam tape pressure dressing.
[2021-05-28 23:14] LABS: Glucose Point of Care 151 mg/dL (70-110)
[2021-05-29 02:59] LABS: Glucose Point of Care 138 mg/dL (70-110)
[2021-05-29 03:43] VITALS: BP 110/55; PULSE 71; RESP 19; TEMP 36.6; O2SAT 97
[2021-05-29 04:59] LABS: Basophils # 0.1 10^3/uL (0.0-0.1); Basophils % 0.8 %; Eosinophils # 0.2 10^3/uL (0.0-0.8); Eosinophils % 1.9 %; Hematocrit 29.2 % (42.0-52.0); Hemoglobin 8.8 g/dL (11.7-16.6); Lymphocytes % 12.8 %; Mean Corpuscular HGB Conc 30.1 g/dL (30.0-36.0); Mean Corpuscular Hemoglobin 29.2 pg (28.0-34.0); Mean Platelet Volume 12.8 fL (7.4-10.4); Monocytes # 0.6 10^3/uL (0.2-0.9); Neutrophils # 5.99 10^3/uL (1.8-7.7); Neutrophils % 75.6 %; Nucleated Red Blood Cells % 0 %; Platelet Count 104 10^3/cmm (130-400); Red Blood Count 3.01 10^6/uL (4.1-5.3); Red Cell Distribution Width 18.7 % (12.1-15.1); White Blood Count 7.9 10^3/uL (4.0-10.0)
[2021-05-29 05:25] LABS: Alanine Aminotransferase 9 U/L (0-41); Albumin Level 2.6 g/dL (3.5-5.2); Alkaline Phosphatase 154 IU/L (40-130); Anion Gap 11.1 (5-19); Aspartate Amino Transferase 18 U/L (0-40); Blood Urea Nitrogen 15 mg/dL (8-23); Calcium 7.5 mg/dL (8.5-10.5); Carbon Dioxide 27 mmol/L (22-29); Chloride 99 mmol/L (98-107); Globulin 2.1 g/dL (1.3-4.6); Glucose 131 mg/dL (65-115); Osmolality Calculated 279 mOsm/kg (285-295); Phosphorus 2.9 mg/dL (2.5-4.5); Potassium 4.1 mmol/L (3.5-5.1); Sodium 133 mmol/L (136-145); Total Bilirubin 0.3 mg/dL (0.15-1.2); Total Protein 4.7 g/dL (6.6-8.7)
[2021-05-29 05:25] LABS: Glucose Point of Care 155 mg/dL (70-110)
[2021-05-29 05:30] VITALS: PULSE 48
--- NOTE | 2021-05-29 05:52 | PC.NURSE ---
Addendum entered by Josefina Thompson RN 05/29/21 06:42: HR of 38 to 50bpm reported to NORAH Coates. Original Note: Shift Note Frequent safety and comfort rounds continue. Orders and/or nursing care completed as indicated. Patient monitored for response to intervention and treatment(s). Education provided includes dialysis results and new medication education for hydrocodone.. Patient verbalizes understanding of education. Pt's HR at approximately 0200 on began to bounce betweeb 38bpm to 50 bpm. Pt denies CP or dizziness. Will continue to monitor.
[2021-05-29] MEDS: insulin lispro 100 unit/1 mL SUBCUT (06:26)
[2021-05-29] MEDS: heparin 5,000 unit/mL INJ 1 mL 5000 UNIT SUBCUT (06:26)
[2021-05-29] MEDS: sucralfate 1 gm Tablet PO (06:28)
[2021-05-29] MEDS: HYDROcodone-acetaminophen 5-325 mg Tablet 1 TAB PO (06:36)
[2021-05-29 08:00] VITALS: BP 126/63; PULSE 75; RESP 18; TEMP 37.1; O2SAT 96
[2021-05-29] MEDS: b-complex-vitamin c Tablet 1 EACH PO (08:41)
[2021-05-29] MEDS: aspirin 81 mg EC Tablet PO (08:41)
[2021-05-29] MEDS: FUROsemide 40 mg Tablet 80 MG PO (08:41)
[2021-05-29] MEDS: allopurinol 100 mg Tablet PO (08:41)
[2021-05-29] MEDS: metoprolol succinate ER (24 HR) 25 mg Tablet 12.5 MG PO (08:42)
[2021-05-29] MEDS: pantoprazole DR 40 mg Tablet PO (08:42)
[2021-05-29] MEDS: atorvastatin 40 mg Tablet PO (08:42)
--- NOTE | 2021-05-29 09:59 | P.PN_ITS ---
Subjective Subjective: Interval history: Mr. Driscoll feels well today with no acute issues. Dialysis went well yesterday, tolerating the procedure nicely. Tunneled dialysis line is working nicely. Hemodynamics reviewed, remained stable. No shortness of breath or other hypervolemic symptoms. Keen to go home today. Vitals/I&O/Wt Last Vital Signs Temp 98 F 05/29/21 03:43 Pulse 48 L 05/29/21 05:30 Resp 19 H 05/29/21 03:43 BP 110/55 05/29/21 03:43 Pulse Ox 97 05/29/21 03:43 05/28/21 05/29/21 05/29/21 22:59 06:59 14:59 Intake Total 540 / 900 450.25 / 1350.25 Output Total 1032 / 1142 Balance -492 / -242 450.25 / 208.25 Weight last 48 hrs Weight 86.545 kg Weight 87.1 kg Weight 85.275 kg Physical Exam Narrative: EXAM NARRATIVE: Constitutional: Awake, comfortable HEENT: Wet mucosa, no jvp, non icteric Lungs: Bilaterally clear without discernible wheeze, rales in all lung zones CVS: S1 S2, no murmurs Abdo: Soft, BS ok Ext 4: Minimal edema, peripheral perfusion with no cyanosis Neurological: Grossly non-focal Urinary Catheter Management^: Vega: Cath Placed During This Visit: yes Reason for Continuing Indwelling Catheter: Accurate Measurement of Urinary Output in Critically Ill Patients Urinary Catheter Date of Insertion: 05/18/21 Urinary Catheter Time of Insertion: 19:51 Data : 05/29/21 04:37 05/29/21 04:37 A&P Additional A&P Information 1. New ESRD For dialysis tomorrow, continue Wednesday, Wednesday, Wednesday schedule. Outpatient placement pending confirmation. Dose medication for GFR less than 15 on dialysis Avoid usual nephrotoxic agents 2. Chemistry Noncritical aberration 3. Anemia of ESRD Hemoglobin 8.8 iron saturation 21.5% ferritin 265, will need iron loading, as he is going home today his Coumadin as an outpatient, will need a post an outpatient as well. 4. Hemodynamics Blood pressure now on the softer side. No changes to antihypertensive therapy at this time. Allan Alejandra MD Nephrology [phone] Patient seen and examined via telemedicine, with the assistance of the bedside RN > 25 min spent in evaluation and mgmt of patient Attestations Medical Necessity Statement*: renal failure Coding Level of Care Code Acute Pharmacy Billing Adjudicator for [facility]
--- NOTE | 2021-05-29 12:14 | PC.SOCIAL ---
IMM Update Pg. 2 of IMM updated and reviewed with patient, who verbalized understanding. Copy provided.
--- NOTE | 2021-05-29 13:09 | PC.NURSE ---
Pressure dressing reapplied to new tunneled catheter access site as patient was still oozing. Patient and Son have gone over d/c instructions with nurse. All questions have been answered. Pt is awaiting arrival of spouse for discharge.
[2021-05-29 13:21] VITALS: BP 113/66; PULSE 67; RESP 18; TEMP 37.1
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
[2021-05-29 13:58] VITALS: BP 113/66; PULSE 67; RESP 18; TEMP 37.1
--- NOTE | 2021-06-02 15:35 | PC.SOCIAL ---
hospital follow up call made. spoke with pts . pts was very unhappy with pts care during pts hospitalization. pts wishes to speak to nurse bilingual account manager about hospital stay. screen writer will pass this information onto Yin Marlow RN nurse bilingual account manager.
== END 2021-05-29 13:59 | disposition home health service (06) | DRG 673 ==
LOC: ER 14:51 → ICU 17:12 → CSU 05-24 18:30
PROVIDERS: Internal Medicine; Internal Medicine Cardiovascular Disease; Internal Medicine Nephrology; Surgery; Admitting Provider Student in an Organized Health Care Education/Training Program; Emergency Provider Emergency Medicine; PCP Family Medicine; Visit Provider Family Medicine
PROC: B213YZZ Fluoroscopy of Multiple Coronary Artery Bypass Grafts using Other Contrast (ICD-10-PCS; principal; 2021-05-21 18:00)
DX: N17.9 Acute kidney failure, unspecified (principal); I50.33 Acute on chronic diastolic (congestive) heart failure; A41.9 Sepsis, unspecified organism; J18.9 Pneumonia, unspecified organism; I13.2 Hypertensive heart and chronic kidney disease with heart failure and with stage 5 chronic kidney disease, or end stage renal disease; I25.810 Atherosclerosis of coronary artery bypass graft(s) without angina pectoris; E87.1 Hypo-osmolality and hyponatremia; E11.649 Type 2 diabetes mellitus with hypoglycemia without coma; E11.42 Type 2 diabetes mellitus with diabetic polyneuropathy; E11.51 Type 2 diabetes mellitus with diabetic peripheral angiopathy without gangrene; E11.22 Type 2 diabetes mellitus with diabetic chronic kidney disease; N18.5 Chronic kidney disease, stage 5; I25.10 Atherosclerotic heart disease of native coronary artery without angina pectoris; I25.2 Old myocardial infarction; M10.9 Gout, unspecified; E78.5 Hyperlipidemia, unspecified; Z87.891 Personal history of nicotine dependence; E87.5 Hyperkalemia; D63.1 Anemia in chronic kidney disease; I25.5 Ischemic cardiomyopathy; I35.0 Nonrheumatic aortic (valve) stenosis; D50.9 Iron deficiency anemia, unspecified; I72.4 Aneurysm of artery of lower extremity; I48.91 Unspecified atrial fibrillation
CPT/HCPCS: 36415; 36416; 36430; 36556; 36600; 51702; 51798; 71045; 74018; 74176; 76000; 76770; 77001; 80048; 80051; 80053; 80061; 80306; 81001; 82044; 82306; 82310; 82330; 82436; 82550; 82570; 82652; 82728; 82805; 82962; 83036; 83540; 83550; 83605; 83690; 83735; 83880; 83970; 84100; 84133; 84145; 84300; 84443; 84484; 84550; 85025; 85347; 85730; 86403; 86706; 86803; 86850; 86900; 86920; 87040; 87070; 87086; 87205; 87340; 87449; 87635; 87641; 90935; 92937; 93005; 93306; 93455; 93926; 94664; 96365; 96367; 96372; 97110; 97116; 97161; 97530; 99291; C1725; C1750; C1769; C1874; C1887; C1894; J0610; J0690; J1644; J1756; J1815; J2250; J2270; J2543; J2704; J2916; J3010; J3475; J3490; J7030; J7040; J7799; P9016; Q3014; Q4081; Q9967

== ENCOUNTER 2021-05-29 18:35 | Emergency (ER) | payer MEDICARE, SELFPAY ==
--- NOTE | 2021-05-29 18:41 | XRR_ITS ---
PROCEDURE INFORMATION: Exam: XR Chest Exam date and time: 05/29/2021 6:41 PM Age: 81 years old Clinical indication: Other vascular access device placement or adjustment; Other: Dialysis catheter; Prior surgery; Surgery type: Heart; Additional info: Eval dialysis cathether placement TECHNIQUE: Imaging protocol: XR of the chest. Views: 1 view. COMPARISON: CR XR chest 1V portable [id number] 05/28/2021 2:26 PM FINDINGS: Tubes, catheters and devices: Tunneled right IJ dialysis catheter with tip over the mid SVC. Mild kink in the catheter at the apex of the bend in the neck. Lungs: Vascular congestion. Mild interstitial opacities in the lung bases. Pleural spaces: Small pleural effusions. No pneumothorax. Heart/Mediastinum: Mild cardiomegaly. Bones/joints: Median sternotomy changes. XR/XR chest 1V portable [id number] IMPRESSION: 1. Mild kink in the dialysis catheter at the apex in the neck. 2. Mild pulmonary edema and small pleural effusions. Radiation Dose CTDIVOL = (mGy): DLP = (mGy-cm)
[2021-05-29 18:43] VITALS: BP 134/68; PULSE 88; RESP 18; TEMP 36.4; O2SAT 96; BMI 24.7
--- NOTE | 2021-05-29 19:34 | ED_ITS ---
HPI - General Adult General: Chief complaint: General Medical Stated complaint: BLEEDING FROM DIALYSIS PORT Time Seen by Provider: 05/29/21 18:36 History of Present Illness: HPI narrative: Patient is an 81-year-old male with a history of ESRD who recently had a tunneled subclavian dialysis catheter placed on 05/28/2021 presents emergency room with concerns of dialysis site bleeding. Patient says that since the procedure, he has noted trickling of blood around the dialysis insertion site. However since like hour ago, patient has noted significant bleeding. Patient had to stop the bleeding and called EMS. By the time EMS arrived, the bleeding has stopped. Patient presents the emergency room currently is not bleeding. Patient has no other focal complaints at this time. Onset: 1 day ago Duration:1 day Location:home Severity:moderate Review of Systems Narrative: Constitutional: No fever, no chills. HEENT: No vision changes CV: No chest pain, no palpitations PULM: no cough, no dyspnea. GI: No abdominal pain, no N/V/D. : No dysuria MSKEL: No muscle pain SKIN: +R subclavian dialysis site bleeding NEURO: No headache, no focal weakness. HEME: No visible bruises PSYCH: Normal mood PFSH ED PFSH: Medical History Benign hypertension CKD (chronic kidney disease) 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 Diabetic neuropathy Gout Hyperkalemia Hx of Hyperlipidemia Peripheral neuropathy Type 2 diabetes mellitus Surgical History H/O cataract extraction H/O hernia repair Previous back surgery S/P appendectomy S/P tonsillectomy Family History Brother Hypertension Social History Smoking and tobacco status: former smoker Quit status (tobacco): has quit using tobacco Year quit tobacco: 2005 Second hand smoke exposure: No Alcohol intake: current Alcohol intake frequency: other Alcohol type: other Physical Exam Narrative: EXAM NARRATIVE: Head: Atraumatic Eyes: PERRL, conjunctiva without injection ENT: Mucous membrane moist NECK: Supple, ROM intact LUNGS: LCTAB, no crackles/rhonchi CV: RRR ABDOMEN: Soft, nontender in all quadrants EXTREMITY: Normal ROM SKIN: +R tunneled subclavian cathther without any surrounding induration, no active source of bleeding NEURO: Awake and alert, no focal motor deficits PSYCH: Normal mood and affect Procedures Laceration Laceration 1: Site: chest Size (cm): 1.5 Description: linear Depth: simple, single layer Amount of anesthesia used (mL): 3 Skin layer closed with: vicryl Size (cm): other (3 1-0 stitches were sterily applied to the site dialysis entry site (1 figure of 8, 1 simple interrupted stitch, and 1 horizontal mattre ss)) Course Vital Signs: Vital signs: Vital Signs Temperature 97.6 F 05/29/21 18:43 Pulse Rate 88 05/29/21 18:43 Respiratory Rate 18 05/29/21 18:43 Blood Pressure 122/59 05/29/21 21:04 Pulse Oximetry 96 05/29/21 18:43 MDM - General Adult MDM Narrative: Medical decision making narrative: 81-year-old male with history of aspirin and Plavix presenting to the emergency room with concerns for dialysis site bleeding. On arrival, patient is hemodynamically stable, no active source of bleeding at this time. Dialysis insertion site looks dry clean intact. Work-up: CBC, BMP, type and screen, PT/PTT/INR, x-ray chest X-ray confirmed proper dialysis line placement. Patient was observed in the emergency room without any significant bleeding. H&H appears to be stable. Concerns for bleeding, patient was given desmopressin. I placed 3 stitches around the dialysis catheter insertion site with successful hemostasis. Patient has not had any bleeding from the dialysis cathether site since. Please refer to the procedure note. Patient aware that sutures need to be removed in 10-14 days. Disposition: Discharge. Patient counseled regarding diagnostic impression, treatment plan. Patient given ED strict return precautions to return for continuation, worsening, or development of new symptoms. Instructed to f/u w/ PCP regarding symptoms today. Patient verbalized understanding. Lab Data: Labs: Lab Results 05/29/21 05/29/21 05/29/21 21:24 21:24 21:24 WBC 11.3 10^3/uL H 10 ^3/uL (4.0-10.0) RBC 3.07 10^6/uL L 10 ^6/uL (4.1-5.3) Hgb 8.9 g/dL L g/dL (11.7-16.6) Hct 28.6 % L % (42.0-52.0) MCV 93.2 fl fl (80-94) MCH 29.0 pg pg (28.0-34.0) MCHC 31.1 g/dL g/dL (30.0-36.0) RDW 18.5 % H % (12.1-15.1) Plt Count 137 10^3/cmm D 1 0^3/cmm (130-400) MPV 12.9 fL H fL (7.4-10.4) Neut % (Auto) 78.2 % % Lymph % (Auto) 11.9 % % [place] % (Auto) 7.0 % % Eos % (Auto) 1.7 % % Baso % (Auto) 0.5 % % Neut # (Auto) 8.82 10^3/uL H 10 ^3/uL (1.8-7.7) Lymph # (Auto) 1.3 10^3/uL 10^3/ uL (0.8-4.8) [place] # (Auto) 0.8 10^3/uL 10^3/ uL (0.2-0.9) Eos # (Auto) 0.2 10^3/uL 10^3/ uL (0.0-0.8) Baso # (Auto) 0.1 10^3/uL 10^3/ uL (0.0-0.1) Nucleated RBC % (a uto) 0 % % Nucleated RBCs # 0.0 /100WBC /100W BC PT 14.60 SECONDS SEC ONDS (12.1-14.9) INR 1.11 (0.8-1.2) APTT 36.8 SECONDS H SE CONDS (23.9-36.7) Sodium 132 mmol/L L mmol /L (136-145) Potassium 4.3 mmol/L mmol/L (3.5-5.1) Chloride 94 mmol/L L mmol/ L (98-107) Carbon Dioxide 25 mmol/L mmol/L (22-29) Anion Gap 17.3 (5-19) BUN 21 mg/dL mg/dL (8-23) Creatinine 2.6 mg/dL H mg/dL (0.7-1.2) GFR Calculation Not Reportable Glucose 161 mg/dL H mg/dL (65-115) Calculated Osmolal ity 280 mOsm/kg L mOs m/kg (285-295) Calcium 7.8 mg/dL L mg/dL (8.5-10.5) Imaging Data^: Other Imaging: Radiologist's impression: [address] [id number] ReportSigned Patient: Leonel Driscoll BUnit #: [id number]: [id number]#:[id number]/Sex: 81 / MADM Date: 05/29/21Loc: ERRoom/Bed:Attending Dr: Ordering Provider/Ordering MD: Jann Echavarria MD Date of Service: 05/29/21 Procedure(s): XR chest 1V portable [id number] Accession Number(s): [id number] Report Number: [id number] PROCEDURE INFORMATION: Exam: XR Chest Exam date and time: 05/29/2021 6:41 PM Age: 81 years old Clinical indication: Other vascular access device placement or adjustment; Other: Dialysis catheter; Prior surgery; Surgery type: Heart; Additional info: Eval dialysis cathether placement TECHNIQUE: Imaging protocol: XR of the chest. Views: 1 view. COMPARISON: CR XR chest 1V portable [id number] 05/28/2021 2:26 PM FINDINGS: Tubes, catheters and devices: Tunneled right IJ dialysis catheter with tip over the mid SVC. Mild kink in the catheter at the apex of the bend in the neck. Lungs: Vascular congestion. Mild interstitial opacities in the lung bases. Pleural spaces: Small pleural effusions. No pneumothorax. Heart/Mediastinum: Mild cardiomegaly. Bones/joints: Median sternotomy changes. XR/XR chest 1V portable [id number] IMPRESSION: 1. Mild kink in the dialysis catheter at the apex in the neck. 2. Mild pulmonary edema and small pleural effusions. Radiation Dose CTDIVOL = (mGy): DLP = (mGy-cm) Dictated By:Pj Arce By:Pj Arce Date/Time:05/29/21 2009DD/ 1841 Discharge Plan Discharge Patient Disposition: Home Clinical Impression: Vascular dialysis catheter in place Condition: Stable Prescriptions: No Action sevelamer carbonate 800 mg tablet 800 mg PO BID 90 Days Qty: 180 RF: 0 Vitamin B-12 500 mcg Tablet 500 mcg PO DAILY RF: 0 Glucosamine Chondroitin 550-30-1 mg Capsule 1 cap PO DAILY RF: 0 atorvastatin 40 mg tablet 40 mg PO DAILY RF: 0 allopurinol 100 mg tablet 100 mg PO DAILY RF: 0 pregabalin 25 mg capsule 25 mg PO BEDTIME RF: 0 aspirin 81 mg Tablet,Delayed Release (Dr/Ec) 81 mg PO DAILY 30 Days Qty: 30 RF: 0 clopidogrel 75 mg Tablet 75 mg PO DAILY 30 Days Qty: 30 RF: 0 Vitamin D2 1,250 mcg (50,000 unit) Capsule 50,000 unit PO Q7D 30 Days Qty: 4 RF: 0 furosemide 40 mg Tablet 80 mg PO BID@08,16 30 Days Qty: 120 RF: 0 hydrocodone-acetaminophen 5-325 mg Tablet 1 tab PO BID PRN (Reason: Moderate Pain) 7 Days Qty: 14 RF: 0 sucralfate 1 gram Tablet 1 g PO AC&BEDTIME 30 Days Qty: 60 RF: 0 pantoprazole 40 mg Tablet,Delayed Release (Dr/Ec) 40 mg PO BID 30 Days Qty: 60 RF: 0 nitroglycerin 0.4 mg Tablet, Sublingual 0.4 mg sublingual Q5M PRN (Reason: Chest Pain) 30 Days Qty: 30 RF: 0 metoprolol succinate 25 mg Tablet Extended Release 24 Hr 12.5 mg PO BID 30 Days Qty: 30 RF: 0 Humalog KwikPen Insulin 100 unit/mL insulin pen See Rx Instructions .ROUTE .COMPLEX Qty: 15 RF: 0 Discharge Orders: Discharge ED (Routine); Ordered 05/29/21 Ordered By: Jann Echavarria Referrals: Malaika Mayorga MD [Primary Care Provider] - Discharge Diet: Advance as tolerated Discharge Activity: Resume usual activity Patient Instructions: Hemodialysis (DC) Activity Restrictions/Additional Instructions: Please follow-up with your prefinish operator for dialysis. Come back to the emergency room if you have any new bleeding. Please take all your sutures in 10 to 14 days. Come back if there is any signs of infection at your dialysis port site including drainage, redness, if you have any fever or chills, any new or concerning complaints. Coding Level of Care Code ED Sales Support Administrator for [facility]ks
[2021-05-29] MEDS: sodium bicarbonate 8.4% 1 mEq/mL 50mL Syr 50 MEQ IVP (20:39)
[2021-05-29 21:04] VITALS: BP 122/59
[2021-05-29 21:34] LABS: Basophils # 0.1 10^3/uL (0.0-0.1); Basophils % 0.5 %; Eosinophils # 0.2 10^3/uL (0.0-0.8); Eosinophils % 1.7 %; Hematocrit 28.6 % (42.0-52.0); Hemoglobin 8.9 g/dL (11.7-16.6); Lymphocytes # 1.3 10^3/uL (0.8-4.8); Lymphocytes % 11.9 %; Mean Corpuscular HGB Conc 31.1 g/dL (30.0-36.0); Mean Corpuscular Volume 93.2 fl (80-94); Mean Platelet Volume 12.9 fL (7.4-10.4); Monocytes # 0.8 10^3/uL (0.2-0.9); Neutrophils # 8.82 10^3/uL (1.8-7.7); Neutrophils % 78.2 %; Nucleated Red Blood Cells % 0 %; Platelet Count 137 10^3/cmm (130-400); Red Blood Count 3.07 10^6/uL (4.1-5.3); Red Cell Distribution Width 18.5 % (12.1-15.1); White Blood Count 11.3 10^3/uL (4.0-10.0)
[2021-05-29 21:52] LABS: INR 1.11 (0.8-1.2)
[2021-05-29 21:53] LABS: Partial Thromboplastin Time 36.8 SECONDS (23.9-36.7)
[2021-05-29 22:01] LABS: Anion Gap 17.3 (5-19); Blood Urea Nitrogen 21 mg/dL (8-23); Calcium 7.8 mg/dL (8.5-10.5); Carbon Dioxide 25 mmol/L (22-29); Chloride 94 mmol/L (98-107); Glucose 161 mg/dL (65-115); Osmolality Calculated 280 mOsm/kg (285-295); Potassium 4.3 mmol/L (3.5-5.1); Sodium 132 mmol/L (136-145)
[2021-05-29 23:03] VITALS: BP 119/51; PULSE 80; RESP 17; O2SAT 95
--- NOTE | 2021-05-29 23:07 | PC.NURSE ---
pt dressing reinforced and port ends cleaned by monique neves
== END 2021-05-29 23:07 | disposition home or self-care (01) ==
PROVIDERS: Emergency Provider Emergency Medicine; PCP Family Medicine
DX: E11.22 Type 2 diabetes mellitus with diabetic chronic kidney disease (principal); I13.10 Hypertensive heart and chronic kidney disease without heart failure, with stage 1 through stage 4 chronic kidney disease, or unspecified chronic kidney disease; N18.9 Chronic kidney disease, unspecified; Z87.891 Personal history of nicotine dependence; Z79.4 Long term (current) use of insulin; Z79.891 Long term (current) use of opiate analgesic; Z79.82 Long term (current) use of aspirin
CPT/HCPCS: 12001; 36415; 71045; 80048; 85025; 85610; 85730; 96365; 96375; 99284; J2597

== ENCOUNTER 2021-06-06 17:54 | Inpatient (IN) | payer MEDICARE, SELFPAY ==
--- NOTE | 2021-06-06 18:04 | W.ED.MALEGU ---
HPI - Male Genitourinary General: Chief complaint: Urogenital-Male Stated complaint: UTI No Urination 3 days Time Seen by Provider: 06/06/21 18:04 History of Present Illness: HPI Narrative: Mr. Driscoll is an 81-year-old gentleman with complex past medical history hypertension, hyperlipidemia, diabetes, end-stage renal disease on dialysis, ischemic cardiomyopathy presents emerged department due to abdominal concern. He recently had a fairly prolonged hospital course for acute renal failure and has been on dialysis since. He had mild increase shortness of breath and generalized malaise however his primary concern today is lower abdominal pain and scrotal swelling. The exact duration of the symptoms is somewhat unclear though for about the past 3 days he has not had urine output. He endorses prior to this that he was able to urinate a normal amount despite dialysis. He endorses pain in his perineal region and penis. He also notes discoloration and pain of his penis and glans. Overall the intensity symptoms moderate to severe. He was given a prescription for antibiotics for a UTI. Regardless the courses worsen. No other specific exacerbating or relieving factors identified. 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 No acute distress. Eyes -no scleral icterus, no conjunctival injection ENMT - Atraumatic external nose and ears. Moist mucous membranes NECK - supple. trachea midline CARDIOVASCULAR - regular rate and rhythm. Peripheral edema 2+.. RESPIRATORY -coarse at bases to auscultation bilaterally. No retractions or accessory muscle use. ABDOMEN/GI -generalized mild tenderness palpation worse in the lower region. - significant scrotal edema with mild overlying skin irritation, no evidence of cellulitis, likely stasis related changes. The testicles are identified and not discretely tender. There is edema involving the penis and mons pubis. Patient is circumcised. There is duskiness of the glans of the penis with overlying skin irritation likely fungal in nature. MSK - Extremities without obvious deformity or tenderness to palpation SKIN - Warm, Dry NEURO - alert and appropriately oriented. Moves all extremities equally. Course ED course: - Patient was seen and evaluated by me at bedside - Patient placed on cardiac monitors, IV access obtained - Initial evaluation notable for no acute distress, nontoxic appearance. Exam as noted above with body wall edema including scrotal edema likely explains patient's symptoms. - Labs notable for mild leukocytosis, anemia likely related to chronic kidney disease. No emergent need for dialysis based on metabolic panel. BNP elevated well above baseline. Procalcitonin mildly elevated, unclear source. Elevated TSH with normal free T4. Urinalysis pending at time of admission. - Imaging notable for no testicular torsion. CT without evidence of deep tracking infection. Bilateral pleural effusions which are small. Moderate anasarca.. Verbal report from tray server there is arterial flow to the penis though cannot comment further. - Discussed case with Dr. Schwartz of urology who agrees that ischemia is less likely and changes of the patient's penis are likely secondary to surrounding tissue edema. Discussed with Dr. Patel of nephrology. - Upon serial reexamination after treatment the patient was similar - Based on patient history, evaluation, labs, and imaging as interpreted the most likely cause of the patient's condition is body wall edema secondary to volume overload creating urinary retention - The results of ED evaluation were discussed with the patient including plan for admission due to requirement for level of care not available if discharged to prevent significant worsening/deterioration. -Hospitalist service contacted and agreed admit the patient. - Patient was admitted without further deterioration or significant events. Vital Signs: Vital signs: Vital Signs Temperature 98.3 F 06/10/21 13:39 Pulse Rate 67 06/10/21 13:39 Respiratory Rate 16 06/10/21 13:39 Blood Pressure 118/55 06/10/21 13:39 Pulse Oximetry 100 06/10/21 13:39 MDM - Male Medical Records: Attestation: I reviewed the patient's medical records. Lab Data: Attestation: I reviewed the patient's lab results. Labs: Lab Results 06/06/21 06/06/21 06/06/21 19:00 19:00 19:00 WBC 11.7 10^3/uL H 10 ^3/uL (4.0-10.0) RBC 3.24 10^6/uL L 10 ^6/uL (4.1-5.3) Hgb 9.4 g/dL L g/dL (11.7-16.6) Hct 30.5 % L % (42.0-52.0) MCV 94.1 fl H fl (80-94) MCH 29.0 pg pg (28.0-34.0) MCHC 30.8 g/dL g/dL (30.0-36.0) RDW 17.1 % H % (12.1-15.1) Plt Count 73 10^3/cmm L 10^ 3/cmm (130-400) MPV 13.0 fL H fL (7.4-10.4) Neut % (Auto) 87.8 % % Lymph % (Auto) 4.0 % % Delta % (Auto) 7.2 % % Eos % (Auto) 0.1 % % Baso % (Auto) 0.4 % % Neut # (Auto) 10.25 10^3/uL H 1 0^3/uL (1.8-7.7) Lymph # (Auto) 0.5 10^3/uL L 10^ 3/uL (0.8-4.8) Delta # (Auto) 0.8 10^3/uL 10^3/ uL (0.2-0.9) Eos # (Auto) 0.0 10^3/uL 10^3/ uL (0.0-0.8) Baso # (Auto) 0.1 10^3/uL 10^3/ uL (0.0-0.1) Nucleated RBC % (a uto) 0 % % Nucleated RBCs # 0.0 /100WBC /100W BC Sodium 136 mmol/L mmol/L (136-145) Potassium 4.3 mmol/L mmol/L (3.5-5.1) Chloride 94 mmol/L L mmol/ L (98-107) Carbon Dioxide 28 mmol/L mmol/L (22-29) Anion Gap 18.3 (5-19) BUN 13 mg/dL mg/dL (8-23) Creatinine 1.6 mg/dL H mg/dL (0.7-1.2) GFR Calculation Not Reportable Glucose 91 mg/dL mg/dL (65-115) Calculated Osmolal ity 282 mOsm/kg L mOs m/kg (285-295) Lactate 2.1 mmol/L mmol/L (0.5-2.2) Calcium 8.4 mg/dL L mg/dL (8.5-10.5) Total Bilirubin 0.8 mg/dL mg/dL (0.15-1.2) AST 17 U/L U/L (0-40) ALT < 5 U/L U/L (0-41) Alkaline Phosphata se 167 IU/L H IU/L (40-130) Troponin T Baselin e Troponin T [address] [place] Troponin T NT-Pro-B Natriuret Pep 49489 pg/mL H pg/ mL (0-450) Total Protein 6.2 g/dL L g/dL (6.6-8.7) Albumin 3.3 g/dL L g/dL (3.5-5.2) Globulin 2.9 g/dL g/dL (1.3-4.6) Procalcitonin 0.55 ng/mL H ng/m L (0-0.5) TSH 4.74 uIU/mL H uIU /mL (0.27-4.20) Free T4 06/06/21 06/06/21 06/06/21 19:00 19:06 21:19 WBC RBC Hgb Hct MCV MCH MCHC RDW Plt Count MPV Neut % (Auto) Lymph % (Auto) Delta % (Auto) Eos % (Auto) Baso % (Auto) Neut # (Auto) Lymph # (Auto) Delta # (Auto) Eos # (Auto) Baso # (Auto) Nucleated RBC % (a uto) Nucleated RBCs # Sodium Potassium Chloride Carbon Dioxide Anion Gap BUN Creatinine GFR Calculation Glucose Calculated Osmolal ity Lactate Calcium Total Bilirubin AST ALT Alkaline Phosphata se Troponin T Baselin e 509 ng/L H* ng/L (0-15) Troponin T [address] [place] 483.4 ng/L H ng/L (0-15) Delta Troponin T -25.6 ABS# L ABS# (0-10) NT-Pro-B Natriuret Pep Total Protein Albumin Globulin Procalcitonin TSH Free T4 0.88 ng/dL ng/dL (0.82-1.77) Discharge Plan Discharge Admit Provider: Sammy Newman Condition: Stable Discharge Orders: Discharge Order (Routine); Ordered 06/10/21 Ordered By: Atul Jackson Discharge Diet: Cardiac and Diabetic Discharge Activity: Resume usual activity and Increase activity as tolerated Coding Level of Care Code ED Epidemiology Investigator for Willie Wilks
[2021-06-06 18:09] VITALS: BP 99/47; PULSE 82; RESP 16; TEMP 36.7; O2SAT 99; BMI 26.6
--- NOTE | 2021-06-06 18:21 | CTR_ITS ---
PROCEDURE INFORMATION: Exam: CT Abdomen And Pelvis Without Contrast Exam date and time: 06/06/2021 6:21 PM Age: 81 years old Clinical indication: Patient HX: Perineal pain w scrotal edema; Additional info: Scrotal edema and perineal pain TECHNIQUE: Imaging protocol: Computed tomography of the abdomen and pelvis without contrast. Radiation optimization: All CT scans at this facility use at least one of these dose optimization techniques: automated exposure control; mA and/or kV adjustment per patient size (includes targeted exams where dose is matched to clinical indication); or iterative reconstruction. COMPARISON: CT abdomen pelvis wo con [id number] 05/18/2021 10:14 PM RADIATION DOSE METRICS: Total DLP (mGy-cm): 1839.12 FINDINGS: Pleural spaces: Bilateral small volume pleural effusions. Liver: Normal. No mass. Gallbladder and bile ducts: Punctate cholelithiasis. No ductal dilation. Pancreas: Atrophic. No ductal dilation. Spleen: Normal. No splenomegaly. Adrenal glands: Normal. No mass. Kidneys and ureters: Indeterminate 2 cm exophytic lesion in the posterior cortex of the right kidney. No hydronephrosis. Stomach and bowel: Unremarkable. No obstruction. No mucosal thickening. Appendix: No evidence of appendicitis. Intraperitoneal space: Trace free fluid in the lower abdomen and pelvis. No free air. No significant fluid collection. Vasculature: Advanced atherosclerotic calcifications of the abdominal aorta and its distal branches. No abdominal aortic aneurysm. Lymph nodes: Unremarkable. No enlarged lymph nodes. Urinary bladder: Unremarkable as visualized. Reproductive: Unremarkable as visualized. Bones/joints: No acute fracture. Advanced multilevel degenerative disc disease and spondylosis of the lumbar spine. Soft tissues: There is a hematoma in the right groin region measuring 4.0 x 2.7 x 5.0 cm series 2, image 94 and series 602, image 37. Edematous appearance of the partially visualized perineum, base of the penis, and scrotum. No foci of gas are seen. Moderate anasarca. CT/CT abdomen pelvis wo con [id number] IMPRESSION: 1. The perineum is partially visualized on exam. It appears edematous without specific findings of necrotizing tissue such as foci of gas. 2. Right groin hematoma measuring up to 5 cm in size. 3. Indeterminate 2 cm hyperdense lesion in the posterior cortex of the right kidney. This can be further evaluated with ultrasound to further characterize hyperdense cyst versus solid lesion. It could also be further characterized with renal mass protocol CT or MRI. 4. Cholelithiasis. 5. Bilateral small volume pleural effusions. Trace ascites. Moderate anasarca. COMMENTS: Consistent with the [employer]'s Incidental Findings Committee white paper (J Am Lasha Radiol 2018): Any incidental renal lesion less than 1 cm or classified as too small to characterize, or any incidental cystic renal lesion characterized as simple-appearing, is likely benign. No follow-up imaging is recommended for these lesions per consensus recommendations based on imaging criteria. Radiation Dose CTDIVOL = (mGy): DLP = 1839.12 (mGy-cm)
--- NOTE | 2021-06-06 18:21 | XRR_ITS ---
PROCEDURE INFORMATION: Exam: XR Chest Exam date and time: 06/06/2021 6:21 PM Age: 81 years old Clinical indication: Shortness of breath; Prior surgery; Surgery type: Stents placed in the last month. Bypass; Additional info: SOB TECHNIQUE: Imaging protocol: XR of the chest. Views: 1 view. COMPARISON: CR (CHEST, ) 05/29/2021 7:11 PM FINDINGS: Tubes, catheters and devices: Right central line terminates at the cavoatrial junction. Lungs: No consolidation. Pleural spaces: Left costophrenic blunting relating to scarring versus small volume pleural effusion. No pneumothorax. Heart/Mediastinum: No cardiomegaly. Bones/joints: Sternotomy wires noted. XR/XR chest 1V portable [id number] IMPRESSION: Left costophrenic blunting relating to scarring versus small volume pleural effusion. Otherwise, no acute findings. Radiation Dose CTDIVOL = (mGy): DLP = (mGy-cm)
--- NOTE | 2021-06-06 18:27 | ECG_ITS ---
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 Measurements Intervals [place] Rate: 81 P: -30 AR: 275 QRS: 51 QRSD: 161 T: -11 QT: 430 QTc: 500 Interpretive Statements SINUS RHYTHM WITH FIRST DEGREE AV BLOCK RIGHT BUNDLE BRANCH BLOCK [120+ ms QRS DURATION, UPRIGHT V1, 40+ ms S IN I/aVL/V4/V5/V6] Compared to ECG 05/20/2021 09:45:04 No significant changes Electronically Signed On 06-06-2021 19:45:00 BUSINESS SUPPORT ASSISTANT by Cristhian Michele M.D. [id number]
[2021-06-06] MEDS: morphine 4 mg/mL SDV 1 mL IVP ×2 (19:00→21:25)
[2021-06-06 19:21] LABS: Basophils # 0.1 10^3/uL (0.0-0.1); Basophils % 0.4 %; Eosinophils % 0.1 %; Hematocrit 30.5 % (42.0-52.0); Hemoglobin 9.4 g/dL (11.7-16.6); Lymphocytes # 0.5 10^3/uL (0.8-4.8); Mean Corpuscular HGB Conc 30.8 g/dL (30.0-36.0); Mean Corpuscular Volume 94.1 fl (80-94); Monocytes # 0.8 10^3/uL (0.2-0.9); Monocytes % 7.2 %; Neutrophils # 10.25 10^3/uL (1.8-7.7); Neutrophils % 87.8 %; Nucleated Red Blood Cells % 0 %; Platelet Count 73 10^3/cmm (130-400); Red Blood Count 3.24 10^6/uL (4.1-5.3); Red Cell Distribution Width 17.1 % (12.1-15.1); White Blood Count 11.7 10^3/uL (4.0-10.0)
[2021-06-06 19:36] LABS: Lactate (Lactic Acid level) 2.1 mmol/L (0.5-2.2)
--- NOTE | 2021-06-06 19:36 | USR_ITS ---
PROCEDURE INFORMATION: Exam: US Scrotum Exam date and time: 06/06/2021 7:36 PM Age: 81 years old Clinical indication: Scrotum pain; Additional info: Eval edema, vascular, R/O torsion TECHNIQUE: Imaging protocol: Real-time ultrasound of the scrotum and contents with color Doppler and image documentation. COMPARISON: US renal BI* [id number] 05/18/2021 4:17 PM FINDINGS: Right testicle: The right testicle measures 3.3 x 2.7 x 2.9 cm. No mass. No torsion. Normal vascular flow. Left testicle: The left testicle measures 3.1 x 2.6 x 2.4 cm. No mass. No torsion. Normal vascular flow. Epididymides: Left epididymal head cyst measuring 6 mm in size. Otherwise, unremarkable. Scrotum: Swelling of the scrotum. US/US scrotum [id number] IMPRESSION: 1. Negative for testicular torsion. 2. Swelling of the scrotal wall. Radiation Dose CTDIVOL = (mGy): DLP = (mGy-cm)
[2021-06-06 19:44] LABS: Troponin(5th) Baseline 509 ng/L (0-15)
[2021-06-06 19:48] LABS: Procalcitonin 0.55 ng/mL (0-0.5); Thyroid Stimulating Hormone 4.74 uIU/mL (0.27-4.20)
[2021-06-06] MEDS: aspirin 81 mg Chew Tablet 324 MG PO (20:07)
[2021-06-06 20:20] LABS: Alanine Aminotransferase < 5 U/L (0-41); Albumin Level 3.3 g/dL (3.5-5.2); Alkaline Phosphatase 167 IU/L (40-130); Anion Gap 18.3 (5-19); Aspartate Amino Transferase 17 U/L (0-40); Blood Urea Nitrogen 13 mg/dL (8-23); Calcium 8.4 mg/dL (8.5-10.5); Carbon Dioxide 28 mmol/L (22-29); Chloride 94 mmol/L (98-107); Globulin 2.9 g/dL (1.3-4.6); Glucose 91 mg/dL (65-115); Osmolality Calculated 282 mOsm/kg (285-295); Potassium 4.3 mmol/L (3.5-5.1); Sodium 136 mmol/L (136-145); Total Bilirubin 0.8 mg/dL (0.15-1.2); Total Protein 6.2 g/dL (6.6-8.7)
--- NOTE | 2021-06-06 20:27 | ECG_ITS ---
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 Measurements Intervals [place] Rate: 52 P: 99 KS: 254 QRS: 70 QRSD: 157 T: 120 QT: 478 QTc: 445 Interpretive Statements SINUS BRADYCARDIA WITH FIRST DEGREE AV BLOCK RIGHT BUNDLE BRANCH BLOCK [120+ ms QRS DURATION, UPRIGHT V1, 40+ ms S IN I/aVL/V4/V5/V6] Compared to ECG 06/06/2021 19:17:13 Sinus rhythm no longer present Electronically Signed On 06-08-2021 13:27:58 USER EXPERIENCE DEVELOPER by Shauna Morrissey M.D. [id number]
[2021-06-06 20:29] LABS: Free T4 Free Thyroxine 0.88 ng/dL (0.82-1.77)
[2021-06-06 22:17] LABS: Troponin 5 2HR 483.4 ng/L (0-15); Troponin 5 2HR Delta -25.6 ABS# (0-10)
[2021-06-06 22:55] VITALS: BP 99/45; PULSE 57; RESP 14; O2SAT 96
[2021-06-06 23:02] LABS: Add Urine Microscopic? YES; Bilirubin Urine Neg (Negative); Blood Urine 3+ (Negative); Glucose Urine UA Norm (Normal); Ketones Urine Negative (Negative); Leukocyte Esterase Urine 2+ (Negative); Nitrate Urine Negative (Negative); Protein Urine 3+ (Negative); Specific Gravity, Urine 1.005 (1.005-1.030); Urine Appearance SL Hazy (CLEAR); Urine Color Yellow (Yellow); Urobilinogen Urine Norm (Negative); pH Urine 6 (5-7)
[2021-06-06 23:06] LABS: Add Urine Culture? Yes; Bacteria Urine 2+ /hpf; RBC Urine 25-40 /hpf (0-2); Squamous Epithelial Cell Urine 0-4 /hpf (0-5); WBC Urine TOO NUMEROUS TO CNT /hpf (0-5)
[2021-06-06 23:08] VITALS: BMI 29.2
--- NOTE | 2021-06-06 23:30 | PM.HP ---
Providers/Chief Complaint Admitting Physician: Sammy Newman Primary Care Provider: Malaika Mayorga MD Chief Complaint: UTI No Urination 3 days History of Present Illness Katy Driscoll is a 81 year old male with past medical history of hypertension, dyslipidemia, diabetes, lesion, CHF, severe aortic stenosis, ischemic cardiomyopathy, EF of 25%, acute kidney injury, end-stage renal disease on hemodialysis treatments, deconditioning who was brought to emergency room due to increasing weakness, increasing peripheral edema, increasing shortness of breath. The patient is a poor historian, unable to provide full history due to his generalized weakness. His symptoms started several days ago and progressively got worse. He denies any associated chills, nausea vomiting, diarrhea. The swelling also involves his scrotum and penis. He denies any associated pain here. He has not urinated today. However ultrasound revealed large amount of residual urine in the bladder. The patient denies chest pain. No similar episodes in the past. PS after arriving to the floor the patient was found to be unresponsive with low blood pressure and bradycardia. Superficial respirations. Oxygenation remained stable however. According to the nursing staff the patient received morphine briefly before the transfer. Review of Systems General: Reports: 10 or more systems reviewed and unremarkable except in HPI and below Medications/Allergies Home Medications Medication Instructions Recorded Confirmed Last Taken Type sevelamer carbonate 800 mg tablet 800 mg PO BID 90 Days #180 tab 04/09/21 06/03/21 05/17/21 Rx Glucosamine Chondroitin 1 cap PO DAILY 05/18/21 06/05/21 05/17/21 History Vitamin B-12 500 mcg PO DAILY 05/18/21 06/05/21 05/17/21 History allopurinol 100 mg PO DAILY 05/18/21 06/05/21 05/17/21 History atorvastatin 40 mg PO DAILY 05/18/21 06/05/21 05/17/21 History pregabalin 25 mg PO BEDTIME 05/18/21 06/05/21 05/17/21 History aspirin 81 mg PO DAILY 30 Days #30 tab 05/28/21 06/05/21 Unknown Rx clopidogrel 75 mg PO DAILY 30 Days #30 tab 05/28/21 06/05/21 Unknown Rx ergocalciferol (vitamin D2) 50,000 unit PO Q7D 30 Days #4 cap 05/28/21 06/05/21 Unknown Rx [Vitamin D2] furosemide 80 mg PO BID@08,16 30 Days #120 tab 05/28/21 06/05/21 Unknown Rx metoprolol succinate 12.5 mg PO BID 30 Days #30 tab 05/28/21 06/05/21 Unknown Rx nitroglycerin 0.4 mg SUBLINGUAL Q5M PRN 30 Days 05/28/21 06/05/21 Unknown Rx #30 tab pantoprazole 40 mg PO BID 30 Days #60 tab 05/28/21 06/05/21 Unknown Rx sucralfate 1 g PO AC&BEDTIME 30 Days #60 tab 05/28/21 06/05/21 Unknown Rx cephalexin 250 mg capsule 250 mg PO BID 7 Days #14 cap 06/03/21 06/05/21 Unknown Rx insulin glargine 100 unit/mL 40 unit SUBCUT DAILY ml 06/03/21 06/05/21 Unknown History subcutaneous solution Allergies Allergy/AdvReac Type Severity Reaction Status Date / Time sevelamer Allergy Severe ALGY-Redness Verified 06/05/21 11:31 of Skin PFSH Acute PFSH: Medical History Benign hypertension CKD (chronic kidney disease) 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 Diabetic neuropathy Gout Hyperkalemia Hx of Hyperlipidemia Peripheral neuropathy Type 2 diabetes mellitus Surgical History H/O cataract extraction H/O hernia repair Previous back surgery S/P appendectomy S/P tonsillectomy Family History Brother Hypertension Social History Quit status (tobacco): has quit using tobacco Year quit tobacco: 2005 Second hand smoke exposure: No Alcohol intake: current Alcohol intake frequency: other Alcohol type: other Vitals/I&O/Wt Last Vital Signs Temp 98.1 F 06/06/21 18:09 Pulse 57 L 06/06/21 22:55 Resp 14 06/06/21 22:55 BP 99/45 06/06/21 22:55 Pulse Ox 96 06/06/21 22:55 06/06/21 06/06/2121 14:59 22:59 06:59 Output Total 300 / 300 Balance -300 / -300 Weight last 48 hrs Weight 77.111 kg Physical Exam Narrative: EXAM NARRATIVE: The patient looks weak and tired. Responses are slow but adequate. No acute distress. Slightly lethargic. Skin is warm and dry. Moist mucous membranes Eyes PERRL, extraocular muscles are intact Neck supple. No JVD Lungs clear. No wheezes or crackles. No respiratory distress Heart S1, S2, regular bradycardia Abdomen is soft, nontender, bowel sounds are present. Edema involving scrotum and foreskin. No significant associated hyperemia. No discharge. Extremities bilateral chronic venous stasis changes and severe edema in the lower extremities. No cyanosis or calf tenderness bilaterally Moves all extremities. Data : 06/06/21 19:00 06/06/21 19:00 Other Labs: Laboratory Results WBC 11.7 10^3/uL (4.0-10.0) H 06/06/21 19:00 RBC 3.24 10^6/uL (4.1-5.3) L 06/06/21 19:00 Hgb 9.4 g/dL (11.7-16.6) L 06/06/21 19:00 Hct 30.5 % (42.0-52.0) L 06/06/21 19:00 MCV 94.1 fl (80-94) H 06/06/21 19:00 MCH 29.0 pg (28.0-34.0) 06/06/21 19:00 MCHC 30.8 g/dL (30.0-36.0) 06/06/21 19:00 RDW 17.1 % (12.1-15.1) H 06/06/21 19:00 Plt Count 73 10^3/cmm (130-400) L 06/06/21 19:00 MPV 13.0 fL (7.4-10.4) H 06/06/21 19:00 Neut % (Auto) 87.8 % 06/06/21 19:00 Lymph % (Auto) 4.0 % 06/06/21 19:00 [place] % (Auto) 7.2 % 06/06/21 19:00 Eos % (Auto) 0.1 % 06/06/21 19:00 Baso % (Auto) 0.4 % 06/06/21 19:00 Neut # (Auto) 10.25 10^3/uL (1.8-7.7) H 06/06/21 19:00 Lymph # (Auto) 0.5 10^3/uL (0.8-4.8) L 06/06/21 19:00 [place] # (Auto) 0.8 10^3/uL (0.2-0.9) 06/06/21 19:00 Eos # (Auto) 0.0 10^3/uL (0.0-0.8) 06/06/21 19:00 Baso # (Auto) 0.1 10^3/uL (0.0-0.1) 06/06/21 19:00 Nucleated RBC % (auto) 0 % 06/06/21 19:00 Nucleated RBCs # 0.0 /100WBC 06/06/21 19:00 Sodium 136 mmol/L (136-145) 06/06/21 19:00 Potassium 4.3 mmol/L (3.5-5.1) 06/06/21 19:00 Chloride 94 mmol/L (98-107) L 06/06/21 19:00 Carbon Dioxide 28 mmol/L (22-29) 06/06/21 19:00 Anion Gap 18.3 (5-19) 06/06/21 19:00 BUN 13 mg/dL (8-23) 06/06/21 19:00 Creatinine 1.6 mg/dL (0.7-1.2) H 06/06/21 19:00 GFR Calculation Not Reportable 06/06/21 19:00 Glucose 91 mg/dL (65-115) 06/06/21 19:00 Calculated Osmolality 282 mOsm/kg (285-295) L 06/06/21 19:00 Lactate 2.1 mmol/L (0.5-2.2) 06/06/21 19:00 Calcium 8.4 mg/dL (8.5-10.5) L 06/06/21 19:00 Total Bilirubin 0.8 mg/dL (0.15-1.2) 06/06/21 19:00 AST 17 U/L (0-40) 06/06/21 19:00 ALT < 5 U/L (0-41) 06/06/21 19:00 Alkaline Phosphatase 167 IU/L (40-130) H 06/06/21 19:00 Troponin T Baseline 509 ng/L (0-15) H* 06/06/21 19:00 Troponin T 120 Minute 483.4 ng/L (0-15) H 06/06/21 21:19 Delta Troponin T -25.6 ABS# (0-10) L 06/06/21 21:19 NT-Pro-B Natriuret Pep 76215 pg/mL (0-450) H 06/06/21 19:00 Total Protein 6.2 g/dL (6.6-8.7) L 06/06/21 19:00 Albumin 3.3 g/dL (3.5-5.2) L 06/06/21 19:00 Globulin 2.9 g/dL (1.3-4.6) 06/06/21 19:00 Procalcitonin 0.55 ng/mL (0-0.5) H 06/06/21 19:00 TSH 4.74 uIU/mL (0.27-4.20) H 06/06/21 19:00 Free T4 0.88 ng/dL (0.82-1.77) 06/06/21 19:06 Urine Color Yellow (Yellow) 06/06/21 22:00 Urine Appearance Sl hazy (CLEAR) 06/06/21 22:00 Urine pH 6 (5-7) 06/06/21 22:00 Ur Specific [place] 1.005 (1.005-1.030) 06/06/21 22:00 Urine Protein 3+ (Negative) H 06/06/21 22:00 Urine Glucose (UA) Norm (Normal) 06/06/21 22:00 Urine Ketones Negative (Negative) 06/06/21 22:00 Urine Blood 3+ (Negative) H 06/06/21 22:00 Urine Nitrate Negative (Negative) 06/06/21 22:00 Urine Bilirubin Neg (Negative) 06/06/21 22:00 Urine Urobilinogen Norm mg/dL (Negative) 06/06/21 22:00 Ur Leukocyte Esterase 2+ (Negative) H 06/06/21 22:00 Urine RBC 25-40 /hpf (0-2) H 06/06/21 22:00 Urine WBC Too numerous to cnt /hpf (0-5) H 06/06/21 22:00 Ur Squamous Epith Cells 0-4 /hpf (0-5) H 06/06/21 22:00 Amorphous Sediment Not Reportable 06/06/21 22:00 Urine Bacteria 2+ /hpf (NONE) H 06/06/21 22:00 Impressions Abdomen/Pelvis CT 06/06/21 18:21 IMPRESSION: 1. The perineum is partially visualized on exam. It appears edematous without specific findings of necrotizing tissue such as foci of gas. 2. Right groin hematoma measuring up to 5 cm in size. 3. Indeterminate 2 cm hyperdense lesion in the posterior cortex of the right kidney. This can be further evaluated with ultrasound to further characterize hyperdense cyst versus solid lesion. It could also be further characterized with renal mass protocol CT or MRI. 4. Cholelithiasis. 5. Bilateral small volume pleural effusions. Trace ascites. Moderate anasarca. COMMENTS: Consistent with the [employer]'s Incidental Findings Committee white paper (J Am Lasha Radiol 2018): Any incidental renal lesion less than 1 cm or classified as too small to characterize, or any incidental cystic renal lesion characterized as simple-appearing, is likely benign. No follow-up imaging is recommended for these lesions per consensus recommendations based on imaging criteria. Radiation Dose CTDIVOL = (mGy): DLP = 1839.12 (mGy-cm) Chest X-Ray 06/06/21 18:21 IMPRESSION: Left costophrenic blunting relating to scarring versus small volume pleural effusion. Otherwise, no acute findings. Radiation Dose CTDIVOL = (mGy): DLP = (mGy-cm) Scrotum Ultrasound 06/06/21 19:36 IMPRESSION: 1. Negative for testicular torsion. 2. Swelling of the scrotal wall. Radiation Dose CTDIVOL = (mGy): DLP = (mGy-cm) Micro: Microbiology 06/06/21 21:19 Blood Culture - Preliminary Blood SPECIMEN COLLECTED 06/06/21 21:19 Blood Culture - Preliminary Blood SPECIMEN COLLECTED A&P Assessment and plan (1) Urinary tract infection: Status: Acute (2) Septic shock: Status: Acute (3) Acute metabolic encephalopathy: Status: Acute (4) Ischemic cardiomyopathy: Status: Acute (5) Severe calcific aortic valve stenosis: Status: Acute (6) Bradycardia: Status: Acute (7) Hypotension: Status: Acute (8) CHF (congestive heart failure): Status: Acute Qualifiers: Heart failure type: diastolic Heart failure chronicity: acute on chronic Qualified Code(s): I50.33 - Acute on chronic diastolic (congestive) heart failure (9) Type 2 diabetes mellitus: Status: Chronic Qualifiers: Diabetes mellitus manager intermediate insulin use: with manager intermediate use Diabetes mellitus complication status: without complication Qualified Code(s): E11.9 - Type 2 diabetes mellitus without complications; Z79.4 - half-way (current) use of insulin (10) Right kidney mass: Status: Acute (11) Thrombocytopenia: Status: Acute (12) Anemia: Status: Acute (13) Physical deconditioning: Status: Acute Additional A&P Information 81 year old male with past medical history of hypertension, dyslipidemia, diabetes, lesion, CHF, severe aortic stenosis, ischemic cardiomyopathy, EF of 25%, acute kidney injury, end-stage renal disease on hemodialysis treatments, deconditioning who was brought to emergency room due to increasing weakness, increasing peripheral edema, increasing shortness of breath. The patient developed acute decline in mental status on the floor with associated hypotension, bradycardia. Reportedly he was given morphine shortly before the transfer to the floor. Septic shock suspected to be secondary to urinary tract infection. I gave him a small bolus of saline and started him on norepinephrine drip. We will continue Zosyn. Will wait for the culture results. He has a Vega in. Asked the nurses to obtain a second good IV access. Will consider PICC line placement in the morning. Suspected side effect to morphine. The patient improved with Narcan. Transferring to the ICU. We will continue close monitoring there. We will consider additional doses of Narcan if necessary. Will need to be careful with IV fluids due to severe cardiomyopathy and CHF. No respiratory depression at this point. Acute metabolic encephalopathy secondary to above. Bradycardia. EKG shows heart rate of 50-55. Is improved with Narcan. No acute ischemic changes. Will consider external pacemaker if it persists. CHF with EF of 25%. No acute exacerbation at this point. We will review his home medications when the med rec is complete. He also has history of atrial fibrillation and severe aortic stenosis. Anemia. Will monitor. The CT showed right groin hematoma. We will monitor him clinically. We will recheck CBC in the morning. Thrombocytopenia. Probably chronic with some worsening probably due to infection. Will monitor. DVT prophylaxis. Teds and SCDs. No anticoagulation due to anemia and thrombocytopenia. Right kidney mass. Will need outpatient close follow-up and additional testing by the primary care team. Please speak with the patient and the family prior to discharge. Diabetes. Insulin sliding scale for now. CODE STATUS. Full code. The plan of care was discussed with the patient and his family. I also spoke with his son on the phone. He confirmed that the patient is full code. I answered to all his questions. He verbalized understanding and agreement. Critical care time spent on this encounter is 65 minutes. Attestations Medical Necessity Statement*: Based on my assessment of patient's diagnosis and plan of care he will require more than two midnights in the hospital Coding Level of Care Code Acute Railroad Construction Director for Chg Fwd Diagnoses Urinary tract infection N39.0 Septic shock A41.9; R65.21 Acute metabolic encephalopathy G93.41 Ischemic cardiomyopathy I25.5 Severe calcific aortic valve stenosis I35.0 Bradycardia R00.1 Hypotension I95.9 CHF (congestive heart failure) I50.33 Heart failure type: diastolic Heart failure chronicity: acute on chronic Type 2 diabetes mellitus E11.9; Z79.4 Diabetes mellitus detention insulin use: with detention use Diabetes mellitus complication status: without complication Right kidney mass N28.89 Thrombocytopenia D69.6 Anemia D64.9 Physical deconditioning R53.81
--- NOTE | 2021-06-06 23:36 | ECG_ITS ---
[facility] Test Date: 2021-06-06 Pat Name: Leonel Driscoll Department: Room: ICU08 Gender: Male Tankage Supervisor: : 1940 Requested By: Sammy Angel Order Number: [id number] Floyd MD: Shauna Morrissey M.D. Measurements Intervals [place] Rate: 54 P: AK: QRS: 87 QRSD: 165 T: 120 QT: 486 QTc: 461 Interpretive Statements Sinus bradycardia with first-degree AV block with frequent PVCs RIGHT BUNDLE BRANCH BLOCK [120+ ms QRS DURATION, UPRIGHT V1, 40+ ms S IN I/aVL/V4/V5/V6] Compared to ECG 06/06/2021 22:26:51 Frequent PVCs now present Electronically Signed On 06-08-2021 13:21:11 RECREATIONAL VEHICLE REPAIRER by Shauna Morrissey M.D. [id number]
[2021-06-06 23:53] VITALS: PULSE 64; RESP 19
[2021-06-07] VITALS (34 sets, daily range): BP systolic 76–154; BP diastolic 30–83; PULSE 54–87; RESP 0–22; TEMP 36.7–37.2; O2SAT 89–100
--- NOTE | 2021-06-07 00:07 | PC.NURSE ---
Rapid Response: This nurse responded found en to be very lethargic with systolic bp in the 50s, Dr. Newman gave v.o. for levophed drip, 0.4 mg Narcan and 250 ml NS bolus. patient transferred to ICU. patient AO at this time, Levophed drip turned off due to BP 111/58,
[2021-06-07] MEDS: sodium chloride 0.9% 250 ML IV (00:16)
[2021-06-07] MEDS: naloxone 0.4 mg/ml SDV IVP (00:17)
--- NOTE | 2021-06-07 00:17 | PC.NURSE ---
Rapid Response: Pt received from the ER and found to be very lethargic, would open eyes to verbal stimulus but immediately close them. Vitals showed HR 57, manual BP 52/36, RR 14 and BS 118. Pt here with Placed in trendelenburg position and rapid response called. LOAN ORIGINATOR team arrived (ICU, Respiratory, Field Counsel and Dr. Newman). Repeat manual BP 82/54. Orders received for NS 250ml bolus, Levophed gtt, narcan X1, EKG and transfer to ICU.
--- NOTE | 2021-06-07 00:33 | PC.NURSE ---
Pt came to floor from ER. Pt Bp was 52/36. He was waking up and falling asleep. Pt put in trendelemburg position then rapid response called. Pt was transfered to ICU
[2021-06-07] MEDS: cefTRIAXone 1,000 MG in sodium chloride 0.9% (plus) 50 ML 100 MG IV (00:46)
[2021-06-07] MEDS: piperacillin-tazobactam 3.375 GM in sodium chloride 0.9% (plus) 50 ML IV ×3 (00:47→17:40)
[2021-06-07 01:13] LABS: Glucose Point of Care 118 mg/dL (70-110)
[2021-06-07 02:41] LABS: Troponin 5 6HR 482.7 ng/L (0-15); Troponin 5 6HR Delta -26.3 ng/L (0-12)
[2021-06-07 03:45] LABS: Basophils # 0.1 10^3/uL (0.0-0.1); Basophils % 0.5 %; Eosinophils % 0.1 %; Hematocrit 27.6 % (42.0-52.0); Hemoglobin 8.2 g/dL (11.7-16.6); Lymphocytes # 0.6 10^3/uL (0.8-4.8); Lymphocytes % 6.9 %; Mean Corpuscular HGB Conc 29.7 g/dL (30.0-36.0); Mean Corpuscular Hemoglobin 28.7 pg (28.0-34.0); Mean Corpuscular Volume 96.5 fl (80-94); Mean Platelet Volume 12.7 fL (7.4-10.4); Monocytes # 0.7 10^3/uL (0.2-0.9); Monocytes % 7.5 %; Neutrophils # 7.85 10^3/uL (1.8-7.7); Neutrophils % 84.6 %; Nucleated Red Blood Cells % 0 %; Platelet Count 58 10^3/cmm (130-400); Red Blood Count 2.86 10^6/uL (4.1-5.3); Red Cell Distribution Width 17.1 % (12.1-15.1); White Blood Count 9.3 10^3/uL (4.0-10.0)
[2021-06-07 04:14] LABS: Anion Gap 17.4 (5-19); Blood Urea Nitrogen 17 mg/dL (8-23); Calcium 7.9 mg/dL (8.5-10.5); Carbon Dioxide 25 mmol/L (22-29); Chloride 95 mmol/L (98-107); Glucose 113 mg/dL (65-115); Osmolality Calculated 278 mOsm/kg (285-295); Phosphorus 2.9 mg/dL (2.5-4.5); Potassium 4.4 mmol/L (3.5-5.1); Sodium 133 mmol/L (136-145)
[2021-06-07 08:52] LABS: Glucose Point of Care 120 mg/dL (70-110)
--- NOTE | 2021-06-07 09:03 | P.CONIM_ITS ---
Providers/Reason For Consult Consulting Physician/Specialty*: Nephrology Reason for Consult*: Renal Failure Attending Physician: Duke Fuentes Primary Care Provider: Malaika Mayorga MD History of Present Illness History of Present Illness Thank you for consultation, today had the pleasure reviewing this very pleasant 81-year-old gentleman for evaluation of renal failure. I know him from recent hospitalization where hemodialysis was initiated. It is believed he has a significant component of cardiorenal syndrome. He did receive hemodialysis yesterday, presenting yesterday evening with inability to void for roughly 3 days. In the emergency room a bladder scan was performed which demonstrated over 600 mL of urine in place. A straight catheterization was performed. He has significantly edematous legs, thighs, lower abdomen and scrotum which we believe is contributing to his inability to void. Vega is now in place. Apart from that, he does feel very weak, fatigued. Hemodynamics are notably labile following hospitalization his blood pressure currently is 80/68, he is currently on Levophed at 2 mics per minute. There is noted that he has an ejection fraction of only 25% and moderate to severe aortic stenosis. He is currently following with cardiology with plans for further diagnostic testing down the road. Review of Systems Narrative: ROS - 12 point review of systems completed per HPI and subjective assessment, this includes Constitutional: Weakness, fatigue Respiratory: No SOB on exertion, comfortable at rest CardioVasc: No chest pain, palpitations Gastrointestinal: No nausea, no vomiting Neurological: No seizures, no AMS Derm: No new rashes, lesions or wounds Immunological: No seasonal and no food allergies Meds/Allergies Home Medications and Allergies Home Medications Medication Instructions Recorded Confirmed Last Taken Type Glucosamine Chondroitin 1 cap PO DAILY 05/18/21 06/07/21 05/17/21 History allopurinol 100 mg PO DAILY 05/18/21 06/07/21 05/17/21 History atorvastatin 40 mg PO DAILY 05/18/21 06/07/21 05/17/21 History cyanocobalamin (vitamin B-12) 500 mcg PO DAILY 05/18/21 06/07/21 05/17/21 History [Vitamin B-12] pregabalin 25 mg PO BEDTIME 05/18/21 06/07/21 05/17/21 History aspirin 81 mg PO DAILY 30 Days #30 tab 05/28/21 06/07/21 Unknown Rx clopidogrel 75 mg PO DAILY 30 Days #30 tab 05/28/21 06/07/21 Unknown Rx ergocalciferol (vitamin D2) 50,000 unit PO Q7D 30 Days #4 cap 05/28/21 06/07/21 Unknown Rx [Vitamin D2] furosemide 80 mg PO BID@08,16 30 Days #120 tab 05/28/21 06/07/21 Unknown Rx metoprolol succinate 12.5 mg PO BID 30 Days #30 tab 05/28/21 06/07/21 Unknown Rx nitroglycerin 0.4 mg SUBLINGUAL Q5M PRN 30 Days 05/28/21 06/07/21 Unknown Rx #30 tab sucralfate 1 g PO AC&BEDTIME 30 Days #60 tab 05/28/21 06/07/21 Unknown Rx cephalexin 250 mg capsule 250 mg PO BID 7 Days #14 cap 06/03/21 06/07/21 Unknown Rx insulin glargine 100 unit/mL 5 unit SUBCUT DAILY ml 06/03/21 06/07/21 Unknown History subcutaneous solution pantoprazole 40 mg PO BID PRN 06/07/21 06/07/21 Unknown History Allergies Allergy/AdvReac Type Severity Reaction Status Date / Time sevelamer Allergy Severe ALGY-Redness Verified 06/05/21 11:31 of Skin Current Medications Current Medications Generic Name Dose Route Start Last Admin Trade Name Freq PRN Reason Stop Dose Admin Piperacillin Sod/Tazobactam 50 mls @ 12.5 mls/hr 06/07/21 00:15 06/07/21 00:47 Sod 3.375 gm/ Sodium Chloride IV 12.5 mls/hr Q8H ELIAZAR Administration Protocol PFSH Acute PFSH: Medical History Benign hypertension CKD (chronic kidney disease) 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 Diabetic neuropathy Gout Hyperkalemia Hx of Hyperlipidemia Peripheral neuropathy Type 2 diabetes mellitus Surgical History H/O cataract extraction H/O hernia repair Previous back surgery S/P appendectomy S/P tonsillectomy Family History Brother Hypertension Social History Quit status (tobacco): has quit using tobacco Year quit tobacco: 2005 Second hand smoke exposure: No Alcohol intake: current Alcohol intake frequency: other Alcohol type: other Vitals/I&O/Wt Last Vital Signs Temp 98.1 F 06/06/21 18:09 Pulse 69 06/07/21 04:00 Resp 11 L 06/07/21 04:00 BP 100/43 06/07/21 04:00 Pulse Ox 100 06/07/21 04:00 06/06/21 06/07/21 06/07/21 22:59 06:59 14:59 Output Total 300 / 300 200 / 500 Balance -300 / -300 -200 / -500 Weight last 48 hrs Weight 84.822 kg Weight 77.111 kg Physical Exam Narrative: EXAM NARRATIVE: Constitutional: Awake, comfortable HEENT: Wet mucosa, no jvp, non icteric Lungs: Bilaterally clear without discernible wheeze or rales in all lung zones CVS: S1 S2, no murmurs Abdo: Soft, BS ok Ext 4: 2-3+ edema, peripheral perfusion with no cyanosis Neurological: Grossly non-focal Urinary Catheter Management^: Vega: Cath Placed During This Visit: no Reason for Continuing Indwelling Catheter: Accurate Measurement of Urinary Output in Critically Ill Patients Data Micro: Micro: Microbiology 06/06/21 21:19 Blood Culture - Pr eliminary Blood SPECIMEN [facility] 06/06/21 21:19 Blood Culture - Pr eliminary Blood SPECIMEN [facility] A&P Additional A&P Information 1. Renal failure He was recently diagnosed with end-stage kidney disease, secondary to ca rdiorenal syndrome, age-related nephron attrition, likely significant underlying renovascular disease. Given the significant edema that he has, I will plan to try to dialyze him again today with a goal ultrafiltration of 2 L over 3 hours. Long-term plan as below given his long-term prognosis Daily evaluation for need for dialysis Dose medication for GFR less than 15 on dialysis 2. Inability to void Urology was consulted yesterday. It is felt that given the significant edema that he has in his scrotum and lower abdominal wall this is contributing to his inability to void. From my part, I will provide frequent dialysis to try to get him to a reasonable dry weight if this is possible. Currently a Vega catheter is in place. 3. Chemistry Minor noncritical aberration, continue to follow closely over the next few days. 4. Hemodynamics He has ejection fraction of 25% to moderate aortic stenosis, he is currently on low-dose Levophed and has a soft blood pressure. Is likely he will be somewhat preload dependent and this will limit our ability to significantly ultrafiltrate him. We will do our best. 5. Disposition He now has renal failure, significant anasarca, ejection fraction of 25% with aortic stenosis. There is not much that we will be able to achieve given that we cannot aggressively ultrafilter him given his hemodynamics. His long-term prognosis is very poor, should he decline any further, I would recommend transitioning to palliation. I have also recommended that he not become DNI/DNR. He understands our discussion and will discuss with his family. Thank you for consultation, it is a pleasure to follow these cases with you Exam and interview performed with aid of bedside RN using telemedicine Time spent 20 min inc > 50% of time in face to face counseling Allan Alejandra MD [facility] [phone] Consult Attestations Medical Necessity Statement: Eval for renal failure Coding Level of Care Code Acute Instructional Systems Design Consultant for Chg Lashaun
[2021-06-07 12:03] LABS: Glucose Point of Care 96 mg/dL (70-110)
--- NOTE | 2021-06-07 14:09 | USCV_ITS ---
Leonel Driscoll Age: 81 Gender: M : 1940 Exam Date: 06/07/2021 14:47 Ordering Phys: Duke Fuentes MD Technologist: Exam Location: [facility] [place] Indication: ? PSUEDO ANUR RT POST CATH Risk Factors: Previous Vascular Surgery: FINDINGS NO PSUEDANUR Echolucent area measuring 4.5 x 2.56 cm. No blood flow was detected in this area. CONCLUSIONS Hematoma measuring 4.5 x 2.56 cm in the right groin No evidence of pseudoaneurysm Dr Rose Cheung MD [facility] (Electronically Signed) Final Date: 09 June 2021 08:56 S
[2021-06-07] MEDS: heparin, porcine 1,000 unit/mL INJ 10 mL 10000 UNIT HE (16:08)
--- NOTE | 2021-06-07 17:09 | P.PN_ITS ---
Subjective Subjective: Interval history: He reports he is doing okay. Denied feeling short of breath, denies chest pain or pressure. Reported having some urethral burning. No abdominal pain, no nausea or vomiting. Vitals/I&O/Wt Last Vital Signs Temp 98.1 F 06/07/21 07:30 Pulse 85 06/07/21 16:00 Resp 12 06/07/21 16:00 BP 140/71 06/07/21 16:00 Pulse Ox 100 06/07/21 16:00 06/07/21 06/07/21 06/07/21 06:59 14:59 22:59 Intake Total 50 / 50 50 / 50 Output Total 200 / 500 Balance -150 / -450 50 / 50 Weight last 48 hrs Weight 84.822 kg Weight 77.111 kg Physical Exam Const: COMMON NORMALS: no acute distress and alert GENERAL APPEARANCE: cooperative and frail appearing NUTRITIONAL APPEARANCE: overweight ORIENTATION/CONSCIOUSNESS: Yes awake OTHER: Generally weak HENMT: COMMON NORMALS: oropharynx normal Resp: COMMON NORMALS: normal respiratory effort and clear to auscultation bilaterally AUSCULTATION: clear to auscultation bilaterally Cardio: COMMON NORMALS: regular rhythm, S1 normal heart sound present, S2 normal heart sound present and No murmurs present (Cardio) RHYTHM: regular rhythm HEART SOUNDS: S1 normal heart sound present and S2 normal heart sound present GI: COMMON NORMALS: Normal to inspection, nondistended, normoactive bowel sounds present, Soft to palpation and non-tender PALPATION: Yes Soft to palpation : OTHER: Scrotal edema. Extremity: GENERAL: Yes edema (2+) Neuro: COMMON NORMALS: moves all extremities SENSORIUM/ORIENTATION: Yes alert Skin: COMMON NORMALS: no rashes or lesions noted GENERAL SKIN EXAM: no rashes or lesions noted LESIONS: no lesions (Skin breakdown/ulceration lateral L leg covered w covaderm) OTHER: Erythema BL lower legs. Urinary Catheter Management^: Vega: Cath Placed During This Visit: no Reason for Continuing Indwelling Catheter: Accurate Measurement of Urinary Output in Critically Ill Patients Data : 06/07/21 03:07 06/07/21 03:07 Micro: Microbiology 06/06/21 21:19 Blood Culture - Preliminary Blood SPECIMEN COLLECTED 06/06/21 21:19 Blood Culture - Preliminary Blood SPECIMEN COLLECTED A&P Assessment and plan (1) Hypotension: Discussed w him, hypotension possibly secondary to septic shock, for which he is on Zosyn, although without leukocytosis, afebrile and concern also for possible also low output failure. Family very upset about patient receiving second of morphine last night. Statating did not have any issues with hypotension until received morphine and another dose later last night. Requesting to know the second dose as well. Discussed that the second dose was also 4mg morphine. Discussed that it could have decreased his blood pressure at the time and he did receive naloxone. However, discussed also that care must be taken in general with any agents that can decrease blood pressure given limited reserve. Currently morphine not likely contributing but is still hypotensive, a lthough awake and alert. No respiratory suppression. As son still upset, discussed that we are making sure to place morphine/opioids on patient's adverse effect list as a precaution to avoid further episodes of hypotension due to morphine itself. At this time continue also and avoid hydralazine. For now his beta-belinda is on hold. With consideration of low output failure, discussed consideration of dobutamine, although this usually may be last resort and as a bridge to definitive treatment. Status: Acute (2) Urinary tract infection: Continue Zosyn. Urinary bladder decompressed with Vega. Follow-up urine culture. Status: Acute (3) Septic shock: Possible septic shock, although more concern for contribution of low outp ut failure as well with ischemic cardiomyopathy, and in the setting of aortic stenosis. Currently on 4 mcg/min Levophed. Doing a bit better, may be blood come off of it. Wean off pressor as tolerating. Continue treatment of UTI. Status: Acute (4) Acute metabolic encephalopathy: Episode of unresponsiveness with hypotension, possibly related to morphine, due to which received naloxone, although unlikely morphine alone. Mental status had improved. Status: Acute (5) Ischemic cardiomyopathy: With low ejection fraction. With history of CABG, recently underwent revascularization with PCI to SVG to OM. Subsequently with right femoral pseudoaneurysm, with resolution, with hematoma residual, currently still visualized on CT. Overall prognosis is guarded, possibly poor. With decreased functional capacity. They declined to be assessed by PT, but appears to be walking about 10 feet with front wheel walker with bedside chair to be kept close at all times due to weakness at assessment 10 days ago. Now also with cardiorenal syndrome requiring hemodialysis. This made difficult also due to hypotension. During last admission with EF 25%, LifeVest was discussed, although he and family have declined. Discussed with patient and son of whether consideration has been given of getting hospice on board. Discussed the goals of hospice care, and discussed that depending on the primary condition, given it is not ESRD, perhaps dialysis could be continued although it is not always so. They are intent on pursuing additional evaluation for consideration of aortic valve repair. He has not yet had a dobutamine stress echo, although was referred during recent cardiology visit of which I was not aware. He is not a candidate for this at the moment, but certainly additional evaluation can be pursued if he is to show sufficient improvement to be able to undergo the testing and the procedure. Revisiting CODE STATUS, the son became very upset, stating abruptly that he has already discussed with his father and his father wants chest compressions in case of cardiac arrest ending the discussion, and stating that we are trying to stop his hemodialysis without getting permission from outpatient nephrology team. Discussed that currently dialysis is not being discontinued, he simply has to be able to undergo it safely in regards to hypotension. That consideration with regards to dialysis may come into play if they elect to additionally involve hospice services given his overall frailty, advanced multiorgan system disease, but that dialysis in some instances can be continued even on hospice. At this time continue current care, continue to reevaluate condition for improvement to undergo the desired assessment. Do appreciate additional cardiology advice as well with regards to possibilities of additional assessment of aortic valve disease severity and candidacy for TAVR. Status: Acute (6) Severe calcific aortic valve stenosis: Moderate to severe aortic stenosis. As above. Status: Acute (7) Bradycardia: Following morphine administration, resolved. Status: Acute (8) CHF (congestive heart failure): Hemodialysis as tolerating in regards to low blood pressures, with preload dependence given severely low EF, aortic stenosis.. Status: Acute Qualifiers: Heart failure chronicity: acute on chronic Heart failure type: diastolic Qualified Code(s): I50.33 - Acute on chronic diastolic (congestive) heart failure (9) Type 2 diabetes mellitus: At home uses 5 units Lantus daily. Monitor glucose. Low-dose sliding scale here, glucose soft, so for now hold Lantus. Status: Chronic Qualifiers: Diabetes mellitus complication status: without complication Diabetes mellitus senior living insulin use: with senior living use Qualified Code(s): E11.9 - Type 2 diabetes mellitus without complications; Z79.4 - nursing home (current) use of insulin (10) Right kidney mass: Noted on CT. Will need outpatient close follow-up and additional testing by the primary care team. Please speak with the patient and the family prior to discharge. Status: Acute (11) Thrombocytopenia: Noted worsening thrombocytopenia, possibly infection, possibly dilutional with fluid overload given some decrease in all cell lines. Is not on heparin products. Recheck levels. Will request peripheral smear. Check LDH, haptoglobin. Status: Acute (12) Anemia: Status: Acute (13) Physical deconditioning: Status: Acute Additional A&P Information Atrial fibrillation DVT prophylaxis. SCDs could not be placed due to skin breakdown. Not a candidate for pharmacologic prophylaxis given right groin hematoma and thrombocytopenia, need for aspirin, Plavix. 81 year old male with past medical history of hypertension, dyslipidemia, diabetes, lesion, CHF, severe aortic stenosis, ischemic cardiomyopathy, EF of 25%, acute kidney injury, end-stage renal disease on hemodialysis treatments, deconditioning who was brought to emergency room due to increasing weakness, increasing peripheral edema, increasing shortness of breath. The patient developed acute decline in mental status on the floor with associated hypotension, bradycardia. Reportedly he was given morphine shortly before the transfer to the floor. Attestations Medical Necessity Statement*: Continue admission for assessment management of hypotension, UTI in the setting of ischemic cardiomyopathy, with low EF, aortic stenosis, cardiorenal syndrome with renal failure requiring hemodialysis. Coding Level of Care Code Acute Log Sorting Supervisor for [facility] Fwd Exam Comprehensive Diagnoses Hypotension I95.9 Urinary tract infection N39.0 Septic shock A41.9; R65.21 Acute metabolic encephalopathy G93.41 Ischemic cardiomyopathy I25.5 Severe calcific aortic valve stenosis I35.0 Bradycardia R00.1 CHF (congestive heart failure) I50.33 Heart failure chronicity: acute on chronic Heart failure type: diastolic Type 2 diabetes mellitus E11.9; Z79.4 Diabetes mellitus complication status: without complication Diabetes mellitus director long term care insulin use: with director long term care use Right kidney mass N28.89 Thrombocytopenia D69.6 Anemia D64.9 Physical deconditioning R53.81
--- NOTE | 2021-06-07 17:56 | P.CONIM_ITS ---
Providers/Reason For Consult Consulting Physician/Specialty*: Dr. Morrissey, cardiology Reason for Consult*: Aortic stenosis Attending Physician: Duke Fuentes Primary Care Provider: Malaika Mayorga MD History of Present Illness History of Present Illness Leonel Driscoll is a 81 year old male with past medical history of coronary artery disease disease s/p coronary bypass surgery at [facility] in 2005, aortic valve disease, hypertension, dyslipidemia, type 2 diabetes, chronic kidney disease currently on dialysis. He was seen by Dr. Cheung on 20 May in hospital. Patient had echocardiogram done which revealed LV ejection fraction of 25 to 30%. Diffuse hypokinesia of the left ventricle was noted. He was hospitalized last month and his echocardiogram revealed severely decreased left ventricle systolic function with ejection fraction of 25 to 30% and he was taken to the [facility]. He was found to have patent DE LOS SANTOS to LAD. Vein graft to obtuse marginal was found to have high-grade lesion. Venous graft to PDA and diagonal arteries were occluded proximally. After being discharged on June 15 he will presented again on 06 June 2021 to the hospital. He was evaluated in cardiology clinic for post PCI follow-up on 05 June. Patient was found unresponsive with low blood pressure and bradycardia per documentation. This was thought to be septic shock secondary to UTI versus side effect of morphine. He was found to be volume overloaded on arrival and is currently being diuresed. He was also found to have UTI and is on antibiotics as well as some Levophed support. At the time of evaluation patient denies having any chest pain complaint of swelling and pain in his scrotum and penis. 2 L have been told off with dialysis and patient's breathing has improved. Echocardiogram was also suspicious for low flow low gradient severe and the plan was to do outpatient dobutamine stress echo for further evaluation. I have been asked to evaluate the patient for the same. Review of Systems General: Reports: 10 or more systems reviewed and unremarkable except in HPI and below Const: Denies: fever(s) Card: Denies: chest pain, palpitations or edema Resp: Reports: dyspnea GI: Denies: hematochezia or melena : Denies: hematuria Neuro: Denies: headache(s) Abdullahi/Lymph: Reports: easy bruising, easy bleeding and purpura Meds/Allergies Home Medications and Allergies Home Medications Medication Instructions Recorded Confirmed Last Taken Type Glucosamine Chondroitin 1 cap PO DAILY 05/18/21 06/07/21 05/17/21 History allopurinol 100 mg PO DAILY 05/18/21 06/07/21 05/17/21 History atorvastatin 40 mg PO DAILY 05/18/21 06/07/21 05/17/21 History cyanocobalamin (vitamin B-12) 500 mcg PO DAILY 05/18/21 06/07/21 05/17/21 History [Vitamin B-12] pregabalin 25 mg PO BEDTIME 05/18/21 06/07/21 05/17/21 History aspirin 81 mg PO DAILY 30 Days #30 tab 05/28/21 06/07/21 Unknown Rx clopidogrel 75 mg PO DAILY 30 Days #30 tab 05/28/21 06/07/21 Unknown Rx ergocalciferol (vitamin D2) 50,000 unit PO Q7D 30 Days #4 cap 05/28/21 06/07/21 Unknown Rx [Vitamin D2] furosemide 80 mg PO BID@08,16 30 Days #120 tab 05/28/21 06/07/21 Unknown Rx metoprolol succinate 12.5 mg PO BID 30 Days #30 tab 05/28/21 06/07/21 Unknown Rx nitroglycerin 0.4 mg SUBLINGUAL Q5M PRN 30 Days 05/28/21 06/07/21 Unknown Rx #30 tab sucralfate 1 g PO AC&BEDTIME 30 Days #60 tab 05/28/21 06/07/21 Unknown Rx cephalexin 250 mg capsule 250 mg PO BID 7 Days #14 cap 06/03/21 06/07/21 Unknown Rx insulin glargine 100 unit/mL 5 unit SUBCUT DAILY ml 06/03/21 06/07/21 Unknown History subcutaneous solution pantoprazole 40 mg PO BID PRN 06/07/21 06/07/21 Unknown History Allergies Allergy/AdvReac Type Severity Reaction Status Date / Time sevelamer Allergy Severe ALGY-Redness Verified 06/05/21 11:31 of Skin Opioids - Morphine Analogues AdvReac Severe ADR/ALGY-Hy Unverified 06/07/21 13:14 potension Current Medications Current Medications Generic Name Dose Route Start Last Admin Trade Name Freq PRN Reason Stop Dose Admin Piperacillin Sod/Tazobactam 50 mls @ 12.5 mls/hr 06/07/21 00:15 06/07/21 17:40 Sod 3.375 gm/ Sodium Chloride IV 12.5 mls/hr Q8H ELIAZAR Administration Protocol Nystatin 1 applic 06/07/21 09:00 06/07/21 17:11 Nystatin Cream 30 Gm TOPICAL Not Given BID ELIAZAR PFSH Acute PFSH: Medical History Benign hypertension CKD (chronic kidney disease) 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 Diabetic neuropathy Gout Hyperkalemia Hx of Hyperlipidemia Peripheral neuropathy Type 2 diabetes mellitus Surgical History H/O cataract extraction H/O hernia repair Previous back surgery S/P appendectomy S/P tonsillectomy Family History Brother Hypertension Social History Quit status (tobacco): has quit using tobacco Year quit tobacco: 2005 Second hand smoke exposure: No Alcohol intake: current Alcohol intake frequency: other Alcohol type: other Vitals/I&O/Wt Last Vital Signs Temp 98.1 F 06/07/21 07:30 Pulse 85 06/07/21 16:00 Resp 12 06/07/21 16:00 BP 140/71 06/07/21 16:00 Pulse Ox 100 06/07/21 16:00 06/07/21 06/07/21 06/07/21 06:59 14:59 22:59 Intake Total 50 / 50 50 / 50 Output Total 200 / 500 Balance -150 / -450 50 / 50 Weight last 48 hrs Weight 187 lb Weight 170 lb Physical Exam Narrative: EXAM NARRATIVE: GENERAL: Elderly frail-appearing man sitting in bed in no acute distress HEENT: Pupils equal round reactive to light. No pallor or icterus. CARDIOVASCULAR SYSTEM: S1-S2 regular. No S3 or S4 present. No murmur or gallops. RESPIRATORY SYSTEM: Chest clear to auscultation except at bases. No wheezes or rhonchi heard. No use of accessory muscles. ABDOMEN: Soft, nontender and nondistended. Normal bowel sounds present. EXTREMITIES: No cyanosis or clubbing. No edema. Bilateral forearm and upper chest bruising noted PRIMARY CARE PHYSICIAN: Patient is alert oriented ?3. No focal neurological deficits. Urinary Catheter Management^: Vega: Cath Placed During This Visit: no Reason for Continuing Indwelling Catheter: Accurate Measurement of Urinary Ou tput in Critically Ill Patients Data Labs: Other Labs: Baseline troponin T of 509 that and at 2 hours decreased to 483 and 6 are decreased to 482. proBNP of 44,056 Micro: Micro: Microbiology 06/06/21 21:19 Blood Culture - Pr eliminary Blood SPECIMEN [facility] 06/06/21 21:19 Blood Culture - Pr eliminary Blood SPECIMEN [facility] Other Data: Other data: Coronary angiogram 22 May 2021 Conclusions 1. Today patient brought back to the [facility] for PCI to SVG to circumflex for high-grade calcified mid stenosis. Please note that patient was taken off from [facility] table yesterday as he was not loaded with Plavix and due to high contrast and heart failure symptoms . PCI to SVG mid segment to LCx. After somewhat difficulty were able to cross the mid SVG lesion using guide liner, ostial SVG was noted to have highly calcified lesion as well which is dilated with balloon. Please see inventory. Finally we were able to cross with the balloon and stent. Balloon angioplasty followed by stent placement was performed. A good angiographic result with AMBIKA-3 flow was achieved. Patient was transferred back to [facility] in a stable condition. Coronary angiogram 21 May 2021 Diagnostic Cath Status: Elective Diagnostic Findings * Coronary angiography shows right dominance. * The left main is a medium caliber vessel which was found to have mild to moderate diffuse disease. The artery gives off a small to medium caliber diagonal vessels proximally. Both these vessels were found to have severe diffuse disease proximally including high-grade ostial lesions. The LAD appears to be totally occluded afterwards. A small to medium caliber septal photo finisher vessel was noted proximally which gives of multiple branches. The ostium of this artery was found to have a high-grade lesion as well. * The left circumflex artery is a medium caliber vessel which appears to have moderate diffuse disease proximally. It gives off multiple atrial branches. Then the artery appears to be totally occluded. * The right coronary artery was found to be totally occluded proximally. It was found to be heavily calcified. * The venous graft to the PDA branch was found to be totally occluded proximally. * Saphenous venous graft to the diagonal artery also appears to be totally occluded proximally. * The saphenous venous graft to the obtuse marginal branch was found to be patent with a high-grade napkin ring type of lesion proximally. Retrograde flow into the proximal branches of the obtuse marginal artery was found to have severe diffuse disease. * The left internal mammary artery graft to the left anterior descending artery was found to be patent. The LAD distal to the anastomosis was found to have mild diffuse disease. * An aortogram was performed in a shallow ALISE view. Only one venous graft was found to be originating from the aorta. The other 2 venous grafts were found to be occluded proximally. Conclusions 1. Patient has prior CABG. 2. Is an 81-year-old white male with a history of coronary artery disease, status post four-vessel coronary bypass surgery, is admitted to hospital with features of acute on chronic renal failure, congestive heart failure and non-ST elevation myocardial infarction. He had echocardiogram which revealed multiple wall motion abnormalities with a severely diminished ejection fraction of around 25 to 30%. In view of his presenting symptoms, in order to further evaluate his coronary status as well as the graft status, a cardiac catheterization was recommended. Patient underwent left and right coronary angiogram ,graft angiogram and aortogram today. The findings are as follows.. 3. Mild to moderate diffuse disease in the left main artery. Total occlusion of the left anterior descending artery after the second diagonal branch. Moderate to severe diffuse disease in the proximal LAD. Small to medium caliber diagonal vessels with high-grade diffuse disease. Total occlusion of the circumflex artery proximally. Total occlusion of the right coronary artery also at the proximal segment. The venous graft to the PDA and the diagonal arteries are found to be totally occluded at the proximal anastomotic site. The venous graft to the obtuse marginal artery was found to have a high-grade napkin ring type of lesion proximally. DE LOS SANTOS to the LAD was found to be patent. The aortogram revealed occluded venous graft to the PDA and the diagonal arteries proximally. The innominate artery was found to be tortuous and calcified. 4. I reviewed and discussed the cardiac catheterization data with Dr Morris. The study be appropriate to consider PCI of the venous graft to the obtuse marginal artery. Because of the patient's sedation, he was not able to swallow oral medication. In view of his renal failure, because of the high propensity for bleeding, it was thought to be appropriate to consider PCI tomorrow after loading him with PO Plavix. The angiogram findings and the treatment plan were discussed with the patient's family( son, who is the POA). 05/19/21 Procedure(s): CV. echo complete* [id number] CONCLUSIONS LV systolic function is severely reduced with EF of 25-30% Severe global hypokinesis RV is not well visualized but grossly dilated Trace mitral regurgitation Aortic valve is not well visualized. By continuity equation, patient has severe low flow-low gradient Aortic stenosis No comparison studies are available A&P Assessment and plan (1) Septic shock: Status: Acute (2) Urinary tract infection: Status: Acute (3) Ischemic cardiomyopathy: Appears fairly euvolemic presently Status: Acute (4) Atherosclerosis of coronary artery of [place] heart without angina pectoris: Status post recent stents, no chest discomfort Status: Acute Qualifiers: Coronary Disease-Associated Artery/Lesion type: [place] artery Qualified Code(s): I25.10 - Atherosclerotic heart disease of [place] coronary artery without angina pectoris (5) ESRD on hemodialysis: Status: Acute Additional A&P Information Right groin pseudoaneurysm Concern for low flow low gradient severe on last echocardiogram: Mean grad ient 28 mmHg, peak velocity 3.3 m/s: Recommend dealing with this once patient is stable and preferably as an outpatient. Thank you for allowing me to participate in patient's care. Please feel free to call with questions or concerns. Consult Attestations Time Spent in Patient Care: 16 - 35 minutes (>than 50% of time spent in counselling and/or direct pt care on unit) . Coding Level of Care Code Acute Assembler Clip [employer] Sunglasses for Willie Wilks Diagnoses Septic shock A41.9; R65.21 Urinary tract infection N39.0 Ischemic cardiomyopathy I25.5 Atherosclerosis of coronary artery of [place] heart without angina pectoris I25.10 Coronary Disease-Associated Artery/Lesion type: [place] artery ESRD on hemodialysis N18.6; Z99.2
[2021-06-07] MEDS: insulin lispro 100 unit/1 mL SUBCUT (17:59)
[2021-06-07 19:47] LABS: Glucose Point of Care 228 mg/dL (70-110)
[2021-06-07] MEDS: sucralfate 1 gm Tablet PO (20:39)
[2021-06-07] MEDS: pregabalin 25 mg Capsule PO (20:39)
[2021-06-07] MEDS: TRAMadol 50 mg Tablet PO (20:39)
[2021-06-08] VITALS (78 sets, daily range): BP systolic 79–157; BP diastolic 25–124; PULSE 51–87; RESP 0–24; TEMP 36.1–37.2; O2SAT 89–100
[2021-06-08] MEDS: piperacillin-tazobactam 3.375 GM in sodium chloride 0.9% (plus) 50 ML IV ×4 (00:45→23:52)
--- NOTE | 2021-06-08 02:22 | PC.HD ---
Crust of dry blood under and along exposed portion of catheter. Cleaned thoroughly, no active bleeding noted, redressed w/covaderm dressing.
--- NOTE | 2021-06-08 02:29 | PC.HD ---
Delay between arrival time and start time d/t machine malfunction necessitating switch of dialysis machines.
[2021-06-08 04:05] LABS: Alanine Aminotransferase < 5 U/L (0-41); Albumin Level 2.7 g/dL (3.5-5.2); Alkaline Phosphatase 150 IU/L (40-130); Aspartate Amino Transferase 17 U/L (0-40); Blood Urea Nitrogen 21 mg/dL (8-23); Calcium 7.7 mg/dL (8.5-10.5); Carbon Dioxide 25 mmol/L (22-29); Chloride 93 mmol/L (98-107); Globulin 2.5 g/dL (1.3-4.6); Glucose 181 mg/dL (65-115); Osmolality Calculated 278 mOsm/kg (285-295); Sodium 130 mmol/L (136-145); Total Bilirubin 0.5 mg/dL (0.15-1.2); Total Protein 5.2 g/dL (6.6-8.7)
[2021-06-08 04:23] LABS: Anion Gap 16.5 (5-19); Lactate Dehydrogenase 255 U/L (135-225); Potassium 4.5 mmol/L (3.5-5.1)
--- NOTE | 2021-06-08 06:29 | PC.NURSE ---
Patient stable throughout shift, vitals remain stable; Patient still requiring levophed for hypotension management. Patient noted to have creamy yellow thick discharge from tevin area with testicular swelling. Patient had minimal complaints of pain. Will continue to monitor.
[2021-06-08] MEDS: sucralfate 1 gm Tablet PO ×4 (06:45→20:34)
[2021-06-08] MEDS: TRAMadol 50 mg Tablet PO ×2 (06:45→20:34)
[2021-06-08] MEDS: insulin lispro 100 unit/1 mL SUBCUT ×3 (06:48→17:28)
--- NOTE | 2021-06-08 07:00 | PC.NURSE ---
Report received on pt. Levophed infusing at 2mcg/min. Unable to titrate off caustic cresylate shift superintendent, B/P too sensative. Pt has peripheral ulcer left leg, family uses metahoney. Metahoney in room. Pt had dialysis yesterday.
[2021-06-08 07:44] LABS: Glucose Point of Care 194 mg/dL (70-110)
--- NOTE | 2021-06-08 08:00 | PC.NURSE ---
Assessment: Skin tear noted on right upper arm with telfa and kerlex dressing noted. Scrotal and penal edema noted.
--- NOTE | 2021-06-08 08:16 | PM.PN ---
Subjective Subjective: Interval history: Events of the last 24 hours noted. Discussions with family members noted. Remains full code. Received dialysis yesterday afternoon tolerating ultrafiltration to the tune of 2.3 L. Remains on low-dose Levophed at 2 mics per minute. Minimal urine output. Vega catheter remains in place. He still has significant lower extremity edema but is otherwise oxygenating well. Vitals/I&O/Wt Last Vital Signs Temp 99.0 F 06/08/21 04:00 Pulse 72 06/08/21 05:30 Resp 15 06/08/21 05:30 BP 117/53 06/08/21 05:30 Pulse Ox 100 06/08/21 05:30 06/07/21 06/08/21 06/08/21 22:59 06:59 14:59 Intake Total 640 / 880 300 / 1180 Output Total 2325 / 2325 50 / 2375 Balance -1685 / -1445 250 / -1195 Weight last 48 hrs Weight 83.3 kg Weight 84.822 kg Weight 77.111 kg Physical Exam Narrative: EXAM NARRATIVE: Constitutional: Awake, comfortable HEENT: Wet mucosa, no jvp, non icteric Lungs: Bilaterally clear without discernible wheeze or rales in all lung zones CVS: S1 S2, no murmurs Abdo: Soft, BS ok Ext 4: 2-3+ edema, peripheral perfusion with no cyanosis Neurological: Grossly non-focal Urinary Catheter Management^: Vega: Cath Placed During This Visit: no Reason for Continuing Indwelling Catheter: Accurate Measurement of Urinary Output in Critically Ill Patients Data : 06/07/21 03:07 06/08/21 03:21 Micro: Microbiology 06/06/21 21:19 Blood Culture - Preliminary Blood NEGATIVE TO DATE 06/06/21 21:19 Blood Culture - Preliminary Blood NEGATIVE TO DATE A&P Additional A&P Information 1. Renal failure He was recently diagnosed with end-stage kidney disease, secondary to cardiorenal syndrome, age-related nephron attrition, likely significant underlying renovascular disease. Dialysis performed yesterday, will attempt dialysis again tomorrow, given labile hemodynamics, aortic stenosis reduced ejection fraction, we do need to be gentle without dialysis. We will plan to do 2 L of ultrafiltration.s Daily evaluation for need for dialysis Dose medication for GFR less than 15 on dialysis 2. Inability to void Urology was consulted yesterday. It is felt that given the significant edema that he has in his scrotum and lower abdominal wall this is contributing to his inability to void. Given our difficulty in aggressive ultrafiltration, this problem may become somewhat recalcitrant. I would recommend leaving the Vega catheter in for the time being with outpatient follow-up with urology. 3. Chemistry Minor noncritical aberration, continue to follow closely over the next few days. 4. Hemodynamics He has ejection fraction of 25% to moderate aortic stenosis, he is currently on low-dose Levophed and has a soft blood pressure. Is likely he will be somewhat preload dependent and this will limit our ability to significantly ultrafiltrate him. Titrate pressors as he can tolerate. 5. Disposition He now has renal failure, significant anasarca, ejection fraction of 25% with aortic stenosis. Of note we approached the family yesterday with a discussion about plans of care. The son had concerns that we do not have the complete picture and wished to involve his regular outpatient physicians. With this in mind, I would recommend leaving the Vega catheter in place, titrating down Levophed, discharging him to his outpatient physicians when he is hemodynamically stable enough. Thank you for consultation, it is a pleasure to follow these cases with you Exam and interview performed with aid of bedside RN using telemedicine Time spent 20 min inc > 50% of time in face to face counseling Allan Alejandra MD [facility] [phone] Attestations Medical Necessity Statement*: Eval for ESRD Coding Level of Care Code Acute Cost Accounting Analyst for Willie Wilks
[2021-06-08] MEDS: atorvastatin 40 mg Tablet PO (09:14)
[2021-06-08] MEDS: aspirin 81 mg EC Tablet PO (09:14)
[2021-06-08] MEDS: clopidogrel 75 mg Tablet PO (09:14)
[2021-06-08 09:18] LABS: Basophils # 0.1 10^3/uL (0.0-0.1); Basophils % 0.6 %; Eosinophils # 0.1 10^3/uL (0.0-0.8); Eosinophils % 1.1 %; Hematocrit 29.1 % (42.0-52.0); Hemoglobin 8.5 g/dL (11.7-16.6); Lymphocytes # 1.1 10^3/uL (0.8-4.8); Lymphocytes % 11.1 %; Mean Corpuscular HGB Conc 29.2 g/dL (30.0-36.0); Mean Corpuscular Hemoglobin 28.8 pg (28.0-34.0); Mean Corpuscular Volume 98.6 fl (80-94); Mean Platelet Volume 12.4 fL (7.4-10.4); Monocytes # 0.7 10^3/uL (0.2-0.9); Monocytes % 7.1 %; Neutrophils % 79.7 %; Nucleated Red Blood Cells % 0 %; Red Blood Count 2.95 10^6/uL (4.1-5.3); Red Cell Distribution Width 17.1 % (12.1-15.1)
[2021-06-08 09:20] LABS: Platelet Count 119 10^3/cmm (130-400)
[2021-06-08] MEDS: nystatin cream 30 gm 1 APPLIC TOPICAL ×2 (09:46→17:28)
--- NOTE | 2021-06-08 10:05 | P.PN_ITS ---
Vitals/I&O/Wt Last Vital Signs Temp 99.0 F 06/08/21 04:00 Pulse 72 06/08/21 05:30 Resp 15 06/08/21 05:30 BP 117/53 06/08/21 05:30 Pulse Ox 100 06/08/21 05:30 06/07/21 06/08/21 06/08/21 22:59 06:59 14:59 Intake Total 640 / 880 300 / 1180 Output Total 2325 / 2325 50 / 2375 Balance -1685 / -1445 250 / -1195 Weight last 48 hrs Weight 83.3 kg Weight 84.822 kg Weight 77.111 kg Physical Exam Const: COMMON NORMALS: no acute distress and alert GENERAL APPEARANCE: cooperative and frail appearing NUTRITIONAL APPEARANCE: overweight ORIENTATION/CONSCIOUSNESS: Yes awake OTHER: Sitting up in bed working on breakfast. HENMT: COMMON NORMALS: oropharynx normal Resp: COMMON NORMALS: normal respiratory effort and clear to auscultation bilaterally AUSCULTATION: clear to auscultation bilaterally Cardio: COMMON NORMALS: regular rhythm, S1 normal heart sound present, S2 normal heart sound present and No murmurs present (Cardio) RHYTHM: regular rhythm HEART SOUNDS: S1 normal heart sound present and S2 normal heart sound present GI: COMMON NORMALS: Normal to inspection, nondistended, normoactive bowel sounds present, Soft to palpation and non-tender PALPATION: Yes Soft to palpation : OTHER: Scrotal edema. Extremity: GENERAL: Yes edema (2+) Neuro: COMMON NORMALS: moves all extremities SENSORIUM/ORIENTATION: Yes alert Skin: COMMON NORMALS: no rashes or lesions noted GENERAL SKIN EXAM: no rashes or lesions noted LESIONS: no lesions (Skin breakdown/ulceration lateral L leg covered w covaderm) OTHER: Erythema BL lower legs. Urinary Catheter Management^: Vega: Cath Placed During This Visit: no Reason for Continuing Indwelling Catheter: Accurate Measurement of Urinary Output in Critically Ill Patients Data : 06/08/21 07:59 06/08/21 03:21 Micro: Microbiology 06/06/21 22:00 Urine Culture - Preliminary Urine,Clean Catch Yeast 06/06/21 21:19 Blood Culture - Preliminary Blood NEGATIVE TO DATE 06/06/21 21:19 Blood Culture - Preliminary Blood NEGATIVE TO DATE A&P Assessment and plan (1) Hypotension: Becoming hypotensive again on trying to wean down of Levophed. I do not think midodrine is a good idea given his ischemic cardiomyopathy. Continue slowly wean down, needs only a small dose, but becoming hypotensive and comes off entirely. Continue Zosyn, possible septic shock, diminished output with cardiomyopathy, aortic stenosis. Avoid medications that may contribute to hypotension where possible. Status: Acute (2) Urinary tract infection: Continue Zosyn. Urinary bladder decompressed with Vega. Follow-up urine culture. Given urinary retention at presentation, leave Vega in place, follow-up with urology. Status: Acute (3) Septic shock: Status: Acute (4) Acute metabolic encephalopathy: Episode of unresponsiveness with hypotension, possibly related to morphine, due to which received naloxone, although unlikely morphine causing the persistent hypotension. Mental status had improved and he remains alert. Continue to wean off low-dose pressor gradually as tolerating. Status: Acute (5) Ischemic cardiomyopathy: Persistent hypotension due to which has difficult time weaning down entirely of flow rate pressor. Continue treatment for possible septic shock, but concern for also possible low output failure. They would like to pursue TAVR, but needs to improve sufficiently to be able to undergo the required additional assessment and the procedure which may prove difficult given current persistent need for low rate pressor, dependence on hemodialysis, significant edema, and underlying debility with poor functional status even at his best prior to the most recent discharge 06/07. He declined to work with physical Já Entendi yesterday. During that admission declined to be set up with [employer]. Once able to, follow-up with primary team and resume work-up of the aortic valve, otherwise hospice would be appropriate. Status: Acute (6) Severe calcific aortic valve stenosis: Moderate to severe aortic stenosis. As above. Status: Acute (7) Bradycardia: Following morphine administration, resolved. Status: Acute (8) CHF (congestive heart failure): Hemodialysis as tolerating in regards to low blood pressures, with preload dependence given severely low EF, aortic stenosis. Status: Acute Qualifiers: Heart failure chronicity: acute on chronic Heart failure type: diastolic Qualified Code(s): I50.33 - Acute on chronic diastolic (congestive) heart failure (9) Type 2 diabetes mellitus: Resume 5 units Lantus daily. Continue SSI. Monitor glucose. Status: Chronic Qualifiers: Diabetes mellitus complication status: without complication Diabetes mellitus animated cartoons painter insulin use: with [facility] use Qualified Code(s): E11.9 - Type 2 diabetes mellitus without complications; Z79.4 - group leader (current) use of insulin (10) Right kidney mass: Noted on CT. Will need outpatient close follow-up and additional testing by the primary care team. Please speak with the patient and the family prior to discharge. Status: Acute (11) Thrombocytopenia: Improving with treatment of infection, dialysis. Noted worsening thrombocytopenia, possibly infection, possibly dilutional with fluid overload given some decrease in all cell lines. Is not on heparin products. No evidence of hemolysis. Status: Acute (12) Anemia: Status: Acute (13) Physical deconditioning: Status: Acute (14) Anasarca: With scrotal edema. Status: Acute Additional A&P Information Atrial fibrillation DVT prophylaxis. SCDs could not be placed due to skin breakdown. Not a candidate for pharmacologic prophylaxis given right groin hematoma and thrombocytopenia, need for aspirin, Plavix. 81 year old male with past medical history of hypertension, dyslipidemia, diabetes, lesion, CHF, severe aortic stenosis, ischemic cardiomyopathy, EF of 25%, acute kidney injury, end-stage renal disease on hemodialysis treatments, deconditioning who was brought to emergency room due to increasing weakness, increasing peripheral edema, increasing shortness of breath. The patient developed acute decline in mental status on the floor with associated hypotension, bradycardia. Reportedly he was given morphine shortly before the transfer to the floor. Attestations Medical Necessity Statement*: Continue admission for weaning of pressor support with persistent low blood pressures, treatment of UTI, dialysis as tolerating, with anasarca, in setting of ischemic cardiomyopathy, aortic stenosis. Coding Level of Care Code Acute Post Anesthesia Nurse for [facility] Fwd Exam Comprehensive Diagnoses Hypotension I95.9 Urinary tract infection N39.0 Septic shock A41.9; R65.21 Acute metabolic encephalopathy G93.41 Ischemic cardiomyopathy I25.5 Severe calcific aortic valve stenosis I35.0 Bradycardia R00.1 CHF (congestive heart failure) I50.33 Heart failure chronicity: acute on chronic Heart failure type: diastolic Type 2 diabetes mellitus E11.9; Z79.4 Diabetes mellitus complication status: without complication Diabetes mellitus [facility] insulin use: with animated cartoons painter use Right kidney mass N28.89 Thrombocytopenia D69.6 Anemia D64.9 Physical deconditioning R53.81 Anasarca R60.1
--- NOTE | 2021-06-08 11:00 | PC.NURSE ---
0930: Pt complaining of pain in his testicles. Help pt with repositioning whole body, then re-elevated scrotum. Used Pillow case for sling. Pt requested wet cold cloth. Discussed with pt. moisture in perineal area, already yeasty and nystatin mediation. Placed a bag of ice below scrotum at his request. 1100: Pt stated his scrotum/testicles felt better.
[2021-06-08] MEDS: insulin glargine 100 units/1 mL 5 UNIT SUBCUT (11:58)
--- NOTE | 2021-06-08 12:45 | PC.NURSE ---
and son at bedside. Son, Jossue Driscoll stated he was the DPOA. None found in pt's EMAR. Requested that son bring one in next visit so it could be entered into pt's chart. Permission from Pt and to add son , Jossue Driscoll, to contact list. Admissions called, phone number added.
--- NOTE | 2021-06-08 12:53 | P.PN_ITS ---
Subjective Subjective: Interval history: Received dialysis yesterday afternoon tolerating ultrafiltration to the tune of 2.3 L. Remains on low-dose Levophed at 1-2 mics per minute. Minimal urine output. Medications: Reviewed: Yes Vitals/I&O/Wt Last Vital Signs Temp 98.5 F 06/08/21 08:00 Pulse 52 L 06/08/21 10:45 Resp 8 L 06/08/21 10:45 BP 97/34 06/08/21 10:45 Pulse Ox 97 06/08/21 10:45 06/07/21 06/08/21 06/08/21 22:59 06:59 14:59 Intake Total 640 / 880 300 / 1180 868.118 / 868.118 Output Total 2325 / 2325 50 / 2375 Balance -1685 / -1445 250 / -1195 868.118 / 868.118 Weight last 48 hrs Weight 183 lb 10.321 oz Weight 187 lb Weight 170 lb Physical Exam Narrative: EXAM NARRATIVE: GENERAL: Elderly frail-appearing man sitting in bed in no acute distress HEENT: Pupils equal round reactive to light. No pallor or icterus. CARDIOVASCULAR SYSTEM: S1-S2 regular. grade 3/6 harsh systolic murmur in RUSB with radiation to neck RESPIRATORY SYSTEM: Chest clear to auscultation except at bases. No wheezes or rhonchi heard. No use of accessory muscles. ABDOMEN: Soft, nontender and nondistended. Normal bowel sounds present. EXTREMITIES: No cyanosis, 2+ edema. left pulido wound dressed, erythema+ Bilateral forearm and upper chest bruising noted THERAPY SITE COORDINATOR: Patient is alert oriented ?3. No focal neurological deficits. Urinary Catheter Management^: Vega: Cath Placed During This Visit: no Reason for Continuing Indwelling Catheter: Accurate Measurement of Urinary Output in Critically Ill Patients Data : 06/08/21 07:59 06/08/21 03:21 Micro: Microbiology 06/06/21 22:00 Urine Culture - Preliminary Urine,Clean Catch Yeast 06/06/21 21:19 Blood Culture - Preliminary Blood NEGATIVE TO DATE 06/06/21 21:19 Blood Culture - Preliminary Blood NEGATIVE TO DATE A&P Assessment and plan (1) Septic shock: Status: Acute (2) Urinary tract infection: Status: Acute (3) Ischemic cardiomyopathy: Appears fairly euvolemic presently Status: Acute (4) Atherosclerosis of coronary artery of [place] heart without angina pectoris: Status post recent stents, no chest discomfort -Continue aspirin Plavix and statin Status: Acute Qualifiers: Coronary Disease-Associated Artery/Lesion type: [place] artery Qualified Code(s): I25.10 - Atherosclerotic heart disease of [place] coronary artery without angina pectoris (5) ESRD on hemodialysis: Status: Acute Additional A&P Information Right groin pseudoaneurysm: f/u duplex pending Concern for low flow low gradient severe on last echocardiogram: Mean gradient 28 mmHg, peak velocity 3.3 m/s: Recommend dealing with this once patient is stable and preferably as an outpatient. Non-ST elevation [place] type II secondary to fluid overload and end-stage renal disease; no delta change Anemia Bradycardia: Sinus bradycardia with heart rate in 50s, not on AV elly blockers. Started when ice pack was placed under patient scrotum. Continue to monitor. Thank you for allowing me to participate in patient's care. Please feel free to call with questions or concerns. Attestations Medical Necessity Statement*: As per primary team Time Spent in Patient Care: 16 - 35 minutes (>than 50% of time spent in counselling and/or direct pt care on unit) . Coding Level of Care Code Acute Aging Department Supervisor for Willie Fwd Diagnoses Septic shock A41.9; R65.21 Urinary tract infection N39.0 Ischemic cardiomyopathy I25.5 Atherosclerosis of coronary artery of [place] heart without angina pectoris I25.10 Coronary Disease-Associated Artery/Lesion type: [place] artery ESRD on hemodialysis N18.6; Z99.2
[2021-06-08 15:30] LABS: LAB Peripheral Smear Sent for Review
--- NOTE | 2021-06-08 17:49 | PC.NURSE ---
Shift Note: Pt rested in the bed throughout the day. He did participate with OT. Levophed gtt has been on and off , infusion rates 0 to 3mcg/min this shift. He has been just barely hypotensive at times. His scrotum has been elevated with a sling and has had ice applied twice. and son have been in to visit. So has his renewals representative. He has been afebrile. He still has significant amount of edema. Pt was blaming his medication for his edema, Dr Alejandra told him it was his bad heart and bad kidneys. Pt does have fragile skin, dryness with bruising throughout. Dressing change done this shift for left lower leg and right upper arm. Sacrum dressing intact. No BM noted this shift. Pt's had scant amount of urine 25ml. The urine was cloudy, pink with mucous threads. Frequent safety and comfort rounds continue. Orders and/or nursing care completed as indicated. Patient monitored for response to intervention and treatment(s). Education provided includes plan of care, Levophed, Zosyn, Morphine, tramadol, Niastatin, elevating extremeties. Patient and/or senior sales representative verbalized understanidn of ongoing care and medications. Will continue to monitor.
[2021-06-08] MEDS: pregabalin 25 mg Capsule PO (20:34)
[2021-06-08] MEDS: acetaminophen 325 mg Tablet 650 MG PO (23:52)
[2021-06-09] VITALS (48 sets, daily range): BP systolic 90–177; BP diastolic 45–89; PULSE 46–90; RESP 7–19; TEMP 35.8–36.9; O2SAT 89–100; BMI 28.8
[2021-06-09 05:17] LABS: Basophils # 0.1 10^3/uL (0.0-0.1); Basophils % 0.6 %; Eosinophils # 0.2 10^3/uL (0.0-0.8); Eosinophils % 1.8 %; Hematocrit 26.9 % (42.0-52.0); Hemoglobin 7.9 g/dL (11.7-16.6); Lymphocytes # 1.3 10^3/uL (0.8-4.8); Lymphocytes % 13.7 %; Mean Corpuscular HGB Conc 29.4 g/dL (30.0-36.0); Mean Corpuscular Hemoglobin 28.7 pg (28.0-34.0); Mean Corpuscular Volume 97.8 fl (80-94); Mean Platelet Volume 12.3 fL (7.4-10.4); Monocytes # 0.7 10^3/uL (0.2-0.9); Monocytes % 7.7 %; Neutrophils # 7.23 10^3/uL (1.8-7.7); Neutrophils % 75.7 %; Nucleated Red Blood Cells % 0 %; Platelet Count 147 10^3/cmm (130-400); Red Blood Count 2.75 10^6/uL (4.1-5.3); Red Cell Distribution Width 16.9 % (12.1-15.1); White Blood Count 9.6 10^3/uL (4.0-10.0)
[2021-06-09 05:55] LABS: Alanine Aminotransferase < 5 U/L (0-41); Albumin Level 2.4 g/dL (3.5-5.2); Alkaline Phosphatase 194 IU/L (40-130); Blood Urea Nitrogen 29 mg/dL (8-23); Calcium 7.5 mg/dL (8.5-10.5); Carbon Dioxide 25 mmol/L (22-29); Chloride 93 mmol/L (98-107); Globulin 2.8 g/dL (1.3-4.6); Glucose 110 mg/dL (65-115); Osmolality Calculated 274 mOsm/kg (285-295); Sodium 129 mmol/L (136-145); Total Bilirubin 0.4 mg/dL (0.15-1.2); Total Protein 5.2 g/dL (6.6-8.7)
[2021-06-09 05:57] LABS: Anion Gap 15.9 (5-19); Aspartate Amino Transferase 19 U/L (0-40); Potassium 4.9 mmol/L (3.5-5.1)
[2021-06-09] MEDS: TRAMadol 50 mg Tablet PO ×3 (06:25→20:19)
--- NOTE | 2021-06-09 07:14 | PC.NURSE ---
Shift Summary; Pt rested throughout shift. Few episodes of reported pain, that was treated with PO APAP and Tramadol. Ice and cool wash cloths applied to testicles, in attempts to decrease reported pain in region. Sarcal dressing remains c/d/i. BUE edematous, bruised and dry. Pt continues to have multiple and frequent episodes of hypotension. Levo titrated as indicated. See Mar flowsheet for titrations. Bedside report given to oncoming dayshift RN. No verbalized needs at this time.
[2021-06-09] MEDS: insulin glargine 100 units/1 mL 5 UNIT SUBCUT (08:04)
[2021-06-09] MEDS: atorvastatin 40 mg Tablet PO (08:05)
[2021-06-09] MEDS: aspirin 81 mg EC Tablet PO (08:05)
[2021-06-09] MEDS: clopidogrel 75 mg Tablet PO (08:05)
[2021-06-09] MEDS: sucralfate 1 gm Tablet PO ×4 (08:05→20:19)
--- NOTE | 2021-06-09 09:20 | PC.OT ---
TREATMENT PLAN ADJUSTED TO STATE WEDNESDAY-WEDNESDAY 5X WEEK. PERMISSION GRANTED FROM ORIGINAL EVALUATING THERAPIST.
[2021-06-09] MEDS: nystatin cream 30 gm 1 APPLIC TOPICAL ×2 (09:33→16:59)
--- NOTE | 2021-06-09 09:34 | PC.CHAP ---
Pastoral Care Encounter/Spiritual Assessment Type of Contact [] Declined drip pumper visit [] Patient/Family/Request visit [] Outpatient visit [] Follow-up visit [] Physician referral [] Code/Alert [x] Routine visit [] Staff referral [] Actively dying [] Patient sleeping [] Family support [] [] Out of room [] Palliative care [] [x] Receiving care in room [] Pre-surgical visit [] Trauma [] Long length of stay [x] ICU visit [x] Other: staff present.. dialysis.. and feeding patient Relational/Emotional Strength [] Patient feels connected with others/family/visitors/staff [] Distress [] Loneliness/isolation [] Abandonment Spirituality of Patient [] Person of Lynette [] Attends Presybeterian of their Lynette [] Believes in Prayer [] Reads Bible or Oriental Orthodox materials [] There are Spiritual issues to be addressed Avp Interventions [x] Prayer [] Active listening [] Non-anxious presence [] Spiritual/emotional support [] Crisis/trauma care [] Spiritual counseling [] Bereavement support [] Provided bereavement packet [] Provided Bible/devotional materials [] Provided toy/stuffed animal, coloring book to patient or family member [] Provided Communion [] Anointing/Levan [] Salvation [x] Completed spiritual assessment [] Other: Impact on Illness or Injury [] Angry [] Fearful [] Anxious [] Often cries [] Exhaustion [] Unable to work [] Unable to attend episcopal [] Unable to walk/stand [] Unable to read [] Unable to drive [] Unable to eat/drink [] Unable to sleep [] Unable to be with family [] Patient intubated [] Other: Summary Time spent with patient
[2021-06-09] MEDS: insulin lispro 100 unit/1 mL SUBCUT ×2 (11:27→16:57)
[2021-06-09] MEDS: fluconazole 100 mg Tablet PO (11:27)
--- NOTE | 2021-06-09 12:43 | PC.SOCIAL ---
IMM Update Pg. 2 of IMM updated and reviewed with patient, who verbalized understanding. Copy provided.
[2021-06-09] MEDS: piperacillin-tazobactam 3.375 GM in sodium chloride 0.9% (plus) 50 ML IV ×2 (13:38→20:19)
--- NOTE | 2021-06-09 13:43 | PM.PN ---
Subjective Subjective: Interval history: The events of the weekend were noted. Apparently this patient had a unresponsive episode after giving morphine. Currently he is back to his baseline. According to the family, the patient mainly came to the hospital because of the severe pain in the scrotum and the perineal region. He denies any chest pain or any unusual shortness of breath. No fever or chills. No cough. Medications: Reviewed: Yes Medication Review Details: Current Medications Acetaminophen (Acetaminophen 325 Mg Tablet) 650 mg PO Q6H PRN PRN Reason: Mild/Mod Pain Or Temp >/= 101 Last Admin: 06/08/21 23:52 Dose: 650 mg Documented by: Aspirin (Aspirin 81 Mg Ec Tablet) 81 mg PO DAILY [facility] Last Admin: 06/09/21 08:05 Dose: 81 mg Documented by: Atorvastatin Calcium (Atorvastatin 40 Mg Tablet) 40 mg PO DAILY [facility] Last Admin: 06/09/21 08:05 Dose: 40 mg Documented by: Clopidogrel Bisulfate (Clopidogrel 75 Mg Tablet) 75 mg PO DAILY [facility] Last Admin: 06/09/21 08:05 Dose: 75 mg Documented by: Dextrose (Dextrose 50% Syringe 50 Ml) 25 ml IVP ONCE PRN; Protocol PRN Reason: hypoglycemia protocol Dextrose (Dextrose 50% Syringe 50 Ml) 50 ml IVP PRN PRN; Protocol PRN Reason: hypoglycemia protocol Fluconazole (Fluconazole 100 Mg Tablet) 100 mg PO DAILY [facility] Stop: 06/16/21 10:59 Last Admin: 06/09/21 11:27 Dose: 100 mg Documented by: Glucagon (Glucagon 1 Mg/Ml Inj 1 Ml) 1 mg IM ONCE PRN; Protocol PRN Reason: Adult Acute Hypoglycemia Prot. Norepinephrine Bitartrate 4 mg (/ Dextrose) 254 mls @ 0 mls/hr IV .Q0M [facility]; Protocol Last Titration: 06/09/21 07:49 Dose: 1 mcg/min, 3.81 mls/hr Documented by: Piperacillin Sod/Tazobactam (Sod 3.375 gm/ Sodium Chloride) 50 mls @ 12.5 mls/hr IV Q8H [facility]; Protocol Stop: 06/12/21 00:14 Last Admin: 06/09/21 13:38 Dose: 12.5 mls/hr Documented by: Dextrose (D5w) 500 mls @ 100 mls/hr IV ONCE PRN; Protocol PRN Reason: Adult Acute Hypoglycemia Prot Insulin Glargine (Insulin Glargine 100 Units/1 Ml) 5 unit SUBCUT DAILY [facility] Last Admin: 06/09/21 08:04 Dose: 5 unit Documented by: Insulin Human Lispro (Insulin Lispro 100 Unit/1 Ml) 0 unit SUBCUT TIDAC [facility]; Protocol Last Admin: 06/09/21 11:27 Dose: 2 unit Documented by: Midodrine (Midodrine 5 Mg Tablet) 5 mg PO TID [facility] Nystatin (Nystatin Cream 30 Gm) 1 applic TOPICAL BID [facility] Last Admin: 06/09/21 09:33 Dose: 1 applic Documented by: Ondansetron HCl (Ondansetron 2 Mg/Ml Sdv 2 Ml) 4 mg IVP Q8H PRN PRN Reason: vomiting, or N/V if npo Pantoprazole Sodium (Pantoprazole Dr 40 Mg Tablet) 40 mg PO BID PRN PRN Reason: Acid Reflux Pregabalin (Pregabalin 25 Mg Capsule) 25 mg PO BEDTIME [facility] Last Admin: 06/08/21 20:34 Dose: 25 mg Documented by: Sucralfate (Sucralfate 1 Gm Tablet) 1 gm PO AC&BEDTIME [facility] Last Admin: 06/09/21 11:27 Dose: 1 gm Documented by: Tramadol HCl (Tramadol 50 Mg Tablet) 50 mg PO Q6H PRN PRN Reason: MODERATE PAIN Last Admin: 06/09/21 06:25 Dose: 50 mg Documented by: Vitals/I&O/Wt Last Vital Signs Temp 98.5 F 06/09/21 04:15 Pulse 78 06/09/21 08:30 Resp 14 06/09/21 08:30 BP 155/69 06/09/21 08:30 Pulse Ox 100 06/09/21 08:30 06/08/21 06/09/21 06/09/21 22:59 06:59 14:59 Intake Total 556.212 / 1446.428 494.047 / 1940.475 307.051 / 307.051 Output Total 25 / 50 Balance 531.212 / 1421.428 469.047 / 1890.475 307.051 / 307.051 Weight last 48 hrs Weight 183 lb 14.554 oz Weight 183 lb 10.321 oz Physical Exam Narrative: EXAM NARRATIVE: GENERAL: The patient is alert and oriented times three. Not in any acute distress. HEENT: Mild pallor. No icterus or lymphadenopathy.Oral cavity: There are no mucous membrane lesions. NECK: Trachea appears to be central. No masses noted. No JVD or thyromegaly appreciated. RESPIRATORY: Chest is symmetrical. No intercostals muscle retraction or any accessory muscle activation. There is no chest wall tenderness. Breath sounds are heard bilaterally. No rales or rhonchi heard. No evidence of any consolidation. Intensity of the breath sounds are diminished in the bases. BREASTS: Deferred. HEART: The heart sounds are normal. No S3 or S4. Ejection systolic murmur grade 4/6 in the aortic area. No diastolic murmurs.. No pericardial rub ABDOMEN: No vessel pulsations or distention. No tenderness. No organomegaly appreciated. Bowel sounds are normally heard. : Deferred. RECTAL: Deferred. LYMPHATIC: No lymphadenopathy noted in the neck or groin. EXTREMITIES: Trace edema with no cyanosis. No clubbing. Peripheral pulses are palpated in fairly good volume and amplitude MUSCULOSKELETAL: No acute joint deformities or swelling SKIN: There are no significant rashes or ecchymosis NEUROPSYCHIATRIC: The patient is alert and oriented x3. Appears to be in a good mood. No tremors or rigidity noted. Urinary Catheter Management^: Vega: Cath Placed During This Visit: no Reason for Continuing Indwelling Catheter: Accurate Measurement of Urinary Output in Critically Ill Patients Data : 06/09/21 03:10 06/09/21 03:10 Other Labs: Laboratory Last Values WBC 9.6 10^3/uL (4.0-10.0) 06/09/21 03:10 Corrected WBC Cancelled 06/08/21 03:21 RBC 2.75 10^6/uL (4.1-5.3) L 06/09/21 03:10 Hgb 7.9 g/dL (11.7-16.6) L 06/09/21 03:10 Hct 26.9 % (42.0-52.0) L 06/09/21 03:10 MCV 97.8 fl (80-94) H 06/09/21 03:10 MCH 28.7 pg (28.0-34.0) 06/09/21 03:10 MCHC 29.4 g/dL (30.0-36.0) L 06/09/21 03:10 RDW 16.9 % (12.1-15.1) H 06/09/21 03:10 Plt Count 147 10^3/cmm (130-400) 06/09/21 03:10 MPV 12.3 fL (7.4-10.4) H 06/09/21 03:10 Gran % Cancelled 06/08/21 03:21 Neut % (Auto) 75.7 % 06/09/21 03:10 Lymph % (Auto) 13.7 % 06/09/21 03:10 [place] % (Auto) 7.7 % 06/09/21 03:10 Eos % (Auto) 1.8 % 06/09/21 03:10 Baso % (Auto) 0.6 % 06/09/21 03:10 Neut # (Auto) 7.23 10^3/uL (1.8-7.7) 06/09/21 03:10 Lymph # (Auto) 1.3 10^3/uL (0.8-4.8) 06/09/21 03:10 [place] # (Auto) 0.7 10^3/uL (0.2-0.9) 06/09/21 03:10 Eos # (Auto) 0.2 10^3/uL (0.0-0.8) 06/09/21 03:10 Baso # (Auto) 0.1 10^3/uL (0.0-0.1) 06/09/21 03:10 Absolute Gran (auto) Cancelled 06/08/21 03:21 Nucleated RBC % (auto) 0 % 06/09/21 03:10 Nucleated RBCs # 0.0 /100WBC 06/09/21 03:10 Haptoglobin 191.0 mg/L (30-200) 06/08/21 03:21 Sodium 129 mmol/L (136-145) L 06/09/21 03:10 Potassium 4.9 mmol/L (3.5-5.1) 06/09/21 03:10 Chloride 93 mmol/L (98-107) L 06/09/21 03:10 Carbon Dioxide 25 mmol/L (22-29) 06/09/21 03:10 Anion Gap 15.9 (5-19) 06/09/21 03:10 BUN 29 mg/dL (8-23) H 06/09/21 03:10 Creatinine 3.4 mg/dL (0.7-1.2) H 06/09/21 03:10 GFR Calculation Not Reportable 06/09/21 03:10 Glucose 110 mg/dL (65-115) 06/09/21 03:10 POC Glucose 194 mg/dL (70-110) H 06/08/21 06:47 Calculated Osmolality 274 mOsm/kg (285-295) L 06/09/21 03:10 Lactate 2.1 mmol/L (0.5-2.2) 06/06/21 19:00 Calcium 7.5 mg/dL (8.5-10.5) L 06/09/21 03:10 Phosphorus 2.9 mg/dL (2.5-4.5) 06/07/21 03:07 Magnesium 2.0 mg/dL (1.7-2.3) 06/07/21 03:07 Total Bilirubin 0.4 mg/dL (0.15-1.2) 06/09/21 03:10 AST 19 U/L (0-40) 06/09/21 03:10 ALT < 5 U/L (0-41) 06/09/21 03:10 Alkaline Phosphatase 194 IU/L (40-130) H 06/09/21 03:10 Lactate Dehydrogenase 255 U/L (135-225) H 06/08/21 03:21 Troponin T Baseline 509 ng/L (0-15) H* 06/06/21 19:00 Troponin T 120 Minute 483.4 ng/L (0-15) H 06/06/21 21:19 Delta Troponin T -25.6 ABS# (0-10) L 06/06/21 21:19 Troponin T Hi Sens 6Hr 482.7 ng/L (0-15) H 06/07/21 01:47 Troponin T Hi Sens 6Hr Delta -26.3 ng/L (0-12) L 06/07/21 01:47 NT-Pro-B Natriuret Pep 38366 pg/mL (0-450) H 06/06/21 19:00 Total Protein 5.2 g/dL (6.6-8.7) L 06/09/21 03:10 Albumin 2.4 g/dL (3.5-5.2) L 06/09/21 03:10 Globulin 2.8 g/dL (1.3-4.6) 06/09/21 03:10 Procalcitonin 0.55 ng/mL (0-0.5) H 06/06/21 19:00 TSH 4.74 uIU/mL (0.27-4.20) H 06/06/21 19:00 Free T4 0.88 ng/dL (0.82-1.77) 06/06/21 19:06 Urine Color Yellow (Yellow) 06/06/21 22:00 Urine Appearance Sl hazy (CLEAR) 06/06/21 22:00 Urine pH 6 (5-7) 06/06/21 22:00 Ur Specific [place] 1.005 (1.005-1.030) 06/06/21 22:00 Urine Protein 3+ (Negative) H 06/06/21 22:00 Urine Glucose (UA) Norm (Normal) 06/06/21 22:00 Urine Ketones Negative (Negative) 06/06/21 22:00 Urine Blood 3+ (Negative) H 06/06/21 22:00 Urine Nitrate Negative (Negative) 06/06/21 22:00 Urine Bilirubin Neg (Negative) 06/06/21 22:00 Urine Urobilinogen Norm mg/dL (Negative) 06/06/21 22:00 Ur Leukocyte Esterase 2+ (Negative) H 06/06/21 22:00 Urine RBC 25-40 /hpf (0-2) H 06/06/21 22:00 Urine WBC Too numerous to cnt /hpf (0-5) H 06/06/21 22:00 Ur Squamous Epith Cells 0-4 /hpf (0-5) H 06/06/21 22:00 Amorphous Sediment Not Reportable 06/06/21 22:00 Urine Bacteria 2+ /hpf (NONE) H 06/06/21 22:00 Micro: Microbiology 06/07/21 17:48 Urine Culture - Preliminary Urine Catheterized Yeast species 06/06/21 22:00 Urine Culture - Preliminary Urine,Clean Catch Yeast A&P Assessment and plan (1) Atherosclerosis of coronary artery of [place] heart without angina pectoris: Since the patient has no specific symptoms of coronary insufficiency, may not require any further investigations at this time. Advised to continue on the current medications. Importance of compliance to diet and exercise were discussed which the patient seems to understand well. Status: Acute Qualifiers: Coronary Disease-Associated Artery/Lesion type: [place] artery Qualified Code(s): I25.10 - Atherosclerotic heart disease of [place] coronary artery without angina pectoris (2) Ischemic cardiomyopathy: Currently the patient has no evidence of any cardiac decompensation. May continue on the current medications. Status: Acute (3) Severe calcific aortic valve stenosis: Patient has a low gradient severe aortic valve stenosis. At this point, I may hold off on any further investigations. 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 Status: Acute (5) ESRD on hemodialysis: Hemodialysis schedule as per the nephrology service Status: Acute Additional A&P Information Since the patient's overall cardiovascular status seems to be stable, may not require any specific intervention at this point. 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
[2021-06-09] MEDS: midodrine 5 mg TABLET PO ×2 (14:18→20:19)
--- NOTE | 2021-06-09 14:46 | P.PN_ITS ---
Subjective Subjective: Interval history: Dialysis performed this morning, was uneventful. Vega catheter now removed. Of note over the last 24 hours he has only made 25 mL of urine. He still has significant scrotal edema, the lower extremity edema is marginally better. Medications: Reviewed: Yes Medication Review Details: Current Medications Acetaminophen (Acetaminophen 325 Mg Tablet) 650 mg PO Q6H PRN PRN Reason: Mild/Mod Pain Or Temp >/= 101 Last Admin: 06/08/21 23:52 Dose: 650 mg Documented by: Aspirin (Aspirin 81 Mg Ec Tablet) 81 mg PO DAILY [facility] Last Admin: 06/09/21 08:05 Dose: 81 mg Documented by: Atorvastatin Calcium (Atorvastatin 40 Mg Tablet) 40 mg PO DAILY [facility] Last Admin: 06/09/21 08:05 Dose: 40 mg Documented by: Clopidogrel Bisulfate (Clopidogrel 75 Mg Tablet) 75 mg PO DAILY [facility] Last Admin: 06/09/21 08:05 Dose: 75 mg Documented by: Dextrose (Dextrose 50% Syringe 50 Ml) 25 ml IVP ONCE PRN; Protocol PRN Reason: hypoglycemia protocol Dextrose (Dextrose 50% Syringe 50 Ml) 50 ml IVP PRN PRN; Protocol PRN Reason: hypoglycemia protocol Fluconazole (Fluconazole 100 Mg Tablet) 100 mg PO DAILY [facility] Stop: 06/16/21 10:59 Last Admin: 06/09/21 11:27 Dose: 100 mg Documented by: Glucagon (Glucagon 1 Mg/Ml Inj 1 Ml) 1 mg IM ONCE PRN; Protocol PRN Reason: Adult Acute Hypoglycemia Prot. Norepinephrine Bitartrate 4 mg (/ Dextrose) 254 mls @ 0 mls/hr IV .Q0M [facility]; Protocol Last Titration: 06/09/21 07:49 Dose: 1 mcg/min, 3.81 mls/hr Documented by: Piperacillin Sod/Tazobactam (Sod 3.375 gm/ Sodium Chloride) 50 mls @ 12.5 mls/hr IV Q8H [facility]; Protocol Stop: 06/12/21 00:14 Last Admin: 06/09/21 13:38 Dose: 12.5 mls/hr Documented by: Dextrose (D5w) 500 mls @ 100 mls/hr IV ONCE PRN; Protocol PRN Reason: Adult Acute Hypoglycemia Prot Insulin Glargine (Insulin Glargine 100 Units/1 Ml) 5 unit SUBCUT DAILY [facility] Last Admin: 06/09/21 08:04 Dose: 5 unit Documented by: Insulin Human Lispro (Insulin Lispro 100 Unit/1 Ml) 0 unit SUBCUT TIDAC [facility]; Protocol Last Admin: 06/09/21 11:27 Dose: 2 unit Documented by: Midodrine (Midodrine 5 Mg Tablet) 5 mg PO TID [facility] Nystatin (Nystatin Cream 30 Gm) 1 applic TOPICAL BID [facility] Last Admin: 06/09/21 09:33 Dose: 1 applic Documented by: Ondansetron HCl (Ondansetron 2 Mg/Ml Sdv 2 Ml) 4 mg IVP Q8H PRN PRN Reason: vomiting, or N/V if npo Pantoprazole Sodium (Pantoprazole Dr 40 Mg Tablet) 40 mg PO BID PRN PRN Reason: Acid Reflux Pregabalin (Pregabalin 25 Mg Capsule) 25 mg PO BEDTIME [facility] Last Admin: 06/08/21 20:34 Dose: 25 mg Documented by: Sucralfate (Sucralfate 1 Gm Tablet) 1 gm PO AC&BEDTIME [facility] Last Admin: 06/09/21 11:27 Dose: 1 gm Documented by: Tramadol HCl (Tramadol 50 Mg Tablet) 50 mg PO Q6H PRN PRN Reason: MODERATE PAIN Last Admin: 06/09/21 06:25 Dose: 50 mg Documented by: Vitals/I&O/Wt Last Vital Signs Temp 98.5 F 06/09/21 04:15 Pulse 78 06/09/21 08:30 Resp 14 06/09/21 08:30 BP 155/69 06/09/21 08:30 Pulse Ox 100 06/09/21 08:30 06/08/21 06/09/21 06/09/21 22:59 06:59 14:59 Intake Total 556.212 / 1446.428 494.047 / 1940.475 307.051 / 307.051 Output Total 25 / 50 Balance 531.212 / 1421.428 469.047 / 1890.475 307.051 / 307.051 Weight last 48 hrs Weight 83.42 kg Weight 83.3 kg Physical Exam Narrative: EXAM NARRATIVE: Constitutional: Awake, comfortable HEENT: Wet mucosa, no jvp, non icteric Lungs: Bilaterally clear without discernible wheeze or rales in all lung zones CVS: S1 S2, no murmurs Abdo: Soft, BS ok Ext 4: 2-3+ edema, peripheral perfusion with no cyanosis Neurological: Grossly non-focal Urinary Catheter Management^: Vega: Cath Placed During This Visit: no Reason for Continuing Indwelling Catheter: Accurate Measurement of Urinary Output in Critically Ill Patients Data : 06/09/21 03:10 06/09/21 03:10 Micro: Microbiology 06/07/21 17:48 Urine Culture - Preliminary Urine Catheterized Yeast species 06/06/21 22:00 Urine Culture - Preliminary Urine,Clean Catch Yeast A&P Additional A&P Information 1. 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 Dialysis performed today, he is maintaining his hemodynamics with slow titration of his Levophed dosing. I will plan to dialysis again on Wednesday. Daily evaluation for need for dialysis Dose medication for GFR less than 15 on dialysis 2. Inability to void Urology was consulted yesterday. It is felt that given the significant edema that he has in his scrotum and lower abdominal wall this is contributing to his inability to void. His Vega catheter is being removed today. Of note he only made 25 mL a day of urine. He is under the impression that he has not made much urine because he has not drank too much fluid. I informed him that he is in kidney failure, and it is this reason why he is not making much urine. He does not believe me. I asked him not to consume too much fluid given his obvious hypervolemia. 3. Chemistry Minor noncritical aberration, continue to follow closely over the next few days. 4. Hemodynamics He has ejection fraction of 25% to moderate aortic stenosis, he is currently on low-dose Levophed and has a soft blood pressure. Is likely he will be somewhat preload dependent and this will limit our ability to significantly ultrafiltrate him. Titrate pressors as he can tolerate. 5. Disposition Unfortunately, over the last few days, we have had communication difficulties with both him and his family members. At this time they do not like our care despite discussing with multiple family members and addressing any and all concerns that they have had. I left a message for Mac, he did not call me back. His is at bedside, I answered all of her questions asking if there is any other concerns that I may help address. She simply wishes to find a different snowmobile mechanic. I informed them that as soon as he is discharged he will be back under the care of his usual physicians. This is most unfortunate. It appears that both he and his family members have a very poor understanding of his disease processes and the severity of his current condition. It appears that they do have some trust in their established physicians and at this time will defer any major decision-making to the established physicians. I would recommend discharge as soon as he is stable and off the vasopressor agents back to his usual team. Of note we do not need to wait for him to void as he is oliguric and it may take days for him to slowly accumulate urine. I have asked him to make sure that that the home health nurse and his outpatient nephrology team monitors for urinary obstruction i.e. the symptoms that he presented with. Thank you for consultation, it is a pleasure to follow these cases with you Exam and interview performed with aid of bedside RN using telemedicine Time spent 20 min inc > 50% of time in face to face counseling Allan Alejandra MD [facility] [phone] Attestations Medical Necessity Statement*: Eval for renal failure Coding Level of Care Code Acute Automatic Serging Machine Operator for Willie Wilks
--- NOTE | 2021-06-09 16:08 | PC.NURSE ---
Vega was removed at around 1500 this shift and purulent drainage was noted from site. Frequent tevin care done throughout shift.
--- NOTE | 2021-06-09 17:21 | P.PN_ITS ---
Subjective Subjective: Interval history: Hospital course, labs appreciated. Today morning examination patient is on dialysis. Currently on Levophed of 1. Which was weaned off during the day after dialysis. Again when seen during the day patient sitting up in chair with at bedside. Denies any nausea vomiting, headache. Patient denies any chest pain or palpitations. States usually at home he is nonambulatory since his last discharge and is doing physical therapy to regain strength in his lower limbs. He usually sits in chair a few of the day. Medications: Reviewed: Yes Vitals/I&O/Wt Last Vital Signs Temp 97.6 F 06/09/21 10:00 Pulse 67 06/09/21 16:00 Resp 16 06/09/21 16:00 BP 104/61 06/09/21 16:00 Pulse Ox 94 06/09/21 16:00 06/09/21 06/09/21 06/09/21 06:59 14:59 22:59 Intake Total 494.047 / 1940.475 307.051 / 307.051 Output Total 25 / 50 Balance 469.047 / 1890.475 307.051 / 307.051 Weight last 48 hrs Weight 83.42 kg Physical Exam Const: COMMON NORMALS: no acute distress and alert GENERAL APPEARANCE: cooperative and frail appearing NUTRITIONAL APPEARANCE: overweight ORIENTATION/CONSCIOUSNESS: Yes awake OTHER: Sitting up in bed working on breakfast. HENMT: COMMON NORMALS: oropharynx normal Resp: COMMON NORMALS: normal respiratory effort and clear to auscultation bilaterally AUSCULTATION: clear to auscultation bilaterally Cardio: COMMON NORMALS: regular rhythm, S1 normal heart sound present, S2 normal heart sound present and No murmurs present (Cardio) RHYTHM: regular rhythm HEART SOUNDS: S1 normal heart sound present and S2 normal heart sound present GI: COMMON NORMALS: Normal to inspection, nondistended, normoactive bowel sounds present, Soft to palpation and non-tender PALPATION: Yes Soft to palpation : OTHER: Scrotal edema. Extremity: GENERAL: Yes edema (2+) Neuro: COMMON NORMALS: moves all extremities SENSORIUM/ORIENTATION: Yes alert Skin: COMMON NORMALS: no rashes or lesions noted GENERAL SKIN EXAM: no rashes or lesions noted LESIONS: no lesions (Skin breakdown/ulceration lateral L leg covered w covaderm) OTHER: Erythema BL lower legs. Urinary Catheter Management^: Vega: Cath Placed During This Visit: no Reason for Continuing Indwelling Catheter: Accurate Measurement of Urinary Output in Critically Ill Patients Data : 06/09/21 03:10 06/09/21 03:10 Micro: Microbiology 06/07/21 17:48 Urine Culture - Preliminary Urine Catheterized Yeast species A&P Assessment and plan (1) Urinary tract infection: Continue Zosyn. Urinary bladder decompressed with Vega. Follow-up urine culture. Given urinary retention at presentation, leave Vega in place, follow-up with urology. Status: Acute (2) Hypotension: Becoming hypotensive again on trying to wean down of Levophed. I do not think midodrine is a good idea given his ischemic cardiomyopathy. Continue slowly wean down, needs only a small dose, but becoming hypotensive and comes off entirely. Continue Zosyn, possible septic shock, diminished output with cardiomyopathy, aortic stenosis. Avoid medications that may contribute to hypotension where possible. Status: Acute (3) Septic shock: Status: Acute (4) Acute metabolic encephalopathy: Episode of unresponsiveness with hypotension, possibly related to morphine, due to which received naloxone, although unlikely morphine causing the persistent hypotension. Mental status had improved and he remains alert. Continue to wean off low-dose pressor gradually as tolerating. Status: Acute (5) Ischemic cardiomyopathy: Persistent hypotension due to which has difficult time weaning down entirely of flow rate pressor. Continue treatment for possible septic shock, but concern for also possible low output failure. They would like to pursue TAVR, but needs to improve sufficiently to be able to undergo the required additional assessment and the procedure which may prove difficult given current persistent need for low rate pressor, dependence on hemodialysis, significant edema, and underlying debility with poor functional status even at his best prior to the most recent discharge 06/07. He declined to work with physical therapy yesterday. During that admission declined to be set up with [facility]. Once able to, follow-up with primary team and resume work-up of the aortic valve, otherwise hospice would be appropriate. Status: Acute (6) Severe calcific aortic valve stenosis: Moderate to severe aortic stenosis. As above. Status: Acute (7) Bradycardia: Following morphine administration, resolved. Status: Acute (8) CHF (congestive heart failure): Hemodialysis as tolerating in regards to low blood pressures, with preload dependence given severely low EF, aortic stenosis. Status: Acute Qualifiers: Heart failure chronicity: acute on chronic Heart failure type: diastolic Qualified Code(s): I50.33 - Acute on chronic diastolic (congestive) heart failure (9) Type 2 diabetes mellitus: Resume 5 units Lantus daily. Continue SSI. Monitor glucose. Status: Chronic Qualifiers: Diabetes mellitus complication status: without complication Diabetes mellitus shelter insulin use: with intermodal customer service use Qualified Code(s): E11.9 - Type 2 diabetes mellitus without complications; Z79.4 - intermodal customer service (current) use of insulin (10) Right kidney mass: Noted on CT. Will need outpatient close follow-up and additional testing by the primary care team. Please speak with the patient and the family prior to discharge. Status: Acute (11) Thrombocytopenia: Improving with treatment of infection, dialysis. Noted worsening thrombocytopenia, possibly infection, possibly dilutional with fluid overload given some decrease in all cell lines. Is not on heparin products. No evidence of hemolysis. Status: Acute (12) Anemia: Status: Acute (13) Physical deconditioning: Status: Acute (14) Anasarca: With scrotal edema. Status: Acute Additional A&P Information Atrial fibrillation Plan for the day: Continue with hemodialysis. Start on midodrine 5 mg 3 times daily. Will uptitrate giving goal blood pressure less than 140/90 mmHg. Try to wean off Levophed. Out of bed to chair. Physical therapy. Discontinue Vega catheter. Start on fluconazole for 10 days. Continue Zosyn for now. Scrotal support. Avoid morphine. Continue tramadol 50 mg every 6 hourly. Switch diet to renal dialysis diet Multiple counseling and discussion with patient and patient's at bedside regarding the etiology and reason for patient's kidney failure, congestive heart failure. Renal dialysis started. Heparin for DVT prophylaxis. Protonix for PUD prophylaxis Attestations Medical Necessity Statement*: Requires further hospitalization for management of CHANO on CKD, maintenance hemodialysis, cardiogenic shock Critical Care Time: The high probability of a clinically significant, sudden or life threatening deterioration of the patient's [renal, pulmonary, cardiac] system(s) required my full and direct attention, intervention and personal management. The critical care time is as shown. This time is in addition to time spent performing any reported procedures but includes the following: [x] Data and vital sign review and interpretation [x] Patient assessment, examination and intervention [x] Documentation [x] Medication orders and management Critical Care Time (min): 90 Coding Level of Care Code Acute Technical Fellow for Chg Fwd Diagnoses Urinary tract infection N39.0 Hypotension I95.9 Septic shock A41.9; R65.21 Acute metabolic encephalopathy G93.41 Ischemic cardiomyopathy I25.5 Severe calcific aortic valve stenosis I35.0 Bradycardia R00.1 CHF (congestive heart failure) I50.33 Heart failure chronicity: acute on chronic Heart failure type: diastolic Type 2 diabetes mellitus E11.9; Z79.4 Diabetes mellitus complication status: without complication Diabetes mellitus intermodal customer service insulin use: with intermodal customer service use Right kidney mass N28.89 Thrombocytopenia D69.6 Anemia D64.9 Physical deconditioning R53.81 Anasarca R60.1
[2021-06-09] MEDS: heparin 5,000 unit/mL INJ 1 mL 5000 UNIT SUBCUT (18:22)
[2021-06-09] MEDS: pantoprazole DR 40 mg Tablet PO (18:22)
--- NOTE | 2021-06-09 18:40 | PC.NURSE ---
Patient has been awake for most of shift and was able to be transferred to chair. Levophed was titrated off this shift.
[2021-06-09] MEDS: pregabalin 25 mg Capsule PO (20:19)
[2021-06-10] VITALS (27 sets, daily range): BP systolic 98–146; BP diastolic 42–87; PULSE 64–87; RESP 10–18; TEMP 36.5–36.8; O2SAT 96–100
[2021-06-10] MEDS: TRAMadol 50 mg Tablet PO ×2 (02:11→08:21)
[2021-06-10] MEDS: heparin 5,000 unit/mL INJ 1 mL 5000 UNIT SUBCUT (06:41)
[2021-06-10] MEDS: sucralfate 1 gm Tablet PO ×2 (06:41→11:15)
[2021-06-10] MEDS: aspirin 81 mg EC Tablet PO (08:21)
[2021-06-10] MEDS: fluconazole 100 mg Tablet PO (08:21)
[2021-06-10] MEDS: midodrine 5 mg TABLET PO (08:21)
[2021-06-10] MEDS: atorvastatin 40 mg Tablet PO (08:21)
[2021-06-10] MEDS: pantoprazole DR 40 mg Tablet PO (08:21)
[2021-06-10] MEDS: clopidogrel 75 mg Tablet PO (08:21)
[2021-06-10] MEDS: insulin glargine 100 units/1 mL 5 UNIT SUBCUT (08:26)
[2021-06-10 08:40] LABS: Basophils % 0.6 %; Eosinophils # 0.1 10^3/uL (0.0-0.8); Eosinophils % 1.9 %; Hematocrit 26.9 % (42.0-52.0); Lymphocytes # 0.9 10^3/uL (0.8-4.8); Lymphocytes % 13.8 %; Mean Corpuscular HGB Conc 29.7 g/dL (30.0-36.0); Mean Corpuscular Volume 97.5 fl (80-94); Mean Platelet Volume 11.8 fL (7.4-10.4); Monocytes # 0.5 10^3/uL (0.2-0.9); Monocytes % 8.4 %; Neutrophils % 74.7 %; Nucleated Red Blood Cells % 0 %; Platelet Count 139 10^3/cmm (130-400); Red Blood Count 2.76 10^6/uL (4.1-5.3); Red Cell Distribution Width 16.9 % (12.1-15.1); White Blood Count 6.4 10^3/uL (4.0-10.0)
[2021-06-10] MEDS: nystatin cream 30 gm 1 APPLIC TOPICAL (08:50)
[2021-06-10 08:58] LABS: Alanine Aminotransferase < 5 U/L (0-41); Albumin Level 2.7 g/dL (3.5-5.2); Alkaline Phosphatase 206 IU/L (40-130); Anion Gap 14.8 (5-19); Aspartate Amino Transferase 14 U/L (0-40); Blood Urea Nitrogen 19 mg/dL (8-23); Calcium 7.7 mg/dL (8.5-10.5); Carbon Dioxide 27 mmol/L (22-29); Chloride 96 mmol/L (98-107); Globulin 2.6 g/dL (1.3-4.6); Glucose 103 mg/dL (65-115); Osmolality Calculated 279 mOsm/kg (285-295); Potassium 4.8 mmol/L (3.5-5.1); Sodium 133 mmol/L (136-145); Total Bilirubin 0.5 mg/dL (0.15-1.2); Total Protein 5.3 g/dL (6.6-8.7)
--- NOTE | 2021-06-10 10:49 | PM.DCS ---
Discharge Providers Date of Admission: 06/06/21 21:54 Date of Discharge: June 10, 2021 Attending Provider at Admission: Sammy Newman Attending Provider at Discharge: Atul Jackson MD Consults: Cardiology: [facility] Tele nephrology Primary Care Provider: Malaika Mayorga MD Diagnoses at Discharge Discharge Diagnosis (1) Urinary tract infection: Status: Acute (2) Hypotension: Status: Acute (3) Septic shock: Status: Acute (4) Acute metabolic encephalopathy: Status: Acute (5) Ischemic cardiomyopathy: Status: Acute (6) Severe calcific aortic valve stenosis: Status: Acute (7) Bradycardia: Status: Acute (8) CHF (congestive heart failure): Status: Acute Qualifiers: Heart failure type: diastolic Heart failure chronicity: acute on chronic Qualified Code(s): I50.33 - Acute on chronic diastolic (congestive) heart failure (9) Type 2 diabetes mellitus: Status: Chronic Qualifiers: Diabetes mellitus watermaster insulin use: with shelter use Diabetes mellitus complication status: without complication Qualified Code(s): E11.9 - Type 2 diabetes mellitus without complications; Z79.4 - longterm (current) use of insulin (10) Right kidney mass: Status: Acute (11) Thrombocytopenia: Status: Acute (12) Anemia: Status: Acute (13) Physical deconditioning: Status: Acute (14) Anasarca: Status: Acute Reason for Visit Reason for Visit: UTI No Urination 3 days Hospital Course Hospital Course Leonel Driscoll is a 81 year old male with past medical history of hypertension, dyslipidemia, diabetes, lesion, CHF, severe aortic stenosis, ischemic cardiomyopathy, EF of 25%, acute kidney injury, end-stage renal disease on hemodialysis treatments, deconditioning who was brought to emergency room due to increasing weakness, increasing peripheral edema, increasing shortness of breath. On admission patient denied any associated chills, nausea, vomiting, diarrhea. Patient himself is a poor historian. Patient did have swelling and generalized anasarca especially including the area of scrotum and penis. Patient denied any associated tenderness or pain in the scrotal area. Patient was initially admitted to the medical general floor but rapidly developed acute decline in mental status associated with hypotension and bradycardia hence was transferred to ICU. Patient's acute metabolic encephalopathy was thought most likely secondary to side effect of morphine and it improved after Narcan. Patient was started on vasopressor with Levophed. Patient did have episodes of bradycardia with heart rate going down to 50s. His home dose of metoprolol was withheld. Cardiology was consulted and he was advised to continue on current treatment with advised to follow-up as an outpatient for further work-up of slow flow severe aortic stenosis with dobutamine stress test. Nephrology was consulted and patient required extra days of dialysis while being on Levophed. Later patient was transitioned over to oral midodrine. Patient is tolerating well with dialysis on oral midodrine of 5 mg 3 times a day. Patient's blood culture and urine cultures so far have remained negative for bacterial infection other than urine growing yeast. He is tolerating Diflucan well. He is to continue taking fluconazole for next 10 days. With extra sessions of dialysis patients edema improved. Patient does have residual edema at scrotal and penile area for which he is advised to use zinc oxide diaper cream. Patient is been discharged in hemodynamically stable condition with advised to take midodrine 5 mg 3 times a day and an additional dose of 5 mg Wednesday, Wednesday, Wednesday on the day of dialysis prior to dialysis. He is advised to stop taking metoprolol given recurrent bradycardia. He is advised to continue using zinc oxide in the scrotal and penile area. He is advised to follow-up with wound care center. Bladder scan prior to discharge post removal of catheter showed no urine in the bladder. He is advised to continue following up with dialysis center and to follow-up with cardiology for further work-up of severe ischemic cardiomyopathy slow flow severe aortic stenosis with dobutamine stress test as an outpatient. Physical Exam Const: COMMON NORMALS: no acute distress and alert GENERAL APPEARANCE: cooperative and frail appearing NUTRITIONAL APPEARANCE: overweight ORIENTATION/CONSCIOUSNESS: Yes awake OTHER: Sitting up in bed working on breakfast. HENMT: COMMON NORMALS: oropharynx normal Resp: COMMON NORMALS: normal respiratory effort and clear to auscultation bilaterally AUSCULTATION: clear to auscultation bilaterally Cardio: COMMON NORMALS: regular rhythm, S1 normal heart sound present, S2 normal heart sound present and No murmurs present (Cardio) RHYTHM: regular rhythm HEART SOUNDS: S1 normal heart sound present and S2 normal heart sound present GI: COMMON NORMALS: Normal to inspection, nondistended, normoactive bowel sounds present, Soft to palpation and non-tender PALPATION: Yes Soft to palpation : OTHER: Scrotal edema. Extremity: GENERAL: Yes edema (2+) Neuro: COMMON NORMALS: moves all extremities SENSORIUM/ORIENTATION: Yes alert Skin: COMMON NORMALS: no rashes or lesions noted GENERAL SKIN EXAM: no rashes or lesions noted LESIONS: no lesions (Skin breakdown/ulceration lateral L leg covered w covaderm) OTHER: Erythema BL lower legs. Urinary Catheter Management^: Vega: Cath Placed During This Visit: yes, but has since been removed by the nurse Reason for Continuing Indwelling Catheter: Accurate Measurement of Urinary Output in Critically Ill Patients Date Urinary Catheter Removed: 06/09/21 Time Urinary Catheter Discontinued: 15:00 Discharge Data Data Completed and Pending: Completed Studies During Hospitalization Category Date Time Status CT abdomen pelvis wo con [id number] Urge nt Cat Scan 06/06/21 18:21 Completed XR chest 1V susannah ble [id number] Urgent Exams 06/06/21 18:21 [place] [id number] Rout ine Ultrasound 06/07/21 14:09 Completed US scrotum [id number] Urgent Ultrasound 06/06/21 19:36 Completed Pending at discharge Category Date Time Status Blood Culture Sta t Lab 06/06/21 21:19 Results Urine Culture Rou ishmael Lab 06/07/21 17:48 Results Urine Culture Sta t Lab 06/06/21 22:00 Results Labs from last 24 hours 06/10/21 06/10/21 07:57 07:57 WBC 6.4 RBC 2.76 L Hgb 8.0 L Hct 26.9 L MCV 97.5 H MCH 29.0 MCHC 29.7 L RDW 16.9 H Plt Count 139 MPV 11.8 H Neut % (Auto) 74.7 Lymph % (Auto) 13.8 [place] % (Auto) 8.4 Eos % (Auto) 1.9 Baso % (Auto) 0.6 Neut # (Auto) 4.80 Lymph # (Auto) 0.9 [place] # (Auto) 0.5 Eos # (Auto) 0.1 Baso # (Auto) 0.0 Nucleated RBC % (a uto) 0 Nucleated RBCs # 0.0 Sodium 133 L Potassium 4.8 Chloride 96 L Carbon Dioxide 27 Anion Gap 14.8 BUN 19 Creatinine 2.8 H GFR Calculation Not Reportable Glucose 103 Calculated Osmolal ity 279 L Calcium 7.7 L Total Bilirubin 0.5 AST 14 ALT < 5 Alkaline Phosphata se 206 H Total Protein 5.3 L Albumin 2.7 L Globulin 2.6 Addt'l Data from Hospital Stay: Laboratory Results WBC 6.4 10^3/uL (4.0- 10.0) 06/10/21 07:57 Corrected WBC Cancelled 06/08/21 03:21 RBC 2.76 10^6/uL (4.1 -5.3) L 06/10/21 07:57 Hgb 8.0 g/dL (11.7-16 .6) L 06/10/21 07:57 Hct 26.9 % (42.0-52.0 ) L 06/10/21 07:57 MCV 97.5 fl (80-94) H 06/10/21 07:57 MCH 29.0 pg (28.0-34. 0) 06/10/21 07:57 MCHC 29.7 g/dL (30.0-3 6.0) L 06/10/21 07:57 RDW 16.9 % (12.1-15.1 ) H 06/10/21 07:57 Plt Count 139 10^3/cmm (130 -400) 06/10/21 07:57 MPV 11.8 fL (7.4-10.4 ) H 06/10/21 07:57 Gran % Cancelled 06/08/21 03:21 Neut % (Auto) 74.7 % 06/10/21 07:57 Lymph % (Auto) 13.8 % 06/10/21 07:57 [place] % (Auto) 8.4 % 06/10/21 07:57 Eos % (Auto) 1.9 % 06/10/21 07:57 Baso % (Auto) 0.6 % 06/10/21 07:57 Neut # (Auto) 4.80 10^3/uL (1.8 -7.7) 06/10/21 07:57 Lymph # (Auto) 0.9 10^3/uL (0.8- 4.8) 06/10/21 07:57 [place] # (Auto) 0.5 10^3/uL (0.2- 0.9) 06/10/21 07:57 Eos # (Auto) 0.1 10^3/uL (0.0- 0.8) 06/10/21 07:57 Baso # (Auto) 0.0 10^3/uL (0.0- 0.1) 06/10/21 07:57 Absolute Gran (aut o) Cancelled 06/08/21 03:21 Nucleated RBC % (a uto) 0 % 06/10/21 07:57 Nucleated RBCs # 0.0 /100WBC 06/10/21 07:57 Haptoglobin 191.0 mg/L (30-20 0) 06/08/21 03:21 Sodium 133 mmol/L (136-1 45) L 06/10/21 07:57 Potassium 4.8 mmol/L (3.5-5 .1) 06/10/21 07:57 Chloride 96 mmol/L (98-107 ) L 06/10/21 07:57 Carbon Dioxide 27 mmol/L (22-29) 06/10/21 07:57 Anion Gap 14.8 (5-19) 06/10/21 07:57 BUN 19 mg/dL (8-23) 06/10/21 07:57 Creatinine 2.8 mg/dL (0.7-1. 2) H 06/10/21 07:57 GFR Calculation Not Reportable 06/10/21 07:57 Glucose 103 mg/dL (65-115 ) 06/10/21 07:57 POC Glucose 194 mg/dL (70-110 ) H 06/08/21 06:47 Calculated Osmolal ity 279 mOsm/kg (285- 295) L 06/10/21 07:57 Lactate 2.1 mmol/L (0.5-2 .2) 06/06/21 19:00 Calcium 7.7 mg/dL (8.5-10 .5) L 06/10/21 07:57 Phosphorus 2.9 mg/dL (2.5-4. 5) 06/07/21 03:07 Magnesium 2.0 mg/dL (1.7-2. 3) 06/07/21 03:07 Total Bilirubin 0.5 mg/dL (0.15-1 .2) 06/10/21 07:57 AST 14 U/L (0-40) 06/10/21 07:57 ALT < 5 U/L (0-41) 06/10/21 07:57 Alkaline Phosphata se 206 IU/L (40-130) H 06/10/21 07:57 Lactate Dehydrogen ase 255 U/L (135-225) H 06/08/21 03:21 Troponin T Baselin e 509 ng/L (0-15) H* 06/06/21 19:00 Troponin T 120 Min rigoberto 483.4 ng/L (0-15) H 06/06/21 21:19 Delta Troponin T -25.6 ABS# (0-10) L 06/06/21 21:19 Troponin T Hi Sens 6Hr 482.7 ng/L (0-15) H 06/07/21 01:47 Troponin T Hi Sens 6Hr Delta -26.3 ng/L (0-12) L 06/07/21 01:47 NT-Pro-B Natriuret Pep 94879 pg/mL (0-45 0) H 06/06/21 19:00 Total Protein 5.3 g/dL (6.6-8.7 ) L 06/10/21 07:57 Albumin 2.7 g/dL (3.5-5.2 ) L 06/10/21 07:57 Globulin 2.6 g/dL (1.3-4.6 ) 06/10/21 07:57 Procalcitonin 0.55 ng/mL (0-0.5 ) H 06/06/21 19:00 TSH 4.74 uIU/mL (0.27 -4.20) H 06/06/21 19:00 Free T4 0.88 ng/dL (0.82- 1.77) 06/06/21 19:06 Urine Color Yellow (Yellow) 06/06/21 22:00 Urine Appearance Sl hazy (CLEAR) 06/06/21 22:00 Urine pH 6 (5-7) 06/06/21 22:00 Ur Specific Gravit y 1.005 (1.005-1.0 30) 06/06/21 22:00 Urine Protein 3+ (Negative) H 06/06/21 22:00 Urine Glucose (UA) Norm (Normal) 06/06/21 22:00 Urine Ketones Negative (Negati ve) 06/06/21 22:00 Urine Blood 3+ (Negative) H 06/06/21 22:00 Urine Nitrate Negative (Negati ve) 06/06/21 22:00 Urine Bilirubin Neg (Negative) 06/06/21 22:00 Urine Urobilinogen Norm mg/dL (Negat gavin) 06/06/21 22:00 Ur Leukocyte Benita ase 2+ (Negative) H 06/06/21 22:00 Urine RBC 25-40 /hpf (0-2) H 06/06/21 22:00 Urine WBC Too numerous to c nt /hpf (0-5) H 06/06/21 22:00 Ur Squamous Epith Cells 0-4 /hpf (0-5) H 06/06/21 22:00 Amorphous Sediment Not Reportable 06/06/21 22:00 Urine Bacteria 2+ /hpf (NONE) H 06/06/21 22:00 Impressions Abdomen/Pelvis CT 06/06/21 18:21 IMPRESSION: 1. The perineum is partially visualized on exam. It appears edematous without specific findings of necrotizing tissue such as foci of gas. 2. Right groin hematoma measuring up to 5 cm in size. 3. Indeterminate 2 cm hyperdense lesion in the posterior cortex of the right kidney. This can be further evaluated with ultrasound to further characterize hyperdense cyst versus solid lesion. It could also be further characterized with renal mass protocol CT or MRI. 4. Cholelithiasis. 5. Bilateral small volume pleural effusions. Trace ascites. Moderate anasarca. COMMENTS: Consistent with the [place] [employer]'s Incidental Findings Committee white paper (J Am Lasha Radiol 2018): Any incidental renal lesion less than 1 cm or classified as too small to characterize, or any incidental cystic renal lesion characterized as simple-appearing, is likely benign. No follow-up imaging is recommended for these lesions per consensus recommendations based on imaging criteria. Radiation Dose CTDIVOL = (mGy): DLP = 1839.12 (mGy-cm) Chest X-Ray 06/06/21 18:21 IMPRESSION: Left costophrenic blunting relating to scarring versus small volume pleural effusion. Otherwise, no acute findings. Radiation Dose CTDIVOL = (mGy): DLP = (mGy-cm) Scrotum Ultrasound 06/06/21 19:36 IMPRESSION: 1. Negative for testicular torsion. 2. Swelling of the scrotal wall. Radiation Dose CTDIVOL = (mGy): DLP = (mGy-cm) Microbiology 06/07/21 17:48 Urine Catheterized Urine Culture - Preliminary Yeast species 06/06/21 22:00 Urine,Clean Catch Urine Culture - Preliminary Yeast 06/06/21 21:19 Blood Blood Culture - Preliminary NEGATIVE TO DATE 06/06/21 21:19 Blood Blood Culture - Preliminary NEGATIVE TO DATE Vitals: Last Vital Signs Temp 98.3 F 06/10/21 07:30 Pulse 72 06/10/21 08:30 Resp 14 06/10/21 08:30 BP 126/62 06/10/21 08:30 Pulse Ox 97 06/10/21 08:30 Discharge Plan Discharge Patient Disposition: Home Health Service Condition: Stable Prescriptions: New fluconazole 100 mg Tablet 100 mg PO DAILY 10 Days Qty: 10 RF: 0 midodrine 5 mg Tablet 5 mg PO TID 30 Days Qty: 90 RF: 0 midodrine 5 mg tablet 5 mg PO .monwedfri Qty: 30 RF: 0 nystatin 100,000 unit/gram Cream 1 applic topical BID 30 Days Qty: 15 RF: 0 Secura Protective (zinc oxide) 10 % cream 1 applic topical BID Qty: 78 RF: 0 Continued Lantus U-100 Insulin 100 unit/mL solution 5 unit SUBCUT DAILY RF: 0 cyanocobalamin (vitamin B-12) [Vitamin B-12] 500 mcg Tablet 500 mcg PO DAILY RF: 0 Glucosamine Chondroitin 550-30-1 mg Capsule 1 cap PO DAILY RF: 0 atorvastatin 40 mg tablet 40 mg PO DAILY RF: 0 allopurinol 100 mg tablet 100 mg PO DAILY RF: 0 pregabalin 25 mg capsule 25 mg PO BEDTIME RF: 0 aspirin 81 mg Tablet,Delayed Release (Dr/Ec) 81 mg PO DAILY 30 Days Qty: 30 RF: 0 clopidogrel 75 mg Tablet 75 mg PO DAILY 30 Days Qty: 30 RF: 0 ergocalciferol (vitamin D2) [Vitamin D2] 1,250 mcg (50,000 unit) Capsule 50,000 unit PO Q7D 30 Days Qty: 4 RF: 0 sucralfate 1 gram Tablet 1 g PO AC&BEDTIME 30 Days Qty: 60 RF: 0 nitroglycerin 0.4 mg Tablet, Sublingual 0.4 mg sublingual Q5M PRN (Reason: Chest Pain) 30 Days Qty: 30 RF: 0 pantoprazole 40 mg tablet,delayed release (DR/EC) 40 mg PO BID Qty: 0 RF: 0 Changed furosemide 40 mg Tablet 60 mg PO BID@08,16 30 Days Qty: 120 RF: 0 Discontinued cephalexin 250 mg capsule 250 mg PO BID 7 Days Qty: 14 RF: 0 metoprolol succinate 25 mg Tablet Extended Release 24 Hr 12.5 mg PO BID 30 Days Qty: 30 RF: 0 Discharge Orders: Discharge Order (Routine); Ordered 06/10/21 Ordered By: Atul Jackson Referrals: [facility] [Outside] Malaika Mayorga MD [Primary Care Provider] - 7-10 days [facility], [Staff Physician] - 4-7 days Discharge Diet: Cardiac and Diabetic Discharge Activity: Resume usual activity and Increase activity as tolerated Patient Instructions: Opioid Safety Activity Restrictions/Additional Instructions: Use zinc oxide on the excoriated perineum and penile area. Follow-up with wound care center as directed. Metoprolol has been stopped. Taking midodrine 5 mg 3 times a day daily and an extra tablet of 5 mg on day of dialysis. Take fluconazole for next 10 days to finish a course of antifungals. Please try to increase your physical activities as discussed in detail. Please follow-up with cardiology for further work-up of severe aortic stenosis with ischemic cardiomyopathy Discharge Attestations Time Spent in Discharge Care*: greater than 30 min Specific Discharge Activities: educating patient, educating and/or supporting family/caregiver, discussing with pcp/other providers, discussing with case resource manager/social workers/dc planners, documenting/other paperwork and evaluating patient/reviewing data Quality Metrics Clinical Quality Measures During this hospital stay, did patient experience: None Coding Level of Care Code Acute [facility] note Diagnoses Urinary tract infection N39.0 Hypotension I95.9 Septic shock A41.9; R65.21 Acute metabolic encephalopathy G93.41 Ischemic cardiomyopathy I25.5 Severe calcific aortic valve stenosis I35.0 Bradycardia R00.1 CHF (congestive heart failure) I50.33 Heart failure type: diastolic Heart failure chronicity: acute on chronic Type 2 diabetes mellitus E11.9; Z79.4 Diabetes mellitus shelter insulin use: with shelter use Diabetes mellitus complication status: without complication Right kidney mass N28.89 Thrombocytopenia D69.6 Anemia D64.9 Physical deconditioning R53.81 Anasarca R60.1
[2021-06-10] MEDS: insulin lispro 100 unit/1 mL SUBCUT (11:16)
--- NOTE | 2021-06-10 11:49 | PM.PN ---
Subjective Subjective: Interval history: No new issues today. Vega catheter removed yesterday. Still has not voided. Bladder scan performed by nursing staff revealing very small volume of urine in the bladder. Claims not to be drinking fluids as he cannot reach the cups of fluid on his tray. He claims this is the reason why he is oliguric. No uremic symptoms. Medications: Reviewed: Yes Medication Review Details: Current Medications Acetaminophen (Acetaminophen 325 Mg Tablet) 650 mg PO Q6H PRN PRN Reason: Mild/Mod Pain Or Temp >/= 101 Last Admin: 06/08/21 23:52 Dose: 650 mg Documented by: Aspirin (Aspirin 81 Mg Ec Tablet) 81 mg PO DAILY [facility] Last Admin: 06/09/21 08:05 Dose: 81 mg Documented by: Atorvastatin Calcium (Atorvastatin 40 Mg Tablet) 40 mg PO DAILY [facility] Last Admin: 06/09/21 08:05 Dose: 40 mg Documented by: Clopidogrel Bisulfate (Clopidogrel 75 Mg Tablet) 75 mg PO DAILY [facility] Last Admin: 06/09/21 08:05 Dose: 75 mg Documented by: Dextrose (Dextrose 50% Syringe 50 Ml) 25 ml IVP ONCE PRN; Protocol PRN Reason: hypoglycemia protocol Dextrose (Dextrose 50% Syringe 50 Ml) 50 ml IVP PRN PRN; Protocol PRN Reason: hypoglycemia protocol Fluconazole (Fluconazole 100 Mg Tablet) 100 mg PO DAILY [facility] Stop: 06/16/21 10:59 Last Admin: 06/09/21 11:27 Dose: 100 mg Documented by: Glucagon (Glucagon 1 Mg/Ml Inj 1 Ml) 1 mg IM ONCE PRN; Protocol PRN Reason: Adult Acute Hypoglycemia Prot. Norepinephrine Bitartrate 4 mg (/ Dextrose) 254 mls @ 0 mls/hr IV .Q0M [facility]; Protocol Last Titration: 06/09/21 07:49 Dose: 1 mcg/min, 3.81 mls/hr Documented by: Piperacillin Sod/Tazobactam (Sod 3.375 gm/ Sodium Chloride) 50 mls @ 12.5 mls/hr IV Q8H [facility]; Protocol Stop: 06/12/21 00:14 Last Admin: 06/09/21 13:38 Dose: 12.5 mls/hr Documented by: Dextrose (D5w) 500 mls @ 100 mls/hr IV ONCE PRN; Protocol PRN Reason: Adult Acute Hypoglycemia Prot Insulin Glargine (Insulin Glargine 100 Units/1 Ml) 5 unit SUBCUT DAILY [facility] Last Admin: 06/09/21 08:04 Dose: 5 unit Documented by: Insulin Human Lispro (Insulin Lispro 100 Unit/1 Ml) 0 unit SUBCUT TIDAC [facility]; Protocol Last Admin: 06/09/21 11:27 Dose: 2 unit Documented by: Midodrine (Midodrine 5 Mg Tablet) 5 mg PO TID [facility] Nystatin (Nystatin Cream 30 Gm) 1 applic TOPICAL BID [facility] Last Admin: 06/09/21 09:33 Dose: 1 applic Documented by: Ondansetron HCl (Ondansetron 2 Mg/Ml Sdv 2 Ml) 4 mg IVP Q8H PRN PRN Reason: vomiting, or N/V if npo Pantoprazole Sodium (Pantoprazole Dr 40 Mg Tablet) 40 mg PO BID PRN PRN Reason: Acid Reflux Pregabalin (Pregabalin 25 Mg Capsule) 25 mg PO BEDTIME [facility] Last Admin: 06/08/21 20:34 Dose: 25 mg Documented by: Sucralfate (Sucralfate 1 Gm Tablet) 1 gm PO AC&BEDTIME [facility] Last Admin: 06/09/21 11:27 Dose: 1 gm Documented by: Tramadol HCl (Tramadol 50 Mg Tablet) 50 mg PO Q6H PRN PRN Reason: MODERATE PAIN Last Admin: 06/09/21 06:25 Dose: 50 mg Documented by: Vitals/I&O/Wt Last Vital Signs Temp 98.3 F 06/10/21 07:30 Pulse 72 06/10/21 08:30 Resp 14 06/10/21 08:30 BP 126/62 06/10/21 08:30 Pulse Ox 97 06/10/21 08:30 06/09/21 06/10/21 06/10/21 22:59 06:59 14:59 Intake Total 50 / 544.894 290 / 834.894 Output Total 0 / 2169 Balance 50 / -1624.106 290 / -1334.106 Weight last 48 hrs Weight 86.863 kg Weight 87.4 kg Weight 83.42 kg Physical Exam Narrative: EXAM NARRATIVE: Constitutional: Awake, comfortable HEENT: Wet mucosa, no jvp, non icteric Lungs: Bilaterally clear without discernible wheeze or rales in all lung zones CVS: S1 S2, no murmurs Abdo: Soft, BS ok Ext 4: 2-3+ edema, peripheral perfusion with no cyanosis Neurological: Grossly non-focal Urinary Catheter Management^: Vega: Cath Placed During This Visit: yes, but has since been removed by the nurse Reason for Continuing Indwelling Catheter: Accurate Measurement of Urinary Output in Critically Ill Patients Date Urinary Catheter Removed: 06/09/21 Time Urinary Catheter Discontinued: 15:00 Data : 06/10/21 07:57 06/10/21 07:57 Micro: Microbiology 06/07/21 17:48 Urine Culture - Preliminary Urine Catheterized Yeast species A&P Additional A&P Information 1. Renal failure He was recently diagnosed with end-stage kidney disease, secondary to cardiorenal syndrome, age-related nephron attrition, likely significant underlying renovascular disease. I will plan to dialysis again on Wednesday; gentle UF given poor EF and Daily evaluation for need for dialysis Dose medication for GFR less than 15 on dialysis 2. Inability to void It is felt that given the significant edema that he has in his scrotum and lower abdominal wall this is contributing to his inability to void. To be clear, I have impressed the importance of monitoring for problems avoiding over the next few days as he slowly accumulates urine. He claims that his oral intake is poor because he could not reach the fluid on the tray although he is obviously consuming fluid in front of us. He presented with this problem and I feel that he is high risk for returning to the hospital if this is not monitored closely as an outpatient. Unfortunately he lacks the understanding to acknowledge my concerns. 3. Chemistry Minor noncritical aberration, continue to follow closely over the next few days. 4. Hemodynamics He has ejection fraction of 25% to moderate aortic stenosis, he is currently on low-dose Levophed and has a soft blood pressure. Is likely he will be somewhat preload dependent and this will limit our ability to significantly ultrafiltrate him. Pressors now off 5. Disposition From my own perspective he can be discharged with close follow-up from his outpatient team. Thank you for consultation, it is a pleasure to follow these cases with you Exam and interview performed with aid of bedside RN using telemedicine Time spent 20 min inc > 50% of time in face to face counseling Allan Alejandra MD [facility] [phone] Attestations Medical Necessity Statement*: Eval for ESRD Coding Level of Care Code Acute [employer] Attendant for Willie Wilks
--- NOTE | 2021-06-10 12:45 | PC.NURSE ---
Bladder scan was done and 19mL was found in the bladder.
--- NOTE | 2021-06-10 13:05 | PC.OT ---
Patient held due to scheduled discharge
--- NOTE | 2021-06-10 13:31 | PC.NURSE ---
Patients son was in room and assisting patient get into wheelchair for discharge. Son wrapped arms around patient, picked him up and transferred him to chair. All discharge instructions were given and demonstrated to and son. Patient was taken to personal vehicle where son placed patient in vehicle at 1315.
[2021-06-11 12:33] LABS: Glucose Point of Care 132 mg/dL (70-110)
[2021-06-11 12:33] LABS: Glucose Point of Care 122 mg/dL (70-110)
[2021-06-11 12:33] LABS: Glucose Point of Care 240 mg/dL (70-110)
[2021-06-11 12:33] LABS: Glucose Point of Care 129 mg/dL (70-110)
[2021-06-11 12:33] LABS: Glucose Point of Care 166 mg/dL (70-110)
[2021-06-11 12:33] LABS: Glucose Point of Care 178 mg/dL (70-110)
[2021-06-11 12:34] LABS: Glucose Point of Care 266 mg/dL (70-110)
[2021-06-11 12:34] LABS: Glucose Point of Care 151 mg/dL (70-110)
[2021-06-11 12:34] LABS: Glucose Point of Care 192 mg/dL (70-110)
--- NOTE | 2021-06-12 10:26 | PC.SOCIAL ---
discharge follow up call made. spoke with pts son. pts son was very upset with the care his father received at [facility]. son reports he has recently been admitted twice and the care both times was so poor, we won't be coming back during phone call home health was in the home, speaking with a doctor regarding pt not urinating since being home. per son pt had a murphy during his hospital stay. The murphy was removed prior to discharge, pt didn't voided prior to leaving [facility]. (it is documented pt had 19 ml of urine in his bladder) Son states he hasn't urinated since being home. (pt is a dialysis patient) son also reported after being discharged the previous time pt had to be flown back to our facility due to bleeding around his dialysis port because the port wasn't stitched in. They were unable to control the bleeding at home. Son reports his father has a wound on his penis that wasn't addressed during his stay either. son is requesting pt to be admitted to a SNF. son states he can't even walk, i had to lift him to put him in the w/c and then into the car son is requesting [facility] SNF. press writer will try to get SNF set up for patient.
--- NOTE | 2021-06-12 12:27 | PC.SOCIAL ---
spoke with [facility], they are needing a doctors order for SNF placement. I spoke with Dr. Jackson, he wants display card writer to get the order from pts pcp. Called and spoke with Jenelle, at the [facility], she will send a request to Dr. Mayorga. Called and spoke with pts and let her know that [facility] is reviewing paperwork and that as soon as i know more i will call and update.
--- NOTE | 2021-06-12 15:06 | PC.SOCIAL ---
order for prison placement entered by Dr. Mayorga, faxed to Nilsa Hassan, called and let nilsa hassan know i faxed the referral. Spoke with Lynn.
--- NOTE | 2021-06-12 15:09 | PC.SOCIAL ---
family updated at this time regarding order being faxed to [facility].
--- NOTE | 2021-06-13 08:46 | PC.SOCIAL ---
spoke with patients . let her know that Pauline Casillas accepted. # given because had several questions regarding insurance.
== END 2021-06-10 13:15 | disposition home health service (06) | DRG 871 ==
LOC: ER 21:48 → MEDSURG 22:47 → ICU 23:51
PROVIDERS: Internal Medicine; Admitting Provider Internal Medicine; Emergency Provider Emergency Medicine; PCP Family Medicine; Visit Provider Student in an Organized Health Care Education/Training Program
DX: A41.9 Sepsis, unspecified organism (principal); R65.21 Severe sepsis with septic shock; I50.33 Acute on chronic diastolic (congestive) heart failure; N18.6 End stage renal disease; G93.41 Metabolic encephalopathy; I13.2 Hypertensive heart and chronic kidney disease with heart failure and with stage 5 chronic kidney disease, or end stage renal disease; N39.0 Urinary tract infection, site not specified; N17.9 Acute kidney failure, unspecified; E11.22 Type 2 diabetes mellitus with diabetic chronic kidney disease; Z99.2 Dependence on renal dialysis; E11.42 Type 2 diabetes mellitus with diabetic polyneuropathy; E78.5 Hyperlipidemia, unspecified; I25.5 Ischemic cardiomyopathy; I25.10 Atherosclerotic heart disease of native coronary artery without angina pectoris; Z95.1 Presence of aortocoronary bypass graft; I25.2 Old myocardial infarction; M10.9 Gout, unspecified; Z87.891 Personal history of nicotine dependence; I95.9 Hypotension, unspecified; Z79.02 Long term (current) use of antithrombotics/antiplatelets; Z79.4 Long term (current) use of insulin; B37.9 Candidiasis, unspecified; I72.8 Aneurysm of other specified arteries; D63.1 Anemia in chronic kidney disease; D69.6 Thrombocytopenia, unspecified; N28.89 Other specified disorders of kidney and ureter; I35.0 Nonrheumatic aortic (valve) stenosis
CPT/HCPCS: 36415; 36416; 51798; 71045; 74176; 76870; 80048; 80053; 80500; 81001; 82962; 83010; 83605; 83615; 83735; 83880; 84100; 84145; 84439; 84443; 84484; 85025; 87040; 87086; 87106; 90935; 93005; 93926; 93976; 96372; 96374; 96376; 97110; 97161; 97165; 97530; 99285; J0696; J1644; J1815 ×2; J2270; J2310; J2543; J7050; Q3014